=== PATIENT | female | born 1950 | race Two or more races ===

== ENCOUNTER 2017-11-15 19:16 | Inpatient (IN) | payer OTHER, MEDICARE ==
[~2017-11-15] VITALS: Ht 162.6 cm; Wt 71.3 kg
[2017-11-15 19:30] VITALS: BP 154/82
[2017-11-15] MEDS ORDERED: Albuterol/Ipratropium 3ml neb HHN ONE (19:45)
[2017-11-15] MEDS ORDERED: Solu-MEDROL 125mg Inj IVP ONE (20:00)
[2017-11-15 20:24] LABS: BASOPHILS % (AUTO) 0.3 % (0.0-2.0); EOSINOPHILS % (AUTO) 1.1 % (0.0-3.0); HEMATOCRIT 41.6 % (37.0-47.0); HEMOGLOBIN 12.7 G/DL (12.0-16.0); LYMPHOCYTES % (AUTO) 10.8 % (20.0-45.0); MEAN CORPUSCULAR VOLUME 79 FL (80-99); MONOCYTES % (AUTO) 5.7 % (1.0-10.0); NEUTROPHILS % (AUTO) 82.1 % (45.0-75.0); PLATELET COUNT 333 K/UL (150-450); RED BLOOD COUNT 5.28 M/UL (4.20-5.40); RED CELL DISTRIBUTION WIDTH 16.4 % (11.6-14.8); WHITE BLOOD COUNT 15.1 K/UL (4.8-10.8)
[2017-11-15 20:43] LABS: ANION GAP 3 mmol/L (5-15); BLOOD UREA NITROGEN 8 mg/dL (7-18); CALCIUM 9.2 MG/DL (8.5-10.1); CARBON DIOXIDE 34 MMOL/L (21-32); CHLORIDE 92 MMOL/L (98-107); CREATININE 0.5 MG/DL (0.55-1.30); POTASSIUM 5.4 MMOL/L (3.5-5.1); SODIUM 129 MMOL/L (136-145)
[2017-11-15 20:55] LABS: ALANINE AMINOTRANSFERASE 16 U/L (12-78); ALBUMIN 2.8 G/DL (3.4-5.0); ALBUMIN/GLOBULIN RATIO 0.8 (1.0-2.7); ALKALINE PHOSPHATASE 118 U/L (46-116); ASPARTATE AMINO TRANSFERASE 10 U/L (15-37); BILIRUBIN,TOTAL 0.5 MG/DL (0.2-1.0); CKMB 1.4 NG/ML (0.0-3.6); CREATINE KINASE 23 U/L (26-308); PHOSPHORUS 3.7 MG/DL (2.5-4.9)
[2017-11-15 21:30] VITALS: BP 173/88
[2017-11-15] MEDS ORDERED: Succinylcholine 20mg/ml 10ml vial IV ONE (22:45)
[2017-11-15] MEDS ORDERED: Albuterol/Ipratropium 3ml neb HHN PRN (22:45)
[2017-11-15] MEDS ORDERED: Calcium Gluconate 1gm/10ml vial IVP ONE (22:45)
[2017-11-15] MEDS ORDERED: Etomidate 40mg/20ml Inj IV ONE (22:45)
[2017-11-15] MEDS ORDERED: Morphine Sulfate 4mg/ml Inj IVP PRN (23:00)
[2017-11-15] MEDS ORDERED: Ampicillin/Sulbactam Sod 3 GM in NS 110 ML IVPB ONE (23:15)
[2017-11-15 23:30] VITALS: BP 125/83
[2017-11-15] MEDS ORDERED: Unasyn 3gm Inj ONE (23:45)
[2017-11-16] VITALS (37 sets, daily range): BP systolic 91–157; BP diastolic 40–111
[2017-11-16 04:34] LABS: HEMATOCRIT 34.3 % (37.0-47.0); HEMOGLOBIN 10.6 G/DL (12.0-16.0); MEAN CORPUSCULAR VOLUME 77 FL (80-99); PLATELET COUNT 209 K/UL (150-450); RED BLOOD COUNT 4.43 M/UL (4.20-5.40); RED CELL DISTRIBUTION WIDTH 16.1 % (11.6-14.8); WHITE BLOOD COUNT 6.1 K/UL (4.8-10.8)
[2017-11-16 04:58] LABS: ALANINE AMINOTRANSFERASE 10 U/L (12-78); ALBUMIN 2.2 G/DL (3.4-5.0); ALBUMIN/GLOBULIN RATIO 0.8 (1.0-2.7); ALKALINE PHOSPHATASE 89 U/L (46-116); ANION GAP 5 mmol/L (5-15); ASPARTATE AMINO TRANSFERASE 9 U/L (15-37); BILIRUBIN,TOTAL 0.5 MG/DL (0.2-1.0); BLOOD UREA NITROGEN 10 mg/dL (7-18); CALCIUM 8.4 MG/DL (8.5-10.1); CARBON DIOXIDE 34 MMOL/L (21-32); CHLORIDE 94 MMOL/L (98-107); CREATININE 0.5 MG/DL (0.55-1.30); PHOSPHORUS 3.6 MG/DL (2.5-4.9); POTASSIUM 4.1 MMOL/L (3.5-5.1); SODIUM 132 MMOL/L (136-145)
--- NOTE | 2017-11-16 06:09 | History and Physical ---
History of Present Illness General Date patient seen: Nov 16, 2017 Reason for Hospitalization: Dyspnea/Respdistress Present Illness HPI 67 year old female wtih hx of DM, htn, COPD brought in with paramedics in respiratory failure. Pt was diagnosed to have pulmonary edema, leukocytosis. She received Lasix and Unasyn in ER. She was intubated, started on Propofol drip and transferred to ICU. there is no other history available. Allergies: Coded Allergies: No Known Allergies (Unverified , 11/15/17) Medication History Unable to Obtain Active Prescriptions or Reported Meds Patient History Healthcare decision maker Resuscitation status Full Code Advanced Directive on File Past Medical/Surgical History Past Medical/Surgical History: (1) History of hypertension (2) Diabetes mellitus (3) COPD (chronic obstructive pulmonary disease) Review of Systems All Other Systems: negative except mentioned in HPI Physical Exam General Appearance: WD/WN Lines, tubes and drains: peripheral, endotracheal tube HEENT: normocephalic Neck: non-tender, normal alignment Respiratory/Chest: chest wall non-tender, lungs clear Breasts: no masses Cardiovascular/Chest: normal peripheral pulses Abdomen: normal bowel sounds, non tender Genitourinary/Rectal: normal rectal exam Extremities: normal range of motion Last 24 Hour Vital Signs Date Time Temp Pulse Resp B/P (MAP) Pulse Ox O2 Delivery O2 Flow Rate FiO2 11/16/17 05:09 81 16 40 11/16/17 05:00 20 11/16/17 04:00 81 11/16/17 04:00 98.6 81 15 104/40 96 Mechanical Ventilator 40 11/16/17 04:00 40 11/16/17 04:00 14 11/16/17 03:12 76 16 40 11/16/17 03:00 79 16 113/43 97 Mechanical Ventilator 40 11/16/17 03:00 16 11/16/17 02:00 76 14 123/41 96 Mechanical Ventilator 40 11/16/17 02:00 16 11/16/17 01:00 16 11/16/17 01:00 76 18 116/43 95 Mechanical Ventilator 40 11/16/17 00:58 76 16 40 11/16/17 00:00 97.7 82 18 132/60 99 Mechanical Ventilator 40 11/16/17 00:00 18 11/16/17 00:00 79 11/16/17 00:00 40 11/15/17 22:57 27 11/15/17 22:45 88 22 40 11/15/17 20:00 82 24 99 Facial 99 11/15/17 19:30 97.3 18 154/82 91 Room Air 11/15/17 19:30 84 18 Room Air 11/15/17 19:21 97.3 84 18 154/82 84 Room Air Intake and Output 11/15/17 11/16/17 19:00 07:00 Intake Total 30.94 ml Output Total 1230 ml Balance -1199.06 ml Intake Oral 0 ml IV Total 30.94 ml Output Urine Total 1230 ml Laboratory Tests Test 11/15/17 19:40 11/15/17 19:42 11/15/17 22:46 11/16/17 04:00 White Blood Count 15.1 K/UL (4.8-10.8) H 6.1 K/UL (4.8-10.8) # Red Blood Count 5.28 M/UL (4.20-5.40) 4.43 M/UL (4.20-5.40) Hemoglobin 12.7 G/DL (12.0-16.0) 10.6 G/DL (12.0-16.0) L Hematocrit 41.6 % (37.0-47.0) 34.3 % (37.0-47.0) L Mean Corpuscular Volume 79 FL (80-99) L 77 FL (80-99) L Mean Corpuscular Hemoglobin 24.1 PG (27.0-31.0) L 23.8 PG (27.0-31.0) L Mean Corpuscular Hemoglobin Concent 30.6 G/DL (32.0-36.0) L 30.8 G/DL (32.0-36.0) L Red Cell Distribution Width 16.4 % (11.6-14.8) H 16.1 % (11.6-14.8) H Platelet Count 333 K/UL (150-450) 209 K/UL (150-450) Mean Platelet Volume 6.2 FL (6.5-10.1) L 6.2 FL (6.5-10.1) L Neutrophils (%) (Auto) 82.1 % (45.0-75.0) H % (45.0-75.0) Lymphocytes (%) (Auto) 10.8 % (20.0-45.0) L % (20.0-45.0) Monocytes (%) (Auto) 5.7 % (1.0-10.0) % (1.0-10.0) Eosinophils (%) (Auto) 1.1 % (0.0-3.0) % (0.0-3.0) Basophils (%) (Auto) 0.3 % (0.0-2.0) % (0.0-2.0) Sodium Level 129 MMOL/L (136-145) L 132 MMOL/L (136-145) L Potassium Level 5.4 MMOL/L (3.5-5.1) H 4.1 MMOL/L (3.5-5.1) Chloride Level 92 MMOL/L (98-107) L 94 MMOL/L (98-107) L Carbon Dioxide Level 34 MMOL/L (21-32) H 34 MMOL/L (21-32) H Anion Gap 3 mmol/L (5-15) L 5 mmol/L (5-15) Blood Urea Nitrogen 8 mg/dL (7-18) 10 mg/dL (7-18) Creatinine 0.5 MG/DL (0.55-1.30) L 0.5 MG/DL (0.55-1.30) L Estimat Glomerular Filtration Rate > 60 mL/min (>60) > 60 mL/min (>60) Glucose Level 181 MG/DL (74-106) H 226 MG/DL (74-106) H Lactic Acid Level 1.10 mmol/L (0.66-2.22) Calcium Level 9.2 MG/DL (8.5-10.1) 8.4 MG/DL (8.5-10.1) L Phosphorus Level 3.7 MG/DL (2.5-4.9) 3.6 MG/DL (2.5-4.9) Magnesium Level 1.9 MG/DL (1.8-2.4) 1.5 MG/DL (1.8-2.4) L Total Bilirubin 0.5 MG/DL (0.2-1.0) 0.5 MG/DL (0.2-1.0) Aspartate Amino Transf (AST/SGOT) 10 U/L (15-37) L 9 U/L (15-37) L Alanine Aminotransferase (ALT/SGPT) 16 U/L (12-78) 10 U/L (12-78) L Alkaline Phosphatase 118 U/L (46-116) H 89 U/L (46-116) Total Creatine Kinase 23 U/L (26-308) L Creatine Kinase MB 1.4 NG/ML (0.0-3.6) Creatine Kinase MB Relative Index 6.0 Troponin I 0.003 ng/mL (0.000-0.056) 0.007 ng/mL (0.000-0.056) Pro-B-Type Natriuretic Peptide 677 pg/mL (0-125) H Total Protein 6.5 G/DL (6.4-8.2) 5.0 G/DL (6.4-8.2) L Albumin 2.8 G/DL (3.4-5.0) L 2.2 G/DL (3.4-5.0) L Globulin 3.7 g/dL 2.8 g/dL Albumin/Globulin Ratio 0.8 (1.0-2.7) L 0.8 (1.0-2.7) L Arterial Blood pH 7.263 (7.350-7.450) 7.329 (7.350-7.450) Arterial Blood Partial Pressure CO2 73.1 mmHg (35.0-45.0) *H 60.5 mmHg (35.0-45.0) *H Arterial Blood Partial Pressure O2 148.0 mmHg (75.0-100.0) H 100.4 mmHg (75.0-100.0) H Arterial Blood HCO3 32.3 mmol/L (22.0-26.0) H 31.1 mmol/L (22.0-26.0) H Arterial Blood Oxygen Saturation 98.2 % (92.0-98.0) H 96.6 % (92.0-98.0) Arterial Blood Base Excess 3.3 3.7 Rolf Test Positive Positive Differential Total Cells Counted 100 Neutrophils % (Manual) 89 % (45-75) H Lymphocytes % (Manual) 10 % (20-45) L Monocytes % (Manual) 1 % (1-10) Eosinophils % (Manual) 0 % (0-3) Basophils % (Manual) 0 % (0-2) Band Neutrophils 0 % (0-8) Platelet Estimate Adequate Platelet Morphology Normal Height (Feet): 5 Height (Inches): 4.00 Weight (Pounds): 175 Medications Current Medications Medications (Trade) Dose Ordered Sig/Edwin Route PRN Reason Start Time Stop Time Status Last Admin Dose Admin Acetaminophen (Tylenol) 650 mg Q4H PRN ORAL Fever 11/15/17 22:45 12/15/17 22:44 Albuterol/ Ipratropium (Albuterol/ Ipratropium) 3 ml Q4H PRN HHN Shortness of Breath 11/15/17 22:45 11/20/17 22:44 Dextrose (Dextrose 50%) STAT PRN IV Hypoglycemia 11/15/17 22:45 12/15/17 22:44 Furosemide (Lasix) 40 mg EVERY 8 HOURS IV 11/15/17 22:33 12/15/17 22:32 11/16/17 05:37 Heparin Sodium (Porcine) (Heparin 5000 units/ml) 5,000 units EVERY 12 HOURS SUBQ 11/16/17 09:00 12/16/17 08:59 Lorazepam (Ativan 2mg/ml 1ml) 2 mg Q4H PRN IV For Anxiety 11/15/17 23:00 11/22/17 22:59 Morphine Sulfate (Morphine Sulfate) 4 mg Q4H PRN IVP For Pain 11/15/17 23:00 11/22/17 22:59 Ondansetron HCl (Zofran) 4 mg Q6H PRN IVP Nausea & Vomiting 11/15/17 22:45 12/15/17 22:44 Pantoprazole (Protonix) 40 mg DAILY IV 11/16/17 09:00 12/16/17 08:59 Polyethylene Glycol (Miralax) 17 gm DAILYPRN PRN ORAL Constipation 11/15/17 22:45 12/15/17 22:44 Propofol 100 ml @ 0 mls/hr Q24H IV 11/15/17 22:45 11/17/17 22:44 11/15/17 22:57 Temazepam (Restoril) 15 mg HSPRN PRN ORAL Insomnia 11/15/17 22:45 11/22/17 22:44 Assessment/Plan Problem List: (1) Acute respiratory failure ICD Codes: J96.00 - Acute respiratory failure, unspecified whether with hypoxia or hypercapnia SNOMED: 82174640 (2) Pulmonary edema ICD Codes: J81.1 - Chronic pulmonary edema SNOMED: 69499959 (3) Pleural effusion ICD Codes: J90 - Pleural effusion, not elsewhere classified SNOMED: 74240846 (4) COPD (chronic obstructive pulmonary disease) ICD Codes: J44.9 - Chronic obstructive pulmonary disease, unspecified SNOMED: 73727800 (5) History of hypertension ICD Codes: Z86.79 - Personal history of other diseases of the circulatory system SNOMED: 821335788 (6) Diabetes mellitus ICD Codes: E11.9 - Type 2 diabetes mellitus without complications SNOMED: 79007608 Respiratory: monitor respiratory rate, adjust FIO2, CXR Cardiac: continue to monitor HR/BP Renal: F/U I&O, keep IV fluid Infectious Disease: check cultures Gastrointestinal: continue feedings/current rate Endocrine: monitor blood sugar, continue sliding scale insulin Hematologic: monitor H/H, transfuse if hgb<8.5 Affect: PRN ativan Prophylaxis: Protonix, Heparin 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
[2017-11-16] MEDS: NovoLOG Insulin Flexpen SUBQ SCH ×4 (06:28→23:47)
[2017-11-16] MEDS ORDERED: fentaNYL Citrate 2,500 MCG in NS 200 ML IV SCH (06:30)
[2017-11-16] MEDS: LORazepam Inj 2mg/ml 1ml IV PRN ×3 (07:30→21:44)
[2017-11-16] MEDS: Pantoprazole Inj IV SCH (08:26)
[2017-11-16] MEDS: Heparin 5000 units/ml inj SUBQ SCH ×2 (08:27→21:17)
[2017-11-16] MEDS: Piperacillin/Tazobactam 3.375 GM in NS 110 ML IVPB SCH ×2 (08:58→15:23)
--- NOTE | 2017-11-16 11:17 | Diagnostic Imaging Report ---
Indication: Shortness of breath Technique: XRAY Chest 1v Comparison: None Findings: Heart borders are obscured. There is bilateral interstitial opacification/edema. There is patchy airspace opacities bilaterally, right greater than left. Small bilateral pleural effusions with bibasilar atelectasis/consolidation. No definite pneumothorax. No acute osseous abnormality appreciated. IMPRESSION: Interstitial and bilateral airspace opacities with small bilateral pleural effusions. Findings may be related to CHF/pulmonary edema. Superimposed pneumonia not entirely excluded. Clinical correlation and follow-up exam recommended.
--- NOTE | 2017-11-16 11:53 | Diagnostic Imaging Report ---
Indication: Shortness of breath Technique: XRAY Chest 1v Comparison: Earlier the same day. Findings: Patient significantly rotated to the left. Status post interval endotracheal intubation. ET tube tip above the vinicius. There is persistent interstitial and patchy bilateral airspace opacities with probable small bilateral pleural effusions. Apparent worsening of findings on the right likely related to rotation. IMPRESSION: Status post endotracheal intubation. ET tube tip above the level of the vinicius. Additional findings without significant change compared to the prior exam.
--- NOTE | 2017-11-16 11:54 | Diagnostic Imaging Report ---
Indication: Shortness of breath Technique: XRAY Chest 1v Comparison: 11/15/2017 Findings: ET tube tip above the level the vinicius. Interval placement of NG tube, which courses below level of diaphragms, tip beyond the inferior margin of the film. Heart and mediastinal contours are obscured but likely stable. Persistent interstitial opacification and patchy bilateral airspace opacities with slight worsening of aeration of the right base. Probable small bilateral pleural effusions. No definite pneumothorax. IMPRESSION: Persistent interstitial and patchy bilateral airspace opacities with pleural effusions, right greater than left. Slight worsening of aeration of the right lower lung compared to one day prior. Interval placement of NG tube which courses below level of diaphragms, tip beyond the inferior margin of the study.
--- NOTE | 2017-11-16 13:05 | Emergency Room Report ---
History of Present Illness General Chief Complaint: Dyspnea/Respdistress Source: Patient Present Illness HPI Patient is a 67 year old female who presented after increased difficulty breathing. Patient had reportedly been ill for several days. She was noted to have increased difficulty with breathing and cough which was non productive. She had prior history of COPD. She was noted to be somewhat confused. Hx is markedly limited by shortness of breath and mental status. Allergies: Coded Allergies: No Known Allergies (Unverified , 11/15/17) Patient History Now: No Reviewed Nursing Documentation: PMH: Agreed, PSxH: Agreed Nursing Documentation-PMH Past Medical History Deferred: Patient Unconscious Hx Hypertension: Yes Hx COPD: Yes Hx Diabetes: Yes Hx Cancer: No Hx Gastrointestinal Problems: No Hx Neurological Problems: No Review of Systems All Other Systems: limited - by mental status and shortness of breath Physical Exam Vital Signs Date Time Temp Pulse Resp B/P (MAP) Pulse Ox O2 Delivery O2 Flow Rate FiO2 11/15/17 19:21 97.3 84 18 154/82 84 Room Air 11/15/17 20:00 99 Sp02 EP Interpretation: abnormal - hypoxic General Appearance: alert, severe distress, Chronically Ill ENT: TMs + canals normal, uvula midline, other - dentures Neck: limited range of motion, other - jvd Respiratory: respiratory distress, accessory muscle use, rales Cardiovascular #1: normal peripheral pulses, regular rate, rhythm Gastrointestinal: non tender, hernia - umbilical hernia, other Musculoskeletal: normal inspection, back normal, digits/nails normal Neurologic: mental hygienist III-XII nml as tested, motor strength/tone normal, other - awake alert confused, moves all extremities Psychiatric: other - poor insight, confused Skin: cyanosis Procedures Critical Care Time Critical Care Time Critical care time excluding separately billed procedures was approximately 45 minutes. Intubation Intubation : Consent: Emergent Intubation Method: orotracheal Tube Size (cm): 7.0 Medications: Etomidate, Succinylcholine Breath Sounds after Intubation: equal Intubation Complications: no complications Post Intubation Xray: Yes Progress/Xray Impression: CXR showed low but adequate ett and worsening pulmonary edema Attempts: One Patient Tolerated: Well Complications: None Progress Dentures were removed. Rn advised to keep with patient belonging. Medical Decision Making Diagnostic Impression: Primary Impression: COPD (chronic obstructive pulmonary disease) Additional Impressions: Acute respiratory failure Diabetes mellitus Pulmonary edema ER Course Patient presented for shortness of breath. Differential diagnosis included but was not limited to COPD exacerbation, pneumonia, influenza, ARDS, CHF among others. Because of patient complexity laboratory and imaging studies were ordered. Patient was noted to be markedly short of breath. She was initially started on trial of BIPAP. Patient was noted to have some improvement but became somewhat more confused and began taking off her mask. Patient dentures were removed and patient was subsequently intubated due to respiratory failure. Patient tolerated intubation well. Dr. Isbell was contacted for inpatient management due to capitated physician. Laboratory Tests Test 11/15/17 19:40 11/15/17 19:42 11/15/17 22:46 11/16/17 04:00 White Blood Count 15.1 K/UL (4.8-10.8) H 6.1 K/UL (4.8-10.8) # Red Blood Count 5.28 M/UL (4.20-5.40) 4.43 M/UL (4.20-5.40) Hemoglobin 12.7 G/DL (12.0-16.0) 10.6 G/DL (12.0-16.0) L Hematocrit 41.6 % (37.0-47.0) 34.3 % (37.0-47.0) L Mean Corpuscular Volume 79 FL (80-99) L 77 FL (80-99) L Mean Corpuscular Hemoglobin 24.1 PG (27.0-31.0) L 23.8 PG (27.0-31.0) L Mean Corpuscular Hemoglobin Concent 30.6 G/DL (32.0-36.0) L 30.8 G/DL (32.0-36.0) L Red Cell Distribution Width 16.4 % (11.6-14.8) H 16.1 % (11.6-14.8) H Platelet Count 333 K/UL (150-450) 209 K/UL (150-450) Mean Platelet Volume 6.2 FL (6.5-10.1) L 6.2 FL (6.5-10.1) L Neutrophils (%) (Auto) 82.1 % (45.0-75.0) H % (45.0-75.0) Lymphocytes (%) (Auto) 10.8 % (20.0-45.0) L % (20.0-45.0) Monocytes (%) (Auto) 5.7 % (1.0-10.0) % (1.0-10.0) Eosinophils (%) (Auto) 1.1 % (0.0-3.0) % (0.0-3.0) Basophils (%) (Auto) 0.3 % (0.0-2.0) % (0.0-2.0) Sodium Level 129 MMOL/L (136-145) L 132 MMOL/L (136-145) L Potassium Level 5.4 MMOL/L (3.5-5.1) H 4.1 MMOL/L (3.5-5.1) Chloride Level 92 MMOL/L (98-107) L 94 MMOL/L (98-107) L Carbon Dioxide Level 34 MMOL/L (21-32) H 34 MMOL/L (21-32) H Anion Gap 3 mmol/L (5-15) L 5 mmol/L (5-15) Blood Urea Nitrogen 8 mg/dL (7-18) 10 mg/dL (7-18) Creatinine 0.5 MG/DL (0.55-1.30) L 0.5 MG/DL (0.55-1.30) L Estimate Glomerular Filtration Rate > 60 mL/min (>60) > 60 mL/min (>60) Glucose Level 181 MG/DL (74-106) H 226 MG/DL (74-106) H Lactic Acid Level 1.10 mmol/L (0.66-2.22) Calcium Level 9.2 MG/DL (8.5-10.1) 8.4 MG/DL (8.5-10.1) L Phosphorus Level 3.7 MG/DL (2.5-4.9) 3.6 MG/DL (2.5-4.9) Magnesium Level 1.9 MG/DL (1.8-2.4) 1.5 MG/DL (1.8-2.4) L Total Bilirubin 0.5 MG/DL (0.2-1.0) 0.5 MG/DL (0.2-1.0) Aspartate Amino Transferase (AST) 10 U/L (15-37) L 9 U/L (15-37) L Alanine Aminotransferase (ALT) 16 U/L (12-78) 10 U/L (12-78) L Alkaline Phosphatase 118 U/L (46-116) H 89 U/L (46-116) Total Creatine Kinase 23 U/L (26-308) L Creatine Kinase MB 1.4 NG/ML (0.0-3.6) Creatine Kinase MB Relative Index 6.0 Troponin I 0.003 ng/mL (0.000-0.056) 0.007 ng/mL (0.000-0.056) Pro-B-Type Natriuretic Peptide 677 pg/mL (0-125) H Total Protein 6.5 G/DL (6.4-8.2) 5.0 G/DL (6.4-8.2) L Albumin 2.8 G/DL (3.4-5.0) L 2.2 G/DL (3.4-5.0) L Globulin 3.7 g/dL 2.8 g/dL Albumin/Globulin Ratio 0.8 (1.0-2.7) L 0.8 (1.0-2.7) L Arterial Blood pH 7.263 (7.350-7.450) 7.329 (7.350-7.450) 7.460 (7.350-7.450) Arterial Blood Partial Pressure CO2 73.1 mmHg (35.0-45.0) *H 60.5 mmHg (35.0-45.0) *H 48.7 mmHg (35.0-45.0) H Arterial Blood Partial Pressure O2 148.0 mmHg (75.0-100.0) H 100.4 mmHg (75.0-100.0) H 75.6 mmHg (75.0-100.0) Arterial Blood HCO3 32.3 mmol/L (22.0-26.0) H 31.1 mmol/L (22.0-26.0) H 33.9 mmol/L (22.0-26.0) H Arterial Blood Oxygen Saturation 98.2 % (92.0-98.0) H 96.6 % (92.0-98.0) 94.6 % (92.0-98.0) Arterial Blood Base Excess 3.3 3.7 8.8 Rolf Test Positive Positive Positive Differential Total Cells Counted 100 Neutrophils % (Manual) 89 % (45-75) H Lymphocytes % (Manual) 10 % (20-45) L Monocytes % (Manual) 1 % (1-10) Eosinophils % (Manual) 0 % (0-3) Basophils % (Manual) 0 % (0-2) Band Neutrophils 0 % (0-8) Platelet Estimate Adequate Platelet Morphology Normal Last Vital Signs Date Time Temp Pulse Resp B/P (MAP) Pulse Ox O2 Delivery O2 Flow Rate FiO2 11/16/17 12:32 84 16 40 11/16/17 11:00 125/46 96 Mechanical Ventilator 11/16/17 08:00 98.5 Status: improved Disposition: ADMITTED INPATIENT Condition: Critical Scripts Unable to Obtain Active Prescriptions or Reported Meds Referrals: NOT CHOSEN IPA/,REFERRING (PCP) Get Anderson Nov 16, 2017 13:05
--- NOTE | 2017-11-16 13:21 | Consultation ---
Consult Note Consult Note ID DIC # [id number] MARY ALICE MORALES M.D. Nov 16, 2017 13:21
[2017-11-16] MEDS ORDERED: Tubing IV Secondary IV ONE (15:35)
--- NOTE | 2017-11-16 15:50 | Cardiology Progress Note ---
Assessment/Plan Assessment/Plan respir fialure copd htn dm bialteerl pulm infiltrrate echo rpelim noted will need ekg trop norlml pro bnp normal exma not suggestive of chf will follow [id number] Objective Last 24 Hour Vital Signs Date Time Temp Pulse Resp B/P (MAP) Pulse Ox O2 Delivery O2 Flow Rate FiO2 11/16/17 15:00 100 21 145/111 94 Mechanical Ventilator 40 11/16/17 14:30 94 18 40 11/16/17 13:00 85 16 137/49 94 Mechanical Ventilator 40 11/16/17 12:32 84 16 40 11/16/17 12:00 98.5 83 16 134/46 94 Mechanical Ventilator 40 11/16/17 12:00 40 11/16/17 12:00 86 11/16/17 11:00 84 17 125/46 96 Mechanical Ventilator 40 11/16/17 11:00 17 11/16/17 10:45 84 17 143/50 96 Mechanical Ventilator 40 11/16/17 10:33 84 16 40 11/16/17 10:30 86 17 123/49 96 Mechanical Ventilator 40 11/16/17 10:15 84 17 107/44 95 Mechanical Ventilator 40 11/16/17 10:00 84 18 121/45 95 Mechanical Ventilator 40 11/16/17 10:00 18 11/16/17 09:45 87 18 110/46 95 Mechanical Ventilator 40 11/16/17 09:30 86 15 134/53 95 Mechanical Ventilator 40 11/16/17 09:15 85 14 114/46 96 Mechanical Ventilator 40 11/16/17 09:00 15 11/16/17 09:00 84 15 113/45 96 Mechanical Ventilator 40 11/16/17 08:45 86 15 118/46 96 Mechanical Ventilator 40 11/16/17 08:42 90 16 40 11/16/17 08:30 88 18 118/47 96 Mechanical Ventilator 40 11/16/17 08:15 88 18 118/47 97 Mechanical Ventilator 40 11/16/17 08:00 40 11/16/17 08:00 88 11/16/17 08:00 98.5 88 17 143/55 97 Mechanical Ventilator 40 11/16/17 08:00 17 11/16/17 07:45 89 18 134/47 96 Mechanical Ventilator 40 11/16/17 07:30 88 17 138/48 97 Mechanical Ventilator 40 11/16/17 07:15 87 16 120/43 96 Mechanical Ventilator 40 11/16/17 07:08 81 17 40 11/16/17 07:00 17 11/16/17 07:00 83 16 120/43 96 Mechanical Ventilator 40 11/16/17 06:30 84 16 122/40 96 Mechanical Ventilator 40 11/16/17 06:00 84 17 108/44 97 Mechanical Ventilator 40 11/16/17 06:00 16 11/16/17 05:30 87 17 148/57 97 Mechanical Ventilator 40 11/16/17 05:09 81 16 40 11/16/17 05:00 20 11/16/17 05:00 81 16 138/68 96 Mechanical Ventilator 40 11/16/17 04:30 81 14 118/43 96 Mechanical Ventilator 40 11/16/17 04:00 81 11/16/17 04:00 98.6 81 15 104/40 96 Mechanical Ventilator 40 11/16/17 04:00 40 11/16/17 04:00 14 11/16/17 03:12 76 16 40 11/16/17 03:00 79 16 113/43 97 Mechanical Ventilator 40 11/16/17 03:00 16 11/16/17 02:00 76 14 123/41 96 Mechanical Ventilator 40 11/16/17 02:00 16 11/16/17 01:00 16 11/16/17 01:00 76 18 116/43 95 Mechanical Ventilator 40 11/16/17 00:58 76 16 40 11/16/17 00:05 97.7 75 18 101/59 98 Mechanical Ventilator 40 11/16/17 00:00 97.7 82 18 132/60 99 Mechanical Ventilator 40 11/16/17 00:00 18 11/16/17 00:00 79 11/16/17 00:00 75 16 101/59 98 Mechanical Ventilator 11/16/17 00:00 40 11/15/17 23:30 77 16 125/83 97 Mechanical Ventilator 11/15/17 22:57 27 11/15/17 22:45 88 22 40 11/15/17 21:30 85 26 173/88 94 Room Air 11/15/17 20:00 82 24 99 Facial 99 11/15/17 19:30 97.3 18 154/82 91 Room Air 11/15/17 19:30 84 18 Room Air 11/15/17 19:21 97.3 84 18 154/82 84 Room Air Intake and Output 11/15/17 11/16/17 19:00 07:00 Intake Total 42.84 ml Output Total 1815 ml Balance -1772.16 ml Intake Oral 0 ml IV Total 42.84 ml Output Urine Total 1815 ml Laboratory Tests Test 11/15/17 19:40 11/15/17 19:42 11/15/17 22:46 11/16/17 04:00 White Blood Count 15.1 K/UL (4.8-10.8) H 6.1 K/UL (4.8-10.8) # Red Blood Count 5.28 M/UL (4.20-5.40) 4.43 M/UL (4.20-5.40) Hemoglobin 12.7 G/DL (12.0-16.0) 10.6 G/DL (12.0-16.0) L Hematocrit 41.6 % (37.0-47.0) 34.3 % (37.0-47.0) L Mean Corpuscular Volume 79 FL (80-99) L 77 FL (80-99) L Mean Corpuscular Hemoglobin 24.1 PG (27.0-31.0) L 23.8 PG (27.0-31.0) L Mean Corpuscular Hemoglobin Concent 30.6 G/DL (32.0-36.0) L 30.8 G/DL (32.0-36.0) L Red Cell Distribution Width 16.4 % (11.6-14.8) H 16.1 % (11.6-14.8) H Platelet Count 333 K/UL (150-450) 209 K/UL (150-450) Mean Platelet Volume 6.2 FL (6.5-10.1) L 6.2 FL (6.5-10.1) L Neutrophils (%) (Auto) 82.1 % (45.0-75.0) H % (45.0-75.0) Lymphocytes (%) (Auto) 10.8 % (20.0-45.0) L % (20.0-45.0) Monocytes (%) (Auto) 5.7 % (1.0-10.0) % (1.0-10.0) Eosinophils (%) (Auto) 1.1 % (0.0-3.0) % (0.0-3.0) Basophils (%) (Auto) 0.3 % (0.0-2.0) % (0.0-2.0) Sodium Level 129 MMOL/L (136-145) L 132 MMOL/L (136-145) L Potassium Level 5.4 MMOL/L (3.5-5.1) H 4.1 MMOL/L (3.5-5.1) Chloride Level 92 MMOL/L (98-107) L 94 MMOL/L (98-107) L Carbon Dioxide Level 34 MMOL/L (21-32) H 34 MMOL/L (21-32) H Anion Gap 3 mmol/L (5-15) L 5 mmol/L (5-15) Blood Urea Nitrogen 8 mg/dL (7-18) 10 mg/dL (7-18) Creatinine 0.5 MG/DL (0.55-1.30) L 0.5 MG/DL (0.55-1.30) L Estimat Glomerular Filtration Rate > 60 mL/min (>60) > 60 mL/min (>60) Glucose Level 181 MG/DL (74-106) H 226 MG/DL (74-106) H Lactic Acid Level 1.10 mmol/L (0.66-2.22) Calcium Level 9.2 MG/DL (8.5-10.1) 8.4 MG/DL (8.5-10.1) L Phosphorus Level 3.7 MG/DL (2.5-4.9) 3.6 MG/DL (2.5-4.9) Magnesium Level 1.9 MG/DL (1.8-2.4) 1.5 MG/DL (1.8-2.4) L Total Bilirubin 0.5 MG/DL (0.2-1.0) 0.5 MG/DL (0.2-1.0) Aspartate Amino Transf (AST/SGOT) 10 U/L (15-37) L 9 U/L (15-37) L Alanine Aminotransferase (ALT/SGPT) 16 U/L (12-78) 10 U/L (12-78) L Alkaline Phosphatase 118 U/L (46-116) H 89 U/L (46-116) Total Creatine Kinase 23 U/L (26-308) L Creatine Kinase MB 1.4 NG/ML (0.0-3.6) Creatine Kinase MB Relative Index 6.0 Troponin I 0.003 ng/mL (0.000-0.056) 0.007 ng/mL (0.000-0.056) Pro-B-Type Natriuretic Peptide 677 pg/mL (0-125) H Total Protein 6.5 G/DL (6.4-8.2) 5.0 G/DL (6.4-8.2) L Albumin 2.8 G/DL (3.4-5.0) L 2.2 G/DL (3.4-5.0) L Globulin 3.7 g/dL 2.8 g/dL Albumin/Globulin Ratio 0.8 (1.0-2.7) L 0.8 (1.0-2.7) L Arterial Blood pH 7.263 (7.350-7.450) 7.329 (7.350-7.450) 7.460 (7.350-7.450) Arterial Blood Partial Pressure CO2 73.1 mmHg (35.0-45.0) *H 60.5 mmHg (35.0-45.0) *H 48.7 mmHg (35.0-45.0) H Arterial Blood Partial Pressure O2 148.0 mmHg (75.0-100.0) H 100.4 mmHg (75.0-100.0) H 75.6 mmHg (75.0-100.0) Arterial Blood HCO3 32.3 mmol/L (22.0-26.0) H 31.1 mmol/L (22.0-26.0) H 33.9 mmol/L (22.0-26.0) H Arterial Blood Oxygen Saturation 98.2 % (92.0-98.0) H 96.6 % (92.0-98.0) 94.6 % (92.0-98.0) Arterial Blood Base Excess 3.3 3.7 8.8 Rolf Test Positive Positive Positive Differential Total Cells Counted 100 Neutrophils % (Manual) 89 % (45-75) H Lymphocytes % (Manual) 10 % (20-45) L Monocytes % (Manual) 1 % (1-10) Eosinophils % (Manual) 0 % (0-3) Basophils % (Manual) 0 % (0-2) Band Neutrophils 0 % (0-8) Platelet Estimate Adequate Platelet Morphology Normal Legionella pneumophila Group 1 Ab Pending Legionella pneumophilia IgM Group 1 Pending Microbiology Date/Time Source Procedure Growth Status 11/16/17 14:00 Nasopharynx Influenza Types A,B Antigen ([facility]) - Final Complete CALIN HAWKINS Nov 16, 2017 15:50
--- NOTE | 2017-11-16 17:45 | History and Physical Report ---
DATE OF ADMISSION: 11/16/2017 TIME SEEN: 9 a.m. SALES TEACHER: Julio Cesar Isbell M.D. CHIEF COMPLAINT: Shortness of breath, respiratory failure, and chronic obstructive pulmonary disease exacerbation. BRIEF HISTORY: This is a 67-year-old female, who came in very short of breath. Shortly after, was in failure. The patient was intubated and admitted to intensive care unit for further care. Currently, calm, intubated, sedated, and lethargic in intensive care unit. PAST MEDICAL HISTORY: Hypertension, diabetes, chronic obstructive pulmonary disease, and pleural effusion. PAST SURGICAL HISTORY: Unknown. MEDICATIONS: Heparin, pantoprazole, Zosyn, insulin, Fentanyl, Ativan, morphine, propofol, albuterol, Zofran, MiraLAX, Tylenol, and Restoril. ALLERGIES: Denies. SOCIAL HISTORY: Unable to obtain secondary to the patient's condition. REVIEW OF SYSTEMS: Unavailable. PHYSICAL EXAMINATION: GENERAL: Lethargic in bed, intubated, and sedated in the intensive care unit. VITAL SIGNS: Temperature is 98, pulse 84, respirations 15, and blood pressure 113/45. CARDIOVASCULAR: No murmurs. LUNGS: Poor air exchange. ABDOMEN: Bowel sounds positive and distant. EXTREMITIES: Show no cyanosis, clubbing, or edema. NEUROLOGIC: The patient is flaccid in bed, not responding to commands. LABORATORY DATA: Labs at this time show initially white count of 13 now down to 6.1, hemoglobin and hematocrit is 10 and 34, and platelets 209,000. BMP shows sodium 132, chloride 94, CO2 34, creatinine 0.5, glucose 226, troponin 0.007, and albumin 2.2. ASSESSMENT: 1. Respiratory failure. 2. Chronic obstructive pulmonary disease exacerbation. 3. Anemia. 4. Hypertension. 5. Diabetes. 6. Shortness of breath. 7. Hypoalbuminemia. 8. Pleural effusion. PLAN: 1. Vent per Pulmonary. 2. Antibiotics per Infectious Disease. 3. Blood pressure and blood sugar control. 4. CBC and BMP in the morning. 5. We will continue to follow this patient medically. Delroy Covington D.O. DR: WEST JOB#: [id number] CC:
[2017-11-16] MEDS ORDERED: fentaNYL Citrate 1000 MCG in NS 100ml IV SCH (21:15)
--- NOTE | 2017-11-16 23:32 | Consultation ---
DATE OF CONSULTATION: 11/16/2017 INFECTIOUS DISEASES CONSULTATION CONSULTING PHYSICIAN: Rafael Paredes M.D. REQUESTING PHYSICIAN: Julio Cesar Isbell M.D. REASON FOR CONSULTATION: Evaluation of the patient for COPD exacerbation, pneumonia, and antibiotic management. HISTORY OF PRESENT ILLNESS: The patient is a 67-year-old female with multiple medical problems who was admitted to this medical center due to respiratory failure. The patient had to be intubated in the emergency room and the patient was admitted to the ICU. The patient was found to have leukocytosis at the time of admission. Chest x-ray shows bilateral airspace disease with pleural effusion. Infectious Diseases consultation has been requested for evaluation of the patient and antibiotic management. PAST MEDICAL HISTORY: 1. Hypertension. 2. Chronic obstructive pulmonary disease. 3. Diabetes. MEDICATIONS: Zosyn. ALLERGIES: No known drug allergies. SOCIAL HISTORY: The patient lives at home. FAMILY HISTORY: Not available. REVIEW OF SYSTEMS: Unobtainable. PHYSICAL EXAMINATION: VITAL SIGNS: Temperature 98.5 degrees, blood pressure 134/46, pulse 86, respiratory rate 18. HEENT: No pale conjunctivae. No icterus. NECK: No lymphadenopathy.. CHEST: Coarse breathing sounds. HEART: S1, S2. ABDOMEN: Soft and obese. Umbilical hernia present. EXTREMITIES: No cyanosis. NEUROLOGIC: Sedated. LABORATORY DATA: White blood cells , white blood cells now is 6.1, hemoglobin 10, platelets 209. BUN 10, creatinine 0.5. ALT, AST, and alkaline phosphatase unremarkable. Chest x-ray on 11/16/2017 showed patchy interstitial airspace disease. ASSESSMENT: The patient is a 67-year-old female with: 1. Chronic obstructive pulmonary disease exacerbation. 2. Community-acquired pneumonia/aspiration pneumonia. 3. Status post leukocytosis. 4. Rule out influenza. 5. Rule out Legionella. 6. Ventilator-dependent respiratory failure. PLAN: 1. We will continue the patient on Zosyn and add Levaquin. 2. Check rapid influenza test. 3. Blood culture, urine culture, and sputum culture. 4. Legionella antibody/urine antigen. 5. Monitor chest x-ray. 6. Based on the patient's clinical course and laboratories, we will do further recommendations. Thank you, Dr. Isbell, for allowing me to participate in the care of this patient. I will follow the patient with you during this hospitalization. Rafael Paredes M.D. DR: Jenny JOB#: [id number] CC:
[2017-11-17] VITALS (24 sets, daily range): BP systolic 93–136; BP diastolic 52–85
[2017-11-17] MEDS: Piperacillin/Tazobactam 3.375 GM in NS 110 ML IVPB SCH ×4 (00:01→23:37)
--- NOTE | 2017-11-17 02:15 | Consultation ---
DATE OF CONSULTATION: 11/16/2017 CARDIOLOGY CONSULTATION CONSULTING PHYSICIAN: Manny Warren M.D. REFERRING PHYSICIAN: Julio Cesar Isbell M.D. REASON FOR REFERRAL: Respiratory failure. HISTORY OF PRESENT ILLNESS: This is a very unfortunate elderly female, who is not able to provide any meaningful history. Information therefore is obtained from review of the patient's chart. The patient was admitted to the hospital on 11/15/2017. The emergency room physician indicated the patient has had difficulty breathing for several days and cough, which apparently was nonproductive. She had a history of prior COPD and became confused and was brought to the emergency room. Really no other detailed information is available at the present time. PAST MEDICAL HISTORY: The patient's past medical history may be positive for diabetes as I understand, but this is really not clear. There is also history of high blood pressure and COPD as well. ALLERGIES: Reportedly negative. SOCIAL HISTORY: Really unknown. REVIEW OF SYSTEMS: Unable to obtain. PHYSICAL EXAMINATION: GENERAL: Shows to be an elderly female, on a mechanical ventilator at the present time. VITAL SIGNS: Blood pressure 125/46 to 137/49, heart rates in the 80s to 100, and temperature 98.5 degrees. NECK: Supple. No jugular venous distention. LUNGS: Do not appear to show any wheezes or crackles. CARDIAC: Regular rate and rhythm. No heaves, thrills, or gallops noted. ABDOMEN: Soft and nontender. Positive bowel sounds. EXTREMITIES: There is no clubbing, cyanosis, nor is there any edema. NEUROLOGICAL: She is arousable, on a ventilator. LABORATORY AND DIAGNOSTIC DATA: White count is 6.1, down from 15.1, hemoglobin of 10.6, down from 12.6, and a platelet count of 209,000. She has 89 polys, 10 lymphs. Her blood gases, pH of 7.46, pCO2 of 49, pO2 of 75, and bicarbonate of 34. She has been acidotic at the time of presentation with pH of 7.26 with a pCO2 of 73. Her sodium is 132, potassium 4.1, chloride 94, bicarbonate 34, BUN 20, creatinine 0.5, and a glucose of 226. Lactic acid of 1.1. Two sets of cardiac enzymes, both are negative. Magnesium of 1.5. AST and ALT are within normal limits with an albumin of 2.2. The influenza A and B were negative on rapid screen. A chest x-ray has been performed on a daily basis. Initially, it showed interstitial and bilateral airspace opacities and small pleural effusions and felt to be possibly CHF or pulmonary edema. Possibility of pneumonia was not ruled out and most recent chest x-ray from today shows persistent interstitial and bilateral patchy airspace opacities with pleural effusions with right greater than left, slight worsening of the aeration of the right lung was noted on the chest x-ray. The patient has had a venous duplex study, shows no evidence of thrombus. An echocardiogram has been performed that shows an ejection fraction of 60% to 65%. Unfortunately, there is no EKG for me to review in the chart at this time. Of note, her Pro-BNP was only 677 at the time of her presentation. Her telemetry shows sinus rhythm. ASSESSMENT AND PLAN: 1. Respiratory failure. 2. Diabetes mellitus. 3. Hypertension history. 4. Chronic obstructive pulmonary disease history. Dr. Isbell, this patient was seen in cardiac consultation. Some pleural effusions are noted on the x-ray, may be a possibility of pneumonia with parapneumonic effusion needs to be considered. Congestive heart failure is less likely to be present based on examination and findings and laboratory evaluations. An EKG will be ordered. I will follow the patient along with you. She should receive magnesium supplementation if she has not received already and we will monitor her sodium. Her white count gradually improved and she is getting empiric antibiotics at this time as well as breathing treatments for her as probable underlying chronic obstructive pulmonary disease exacerbation. I will follow the patient along with you. Manny Warren M.D. DR: Alberto JOB#: [id number] CC:
[2017-11-17] MEDS: LORazepam Inj 2mg/ml 1ml IV PRN ×3 (03:01→16:56)
[2017-11-17] MEDS: Morphine Sulfate 4mg/ml Inj IVP PRN (03:37)
[2017-11-17 04:28] LABS: BASOPHILS % (AUTO) 0.3 % (0.0-2.0); EOSINOPHILS % (AUTO) 0.2 % (0.0-3.0); HEMATOCRIT 37.4 % (37.0-47.0); HEMOGLOBIN 11.7 G/DL (12.0-16.0); LYMPHOCYTES % (AUTO) 11.6 % (20.0-45.0); MEAN CORPUSCULAR VOLUME 78 FL (80-99); MONOCYTES % (AUTO) 7.8 % (1.0-10.0); NEUTROPHILS % (AUTO) 80.2 % (45.0-75.0); PLATELET COUNT 227 K/UL (150-450); RED BLOOD COUNT 4.82 M/UL (4.20-5.40); RED CELL DISTRIBUTION WIDTH 16.2 % (11.6-14.8); WHITE BLOOD COUNT 9.5 K/UL (4.8-10.8)
[2017-11-17 05:02] LABS: ALANINE AMINOTRANSFERASE 10 U/L (12-78); ALBUMIN 2.3 G/DL (3.4-5.0); ALBUMIN/GLOBULIN RATIO 0.7 (1.0-2.7); ALKALINE PHOSPHATASE 89 U/L (46-116); ANION GAP 5 mmol/L (5-15); ASPARTATE AMINO TRANSFERASE 11 U/L (15-37); BILIRUBIN,TOTAL 0.7 MG/DL (0.2-1.0); BLOOD UREA NITROGEN 11 mg/dL (7-18); CALCIUM 8.9 MG/DL (8.5-10.1); CARBON DIOXIDE 38 MMOL/L (21-32); CHLORIDE 95 MMOL/L (98-107); CREATININE 0.6 MG/DL (0.55-1.30); PHOSPHORUS 3.7 MG/DL (2.5-4.9); POTASSIUM 3.1 MMOL/L (3.5-5.1); SODIUM 138 MMOL/L (136-145)
[2017-11-17] MEDS: NovoLOG Insulin Flexpen SUBQ SCH ×4 (05:34→23:39)
--- NOTE | 2017-11-17 07:20 | Pulmonolgy Critical Care Note ---
Critical Care - Asmt/Plan Problems: (1) Acute respiratory failure (2) Pleural effusion (3) COPD (chronic obstructive pulmonary disease) (4) Diabetes mellitus (5) Pulmonary edema Respiratory: monitor respiratory rate, adjust FIO2, CXR Cardiac: continue to monitor HR/BP Renal: F/U I&O, keep IV fluid, decrease IV fluid, other - goo urine output with laxis q8 hours Infectious Disease: check cultures, other - continue abx Gastrointestinal: hold feedings Endocrine: monitor blood sugar, check HgA1C, oral diabetic meds Hematologic: monitor H/H Neurologic: PRN Ativan Affect: PRN ativan Notes Reviewed: geotechnical engineer, cardio Discussed with: nurses, consultants, housing case managermanager trust - Objective Last 24 Hour Vital Signs Date Time Temp Pulse Resp B/P (MAP) Pulse Ox O2 Delivery O2 Flow Rate FiO2 11/17/17 07:00 101 17 101/56 97 Mechanical Ventilator 40 11/17/17 06:56 102 16 40 11/17/17 06:00 102 16 104/59 95 Mechanical Ventilator 40 11/17/17 05:28 102 16 40 11/17/17 05:00 100 19 107/56 97 Mechanical Ventilator 40 11/17/17 04:00 40 11/17/17 04:00 100 11/17/17 04:00 99.5 97 16 117/58 97 Mechanical Ventilator 40 11/17/17 03:10 103 20 40 11/17/17 03:00 107 19 135/66 93 Mechanical Ventilator 40 11/17/17 02:00 107 16 112/61 96 Mechanical Ventilator 40 11/17/17 01:20 98 18 40 11/17/17 01:00 96 16 98/52 93 Mechanical Ventilator 40 11/17/17 00:00 103 11/17/17 00:00 99.5 104 16 99/53 94 Mechanical Ventilator 40 11/17/17 00:00 40 11/16/17 23:19 94 16 40 11/16/17 23:00 101 16 98/54 93 Mechanical Ventilator 40 11/16/17 21:15 16 11/16/17 21:08 97 22 40 11/16/17 21:00 99.1 102 21 98/46 100 Mechanical Ventilator 40 11/16/17 20:00 102 11/16/17 20:00 99.4 102 16 95/50 100 Mechanical Ventilator 40 11/16/17 20:00 40 11/16/17 19:15 105 16 40 11/16/17 19:00 101 21 91/48 99 Mechanical Ventilator 40 11/16/17 18:00 108 23 100/50 99 Mechanical Ventilator 40 11/16/17 17:02 108 23 40 11/16/17 17:00 112 21 157/72 99 Mechanical Ventilator 40 11/16/17 16:00 40 11/16/17 16:00 99 11/16/17 16:00 98.5 104 16 123/62 96 Mechanical Ventilator 40 11/16/17 15:00 100 21 145/111 94 Mechanical Ventilator 40 11/16/17 14:30 94 18 40 11/16/17 13:00 85 16 137/49 94 Mechanical Ventilator 40 11/16/17 12:32 84 16 40 11/16/17 12:00 98.5 83 16 134/46 94 Mechanical Ventilator 40 11/16/17 12:00 40 11/16/17 12:00 86 11/16/17 11:00 84 17 125/46 96 Mechanical Ventilator 40 11/16/17 11:00 17 11/16/17 10:45 84 17 143/50 96 Mechanical Ventilator 40 11/16/17 10:33 84 16 40 11/16/17 10:30 86 17 123/49 96 Mechanical Ventilator 40 11/16/17 10:15 84 17 107/44 95 Mechanical Ventilator 40 11/16/17 10:00 84 18 121/45 95 Mechanical Ventilator 40 11/16/17 10:00 18 11/16/17 09:45 87 18 110/46 95 Mechanical Ventilator 40 11/16/17 09:30 86 15 134/53 95 Mechanical Ventilator 40 11/16/17 09:15 85 14 114/46 96 Mechanical Ventilator 40 11/16/17 09:00 15 11/16/17 09:00 84 15 113/45 96 Mechanical Ventilator 40 11/16/17 08:45 86 15 118/46 96 Mechanical Ventilator 40 11/16/17 08:42 90 16 40 11/16/17 08:30 88 18 118/47 96 Mechanical Ventilator 40 11/16/17 08:15 88 18 118/47 97 Mechanical Ventilator 40 11/16/17 08:00 40 11/16/17 08:00 88 11/16/17 08:00 98.5 88 17 143/55 97 Mechanical Ventilator 40 11/16/17 08:00 17 11/16/17 07:45 89 18 134/47 96 Mechanical Ventilator 40 11/16/17 07:30 88 17 138/48 97 Mechanical Ventilator 40 Status: sedated Condition: critical HEENT: atraumatic Neck: full ROM Lungs: clear Heart: HR/BP stable, HR/BP unstable Abdomen: soft, active bowel sounds Micro: Microbiology Date/Time Source Procedure Growth Status 11/15/17 19:55 Blood Blood Culture - Preliminary NO GROWTH AFTER 24 HOURS Resulted 11/15/17 19:40 Blood Blood Culture - Preliminary NO GROWTH AFTER 24 HOURS Resulted 11/16/17 14:00 Nasopharynx Influenza Types A,B Antigen (RENETTA) - Final Complete 11/16/17 14:00 Sputum Gram Stain Pending Resulted 11/16/17 14:00 Sputum Sputum Culture - Preliminary NO GROWTH Resulted Accucheck: 111 Critical Care - Subjective ROS Limited/Unobtainable: Yes ICU Day: 2 Intubation Day: 2 Condition: critical EKG Rhythm: Sinus Rhythm FI02: 40 Vent Support Breath Rate: 16 Vent Support Mode: AC Vent Tidal Volume: 500 Sputum Amount: Small PEEP: 0.0 PIP: 28 Tube Feeding Amount: 20 I&O: Intake and Output 11/16/17 11/17/17 19:00 07:00 Intake Total 390.58 ml 832.5 ml Output Total 2550 ml 2095 ml Balance -2159.42 ml -1262.5 ml Free Water 60 ml 100 ml IV Total 330.58 ml 712.5 ml Tube Feeding 20 ml Output Urine Total 2550 ml 2095 ml ET-Tube: 7.0 ET Position: 22 Labs: Laboratory Tests Test 11/17/17 03:40 White Blood Count 9.5 K/UL (4.8-10.8) # Red Blood Count 4.82 M/UL (4.20-5.40) Hemoglobin 11.7 G/DL (12.0-16.0) L Hematocrit 37.4 % (37.0-47.0) Mean Corpuscular Volume 78 FL (80-99) L Mean Corpuscular Hemoglobin 24.2 PG (27.0-31.0) L Mean Corpuscular Hemoglobin Concent 31.2 G/DL (32.0-36.0) L Red Cell Distribution Width 16.2 % (11.6-14.8) H Platelet Count 227 K/UL (150-450) Mean Platelet Volume 6.5 FL (6.5-10.1) Neutrophils (%) (Auto) 80.2 % (45.0-75.0) H Lymphocytes (%) (Auto) 11.6 % (20.0-45.0) L Monocytes (%) (Auto) 7.8 % (1.0-10.0) Eosinophils (%) (Auto) 0.2 % (0.0-3.0) Basophils (%) (Auto) 0.3 % (0.0-2.0) Sodium Level 138 MMOL/L (136-145) Potassium Level 3.1 MMOL/L (3.5-5.1) L Chloride Level 95 MMOL/L (98-107) L Carbon Dioxide Level 38 MMOL/L (21-32) H Anion Gap 5 mmol/L (5-15) Blood Urea Nitrogen 11 mg/dL (7-18) Creatinine 0.6 MG/DL (0.55-1.30) Estimat Glomerular Filtration Rate > 60 mL/min (>60) Glucose Level 113 MG/DL (74-106) #H Calcium Level 8.9 MG/DL (8.5-10.1) Phosphorus Level 3.7 MG/DL (2.5-4.9) Magnesium Level 1.5 MG/DL (1.8-2.4) L Total Bilirubin 0.7 MG/DL (0.2-1.0) Aspartate Amino Transf (AST/SGOT) 11 U/L (15-37) L Alanine Aminotransferase (ALT/SGPT) 10 U/L (12-78) L Alkaline Phosphatase 89 U/L (46-116) Troponin I 0.007 ng/mL (0.000-0.056) Pro-B-Type Natriuretic Peptide 352 pg/mL (0-125) H Total Protein 5.4 G/DL (6.4-8.2) L Albumin 2.3 G/DL (3.4-5.0) L Globulin 3.1 g/dL Albumin/Globulin Ratio 0.7 (1.0-2.7) L ADONIS SLAES Nov 17, 2017 07:20
[2017-11-17] MEDS: Pantoprazole Inj IV SCH (08:00)
[2017-11-17] MEDS ORDERED: Potassium Chloride 40 MEQ in Sodium Chloride 500ML 550 ML IVPB ONE (08:00)
--- NOTE | 2017-11-17 08:00 | General Progress Note ---
Assessment/Plan Problem List: (1) History of hypertension ICD Codes: Z86.79 - Personal history of other diseases of the circulatory system SNOMED: 091199505 (2) Pleural effusion ICD Codes: J90 - Pleural effusion, not elsewhere classified SNOMED: 32768830 (3) COPD (chronic obstructive pulmonary disease) ICD Codes: J44.9 - Chronic obstructive pulmonary disease, unspecified SNOMED: 96899220 (4) Acute respiratory failure ICD Codes: J96.00 - Acute respiratory failure, unspecified whether with hypoxia or hypercapnia SNOMED: 32577815 (5) Diabetes mellitus ICD Codes: E11.9 - Type 2 diabetes mellitus without complications SNOMED: 58218318 (6) Pulmonary edema ICD Codes: J81.1 - Chronic pulmonary edema SNOMED: 41069725 Status: unchanged Assessment/Plan vent abx bp bs control cbc bmp am Subjective Constitutional: Reports: weakness Allergies: Coded Allergies: No Known Allergies (Unverified , 11/15/17) All Systems: reviewed and negative except above Subjective intubated sedated in icu Objective Last 24 Hour Vital Signs Date Time Temp Pulse Resp B/P (MAP) Pulse Ox O2 Delivery O2 Flow Rate FiO2 11/17/17 07:00 101 17 101/56 97 Mechanical Ventilator 40 11/17/17 06:56 102 16 40 11/17/17 06:00 102 16 104/59 95 Mechanical Ventilator 40 11/17/17 05:28 102 16 40 11/17/17 05:00 100 19 107/56 97 Mechanical Ventilator 40 11/17/17 04:00 40 11/17/17 04:00 100 11/17/17 04:00 99.5 97 16 117/58 97 Mechanical Ventilator 40 11/17/17 03:10 103 20 40 11/17/17 03:00 107 19 135/66 93 Mechanical Ventilator 40 11/17/17 02:00 107 16 112/61 96 Mechanical Ventilator 40 11/17/17 01:20 98 18 40 11/17/17 01:00 96 16 98/52 93 Mechanical Ventilator 40 11/17/17 00:00 103 11/17/17 00:00 99.5 104 16 99/53 94 Mechanical Ventilator 40 11/17/17 00:00 40 11/16/17 23:19 94 16 40 11/16/17 23:00 101 16 98/54 93 Mechanical Ventilator 40 11/16/17 21:15 16 11/16/17 21:08 97 22 40 11/16/17 21:00 99.1 102 21 98/46 100 Mechanical Ventilator 40 11/16/17 20:00 102 11/16/17 20:00 99.4 102 16 95/50 100 Mechanical Ventilator 40 11/16/17 20:00 40 11/16/17 19:15 105 16 40 11/16/17 19:00 101 21 91/48 99 Mechanical Ventilator 40 11/16/17 18:00 108 23 100/50 99 Mechanical Ventilator 40 11/16/17 17:02 108 23 40 11/16/17 17:00 112 21 157/72 99 Mechanical Ventilator 40 11/16/17 16:00 40 11/16/17 16:00 99 11/16/17 16:00 98.5 104 16 123/62 96 Mechanical Ventilator 40 11/16/17 15:00 100 21 145/111 94 Mechanical Ventilator 40 11/16/17 14:30 94 18 40 11/16/17 13:00 85 16 137/49 94 Mechanical Ventilator 40 11/16/17 12:32 84 16 40 11/16/17 12:00 98.5 83 16 134/46 94 Mechanical Ventilator 40 11/16/17 12:00 40 11/16/17 12:00 86 11/16/17 11:00 84 17 125/46 96 Mechanical Ventilator 40 11/16/17 11:00 17 11/16/17 10:45 84 17 143/50 96 Mechanical Ventilator 40 11/16/17 10:33 84 16 40 11/16/17 10:30 86 17 123/49 96 Mechanical Ventilator 40 11/16/17 10:15 84 17 107/44 95 Mechanical Ventilator 40 11/16/17 10:00 84 18 121/45 95 Mechanical Ventilator 40 11/16/17 10:00 18 11/16/17 09:45 87 18 110/46 95 Mechanical Ventilator 40 11/16/17 09:30 86 15 134/53 95 Mechanical Ventilator 40 11/16/17 09:15 85 14 114/46 96 Mechanical Ventilator 40 11/16/17 09:00 15 11/16/17 09:00 84 15 113/45 96 Mechanical Ventilator 40 11/16/17 08:45 86 15 118/46 96 Mechanical Ventilator 40 11/16/17 08:42 90 16 40 11/16/17 08:30 88 18 118/47 96 Mechanical Ventilator 40 11/16/17 08:15 88 18 118/47 97 Mechanical Ventilator 40 11/16/17 08:00 40 11/16/17 08:00 88 11/16/17 08:00 98.5 88 17 143/55 97 Mechanical Ventilator 40 11/16/17 08:00 17 Intake and Output 11/16/17 11/17/17 19:00 07:00 Intake Total 390.58 ml 832.5 ml Output Total 2550 ml 2095 ml Balance -2159.42 ml -1262.5 ml Free Water 60 ml 100 ml IV Total 330.58 ml 712.5 ml Tube Feeding 20 ml Output Urine Total 2550 ml 2095 ml Laboratory Tests 11/17/17 03:40: White Blood Count 9.5#, Red Blood Count 4.82, Hemoglobin 11.7L, Hematocrit 37.4 , Mean Corpuscular Volume 78L, Mean Corpuscular Hemoglobin 24.2L, Mean Corpuscular Hemoglobin Concent 31.2L, Red Cell Distribution Width 16.2H, Platelet Count 227, Mean Platelet Volume 6.5, Neutrophils (%) (Auto) 80.2H, Lymphocytes (%) (Auto) 11.6L, Monocytes (%) (Auto) 7.8, Eosinophils (%) (Auto) 0.2, Basophils (%) (Auto) 0.3, Sodium Level 138, Potassium Level 3.1L, Chloride Level 95L, Carbon Dioxide Level 38H, Anion Gap 5, Blood Urea Nitrogen 11, Creatinine 0.6, Estimat Glomerular Filtration Rate > 60, Glucose Level 113#H, Calcium Level 8.9, Phosphorus Level 3.7, Magnesium Level 1.5L, Total Bilirubin 0.7, Aspartate Amino Transf (AST/SGOT) 11L, Alanine Aminotransferase (ALT/SGPT) 10L, Alkaline Phosphatase 89, Troponin I 0.007, Pro-B-Type Natriuretic Peptide 352H, Total Protein 5.4L, Albumin 2.3L, Globulin 3.1, Albumin/Globulin Ratio 0.7L Height (Feet): 5 Height (Inches): 4.00 Weight (Pounds): 154 General Appearance: lethargic EENT: normal ENT inspection Neck: normal alignment Cardiovascular: normal peripheral pulses, normal rate, regular rhythm Respiratory/Chest: decreased breath sounds Abdomen: normal bowel sounds, non tender, soft Extremities: normal inspection Edema: no edema noted Arm (L), no edema noted Arm (R), no edema noted Leg (L), no edema noted Leg (R), no edema noted Pedal (L), no edema noted Pedal (R), no edema noted Generalized Neurologic: motor weakness Skin: normal pigmentation, warm/dry TIM GARY Nov 17, 2017 08:00
[2017-11-17] MEDS: Heparin 5000 units/ml inj SUBQ SCH ×2 (08:13→21:32)
--- NOTE | 2017-11-17 10:36 | Diagnostic Imaging Report ---
Indication: Dyspnea Technique: XRAY Chest 1v Comparison: 11/16/2018 Findings: ET and NG tube unchanged in position. Heart size and mediastinal contours stable. Interstitial and bilateral airspace disease persists, with slight improved aeration bilaterally with decreased layering pleural fluid. No pneumothorax. No acute osseous abnormality. IMPRESSION: Persistent interstitial and patchy bilateral airspace opacities with interval decrease in layering pleural fluid bilaterally. Support lines and tubes unchanged.
--- NOTE | 2017-11-17 15:49 | Cardiology Progress Note ---
Assessment/Plan Assessment/Plan 1. Respiratory failure. 2. Diabetes mellitus. 3. Hypertension history. 4. Chronic obstructive pulmonary disease history. all trop neg pro bnp min elevated has bloody tinged secretion in ett need restraints vent support abx cxr showed more infiltrate less effusion tele personally reviewed ekg reviewed t inversion in v1-3 otherwise neg in on iv lasix mg and k supplement Subjective ROS Limited/Unobtainable: Yes Subjective agitated trying to get the ett out has torn the suction off her ETT end Objective Last 24 Hour Vital Signs Date Time Temp Pulse Resp B/P (MAP) Pulse Ox O2 Delivery O2 Flow Rate FiO2 11/17/17 15:00 112 24 102/54 94 Mechanical Ventilator 40 11/17/17 14:48 109 17 40 11/17/17 14:00 112 24 121/54 94 Mechanical Ventilator 40 11/17/17 13:03 108 17 40 11/17/17 13:00 107 22 103/57 95 Mechanical Ventilator 40 11/17/17 12:00 40 11/17/17 12:00 99.0 111 17 110/73 97 Mechanical Ventilator 40 11/17/17 12:00 109 11/17/17 11:00 110 31 106/59 97 Mechanical Ventilator 40 11/17/17 10:55 110 17 40 11/17/17 10:00 110 24 102/80 97 Mechanical Ventilator 40 11/17/17 09:29 110 19 40 11/17/17 09:00 107 22 93/54 97 Mechanical Ventilator 40 11/17/17 08:00 40 11/17/17 08:00 99.8 105 24 97/56 97 Mechanical Ventilator 40 11/17/17 08:00 105 11/17/17 07:00 101 17 101/56 97 Mechanical Ventilator 40 11/17/17 06:56 102 16 40 11/17/17 06:00 102 16 104/59 95 Mechanical Ventilator 40 11/17/17 05:28 102 16 40 11/17/17 05:00 100 19 107/56 97 Mechanical Ventilator 40 11/17/17 04:00 40 11/17/17 04:00 100 11/17/17 04:00 99.5 97 16 117/58 97 Mechanical Ventilator 40 11/17/17 03:10 103 20 40 11/17/17 03:00 107 19 135/66 93 Mechanical Ventilator 40 11/17/17 02:00 107 16 112/61 96 Mechanical Ventilator 40 11/17/17 01:20 98 18 40 11/17/17 01:00 96 16 98/52 93 Mechanical Ventilator 40 11/17/17 00:00 103 11/17/17 00:00 99.5 104 16 99/53 94 Mechanical Ventilator 40 11/17/17 00:00 40 11/16/17 23:19 94 16 40 11/16/17 23:00 101 16 98/54 93 Mechanical Ventilator 40 11/16/17 21:15 16 11/16/17 21:08 97 22 40 11/16/17 21:00 99.1 102 21 98/46 100 Mechanical Ventilator 40 11/16/17 20:00 102 11/16/17 20:00 99.4 102 16 95/50 100 Mechanical Ventilator 40 11/16/17 20:00 40 11/16/17 19:15 105 16 40 11/16/17 19:00 101 21 91/48 99 Mechanical Ventilator 40 11/16/17 18:00 108 23 100/50 99 Mechanical Ventilator 40 11/16/17 17:02 108 23 40 11/16/17 17:00 112 21 157/72 99 Mechanical Ventilator 40 11/16/17 16:00 40 11/16/17 16:00 99 11/16/17 16:00 98.5 104 16 123/62 96 Mechanical Ventilator 40 General Appearance: no apparent distress, alert, agitated, on vent, other - coughinh Neck: supple Cardiovascular: normal rate Respiratory/Chest: rhonchi - bilaterally, expiratory wheezing Abdomen: normal bowel sounds, non tender, soft Extremities: no swelling Intake and Output 11/16/17 11/17/17 19:00 07:00 Intake Total 390.58 ml 832.5 ml Output Total 2550 ml 2095 ml Balance -2159.42 ml -1262.5 ml Free Water 60 ml 100 ml IV Total 330.58 ml 712.5 ml Tube Feeding 20 ml Output Urine Total 2550 ml 2095 ml Laboratory Tests Test 11/17/17 03:40 11/17/17 07:55 White Blood Count 9.5 K/UL (4.8-10.8) # Red Blood Count 4.82 M/UL (4.20-5.40) Hemoglobin 11.7 G/DL (12.0-16.0) L Hematocrit 37.4 % (37.0-47.0) Mean Corpuscular Volume 78 FL (80-99) L Mean Corpuscular Hemoglobin 24.2 PG (27.0-31.0) L Mean Corpuscular Hemoglobin Concent 31.2 G/DL (32.0-36.0) L Red Cell Distribution Width 16.2 % (11.6-14.8) H Platelet Count 227 K/UL (150-450) Mean Platelet Volume 6.5 FL (6.5-10.1) Neutrophils (%) (Auto) 80.2 % (45.0-75.0) H Lymphocytes (%) (Auto) 11.6 % (20.0-45.0) L Monocytes (%) (Auto) 7.8 % (1.0-10.0) Eosinophils (%) (Auto) 0.2 % (0.0-3.0) Basophils (%) (Auto) 0.3 % (0.0-2.0) Sodium Level 138 MMOL/L (136-145) Potassium Level 3.1 MMOL/L (3.5-5.1) L Chloride Level 95 MMOL/L (98-107) L Carbon Dioxide Level 38 MMOL/L (21-32) H Anion Gap 5 mmol/L (5-15) Blood Urea Nitrogen 11 mg/dL (7-18) Creatinine 0.6 MG/DL (0.55-1.30) Estimat Glomerular Filtration Rate > 60 mL/min (>60) Glucose Level 113 MG/DL (74-106) #H Calcium Level 8.9 MG/DL (8.5-10.1) Phosphorus Level 3.7 MG/DL (2.5-4.9) Magnesium Level 1.5 MG/DL (1.8-2.4) L Total Bilirubin 0.7 MG/DL (0.2-1.0) Aspartate Amino Transf (AST/SGOT) 11 U/L (15-37) L Alanine Aminotransferase (ALT/SGPT) 10 U/L (12-78) L Alkaline Phosphatase 89 U/L (46-116) Troponin I 0.007 ng/mL (0.000-0.056) Pro-B-Type Natriuretic Peptide 352 pg/mL (0-125) H Total Protein 5.4 G/DL (6.4-8.2) L Albumin 2.3 G/DL (3.4-5.0) L Globulin 3.1 g/dL Albumin/Globulin Ratio 0.7 (1.0-2.7) L Arterial Blood pH 7.530 (7.350-7.450) Arterial Blood Partial Pressure CO2 46.9 mmHg (35.0-45.0) H Arterial Blood Partial Pressure O2 68.8 mmHg (75.0-100.0) L Arterial Blood HCO3 38.3 mmol/L (22.0-26.0) H Arterial Blood Oxygen Saturation 94.2 % (92.0-98.0) Arterial Blood Base Excess 13.9 Rolf Test Positive Microbiology Date/Time Source Procedure Growth Status 11/15/17 19:55 Blood Blood Culture - Preliminary NO GROWTH AFTER 24 HOURS Resulted 11/15/17 19:40 Blood Blood Culture - Preliminary NO GROWTH AFTER 24 HOURS Resulted 11/16/17 14:00 Nasopharynx Influenza Types A,B Antigen (RENETTA) - Final Complete 11/16/17 14:00 Sputum Gram Stain - Final Resulted 11/16/17 14:00 Sputum Sputum Culture - Preliminary NO GROWTH Resulted 11/16/17 14:00 Urine,Clean Catch Urine Culture - Preliminary NO GROWTH Resulted CALIN HAWKINS Nov 17, 2017 15:49
[2017-11-17] MEDS ORDERED: 1/2 NS 1000ml IV ONE (16:19)
[2017-11-17] MEDS ORDERED: Tubing IV Secondary IV ONE (16:19)
[2017-11-18] VITALS (24 sets, daily range): BP systolic 87–127; BP diastolic 51–75
[2017-11-18] MEDS: LORazepam Inj 2mg/ml 1ml IV PRN ×5 (02:24→19:49)
[2017-11-18 04:21] LABS: BASOPHILS % (AUTO) 0.2 % (0.0-2.0); EOSINOPHILS % (AUTO) 0.4 % (0.0-3.0); HEMATOCRIT 36.6 % (37.0-47.0); HEMOGLOBIN 11.3 G/DL (12.0-16.0); LYMPHOCYTES % (AUTO) 9.1 % (20.0-45.0); MEAN CORPUSCULAR VOLUME 78 FL (80-99); MONOCYTES % (AUTO) 6.2 % (1.0-10.0); PLATELET COUNT 221 K/UL (150-450); RED BLOOD COUNT 4.69 M/UL (4.20-5.40); RED CELL DISTRIBUTION WIDTH 16.5 % (11.6-14.8); WHITE BLOOD COUNT 8.6 K/UL (4.8-10.8)
[2017-11-18 04:58] LABS: ALANINE AMINOTRANSFERASE 6 U/L (12-78); ALBUMIN 2.3 G/DL (3.4-5.0); ALBUMIN/GLOBULIN RATIO 0.7 (1.0-2.7); ALKALINE PHOSPHATASE 89 U/L (46-116); ANION GAP 7 mmol/L (5-15); ASPARTATE AMINO TRANSFERASE 9 U/L (15-37); BILIRUBIN,TOTAL 1.1 MG/DL (0.2-1.0); BLOOD UREA NITROGEN 13 mg/dL (7-18); CALCIUM 8.8 MG/DL (8.5-10.1); CARBON DIOXIDE 38 MMOL/L (21-32); CHLORIDE 96 MMOL/L (98-107); CREATININE 0.7 MG/DL (0.55-1.30); PHOSPHORUS 3.9 MG/DL (2.5-4.9); SODIUM 141 MMOL/L (136-145)
[2017-11-18 05:10] LABS: POTASSIUM 2.7 MMOL/L (3.5-5.1)
[2017-11-18 05:28] LABS: BILIRUBIN,DIRECT 0.3 MG/DL (0.0-0.3)
[2017-11-18] MEDS: NovoLOG Insulin Flexpen SUBQ SCH ×3 (06:00→17:20)
[2017-11-18] MEDS: Piperacillin/Tazobactam 3.375 GM in NS 110 ML IVPB SCH ×2 (07:58→16:06)
[2017-11-18] MEDS: Pantoprazole Inj IV SCH (07:59)
[2017-11-18] MEDS: Heparin 5000 units/ml inj SUBQ SCH ×2 (08:00→21:00)
[2017-11-18] MEDS ORDERED: Potassium Chloride 40 MEQ in Sodium Chloride 500ML 550 ML IVPB ONE ×2 (09:00→13:00)
--- NOTE | 2017-11-18 10:41 | Pulmonolgy Critical Care Note ---
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 Discussed with: nurses, special education case managerweb content manager - Objective Last 24 Hour Vital Signs Date Time Temp Pulse Resp B/P (MAP) Pulse Ox O2 Delivery O2 Flow Rate FiO2 11/18/17 10:00 91 16 102/51 97 Mechanical Ventilator 40 11/18/17 09:29 98.9 11/18/17 09:18 92 15 40 11/18/17 09:00 94 18 87/58 98 Mechanical Ventilator 40 11/18/17 08:00 95 11/18/17 08:00 94 19 87/52 97 Mechanical Ventilator 40 11/18/17 08:00 40 11/18/17 07:24 95 16 40 11/18/17 07:00 95 20 96/54 94 Mechanical Ventilator 40 11/18/17 06:00 98 20 119/59 96 Mechanical Ventilator 40 11/18/17 05:40 98 18 40 11/18/17 05:00 97 17 104/58 97 Mechanical Ventilator 40 11/18/17 04:00 40 11/18/17 04:00 100 11/18/17 04:00 98.8 99 22 115/66 96 Mechanical Ventilator 40 11/18/17 03:46 100 22 40 11/18/17 03:00 100 17 116/63 95 Mechanical Ventilator 40 11/18/17 02:00 96 21 127/67 98 Mechanical Ventilator 40 11/18/17 01:20 87 16 40 11/18/17 01:00 91 18 97/53 96 Mechanical Ventilator 40 11/18/17 00:00 91 11/18/17 00:00 98.6 91 17 98/59 94 Mechanical Ventilator 40 11/18/17 00:00 40 11/17/17 23:11 87 16 40 11/17/17 23:00 90 15 105/57 93 Mechanical Ventilator 40 11/17/17 22:00 98.8 92 15 106/56 98 Mechanical Ventilator 40 11/17/17 21:22 93 16 40 11/17/17 21:00 96 18 101/58 96 Mechanical Ventilator 40 11/17/17 20:00 99.8 99 20 97/54 98 Mechanical Ventilator 40 11/17/17 20:00 40 11/17/17 20:00 98 11/17/17 19:27 109 17 40 11/17/17 19:00 108 18 97/57 94 Mechanical Ventilator 40 11/17/17 18:00 101.9 121 25 98/85 94 Mechanical Ventilator 40 11/17/17 17:01 118 16 40 11/17/17 17:00 120 27 120/56 94 Mechanical Ventilator 40 11/17/17 16:00 118 11/17/17 16:00 98.2 112 23 136/60 97 Mechanical Ventilator 40 11/17/17 16:00 40 11/17/17 15:00 112 24 102/54 94 Mechanical Ventilator 40 11/17/17 14:48 109 17 40 11/17/17 14:00 112 24 121/54 94 Mechanical Ventilator 40 11/17/17 13:03 108 17 40 11/17/17 13:00 107 22 103/57 95 Mechanical Ventilator 40 11/17/17 12:00 40 11/17/17 12:00 99.0 111 17 110/73 97 Mechanical Ventilator 40 11/17/17 12:00 109 11/17/17 11:00 110 31 106/59 97 Mechanical Ventilator 40 11/17/17 10:55 110 17 40 Status: awake Condition: critical HEENT: atraumatic Neck: full ROM Heart: HR/BP stable Abdomen: soft, active bowel sounds Extremities: no C/C/E, edema Decubiti: stage Micro: Microbiology Date/Time Source Procedure Growth Status 11/15/17 19:55 Blood Blood Culture - Preliminary NO GROWTH AFTER 48 HOURS Resulted 11/15/17 19:40 Blood Blood Culture - Preliminary NO GROWTH AFTER 48 HOURS Resulted 11/16/17 14:00 Nasopharynx Influenza Types A,B Antigen (RENETTA) - Final Complete 11/16/17 14:00 Sputum Gram Stain - Final Resulted 11/16/17 14:00 Sputum Sputum Culture - Preliminary NORMAL UPPER RESPIRATORY PRISCILA AT 24 ... Resulted 11/16/17 14:00 Urine,Clean Catch Urine Culture - Preliminary NO GROWTH AFTER 24 HOURS Resulted Accucheck: 119 Critical Care - Subjective ROS Limited/Unobtainable: Yes ICU Day: 3 Intubation Day: 3 Condition: critical EKG Rhythm: Sinus Rhythm FI02: 40 Vent Support Breath Rate: 16 Vent Support Mode: AC Vent Tidal Volume: 600 Sputum Amount: Small PEEP: 0.0 PIP: 29 Tube Feeding Amount: 0 I&O: Intake and Output 11/17/17 11/18/17 19:00 07:00 Intake Total 670.0 ml 237.5 ml Output Total 1535 ml 993 ml Balance -865.0 ml -755.5 ml Free Water 100 ml IV Total 670.0 ml 137.5 ml Tube Feeding 0 ml 0 ml Output Urine Total 1535 ml 993 ml CXR: no major changes ET-Tube: 7.0 ET Position: 22 Labs: Laboratory Tests Test 11/17/17 22:00 11/18/17 04:00 11/18/17 08:15 Troponin I 0.000 ng/mL (0.000-0.056) White Blood Count 8.6 K/UL (4.8-10.8) Red Blood Count 4.69 M/UL (4.20-5.40) Hemoglobin 11.3 G/DL (12.0-16.0) L Hematocrit 36.6 % (37.0-47.0) L Mean Corpuscular Volume 78 FL (80-99) L Mean Corpuscular Hemoglobin 24.1 PG (27.0-31.0) L Mean Corpuscular Hemoglobin Concent 30.8 G/DL (32.0-36.0) L Red Cell Distribution Width 16.5 % (11.6-14.8) H Platelet Count 221 K/UL (150-450) Mean Platelet Volume 6.1 FL (6.5-10.1) L Neutrophils (%) (Auto) 84.0 % (45.0-75.0) H Lymphocytes (%) (Auto) 9.1 % (20.0-45.0) L Monocytes (%) (Auto) 6.2 % (1.0-10.0) Eosinophils (%) (Auto) 0.4 % (0.0-3.0) Basophils (%) (Auto) 0.2 % (0.0-2.0) Sodium Level 141 MMOL/L (136-145) Potassium Level 2.7 MMOL/L (3.5-5.1) *L Chloride Level 96 MMOL/L (98-107) L Carbon Dioxide Level 38 MMOL/L (21-32) H Anion Gap 7 mmol/L (5-15) Blood Urea Nitrogen 13 mg/dL (7-18) Creatinine 0.7 MG/DL (0.55-1.30) Estimat Glomerular Filtration Rate > 60 mL/min (>60) Glucose Level 117 MG/DL (74-106) H Calcium Level 8.8 MG/DL (8.5-10.1) Phosphorus Level 3.9 MG/DL (2.5-4.9) Magnesium Level 1.9 MG/DL (1.8-2.4) Total Bilirubin 1.1 MG/DL (0.2-1.0) H Direct Bilirubin 0.3 MG/DL (0.0-0.3) Aspartate Amino Transf (AST/SGOT) 9 U/L (15-37) L Alanine Aminotransferase (ALT/SGPT) 6 U/L (12-78) L Alkaline Phosphatase 89 U/L (46-116) Total Protein 5.6 G/DL (6.4-8.2) L Albumin 2.3 G/DL (3.4-5.0) L Globulin 3.3 g/dL Albumin/Globulin Ratio 0.7 (1.0-2.7) L Arterial Blood pH 7.570 (7.350-7.450) Arterial Blood Partial Pressure CO2 41.7 mmHg (35.0-45.0) Arterial Blood Partial Pressure O2 80.0 mmHg (75.0-100.0) Arterial Blood HCO3 37.6 mmol/L (22.0-26.0) H Arterial Blood Oxygen Saturation 96.0 % (92.0-98.0) Arterial Blood Base Excess 14.2 Rolf Test Positive ADONIS SALES Nov 18, 2017 10:41
[2017-11-18] MEDS: Morphine Sulfate 4mg/ml Inj IVP PRN ×3 (11:25→21:58)
--- NOTE | 2017-11-18 11:39 | Diagnostic Imaging Report ---
APPROVED REPORT CPT Code: 68727 Present Symptoms Lower Extremity Pain: Bilateral BILATERAL: Imaging reveals a patent deep venous system bilaterally. There is no evidence of thrombus within the femoral, popliteal or tibial segments. The greater saphenous veins are also within normal limits. Doppler indicates normal spontaneous flow within these segments.
--- NOTE | 2017-11-18 11:41 | Diagnostic Imaging Report ---
Indication: Dyspnea Technique: One view of the chest Comparison: 11/17/2017 Findings: Stable satisfactory positions of endotracheal and nasogastric tubes. Extensive diffuse bilateral right greater than left interstitial and airspace disease again demonstrated. There is new or increased pleural fluid on the right. Pleural fluid on the left is stable Impression: New or increased small right pleural effusion Persistent left pleural fluid and extensive bilateral parenchymal disease, over one day
--- NOTE | 2017-11-18 13:37 | General Progress Note ---
Assessment/Plan Problem List: (1) History of hypertension ICD Codes: Z86.79 - Personal history of other diseases of the circulatory system SNOMED: 400903843 (2) Pleural effusion ICD Codes: J90 - Pleural effusion, not elsewhere classified SNOMED: 55401106 (3) COPD (chronic obstructive pulmonary disease) ICD Codes: J44.9 - Chronic obstructive pulmonary disease, unspecified SNOMED: 41838885 (4) Acute respiratory failure ICD Codes: J96.00 - Acute respiratory failure, unspecified whether with hypoxia or hypercapnia SNOMED: 01810368 (5) Diabetes mellitus ICD Codes: E11.9 - Type 2 diabetes mellitus without complications SNOMED: 98783978 (6) Pulmonary edema ICD Codes: J81.1 - Chronic pulmonary edema SNOMED: 62224068 Status: unchanged Assessment/Plan vent abx bp bs control cbc bmp am Subjective Constitutional: Reports: weakness Allergies: Coded Allergies: No Known Allergies (Unverified , 11/15/17) All Systems: reviewed and negative except above Subjective intubated sedated in icu Objective Last 24 Hour Vital Signs Date Time Temp Pulse Resp B/P (MAP) Pulse Ox O2 Delivery O2 Flow Rate FiO2 11/18/17 13:00 98 25 120/57 100 Mechanical Ventilator 40 11/18/17 12:00 98.6 95 19 98/57 97 Mechanical Ventilator 40 11/18/17 12:00 93 11/18/17 12:00 40 11/18/17 11:25 92 15 40 11/18/17 11:00 94 19 99/57 97 Mechanical Ventilator 40 11/18/17 10:00 91 16 102/51 97 Mechanical Ventilator 40 11/18/17 09:29 98.9 11/18/17 09:18 92 15 40 11/18/17 09:00 94 18 87/58 98 Mechanical Ventilator 40 11/18/17 08:00 95 11/18/17 08:00 94 19 87/52 97 Mechanical Ventilator 40 11/18/17 08:00 40 11/18/17 07:24 95 16 40 11/18/17 07:00 95 20 96/54 94 Mechanical Ventilator 40 11/18/17 06:00 98 20 119/59 96 Mechanical Ventilator 40 11/18/17 05:40 98 18 40 11/18/17 05:00 97 17 104/58 97 Mechanical Ventilator 40 11/18/17 04:00 40 11/18/17 04:00 100 11/18/17 04:00 98.8 99 22 115/66 96 Mechanical Ventilator 40 11/18/17 03:46 100 22 40 11/18/17 03:00 100 17 116/63 95 Mechanical Ventilator 40 11/18/17 02:00 96 21 127/67 98 Mechanical Ventilator 40 11/18/17 01:20 87 16 40 11/18/17 01:00 91 18 97/53 96 Mechanical Ventilator 40 11/18/17 00:00 91 11/18/17 00:00 98.6 91 17 98/59 94 Mechanical Ventilator 40 11/18/17 00:00 40 11/17/17 23:11 87 16 40 11/17/17 23:00 90 15 105/57 93 Mechanical Ventilator 40 11/17/17 22:00 98.8 92 15 106/56 98 Mechanical Ventilator 40 11/17/17 21:22 93 16 40 11/17/17 21:00 96 18 101/58 96 Mechanical Ventilator 40 11/17/17 20:00 99.8 99 20 97/54 98 Mechanical Ventilator 40 11/17/17 20:00 40 11/17/17 20:00 98 11/17/17 19:27 109 17 40 11/17/17 19:00 108 18 97/57 94 Mechanical Ventilator 40 11/17/17 18:00 101.9 121 25 98/85 94 Mechanical Ventilator 40 11/17/17 17:01 118 16 40 11/17/17 17:00 120 27 120/56 94 Mechanical Ventilator 40 11/17/17 16:00 118 11/17/17 16:00 98.2 112 23 136/60 97 Mechanical Ventilator 40 11/17/17 16:00 40 11/17/17 15:00 112 24 102/54 94 Mechanical Ventilator 40 11/17/17 14:48 109 17 40 11/17/17 14:00 112 24 121/54 94 Mechanical Ventilator 40 Intake and Output 11/17/17 11/18/17 19:00 07:00 Intake Total 670.0 ml 237.5 ml Output Total 1535 ml 993 ml Balance -865.0 ml -755.5 ml Free Water 100 ml IV Total 670.0 ml 137.5 ml Tube Feeding 0 ml 0 ml Output Urine Total 1535 ml 993 ml Laboratory Tests 11/17/17 22:00: Troponin I 0.000 11/18/17 04:00: White Blood Count 8.6, Red Blood Count 4.69, Hemoglobin 11.3L, Hematocrit 36.6L , Mean Corpuscular Volume 78L, Mean Corpuscular Hemoglobin 24.1L, Mean Corpuscular Hemoglobin Concent 30.8L, Red Cell Distribution Width 16.5H, Platelet Count 221, Mean Platelet Volume 6.1L, Neutrophils (%) (Auto) 84.0H, Lymphocytes (%) (Auto) 9.1L, Monocytes (%) (Auto) 6.2, Eosinophils (%) (Auto) 0.4, Basophils (%) (Auto) 0.2, Sodium Level 141, Potassium Level 2.7*L, Chloride Level 96L, Carbon Dioxide Level 38H, Anion Gap 7, Blood Urea Nitrogen 13, Creatinine 0.7, Estimat Glomerular Filtration Rate > 60, Glucose Level 117H , Calcium Level 8.8, Phosphorus Level 3.9, Magnesium Level 1.9, Total Bilirubin 1.1H, Direct Bilirubin 0.3, Aspartate Amino Transf (AST/SGOT) 9L, Alanine Aminotransferase (ALT/SGPT) 6L, Alkaline Phosphatase 89, Total Protein 5.6L, Albumin 2.3L, Globulin 3.3, Albumin/Globulin Ratio 0.7L 11/18/17 08:15: Arterial Blood pH 7.570*H, Arterial Blood Partial Pressure CO2 41.7, Arterial Blood Partial Pressure O2 80.0, Arterial Blood HCO3 37.6H, Arterial Blood Oxygen Saturation 96.0, Arterial Blood Base Excess 14.2, Rolf Test Positive Height (Feet): 5 Height (Inches): 4.00 Weight (Pounds): 143 General Appearance: lethargic EENT: normal ENT inspection Neck: normal alignment Cardiovascular: normal peripheral pulses, normal rate, regular rhythm Respiratory/Chest: chest wall non-tender, lungs clear, normal breath sounds Abdomen: normal bowel sounds, non tender, soft Extremities: normal inspection Edema: no edema noted Arm (L), no edema noted Arm (R), no edema noted Leg (L), no edema noted Leg (R), no edema noted Pedal (L), no edema noted Pedal (R), no edema noted Generalized Neurologic: motor weakness Skin: normal pigmentation, warm/dry TIM GARY Nov 18, 2017 13:37
--- NOTE | 2017-11-18 14:18 | Diagnostic Imaging Report ---
Indication: Shortness of breath, abnormal chest radiograph Technique: Grayscale images of the bilateral hemithoraces Comparison: Reference made to chest radiograph dated 11/18/2017 Findings: There are small bilateral pleural effusions, slightly larger on the right than on the left Impression: Small bilateral right greater than left pleural effusions
[2017-11-18] MEDS ORDERED: Tubing IV Secondary IV ONE (15:48)
--- NOTE | 2017-11-18 16:39 | Diagnostic Imaging Report ---
Indication: Abnormal renal function tests Technique: Grayscale and duplex images of the kidneys, retroperitoneum, and bladder were obtained. Comparison: none Findings: Right kidney measures 10.5 cm in length. Left kidney measures 9 cm in length. Both kidneys demonstrate normal echogenicity. No hydronephrosis. 6 the right kidney demonstrates multiple cysts. No definite focal left renal abnormality demonstrated, although the left kidney is less well demonstrated. Normal inferior vena cava. Bladder is poorly visualized. Per technologist, patient constantly voided during the exam. Impression: Negative for hydronephrosis Right renal cyst incidentally noted Poorly visualized empty bladder.
--- NOTE | 2017-11-18 18:32 | Cardiology Report ---
APPROVED REPORT EXAM: Two-dimensional and M-mode echocardiogram with Doppler and color Doppler. INDICATION Left ventricular function M-Mode DIMENSIONS IVSd0.7 (0.7-1.1cm)Left Atrium (MM)3.3 (1.6-4.0cm) LVDd3.8 (3.5-5.6cm)Aortic Root2.6 (2.0-3.7cm) PWd1.0 (0.7-1.1cm)Aortic Cusp Exc.1.8 (1.5-2.0cm) LVDs2.1 (2.5-4.0cm) PWs1.1 cm Normal left ventricular chamber size, systolic function and wall motion. Left ventricular ejection fraction estimated to be 60-65%. No evidence of left ventricular hypertrophy. No evidence of pericardial or pleural effusion. All other cardiac chamber sizes are within normal limits. Focal aortic valve sclerosis with adequate cusp excursion. Thickened mitral valve leaflets with normal excursion. Mild mitral annulus and aortic root calcification. Pulmonic valve not well visualized. Normal tricuspid valve structure. IVC is normal in size and collapsible with respiration. A color flow and spectral Doppler study was performed and revealed: No aortic regurgitation. No mitral regurgitation. Mitral diastolic velocities suggest reduced left ventricular relaxation c/w diastolic dysfunction grade 1. No tricuspid regurgitation.
--- NOTE | 2017-11-18 18:34 | Infectious Diseases Prog Note ---
Assessment/Plan Assessment/Plan ASSESSMENT: The patient is a 67-year-old female with: 1. Chronic obstructive pulmonary disease exacerbation. -influenza neg 2. Community-acquired pneumonia/aspiration pneumonia.] -CXR: New or increased small right pleural effusion Persistent left pleural fluid and extensive bilateral parenchymal disease, over one day -sp cx normal papi to date -legionella ag urine and ab p 3.fever/leukocytosis- improving; leukocytosis resolved 4. Ventilator-dependent respiratory failure. - Hypertension. - Diabetes. PLAN: - We will continue the patient on Zosyn #3 pending sputum culture and Levaquin #2/5 -11/15 SP Unasyn #1 - f/u cx - f/u Legionella antibody/urine antigen. - Monitor chest x-ray. -. Based on the patient's clinical course and laboratories, we will dofurther recommendations. Thank you, Dr. Isbell, for allowing me to participate in the care of this patient. I will follow the patient with you during this hospitalization. Subjective Allergies: Coded Allergies: No Known Allergies (Unverified , 11/15/17) Subjective afebrine in 24hrs no leukocytosis sp cx NF remains intubated, Fio2 40% Objective Vital Signs Last 24 Hour Vital Signs Date Time Temp Pulse Resp B/P (MAP) Pulse Ox O2 Delivery O2 Flow Rate FiO2 11/18/17 18:00 95 18 95/55 96 Mechanical Ventilator 40 11/18/17 17:22 99 16 40 11/18/17 17:00 98.5 91 18 96/55 97 Mechanical Ventilator 40 11/18/17 16:55 98.6 11/18/17 16:00 40 11/18/17 16:00 98 11/18/17 16:00 97 18 115/75 97 Mechanical Ventilator 40 11/18/17 15:22 97 15 40 11/18/17 15:00 85 25 94/60 97 Mechanical Ventilator 40 11/18/17 14:00 92 25 103/56 97 Mechanical Ventilator 40 11/18/17 13:08 97 16 40 11/18/17 13:00 98 25 120/57 100 Mechanical Ventilator 40 11/18/17 12:00 98.6 95 19 98/57 97 Mechanical Ventilator 40 11/18/17 12:00 93 11/18/17 12:00 40 11/18/17 11:25 92 15 40 11/18/17 11:00 94 19 99/57 97 Mechanical Ventilator 40 11/18/17 10:00 91 16 102/51 97 Mechanical Ventilator 40 11/18/17 09:29 98.9 11/18/17 09:18 92 15 40 11/18/17 09:00 94 18 87/58 98 Mechanical Ventilator 40 11/18/17 08:00 95 11/18/17 08:00 94 19 87/52 97 Mechanical Ventilator 40 11/18/17 08:00 40 11/18/17 07:24 95 16 40 11/18/17 07:00 95 20 96/54 94 Mechanical Ventilator 40 11/18/17 06:00 98 20 119/59 96 Mechanical Ventilator 40 11/18/17 05:40 98 18 40 11/18/17 05:00 97 17 104/58 97 Mechanical Ventilator 40 11/18/17 04:00 40 11/18/17 04:00 100 11/18/17 04:00 98.8 99 22 115/66 96 Mechanical Ventilator 40 11/18/17 03:46 100 22 40 11/18/17 03:00 100 17 116/63 95 Mechanical Ventilator 40 11/18/17 02:00 96 21 127/67 98 Mechanical Ventilator 40 11/18/17 01:20 87 16 40 11/18/17 01:00 91 18 97/53 96 Mechanical Ventilator 40 11/18/17 00:00 91 11/18/17 00:00 98.6 91 17 98/59 94 Mechanical Ventilator 40 11/18/17 00:00 40 11/17/17 23:11 87 16 40 11/17/17 23:00 90 15 105/57 93 Mechanical Ventilator 40 11/17/17 22:00 98.8 92 15 106/56 98 Mechanical Ventilator 40 11/17/17 21:22 93 16 40 11/17/17 21:00 96 18 101/58 96 Mechanical Ventilator 40 11/17/17 20:00 99.8 99 20 97/54 98 Mechanical Ventilator 40 11/17/17 20:00 40 11/17/17 20:00 98 11/17/17 19:27 109 17 40 11/17/17 19:00 108 18 97/57 94 Mechanical Ventilator 40 Height (Feet): 5 Height (Inches): 4.00 Weight (Pounds): 143 Objective HEENT: No pale conjunctivae. No icterus. ETT in place NECK: No lymphadenopathy.. CHEST: Coarse breathing sounds. HEART: S1, S2. ABDOMEN: Soft and obese. Umbilical hernia present. EXTREMITIES: No cyanosis. NEUROLOGIC: Sedated. Microbiology Date/Time Source Procedure Growth Status 11/15/17 19:55 Blood Blood Culture - Preliminary NO GROWTH AFTER 48 HOURS Resulted 11/15/17 19:40 Blood Blood Culture - Preliminary NO GROWTH AFTER 48 HOURS Resulted 11/16/17 14:00 Nasopharynx Influenza Types A,B Antigen (RENETTA) - Final Complete 11/16/17 14:00 Sputum Gram Stain - Final Resulted 11/16/17 14:00 Sputum Sputum Culture - Preliminary NORMAL UPPER RESPIRATORY PAPI AT 24 ... Resulted 11/16/17 14:00 Urine,Clean Catch Urine Culture - Preliminary NO GROWTH AFTER 24 HOURS Resulted Laboratory Tests Test 11/17/17 22:00 11/18/17 04:00 11/18/17 08:15 Troponin I 0.000 ng/mL (0.000-0.056) White Blood Count 8.6 K/UL (4.8-10.8) Red Blood Count 4.69 M/UL (4.20-5.40) Hemoglobin 11.3 G/DL (12.0-16.0) L Hematocrit 36.6 % (37.0-47.0) L Mean Corpuscular Volume 78 FL (80-99) L Mean Corpuscular Hemoglobin 24.1 PG (27.0-31.0) L Mean Corpuscular Hemoglobin Concent 30.8 G/DL (32.0-36.0) L Red Cell Distribution Width 16.5 % (11.6-14.8) H Platelet Count 221 K/UL (150-450) Mean Platelet Volume 6.1 FL (6.5-10.1) L Neutrophils (%) (Auto) 84.0 % (45.0-75.0) H Lymphocytes (%) (Auto) 9.1 % (20.0-45.0) L Monocytes (%) (Auto) 6.2 % (1.0-10.0) Eosinophils (%) (Auto) 0.4 % (0.0-3.0) Basophils (%) (Auto) 0.2 % (0.0-2.0) Sodium Level 141 MMOL/L (136-145) Potassium Level 2.7 MMOL/L (3.5-5.1) *L Chloride Level 96 MMOL/L (98-107) L Carbon Dioxide Level 38 MMOL/L (21-32) H Anion Gap 7 mmol/L (5-15) Blood Urea Nitrogen 13 mg/dL (7-18) Creatinine 0.7 MG/DL (0.55-1.30) Estimat Glomerular Filtration Rate > 60 mL/min (>60) Glucose Level 117 MG/DL (74-106) H Calcium Level 8.8 MG/DL (8.5-10.1) Phosphorus Level 3.9 MG/DL (2.5-4.9) Magnesium Level 1.9 MG/DL (1.8-2.4) Total Bilirubin 1.1 MG/DL (0.2-1.0) H Direct Bilirubin 0.3 MG/DL (0.0-0.3) Aspartate Amino Transf (AST/SGOT) 9 U/L (15-37) L Alanine Aminotransferase (ALT/SGPT) 6 U/L (12-78) L Alkaline Phosphatase 89 U/L (46-116) Total Protein 5.6 G/DL (6.4-8.2) L Albumin 2.3 G/DL (3.4-5.0) L Globulin 3.3 g/dL Albumin/Globulin Ratio 0.7 (1.0-2.7) L Arterial Blood pH 7.570 (7.350-7.450) Arterial Blood Partial Pressure CO2 41.7 mmHg (35.0-45.0) Arterial Blood Partial Pressure O2 80.0 mmHg (75.0-100.0) Arterial Blood HCO3 37.6 mmol/L (22.0-26.0) H Arterial Blood Oxygen Saturation 96.0 % (92.0-98.0) Arterial Blood Base Excess 14.2 Rolf Test Positive Current Medications Medications (Trade) Dose Ordered Sig/Edwin Route PRN Reason Start Time Stop Time Status Last Admin Dose Admin Acetaminophen (Tylenol) 650 mg Q4H PRN ORAL Fever 11/15/17 22:45 12/15/17 22:44 11/18/17 07:59 Albuterol/ Ipratropium (Albuterol/ Ipratropium) 3 ml Q4H PRN HHN Shortness of Breath 11/15/17 22:45 11/20/17 22:44 Dextrose (Dextrose 50%) STAT PRN IV Hypoglycemia 11/15/17 22:45 12/15/17 22:44 11/16/17 11:50 Furosemide (Lasix) 40 mg EVERY 8 HOURS IV 11/15/17 22:33 12/15/17 22:32 11/18/17 13:12 Heparin Sodium (Porcine) (Heparin 5000 units/ml) 5,000 units EVERY 12 HOURS SUBQ 11/16/17 09:00 12/16/17 08:59 11/18/17 08:00 Insulin Aspart (NovoLOG) EVERY 6 HOURS SUBQ 11/16/17 18:00 12/16/17 06:29 11/18/17 06:00 Levofloxacin 100 ml @ 100 mls/hr Q24H IVPB 11/17/17 12:00 11/24/17 11:59 11/18/17 11:08 Lorazepam (Ativan 2mg/ml 1ml) 2 mg Q4H PRN IV For Anxiety 11/15/17 23:00 11/22/17 22:59 11/18/17 14:25 Morphine Sulfate (Morphine Sulfate) 4 mg Q4H PRN IVP Breakthrough pain 11/16/17 21:30 11/22/17 22:59 11/18/17 16:21 Ondansetron HCl (Zofran) 4 mg Q6H PRN IVP Nausea & Vomiting 11/15/17 22:45 12/15/17 22:44 Pantoprazole (Protonix) 40 mg DAILY IV 11/16/17 09:00 12/16/17 08:59 11/18/17 07:59 Piperacillin Sod/ Tazobactam Sod 3.375 gm/Sodium Chloride 110 ml @ 27.5 mls/hr Q8H IVPB 11/16/17 08:00 11/23/17 07:59 11/18/17 16:06 Polyethylene Glycol (Miralax) 17 gm DAILYPRN PRN ORAL Constipation 11/15/17 22:45 12/15/17 22:44 Temazepam (Restoril) 15 mg HSPRN PRN ORAL Insomnia 11/15/17 22:45 11/22/17 22:44 Elise Owusu M.D. Nov 18, 2017 18:34
--- NOTE | 2017-11-18 20:30 | Cardiology Progress Note ---
Assessment/Plan Assessment/Plan 1. Respiratory failure. 2. Diabetes mellitus. 3. Hypertension history. 4. Chronic obstructive pulmonary disease history. 5. Hypotension all trop neg pro bnp min elevated failed wean vent support abx cxr showed more infiltrate less effusion tele personally reviewed ekg reviewed t inversion in v1-3 otherwise neg will dc alsix as bp is low mg and k supplement as neede tele noted reviewed Subjective ROS Limited/Unobtainable: Yes Subjective on the vent Objective Last 24 Hour Vital Signs Date Time Temp Pulse Resp B/P (MAP) Pulse Ox O2 Delivery O2 Flow Rate FiO2 11/18/17 19:12 96 16 40 11/18/17 18:00 95 18 95/55 96 Mechanical Ventilator 40 11/18/17 17:22 99 16 40 11/18/17 17:00 98.5 91 18 96/55 97 Mechanical Ventilator 40 11/18/17 16:55 98.6 11/18/17 16:00 40 11/18/17 16:00 98 11/18/17 16:00 97 18 115/75 97 Mechanical Ventilator 40 11/18/17 15:22 97 15 40 11/18/17 15:00 85 25 94/60 97 Mechanical Ventilator 40 11/18/17 14:00 92 25 103/56 97 Mechanical Ventilator 40 11/18/17 13:08 97 16 40 11/18/17 13:00 98 25 120/57 100 Mechanical Ventilator 40 11/18/17 12:00 98.6 95 19 98/57 97 Mechanical Ventilator 40 11/18/17 12:00 93 11/18/17 12:00 40 11/18/17 11:25 92 15 40 11/18/17 11:00 94 19 99/57 97 Mechanical Ventilator 40 11/18/17 10:00 91 16 102/51 97 Mechanical Ventilator 40 11/18/17 09:29 98.9 11/18/17 09:18 92 15 40 11/18/17 09:00 94 18 87/58 98 Mechanical Ventilator 40 11/18/17 08:00 95 11/18/17 08:00 94 19 87/52 97 Mechanical Ventilator 40 11/18/17 08:00 40 11/18/17 07:24 95 16 40 11/18/17 07:00 95 20 96/54 94 Mechanical Ventilator 40 11/18/17 06:00 98 20 119/59 96 Mechanical Ventilator 40 11/18/17 05:40 98 18 40 11/18/17 05:00 97 17 104/58 97 Mechanical Ventilator 40 11/18/17 04:00 40 11/18/17 04:00 100 11/18/17 04:00 98.8 99 22 115/66 96 Mechanical Ventilator 40 11/18/17 03:46 100 22 40 11/18/17 03:00 100 17 116/63 95 Mechanical Ventilator 40 11/18/17 02:00 96 21 127/67 98 Mechanical Ventilator 40 11/18/17 01:20 87 16 40 11/18/17 01:00 91 18 97/53 96 Mechanical Ventilator 40 11/18/17 00:00 91 11/18/17 00:00 98.6 91 17 98/59 94 Mechanical Ventilator 40 11/18/17 00:00 40 11/17/17 23:11 87 16 40 11/17/17 23:00 90 15 105/57 93 Mechanical Ventilator 40 11/17/17 22:00 98.8 92 15 106/56 98 Mechanical Ventilator 40 11/17/17 21:22 93 16 40 11/17/17 21:00 96 18 101/58 96 Mechanical Ventilator 40 General Appearance: on vent Neck: supple Cardiovascular: normal rate Respiratory/Chest: decreased breath sounds Abdomen: normal bowel sounds Extremities: no swelling Intake and Output 11/17/17 11/18/17 19:00 07:00 Intake Total 670.0 ml 237.5 ml Output Total 1535 ml 993 ml Balance -865.0 ml -755.5 ml Free Water 100 ml IV Total 670.0 ml 137.5 ml Tube Feeding 0 ml 0 ml Output Urine Total 1535 ml 993 ml Laboratory Tests Test 11/17/17 22:00 11/18/17 04:00 11/18/17 08:15 Troponin I 0.000 ng/mL (0.000-0.056) White Blood Count 8.6 K/UL (4.8-10.8) Red Blood Count 4.69 M/UL (4.20-5.40) Hemoglobin 11.3 G/DL (12.0-16.0) L Hematocrit 36.6 % (37.0-47.0) L Mean Corpuscular Volume 78 FL (80-99) L Mean Corpuscular Hemoglobin 24.1 PG (27.0-31.0) L Mean Corpuscular Hemoglobin Concent 30.8 G/DL (32.0-36.0) L Red Cell Distribution Width 16.5 % (11.6-14.8) H Platelet Count 221 K/UL (150-450) Mean Platelet Volume 6.1 FL (6.5-10.1) L Neutrophils (%) (Auto) 84.0 % (45.0-75.0) H Lymphocytes (%) (Auto) 9.1 % (20.0-45.0) L Monocytes (%) (Auto) 6.2 % (1.0-10.0) Eosinophils (%) (Auto) 0.4 % (0.0-3.0) Basophils (%) (Auto) 0.2 % (0.0-2.0) Sodium Level 141 MMOL/L (136-145) Potassium Level 2.7 MMOL/L (3.5-5.1) *L Chloride Level 96 MMOL/L (98-107) L Carbon Dioxide Level 38 MMOL/L (21-32) H Anion Gap 7 mmol/L (5-15) Blood Urea Nitrogen 13 mg/dL (7-18) Creatinine 0.7 MG/DL (0.55-1.30) Estimat Glomerular Filtration Rate > 60 mL/min (>60) Glucose Level 117 MG/DL (74-106) H Calcium Level 8.8 MG/DL (8.5-10.1) Phosphorus Level 3.9 MG/DL (2.5-4.9) Magnesium Level 1.9 MG/DL (1.8-2.4) Total Bilirubin 1.1 MG/DL (0.2-1.0) H Direct Bilirubin 0.3 MG/DL (0.0-0.3) Aspartate Amino Transf (AST/SGOT) 9 U/L (15-37) L Alanine Aminotransferase (ALT/SGPT) 6 U/L (12-78) L Alkaline Phosphatase 89 U/L (46-116) Total Protein 5.6 G/DL (6.4-8.2) L Albumin 2.3 G/DL (3.4-5.0) L Globulin 3.3 g/dL Albumin/Globulin Ratio 0.7 (1.0-2.7) L Arterial Blood pH 7.570 (7.350-7.450) Arterial Blood Partial Pressure CO2 41.7 mmHg (35.0-45.0) Arterial Blood Partial Pressure O2 80.0 mmHg (75.0-100.0) Arterial Blood HCO3 37.6 mmol/L (22.0-26.0) H Arterial Blood Oxygen Saturation 96.0 % (92.0-98.0) Arterial Blood Base Excess 14.2 Rolf Test Positive Microbiology Date/Time Source Procedure Growth Status 11/16/17 14:00 Nasopharynx Influenza Types A,B Antigen (RENETTA) - Final Complete 11/16/17 14:00 Sputum Gram Stain - Final Resulted 11/16/17 14:00 Sputum Sputum Culture - Preliminary NORMAL UPPER RESPIRATORY PRISCILA AT 24 ... Resulted 11/16/17 14:00 Urine,Clean Catch Urine Culture - Preliminary NO GROWTH AFTER 24 HOURS Resulted CALIN HAWKINS Nov 18, 2017 20:30
[2017-11-19] VITALS (24 sets, daily range): BP systolic 93–139; BP diastolic 50–82
[2017-11-19] MEDS: NovoLOG Insulin Flexpen SUBQ SCH ×5 (00:16→23:55)
[2017-11-19] MEDS: LORazepam Inj 2mg/ml 1ml IV PRN ×4 (00:20→19:56)
[2017-11-19 04:47] LABS: BASOPHILS % (AUTO) 0.4 % (0.0-2.0); HEMATOCRIT 33.6 % (37.0-47.0); HEMOGLOBIN 10.4 G/DL (12.0-16.0); LYMPHOCYTES % (AUTO) 13.4 % (20.0-45.0); MEAN CORPUSCULAR VOLUME 80 FL (80-99); MONOCYTES % (AUTO) 5.8 % (1.0-10.0); NEUTROPHILS % (AUTO) 79.4 % (45.0-75.0); PLATELET COUNT 198 K/UL (150-450); RED BLOOD COUNT 4.23 M/UL (4.20-5.40); RED CELL DISTRIBUTION WIDTH 16.6 % (11.6-14.8); WHITE BLOOD COUNT 6.2 K/UL (4.8-10.8)
[2017-11-19 05:14] LABS: ALANINE AMINOTRANSFERASE 8 U/L (12-78); ALBUMIN 2.2 G/DL (3.4-5.0); ALBUMIN/GLOBULIN RATIO 0.7 (1.0-2.7); ALKALINE PHOSPHATASE 81 U/L (46-116); ANION GAP 8 mmol/L (5-15); ASPARTATE AMINO TRANSFERASE 8 U/L (15-37); BILIRUBIN,TOTAL 0.7 MG/DL (0.2-1.0); BLOOD UREA NITROGEN 17 mg/dL (7-18); CARBON DIOXIDE 34 MMOL/L (21-32); CHLORIDE 105 MMOL/L (98-107); CREATININE 0.8 MG/DL (0.55-1.30); PHOSPHORUS 2.9 MG/DL (2.5-4.9); POTASSIUM 3.4 MMOL/L (3.5-5.1); SODIUM 147 MMOL/L (136-145)
[2017-11-19] MEDS: Piperacillin/Tazobactam 3.375 GM in NS 110 ML IVPB SCH ×5 (08:18→23:54)
[2017-11-19] MEDS: Pantoprazole Inj IV SCH (08:18)
[2017-11-19] MEDS: Morphine Sulfate 4mg/ml Inj IVP PRN ×2 (08:19→14:47)
[2017-11-19] MEDS: Heparin 5000 units/ml inj SUBQ SCH ×2 (08:20→20:46)
--- NOTE | 2017-11-19 09:13 | Pulmonolgy Critical Care Note ---
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 Renal: F/U I&O, keep IV fluid, check electrolytes Infectious Disease: check cultures Gastrointestinal: continue feedings/current rate, abdominal imaging Endocrine: monitor blood sugar, check TSH Neurologic: PRN Morphine Affect: PRN ativan Prophylaxis: Heparin Notes Reviewed: ID, GI Discussed with: nurses, consultants, casework managermanager building - Objective Last 24 Hour Vital Signs Date Time Temp Pulse Resp B/P (MAP) Pulse Ox O2 Delivery O2 Flow Rate FiO2 11/19/17 07:25 99 16 40 11/19/17 06:00 101 16 113/63 96 Mechanical Ventilator 40 11/19/17 05:24 101 16 40 11/19/17 05:00 103 16 128/59 96 Mechanical Ventilator 40 11/19/17 04:00 40 11/19/17 04:00 92 16 107/62 96 Mechanical Ventilator 40 11/19/17 04:00 88 11/19/17 03:18 94 16 40 11/19/17 03:00 98 16 122/69 96 Mechanical Ventilator 40 11/19/17 02:00 94 16 104/58 96 Mechanical Ventilator 40 11/19/17 01:28 89 18 40 11/19/17 01:00 96 16 93/62 96 Mechanical Ventilator 40 11/19/17 00:00 96 16 108/54 96 Mechanical Ventilator 40 11/18/17 23:14 85 16 40 11/18/17 23:00 96 16 106/62 96 Mechanical Ventilator 40 11/18/17 22:28 98.5 11/18/17 22:00 87 16 101/56 96 Mechanical Ventilator 40 11/18/17 21:10 100 16 40 11/18/17 21:00 98 17 98/70 96 Mechanical Ventilator 40 11/18/17 20:00 40 11/18/17 20:00 100 11/18/17 20:00 98 17 96/55 96 Mechanical Ventilator 40 11/18/17 19:12 96 16 40 11/18/17 19:00 95 17 99/55 96 Mechanical Ventilator 40 11/18/17 18:00 95 18 95/55 96 Mechanical Ventilator 40 11/18/17 17:22 99 16 40 11/18/17 17:00 98.5 91 18 96/55 97 Mechanical Ventilator 40 11/18/17 16:00 40 11/18/17 16:00 98 11/18/17 16:00 97 18 115/75 97 Mechanical Ventilator 40 11/18/17 15:22 97 15 40 11/18/17 15:00 85 25 94/60 97 Mechanical Ventilator 40 11/18/17 14:00 92 25 103/56 97 Mechanical Ventilator 40 11/18/17 13:08 97 16 40 11/18/17 13:00 98 25 120/57 100 Mechanical Ventilator 40 11/18/17 12:00 98.6 95 19 98/57 97 Mechanical Ventilator 40 11/18/17 12:00 93 11/18/17 12:00 40 11/18/17 11:25 92 15 40 11/18/17 11:00 94 19 99/57 97 Mechanical Ventilator 40 11/18/17 10:00 91 16 102/51 97 Mechanical Ventilator 40 11/18/17 09:29 98.9 11/18/17 09:18 92 15 40 Status: sedated Condition: critical HEENT: atraumatic, normocephalic Neck: full ROM Lungs: clear Heart: HR/BP stable, regular Abdomen: soft, active bowel sounds Extremities: edema Decubiti: location Micro: Microbiology Date/Time Source Procedure Growth Status 11/16/17 14:00 Nasopharynx Influenza Types A,B Antigen (RENETTA) - Final Complete 11/16/17 14:00 Sputum Gram Stain - Final Complete 11/16/17 14:00 Sputum Sputum Culture - Final NORMAL UPPER RESPIRATORY PRISCILA PRESENT Complete 11/16/17 14:00 Urine,Clean Catch Urine Culture - Final NO GROWTH AFTER 48 HOURS Complete Accucheck: 203 Critical Care - Subjective ROS Limited/Unobtainable: Yes ICU Day: 5 Interval Events: comfortable, still lot of infiltrate on the cxr. Condition: critical FI02: 40 Vent Support Breath Rate: 16 Vent Support Mode: AC Vent Tidal Volume: 600 Sputum Amount: Moderate PEEP: 0.0 PIP: 27 Tube Feeding Amount: 50 I&O: Intake and Output 11/18/17 11/19/17 19:00 07:00 Intake Total 1261.5 ml 380 ml Output Total 850 ml 245 ml Balance 411.5 ml 135 ml IV Total 1121.5 ml Tube Feeding 140 ml 380 ml Output Urine Total 850 ml 245 ml CXR: ET in good position ET-Tube: 7.0 ET Position: 22 Labs: Laboratory Tests Test 11/19/17 03:05 White Blood Count 6.2 K/UL (4.8-10.8) Red Blood Count 4.23 M/UL (4.20-5.40) Hemoglobin 10.4 G/DL (12.0-16.0) L Hematocrit 33.6 % (37.0-47.0) L Mean Corpuscular Volume 80 FL (80-99) Mean Corpuscular Hemoglobin 24.6 PG (27.0-31.0) L Mean Corpuscular Hemoglobin Concent 31.0 G/DL (32.0-36.0) L Red Cell Distribution Width 16.6 % (11.6-14.8) H Platelet Count 198 K/UL (150-450) Mean Platelet Volume 5.8 FL (6.5-10.1) L Neutrophils (%) (Auto) 79.4 % (45.0-75.0) H Lymphocytes (%) (Auto) 13.4 % (20.0-45.0) L Monocytes (%) (Auto) 5.8 % (1.0-10.0) Eosinophils (%) (Auto) 1.0 % (0.0-3.0) Basophils (%) (Auto) 0.4 % (0.0-2.0) Sodium Level 147 MMOL/L (136-145) H Potassium Level 3.4 MMOL/L (3.5-5.1) L Chloride Level 105 MMOL/L (98-107) Carbon Dioxide Level 34 MMOL/L (21-32) H Anion Gap 8 mmol/L (5-15) Blood Urea Nitrogen 17 mg/dL (7-18) Creatinine 0.8 MG/DL (0.55-1.30) Estimat Glomerular Filtration Rate > 60 mL/min (>60) Glucose Level 176 MG/DL (74-106) H Calcium Level 9.0 MG/DL (8.5-10.1) Phosphorus Level 2.9 MG/DL (2.5-4.9) Magnesium Level 2.0 MG/DL (1.8-2.4) Total Bilirubin 0.7 MG/DL (0.2-1.0) Aspartate Amino Transf (AST/SGOT) 8 U/L (15-37) L Alanine Aminotransferase (ALT/SGPT) 8 U/L (12-78) L Alkaline Phosphatase 81 U/L (46-116) Total Protein 5.4 G/DL (6.4-8.2) L Albumin 2.2 G/DL (3.4-5.0) L Globulin 3.2 g/dL Albumin/Globulin Ratio 0.7 (1.0-2.7) L ADONIS SALES Nov 19, 2017 09:13
--- NOTE | 2017-11-19 09:19 | Infectious Diseases Prog Note ---
Assessment/Plan Assessment/Plan ASSESSMENT: The patient is a 67-year-old female with: 1. Chronic obstructive pulmonary disease exacerbation. -influenza neg 2. Community-acquired pneumonia/aspiration pneumonia.] -CXR: New or increased small right pleural effusion Persistent left pleural fluid and extensive bilateral parenchymal disease, over one day -sp cx normal papi to date -legionella ag urine and ab p 3.fever/leukocytosis- improving; leukocytosis resolved 4. Ventilator-dependent respiratory failure. - Hypertension. - Diabetes. PLAN: - We will continue the patient on Zosyn #4 pending sputum culture and Levaquin #3/5 -11/15 SP Unasyn #1 - f/u cx - f/u Legionella antibody/urine antigen. - Monitor chest x-ray. -. Based on the patient's clinical course and laboratories, we will dofurther recommendations. Thank you, Dr. Isbell, for allowing me to participate in the care of this patient. I will follow the patient with you during this hospitalization. Subjective Allergies: Coded Allergies: No Known Allergies (Unverified , 11/15/17) Subjective afebrine in 36hrs no leukocytosis sp cx NF tod ate remains intubated, Fio2 40% Objective Vital Signs Last 24 Hour Vital Signs Date Time Temp Pulse Resp B/P (MAP) Pulse Ox O2 Delivery O2 Flow Rate FiO2 11/19/17 07:25 99 16 40 11/19/17 06:00 101 16 113/63 96 Mechanical Ventilator 40 11/19/17 05:24 101 16 40 11/19/17 05:00 103 16 128/59 96 Mechanical Ventilator 40 11/19/17 04:00 40 11/19/17 04:00 92 16 107/62 96 Mechanical Ventilator 40 11/19/17 04:00 88 11/19/17 03:18 94 16 40 11/19/17 03:00 98 16 122/69 96 Mechanical Ventilator 40 11/19/17 02:00 94 16 104/58 96 Mechanical Ventilator 40 11/19/17 01:28 89 18 40 11/19/17 01:00 96 16 93/62 96 Mechanical Ventilator 40 11/19/17 00:00 96 16 108/54 96 Mechanical Ventilator 40 11/18/17 23:14 85 16 40 11/18/17 23:00 96 16 106/62 96 Mechanical Ventilator 40 11/18/17 22:28 98.5 11/18/17 22:00 87 16 101/56 96 Mechanical Ventilator 40 11/18/17 21:10 100 16 40 11/18/17 21:00 98 17 98/70 96 Mechanical Ventilator 40 11/18/17 20:00 40 11/18/17 20:00 100 11/18/17 20:00 98 17 96/55 96 Mechanical Ventilator 40 11/18/17 19:12 96 16 40 11/18/17 19:00 95 17 99/55 96 Mechanical Ventilator 40 11/18/17 18:00 95 18 95/55 96 Mechanical Ventilator 40 11/18/17 17:22 99 16 40 11/18/17 17:00 98.5 91 18 96/55 97 Mechanical Ventilator 40 11/18/17 16:00 40 11/18/17 16:00 98 11/18/17 16:00 97 18 115/75 97 Mechanical Ventilator 40 11/18/17 15:22 97 15 40 11/18/17 15:00 85 25 94/60 97 Mechanical Ventilator 40 11/18/17 14:00 92 25 103/56 97 Mechanical Ventilator 40 11/18/17 13:08 97 16 40 11/18/17 13:00 98 25 120/57 100 Mechanical Ventilator 40 11/18/17 12:00 98.6 95 19 98/57 97 Mechanical Ventilator 40 11/18/17 12:00 93 11/18/17 12:00 40 11/18/17 11:25 92 15 40 11/18/17 11:00 94 19 99/57 97 Mechanical Ventilator 40 11/18/17 10:00 91 16 102/51 97 Mechanical Ventilator 40 11/18/17 09:29 98.9 11/18/17 09:18 92 15 40 Height (Feet): 5 Height (Inches): 4.00 Weight (Pounds): 141 Objective HEENT: No pale conjunctivae. No icterus. ETT in place NECK: No lymphadenopathy.. CHEST: Coarse breathing sounds. HEART: S1, S2. ABDOMEN: Soft and obese. Umbilical hernia present. EXTREMITIES: No cyanosis. NEUROLOGIC: Sedated. Microbiology Date/Time Source Procedure Growth Status 11/16/17 14:00 Nasopharynx Influenza Types A,B Antigen (RENETTA) - Final Complete 11/16/17 14:00 Sputum Gram Stain - Final Complete 11/16/17 14:00 Sputum Sputum Culture - Final NORMAL UPPER RESPIRATORY PAPI PRESENT Complete 11/16/17 14:00 Urine,Clean Catch Urine Culture - Final NO GROWTH AFTER 48 HOURS Complete Laboratory Tests Test 11/19/17 03:05 White Blood Count 6.2 K/UL (4.8-10.8) Red Blood Count 4.23 M/UL (4.20-5.40) Hemoglobin 10.4 G/DL (12.0-16.0) L Hematocrit 33.6 % (37.0-47.0) L Mean Corpuscular Volume 80 FL (80-99) Mean Corpuscular Hemoglobin 24.6 PG (27.0-31.0) L Mean Corpuscular Hemoglobin Concent 31.0 G/DL (32.0-36.0) L Red Cell Distribution Width 16.6 % (11.6-14.8) H Platelet Count 198 K/UL (150-450) Mean Platelet Volume 5.8 FL (6.5-10.1) L Neutrophils (%) (Auto) 79.4 % (45.0-75.0) H Lymphocytes (%) (Auto) 13.4 % (20.0-45.0) L Monocytes (%) (Auto) 5.8 % (1.0-10.0) Eosinophils (%) (Auto) 1.0 % (0.0-3.0) Basophils (%) (Auto) 0.4 % (0.0-2.0) Sodium Level 147 MMOL/L (136-145) H Potassium Level 3.4 MMOL/L (3.5-5.1) L Chloride Level 105 MMOL/L (98-107) Carbon Dioxide Level 34 MMOL/L (21-32) H Anion Gap 8 mmol/L (5-15) Blood Urea Nitrogen 17 mg/dL (7-18) Creatinine 0.8 MG/DL (0.55-1.30) Estimat Glomerular Filtration Rate > 60 mL/min (>60) Glucose Level 176 MG/DL (74-106) H Calcium Level 9.0 MG/DL (8.5-10.1) Phosphorus Level 2.9 MG/DL (2.5-4.9) Magnesium Level 2.0 MG/DL (1.8-2.4) Total Bilirubin 0.7 MG/DL (0.2-1.0) Aspartate Amino Transf (AST/SGOT) 8 U/L (15-37) L Alanine Aminotransferase (ALT/SGPT) 8 U/L (12-78) L Alkaline Phosphatase 81 U/L (46-116) Total Protein 5.4 G/DL (6.4-8.2) L Albumin 2.2 G/DL (3.4-5.0) L Globulin 3.2 g/dL Albumin/Globulin Ratio 0.7 (1.0-2.7) L Current Medications Medications (Trade) Dose Ordered Sig/Edwin Route PRN Reason Start Time Stop Time Status Last Admin Dose Admin Acetaminophen (Tylenol) 650 mg Q4H PRN ORAL Fever 11/15/17 22:45 12/15/17 22:44 11/18/17 07:59 Albuterol/ Ipratropium (Albuterol/ Ipratropium) 3 ml Q4H PRN HHN Shortness of Breath 11/15/17 22:45 11/20/17 22:44 Dextrose (Dextrose 50%) STAT PRN IV Hypoglycemia 11/15/17 22:45 12/15/17 22:44 11/16/17 11:50 Heparin Sodium (Porcine) (Heparin 5000 units/ml) 5,000 units EVERY 12 HOURS SUBQ 11/16/17 09:00 12/16/17 08:59 11/19/17 08:20 Insulin Aspart (NovoLOG) EVERY 6 HOURS SUBQ 11/16/17 18:00 12/16/17 06:29 11/19/17 06:17 Levofloxacin 100 ml @ 100 mls/hr Q24H IVPB 11/17/17 12:00 11/24/17 11:59 11/18/17 11:08 Lorazepam (Ativan 2mg/ml 1ml) 2 mg Q4H PRN IV For Anxiety 11/15/17 23:00 11/22/17 22:59 11/19/17 04:50 Morphine Sulfate (Morphine Sulfate) 4 mg Q4H PRN IVP Breakthrough pain 11/16/17 21:30 11/22/17 22:59 11/19/17 08:19 Ondansetron HCl (Zofran) 4 mg Q6H PRN IVP Nausea & Vomiting 1/26/18 22:45 12/15/17 22:44 11/18/17 21:59 Pantoprazole (Protonix) 40 mg DAILY IV 11/16/17 09:00 12/16/17 08:59 11/19/17 08:18 Piperacillin Sod/ Tazobactam Sod 3.375 gm/Sodium Chloride 110 ml @ 27.5 mls/hr Q8H IVPB 11/16/17 08:00 11/23/17 07:59 11/19/17 08:18 Polyethylene Glycol (Miralax) 17 gm DAILYPRN PRN ORAL Constipation 11/15/17 22:45 12/15/17 22:44 Potassium Chloride 40 meq/ Sodium Chloride 570 ml @ 142.5 mls/ hr ONCE ONCE IVPB 11/19/17 12:00 11/19/17 15:59 Temazepam (Restoril) 15 mg HSPRN PRN ORAL Insomnia 11/15/17 22:45 11/22/17 22:44 Elise Owusu M.D. Nov 19, 2017 09:19
--- NOTE | 2017-11-19 09:59 | Diagnostic Imaging Report ---
Indication: Dyspnea Technique: One view of the chest Comparison: 11/18/2017 Findings: Bilateral infiltrates are again demonstrated. There is suggestion of decreased pleural fluid on the right. Pleural fluid on the left persists. Stable satisfactory positions of endotracheal and nasogastric tubes Impression: Possibly decreased right-sided pleural effusion. Otherwise, little manager exchange one day
[2017-11-19] MEDS ORDERED: Potassium Chloride 40 MEQ in Sodium Chloride 500ML 550 ML IVPB ONE (12:00)
--- NOTE | 2017-11-19 12:34 | General Progress Note ---
Assessment/Plan Problem List: (1) History of hypertension ICD Codes: Z86.79 - Personal history of other diseases of the circulatory system SNOMED: 292740834 (2) Pleural effusion ICD Codes: J90 - Pleural effusion, not elsewhere classified SNOMED: 31019714 (3) COPD (chronic obstructive pulmonary disease) ICD Codes: J44.9 - Chronic obstructive pulmonary disease, unspecified SNOMED: 66133383 (4) Acute respiratory failure ICD Codes: J96.00 - Acute respiratory failure, unspecified whether with hypoxia or hypercapnia SNOMED: 49496747 (5) Diabetes mellitus ICD Codes: E11.9 - Type 2 diabetes mellitus without complications SNOMED: 87673720 (6) Pulmonary edema ICD Codes: J81.1 - Chronic pulmonary edema SNOMED: 69400014 Status: unchanged Assessment/Plan vent abx bp bs control cbc bmp am Subjective Constitutional: Reports: weakness Allergies: Coded Allergies: No Known Allergies (Unverified , 11/15/17) All Systems: reviewed and negative except above Subjective intubated sedated in icu Objective Last 24 Hour Vital Signs Date Time Temp Pulse Resp B/P (MAP) Pulse Ox O2 Delivery O2 Flow Rate FiO2 11/19/17 12:00 40 11/19/17 12:00 95 11/19/17 12:00 91 17 106/75 96 Mechanical Ventilator 40 11/19/17 11:18 90 16 40 11/19/17 11:00 98.9 93 17 105/54 97 Mechanical Ventilator 40 11/19/17 10:00 88 17 103/56 94 Mechanical Ventilator 40 11/19/17 09:17 98 16 40 11/19/17 09:00 96 17 138/63 97 Mechanical Ventilator 40 11/19/17 08:00 99 18 129/67 97 Mechanical Ventilator 40 11/19/17 08:00 40 11/19/17 08:00 104 11/19/17 07:25 99 16 40 11/19/17 07:00 99.0 103 19 124/58 96 Mechanical Ventilator 40 11/19/17 06:00 101 16 113/63 96 Mechanical Ventilator 40 11/19/17 05:24 101 16 40 11/19/17 05:00 103 16 128/59 96 Mechanical Ventilator 40 11/19/17 04:00 40 11/19/17 04:00 92 16 107/62 96 Mechanical Ventilator 40 11/19/17 04:00 88 11/19/17 03:18 94 16 40 11/19/17 03:00 98 16 122/69 96 Mechanical Ventilator 40 11/19/17 02:00 94 16 104/58 96 Mechanical Ventilator 40 11/19/17 01:28 89 18 40 11/19/17 01:00 96 16 93/62 96 Mechanical Ventilator 40 11/19/17 00:00 96 16 108/54 96 Mechanical Ventilator 40 11/18/17 23:14 85 16 40 11/18/17 23:00 96 16 106/62 96 Mechanical Ventilator 40 11/18/17 22:28 98.5 11/18/17 22:00 87 16 101/56 96 Mechanical Ventilator 40 11/18/17 21:10 100 16 40 11/18/17 21:00 98 17 98/70 96 Mechanical Ventilator 40 11/18/17 20:00 40 11/18/17 20:00 100 11/18/17 20:00 98 17 96/55 96 Mechanical Ventilator 40 11/18/17 19:12 96 16 40 11/18/17 19:00 95 17 99/55 96 Mechanical Ventilator 40 11/18/17 18:00 95 18 95/55 96 Mechanical Ventilator 40 11/18/17 17:22 99 16 40 11/18/17 17:00 98.5 91 18 96/55 97 Mechanical Ventilator 40 11/18/17 16:00 40 11/18/17 16:00 98 11/18/17 16:00 97 18 115/75 97 Mechanical Ventilator 40 11/18/17 15:22 97 15 40 11/18/17 15:00 85 25 94/60 97 Mechanical Ventilator 40 11/18/17 14:00 92 25 103/56 97 Mechanical Ventilator 40 11/18/17 13:08 97 16 40 11/18/17 13:00 98 25 120/57 100 Mechanical Ventilator 40 Intake and Output 11/18/17 11/19/17 19:00 07:00 Intake Total 1261.5 ml 430 ml Output Total 850 ml 295 ml Balance 411.5 ml 135 ml IV Total 1121.5 ml Tube Feeding 140 ml 430 ml Output Urine Total 850 ml 295 ml Laboratory Tests 11/19/17 03:05: White Blood Count 6.2, Red Blood Count 4.23, Hemoglobin 10.4L, Hematocrit 33.6L , Mean Corpuscular Volume 80, Mean Corpuscular Hemoglobin 24.6L, Mean Corpuscular Hemoglobin Concent 31.0L, Red Cell Distribution Width 16.6H, Platelet Count 198, Mean Platelet Volume 5.8L, Neutrophils (%) (Auto) 79.4H, Lymphocytes (%) (Auto) 13.4L, Monocytes (%) (Auto) 5.8, Eosinophils (%) (Auto) 1.0, Basophils (%) (Auto) 0.4, Sodium Level 147H, Potassium Level 3.4L, Chloride Level 105, Carbon Dioxide Level 34H, Anion Gap 8, Blood Urea Nitrogen 17, Creatinine 0.8, Estimat Glomerular Filtration Rate > 60, Glucose Level 176H , Calcium Level 9.0, Phosphorus Level 2.9, Magnesium Level 2.0, Total Bilirubin 0.7, Aspartate Amino Transf (AST/SGOT) 8L, Alanine Aminotransferase (ALT/SGPT) 8L, Alkaline Phosphatase 81, Total Protein 5.4L, Albumin 2.2L, Globulin 3.2, Albumin/Globulin Ratio 0.7L 11/19/17 09:25: Arterial Blood pH 7.522H, Arterial Blood Partial Pressure CO2 41.9, Arterial Blood Partial Pressure O2 88.6, Arterial Blood HCO3 33.6H, Arterial Blood Oxygen Saturation 96.6, Arterial Blood Base Excess 9.9, Rolf Test Positive Height (Feet): 5 Height (Inches): 4.00 Weight (Pounds): 141 General Appearance: lethargic EENT: normal ENT inspection Neck: normal alignment Cardiovascular: normal peripheral pulses, normal rate, regular rhythm Respiratory/Chest: chest wall non-tender, lungs clear, decreased breath sounds Abdomen: normal bowel sounds, non tender, soft Extremities: normal inspection Edema: no edema noted Arm (L), no edema noted Arm (R), no edema noted Leg (L), no edema noted Leg (R), no edema noted Pedal (L), no edema noted Pedal (R), no edema noted Generalized Neurologic: motor weakness Skin: normal pigmentation, warm/dry TIM GARY Nov 19, 2017 12:34
[2017-11-19] MEDS ORDERED: Tubing IV Secondary IV ONE (14:59)
--- NOTE | 2017-11-19 17:05 | Cardiology Progress Note ---
Assessment/Plan Assessment/Plan 1. Respiratory failure. 2. Diabetes mellitus. 3. Hypertension history. 4. Chronic obstructive pulmonary disease history. 5. Hypotension all trop neg pro bnp min elevated to wean as tolerated vent support abx tele personally reviewed ekg reviewed t inversion in v1-3 otherwise neg 0ff alsix as bp was low mg and k supplement as needed tele noted reviewed Subjective ROS Limited/Unobtainable: Yes Subjective on the vent Objective Last 24 Hour Vital Signs Date Time Temp Pulse Resp B/P (MAP) Pulse Ox O2 Delivery O2 Flow Rate FiO2 11/19/17 16:00 40 11/19/17 16:00 98.6 96 16 128/66 97 Mechanical Ventilator 40 11/19/17 16:00 99 11/19/17 15:20 99 19 40 11/19/17 15:00 94 16 137/63 98 Mechanical Ventilator 40 11/19/17 14:00 90 16 127/82 97 Mechanical Ventilator 40 11/19/17 13:18 95 16 40 11/19/17 13:00 93 16 108/77 97 Mechanical Ventilator 40 11/19/17 12:00 40 11/19/17 12:00 95 11/19/17 12:00 91 17 106/75 96 Mechanical Ventilator 40 11/19/17 11:18 90 16 40 11/19/17 11:00 98.9 93 17 105/54 97 Mechanical Ventilator 40 11/19/17 10:00 88 17 103/56 94 Mechanical Ventilator 40 11/19/17 09:17 98 16 40 11/19/17 09:00 96 17 138/63 97 Mechanical Ventilator 40 11/19/17 08:00 99 18 129/67 97 Mechanical Ventilator 40 11/19/17 08:00 40 11/19/17 08:00 104 11/19/17 07:25 99 16 40 11/19/17 07:00 99.0 103 19 124/58 96 Mechanical Ventilator 40 11/19/17 06:00 101 16 113/63 96 Mechanical Ventilator 40 11/19/17 05:24 101 16 40 11/19/17 05:00 103 16 128/59 96 Mechanical Ventilator 40 11/19/17 04:00 40 11/19/17 04:00 92 16 107/62 96 Mechanical Ventilator 40 11/19/17 04:00 88 11/19/17 03:18 94 16 40 11/19/17 03:00 98 16 122/69 96 Mechanical Ventilator 40 11/19/17 02:00 94 16 104/58 96 Mechanical Ventilator 40 11/19/17 01:28 89 18 40 11/19/17 01:00 96 16 93/62 96 Mechanical Ventilator 40 11/19/17 00:00 96 16 108/54 96 Mechanical Ventilator 40 11/18/17 23:14 85 16 40 11/18/17 23:00 96 16 106/62 96 Mechanical Ventilator 40 11/18/17 22:28 98.5 11/18/17 22:00 87 16 101/56 96 Mechanical Ventilator 40 11/18/17 21:10 100 16 40 11/18/17 21:00 98 17 98/70 96 Mechanical Ventilator 40 11/18/17 20:00 40 11/18/17 20:00 100 11/18/17 20:00 98 17 96/55 96 Mechanical Ventilator 40 11/18/17 19:12 96 16 40 11/18/17 19:00 95 17 99/55 96 Mechanical Ventilator 40 11/18/17 18:00 95 18 95/55 96 Mechanical Ventilator 40 11/18/17 17:22 99 16 40 General Appearance: no apparent distress, alert, on vent Neck: supple Cardiovascular: normal rate, regular rhythm Respiratory/Chest: lungs clear Abdomen: normal bowel sounds, non tender, soft Extremities: no swelling Intake and Output 11/18/17 11/19/17 19:00 07:00 Intake Total 1261.5 ml 430 ml Output Total 850 ml 295 ml Balance 411.5 ml 135 ml IV Total 1121.5 ml Tube Feeding 140 ml 430 ml Output Urine Total 850 ml 295 ml Laboratory Tests Test 11/19/17 03:05 11/19/17 09:25 White Blood Count 6.2 K/UL (4.8-10.8) Red Blood Count 4.23 M/UL (4.20-5.40) Hemoglobin 10.4 G/DL (12.0-16.0) L Hematocrit 33.6 % (37.0-47.0) L Mean Corpuscular Volume 80 FL (80-99) Mean Corpuscular Hemoglobin 24.6 PG (27.0-31.0) L Mean Corpuscular Hemoglobin Concent 31.0 G/DL (32.0-36.0) L Red Cell Distribution Width 16.6 % (11.6-14.8) H Platelet Count 198 K/UL (150-450) Mean Platelet Volume 5.8 FL (6.5-10.1) L Neutrophils (%) (Auto) 79.4 % (45.0-75.0) H Lymphocytes (%) (Auto) 13.4 % (20.0-45.0) L Monocytes (%) (Auto) 5.8 % (1.0-10.0) Eosinophils (%) (Auto) 1.0 % (0.0-3.0) Basophils (%) (Auto) 0.4 % (0.0-2.0) Sodium Level 147 MMOL/L (136-145) H Potassium Level 3.4 MMOL/L (3.5-5.1) L Chloride Level 105 MMOL/L (98-107) Carbon Dioxide Level 34 MMOL/L (21-32) H Anion Gap 8 mmol/L (5-15) Blood Urea Nitrogen 17 mg/dL (7-18) Creatinine 0.8 MG/DL (0.55-1.30) Estimat Glomerular Filtration Rate > 60 mL/min (>60) Glucose Level 176 MG/DL (74-106) H Calcium Level 9.0 MG/DL (8.5-10.1) Phosphorus Level 2.9 MG/DL (2.5-4.9) Magnesium Level 2.0 MG/DL (1.8-2.4) Total Bilirubin 0.7 MG/DL (0.2-1.0) Aspartate Amino Transf (AST/SGOT) 8 U/L (15-37) L Alanine Aminotransferase (ALT/SGPT) 8 U/L (12-78) L Alkaline Phosphatase 81 U/L (46-116) Total Protein 5.4 G/DL (6.4-8.2) L Albumin 2.2 G/DL (3.4-5.0) L Globulin 3.2 g/dL Albumin/Globulin Ratio 0.7 (1.0-2.7) L Arterial Blood pH 7.522 (7.350-7.450) Arterial Blood Partial Pressure CO2 41.9 mmHg (35.0-45.0) Arterial Blood Partial Pressure O2 88.6 mmHg (75.0-100.0) Arterial Blood HCO3 33.6 mmol/L (22.0-26.0) H Arterial Blood Oxygen Saturation 96.6 % (92.0-98.0) Arterial Blood Base Excess 9.9 Rolf Test Positive CALIN HAWKINS Nov 19, 2017 17:05
[2017-11-20] VITALS (24 sets, daily range): BP systolic 95–159; BP diastolic 43–96
[2017-11-20] MEDS: LORazepam Inj 2mg/ml 1ml IV PRN ×4 (00:11→20:29)
[2017-11-20] MEDS: Miralax 17gm pkt ORAL PRN (05:59)
[2017-11-20] MEDS: NovoLOG Insulin Flexpen SUBQ SCH ×3 (06:00→18:00)
[2017-11-20 06:24] LABS: BASOPHILS % (AUTO) 0.4 % (0.0-2.0); EOSINOPHILS % (AUTO) 7.2 % (0.0-3.0); HEMATOCRIT 36.6 % (37.0-47.0); HEMOGLOBIN 11.7 G/DL (12.0-16.0); LYMPHOCYTES % (AUTO) 15.5 % (20.0-45.0); MEAN CORPUSCULAR VOLUME 82 FL (80-99); MONOCYTES % (AUTO) 9.4 % (1.0-10.0); NEUTROPHILS % (AUTO) 67.5 % (45.0-75.0); PLATELET COUNT 205 K/UL (150-450); RED BLOOD COUNT 4.44 M/UL (4.20-5.40); RED CELL DISTRIBUTION WIDTH 11.8 % (11.6-14.8); WHITE BLOOD COUNT 6.7 K/UL (4.8-10.8)
[2017-11-20] MEDS: Piperacillin/Tazobactam 3.375 GM in NS 110 ML IVPB SCH (08:03)
[2017-11-20 08:07] LABS: CHLORIDE 104 MMOL/L (98-107); SODIUM 137 MMOL/L (136-145)
[2017-11-20 08:16] LABS: ALBUMIN 2.4 G/DL (3.4-5.0); BLOOD UREA NITROGEN 15 mg/dL (7-18)
[2017-11-20 08:17] LABS: ALANINE AMINOTRANSFERASE 45 U/L (12-78); ALBUMIN/GLOBULIN RATIO 0.6 (1.0-2.7); ALKALINE PHOSPHATASE 52 U/L (46-116); ANION GAP 9 mmol/L (5-15); ASPARTATE AMINO TRANSFERASE 55 U/L (15-37); BILIRUBIN,TOTAL 0.5 MG/DL (0.2-1.0); CALCIUM 8.2 MG/DL (8.5-10.1); CARBON DIOXIDE 24 MMOL/L (21-32); CREATININE 0.6 MG/DL (0.55-1.30); PHOSPHORUS 2.7 MG/DL (2.5-4.9)
[2017-11-20] MEDS: Pantoprazole Inj IV SCH (08:55)
[2017-11-20] MEDS: Heparin 5000 units/ml inj SUBQ SCH ×2 (08:59→20:47)
--- NOTE | 2017-11-20 10:25 | Pulmonolgy Critical Care Note ---
Critical Care - Asmt/Plan Problems: (1) Acute respiratory failure (2) Pleural effusion (3) COPD (chronic obstructive pulmonary disease) (4) Diabetes mellitus (5) Pulmonary edema Respiratory: monitor respiratory rate, adjust FIO2, CXR Cardiac: continue to monitor HR/BP Renal: F/U I&O, check electrolytes Infectious Disease: check cultures, continue antibiotics Gastrointestinal: continue feedings/current rate Endocrine: monitor blood sugar, check TSH, continue sliding scale insulin Hematologic: monitor H/H, transfuse if hgb<8.5 Neurologic: PRN Ativan, PRN Morphine, keep patient comfortable Affect: PRN ativan Prophylaxis: Protonix Time Spent (Minutes): 30 Notes Reviewed: cardio, renal Discussed with: consultants, behavioral health case managerwatershed program manager - Objective Last 24 Hour Vital Signs Date Time Temp Pulse Resp B/P (MAP) Pulse Ox O2 Delivery O2 Flow Rate FiO2 11/20/17 09:15 99 11/20/17 09:15 85 16 40 11/20/17 09:00 87 18 120/56 99 Mechanical Ventilator 40 11/20/17 08:00 90 11/20/17 08:00 40 11/20/17 08:00 98.7 90 17 127/62 98 Mechanical Ventilator 40 11/20/17 07:06 97 16 40 11/20/17 07:00 90 17 129/56 100 Mechanical Ventilator 40 11/20/17 06:00 84 17 129/56 99 Mechanical Ventilator 40 11/20/17 05:16 76 16 40 11/20/17 05:00 74 16 117/58 98 Mechanical Ventilator 40 11/20/17 04:00 71 11/20/17 04:00 97.6 81 17 108/72 99 Mechanical Ventilator 40 11/20/17 04:00 40 11/20/17 03:30 77 16 40 11/20/17 03:00 72 16 95/44 98 Mechanical Ventilator 40 11/20/17 02:12 80 16 Mechanical Ventilator 40 11/20/17 02:00 77 16 98/44 98 Mechanical Ventilator 40 11/20/17 01:30 77 16 40 11/20/17 01:00 82 16 98/49 98 Mechanical Ventilator 40 11/20/17 00:00 97.5 92 19 128/73 99 Mechanical Ventilator 40 11/20/17 00:00 40 11/19/17 23:02 80 16 40 11/19/17 23:00 80 13 113/58 98 Mechanical Ventilator 40 11/19/17 22:00 80 20 99/50 100 Mechanical Ventilator 40 11/19/17 21:00 87 19 139/65 96 Mechanical Ventilator 40 11/19/17 20:37 102 16 40 11/19/17 20:00 105 11/19/17 20:00 98.3 103 20 138/68 96 Mechanical Ventilator 40 11/19/17 20:00 40 11/19/17 19:30 104 16 40 11/19/17 19:00 107 17 121/63 97 Mechanical Ventilator 40 11/19/17 18:00 92 17 121/63 97 Mechanical Ventilator 40 11/19/17 17:23 95 18 40 11/19/17 17:00 91 16 100/53 97 Mechanical Ventilator 40 11/19/17 16:00 40 11/19/17 16:00 98.6 96 16 128/66 97 Mechanical Ventilator 40 11/19/17 16:00 99 11/19/17 15:20 99 19 40 11/19/17 15:00 94 16 137/63 98 Mechanical Ventilator 40 11/19/17 14:00 90 16 127/82 97 Mechanical Ventilator 40 11/19/17 13:18 95 16 40 11/19/17 13:00 93 16 108/77 97 Mechanical Ventilator 40 11/19/17 12:00 40 11/19/17 12:00 95 11/19/17 12:00 91 17 106/75 96 Mechanical Ventilator 40 11/19/17 11:18 90 16 40 11/19/17 11:00 98.9 93 17 105/54 97 Mechanical Ventilator 40 Status: awake Condition: critical HEENT: atraumatic Lungs: clear, rales, rhonchi Heart: HR/BP stable, HR/BP unstable, regular Abdomen: non-tender, feeding tube Extremities: edema Accucheck: 216 Critical Care - Subjective ROS Limited/Unobtainable: No ICU Day: 5 Intubation Day: 5 Condition: critical EKG Rhythm: Sinus Rhythm FI02: 40 Vent Support Breath Rate: 16 Vent Support Mode: AC Vent Tidal Volume: 600 Sputum Amount: Small PEEP: 0.0 PIP: 32 Tube Feeding Amount: 50 I&O: Intake and Output 11/19/17 11/20/17 19:00 07:00 Intake Total 865.0 ml 860.0 ml Output Total 410 ml 400 ml Balance 455.0 ml 460.0 ml Free Water 100 ml IV Total 265.0 ml 110.0 ml Tube Feeding 600 ml 600 ml Other 50 ml Output Urine Total 410 ml 400 ml CXR: no change, ET tube in place ET-Tube: 7.0 ET Position: 22 Labs: Laboratory Tests Test 11/19/17 23:00 11/20/17 05:00 11/20/17 08:50 Urine Legionella Antigen Pending White Blood Count 6.7 K/UL (4.8-10.8) Red Blood Count 4.44 M/UL (4.20-5.40) Hemoglobin 11.7 G/DL (12.0-16.0) L Hematocrit 36.6 % (37.0-47.0) L Mean Corpuscular Volume 82 FL (80-99) Mean Corpuscular Hemoglobin 26.3 PG (27.0-31.0) L Mean Corpuscular Hemoglobin Concent 31.9 G/DL (32.0-36.0) L Red Cell Distribution Width 11.8 % (11.6-14.8) Platelet Count 205 K/UL (150-450) Mean Platelet Volume 6.3 FL (6.5-10.1) L Neutrophils (%) (Auto) 67.5 % (45.0-75.0) Lymphocytes (%) (Auto) 15.5 % (20.0-45.0) L Monocytes (%) (Auto) 9.4 % (1.0-10.0) Eosinophils (%) (Auto) 7.2 % (0.0-3.0) H Basophils (%) (Auto) 0.4 % (0.0-2.0) Sodium Level 137 MMOL/L (136-145) Potassium Level 4.0 MMOL/L (3.5-5.1) Chloride Level 104 MMOL/L (98-107) Carbon Dioxide Level 24 MMOL/L (21-32) Anion Gap 9 mmol/L (5-15) Blood Urea Nitrogen 15 mg/dL (7-18) Creatinine 0.6 MG/DL (0.55-1.30) Estimat Glomerular Filtration Rate > 60 mL/min (>60) Glucose Level 89 MG/DL (74-106) Calcium Level 8.2 MG/DL (8.5-10.1) L Phosphorus Level 2.7 MG/DL (2.5-4.9) Magnesium Level 1.7 MG/DL (1.8-2.4) L Total Bilirubin 0.5 MG/DL (0.2-1.0) Aspartate Amino Transf (AST/SGOT) 55 U/L (15-37) H Alanine Aminotransferase (ALT/SGPT) 45 U/L (12-78) Alkaline Phosphatase 52 U/L (46-116) Total Protein 6.3 G/DL (6.4-8.2) L Albumin 2.4 G/DL (3.4-5.0) L Globulin 3.9 g/dL Albumin/Globulin Ratio 0.6 (1.0-2.7) L Arterial Blood pH 7.497 (7.350-7.450) Arterial Blood Partial Pressure CO2 40.7 mmHg (35.0-45.0) Arterial Blood Partial Pressure O2 79.5 mmHg (75.0-100.0) Arterial Blood HCO3 30.8 mmol/L (22.0-26.0) H Arterial Blood Oxygen Saturation 95.5 % (92.0-98.0) Arterial Blood Base Excess 7.0 Rolf Test Positive ADONIS SALES Nov 20, 2017 10:25
--- NOTE | 2017-11-20 10:27 | Infectious Diseases Prog Note ---
Assessment/Plan Assessment/Plan ASSESSMENT: The patient is a 67-year-old female with: 1. Chronic obstructive pulmonary disease exacerbation. -influenza neg 2. Community-acquired pneumonia/aspiration pneumonia.] -CXR: New or increased small right pleural effusion Persistent left pleural fluid and extensive bilateral parenchymal disease, over one day -sp cx normal papi -legionella ag urine p and ; ab neg 3.fever/leukocytosis- resolved 4. Ventilator-dependent respiratory failure. - Hypertension. - Diabetes. PLAN: - Switch Zosyn #5/ to Ceftriaxone for PNA given no isolation of resistant organisms and continue Levaquin #4/5 -11/15 SP Unasyn #1 - f/u cx - f/u Legionella antigen urine. - Monitor chest x-ray. -. Based on the patient's clinical course and laboratories, we will dofurther recommendations. Thank you, Dr. Isbell, for allowing me to participate in the care of this patient. I will follow the patient with you during this hospitalization. Subjective Allergies: Coded Allergies: No Known Allergies (Unverified , 11/15/17) Subjective afebrine in > 48hrs no leukocytosis sp cx NF remains intubated, Fio2 40%; mod secretions Objective Vital Signs Last 24 Hour Vital Signs Date Time Temp Pulse Resp B/P (MAP) Pulse Ox O2 Delivery O2 Flow Rate FiO2 11/20/17 09:15 99 11/20/17 09:15 85 16 40 11/20/17 09:00 87 18 120/56 99 Mechanical Ventilator 40 11/20/17 08:00 90 11/20/17 08:00 40 11/20/17 08:00 98.7 90 17 127/62 98 Mechanical Ventilator 40 11/20/17 07:06 97 16 40 11/20/17 07:00 90 17 129/56 100 Mechanical Ventilator 40 11/20/17 06:00 84 17 129/56 99 Mechanical Ventilator 40 11/20/17 05:16 76 16 40 11/20/17 05:00 74 16 117/58 98 Mechanical Ventilator 40 11/20/17 04:00 71 11/20/17 04:00 97.6 81 17 108/72 99 Mechanical Ventilator 40 11/20/17 04:00 40 11/20/17 03:30 77 16 40 11/20/17 03:00 72 16 95/44 98 Mechanical Ventilator 40 11/20/17 02:12 80 16 Mechanical Ventilator 40 11/20/17 02:00 77 16 98/44 98 Mechanical Ventilator 40 11/20/17 01:30 77 16 40 11/20/17 01:00 82 16 98/49 98 Mechanical Ventilator 40 11/20/17 00:00 97.5 92 19 128/73 99 Mechanical Ventilator 40 11/20/17 00:00 40 11/19/17 23:02 80 16 40 11/19/17 23:00 80 13 113/58 98 Mechanical Ventilator 40 11/19/17 22:00 80 20 99/50 100 Mechanical Ventilator 40 11/19/17 21:00 87 19 139/65 96 Mechanical Ventilator 40 11/19/17 20:37 102 16 40 11/19/17 20:00 105 11/19/17 20:00 98.3 103 20 138/68 96 Mechanical Ventilator 40 11/19/17 20:00 40 11/19/17 19:30 104 16 40 11/19/17 19:00 107 17 121/63 97 Mechanical Ventilator 40 11/19/17 18:00 92 17 121/63 97 Mechanical Ventilator 40 11/19/17 17:23 95 18 40 11/19/17 17:00 91 16 100/53 97 Mechanical Ventilator 40 11/19/17 16:00 40 11/19/17 16:00 98.6 96 16 128/66 97 Mechanical Ventilator 40 11/19/17 16:00 99 11/19/17 15:20 99 19 40 11/19/17 15:00 94 16 137/63 98 Mechanical Ventilator 40 11/19/17 14:00 90 16 127/82 97 Mechanical Ventilator 40 11/19/17 13:18 95 16 40 11/19/17 13:00 93 16 108/77 97 Mechanical Ventilator 40 11/19/17 12:00 40 11/19/17 12:00 95 11/19/17 12:00 91 17 106/75 96 Mechanical Ventilator 40 11/19/17 11:18 90 16 40 11/19/17 11:00 98.9 93 17 105/54 97 Mechanical Ventilator 40 Height (Feet): 5 Height (Inches): 4.00 Weight (Pounds): 143 Objective HEENT: No pale conjunctivae. No icterus. ETT in place NECK: No lymphadenopathy.. CHEST: Coarse breathing sounds. HEART: S1, S2. ABDOMEN: Soft and obese. Umbilical hernia present. EXTREMITIES: No cyanosis. NEUROLOGIC: Sedated. Laboratory Tests Test 11/19/17 23:00 11/20/17 05:00 11/20/17 08:50 Urine Legionella Antigen Pending White Blood Count 6.7 K/UL (4.8-10.8) Red Blood Count 4.44 M/UL (4.20-5.40) Hemoglobin 11.7 G/DL (12.0-16.0) L Hematocrit 36.6 % (37.0-47.0) L Mean Corpuscular Volume 82 FL (80-99) Mean Corpuscular Hemoglobin 26.3 PG (27.0-31.0) L Mean Corpuscular Hemoglobin Concent 31.9 G/DL (32.0-36.0) L Red Cell Distribution Width 11.8 % (11.6-14.8) Platelet Count 205 K/UL (150-450) Mean Platelet Volume 6.3 FL (6.5-10.1) L Neutrophils (%) (Auto) 67.5 % (45.0-75.0) Lymphocytes (%) (Auto) 15.5 % (20.0-45.0) L Monocytes (%) (Auto) 9.4 % (1.0-10.0) Eosinophils (%) (Auto) 7.2 % (0.0-3.0) H Basophils (%) (Auto) 0.4 % (0.0-2.0) Sodium Level 137 MMOL/L (136-145) Potassium Level 4.0 MMOL/L (3.5-5.1) Chloride Level 104 MMOL/L (98-107) Carbon Dioxide Level 24 MMOL/L (21-32) Anion Gap 9 mmol/L (5-15) Blood Urea Nitrogen 15 mg/dL (7-18) Creatinine 0.6 MG/DL (0.55-1.30) Estimat Glomerular Filtration Rate > 60 mL/min (>60) Glucose Level 89 MG/DL (74-106) Calcium Level 8.2 MG/DL (8.5-10.1) L Phosphorus Level 2.7 MG/DL (2.5-4.9) Magnesium Level 1.7 MG/DL (1.8-2.4) L Total Bilirubin 0.5 MG/DL (0.2-1.0) Aspartate Amino Transf (AST/SGOT) 55 U/L (15-37) H Alanine Aminotransferase (ALT/SGPT) 45 U/L (12-78) Alkaline Phosphatase 52 U/L (46-116) Total Protein 6.3 G/DL (6.4-8.2) L Albumin 2.4 G/DL (3.4-5.0) L Globulin 3.9 g/dL Albumin/Globulin Ratio 0.6 (1.0-2.7) L Arterial Blood pH 7.497 (7.350-7.450) Arterial Blood Partial Pressure CO2 40.7 mmHg (35.0-45.0) Arterial Blood Partial Pressure O2 79.5 mmHg (75.0-100.0) Arterial Blood HCO3 30.8 mmol/L (22.0-26.0) H Arterial Blood Oxygen Saturation 95.5 % (92.0-98.0) Arterial Blood Base Excess 7.0 Rolf Test Positive Current Medications Medications (Trade) Dose Ordered Sig/Edwin Route PRN Reason Start Time Stop Time Status Last Admin Dose Admin Acetaminophen (Tylenol) 650 mg Q4H PRN ORAL Fever 11/15/17 22:45 12/15/17 22:44 11/18/17 07:59 Albuterol/ Ipratropium (Albuterol/ Ipratropium) 3 ml Q4H PRN HHN Shortness of Breath 11/15/17 22:45 11/20/17 22:44 Dextrose (Dextrose 50%) STAT PRN IV Hypoglycemia 11/15/17 22:45 12/15/17 22:44 11/16/17 11:50 Heparin Sodium (Porcine) (Heparin 5000 units/ml) 5,000 units EVERY 12 HOURS SUBQ 11/16/17 09:00 12/16/17 08:59 11/20/17 08:59 Insulin Aspart (NovoLOG) EVERY 6 HOURS SUBQ 11/16/17 18:00 12/16/17 06:29 11/20/17 06:00 Levofloxacin 100 ml @ 100 mls/hr Q24H IVPB 11/17/17 12:00 11/24/17 11:59 11/19/17 11:43 Lorazepam (Ativan 2mg/ml 1ml) 2 mg Q4H PRN IV For Anxiety 11/15/17 23:00 11/22/17 22:59 11/20/17 00:11 Morphine Sulfate (Morphine Sulfate) 4 mg Q4H PRN IVP Breakthrough pain 11/16/17 21:30 11/22/17 22:59 11/19/17 14:47 Ondansetron HCl (Zofran) 4 mg Q6H PRN IVP Nausea & Vomiting 11/15/17 22:45 12/15/17 22:44 11/18/17 21:59 Pantoprazole (Protonix) 40 mg DAILY IV 11/16/17 09:00 12/16/17 08:59 11/20/17 08:55 Piperacillin Sod/ Tazobactam Sod 3.375 gm/Sodium Chloride 110 ml @ 27.5 mls/hr Q8H IVPB 11/16/17 08:00 11/23/17 07:59 11/20/17 08:03 Polyethylene Glycol (Miralax) 17 gm DAILYPRN PRN ORAL Constipation 11/15/17 22:45 12/15/17 22:44 11/20/17 05:59 Temazepam (Restoril) 15 mg HSPRN PRN ORAL Insomnia 11/15/17 22:45 11/22/17 22:44 11/19/17 21:05 Elise Owusu M.D. Nov 20, 2017 10:27
--- NOTE | 2017-11-20 10:30 | Diagnostic Imaging Report ---
Indication: Dyspnea Technique: One view of the chest Comparison: 11/19/2017 Findings: Right basilar and suprahilar infiltrates, left basilar infiltrate and pleural fluid are all unchanged. Stable satisfactory positions of endotracheal and nasogastric tubes. Impression: Unchanged, over one day, findings as above.
[2017-11-20] MEDS: Morphine Sulfate 4mg/ml Inj IVP PRN ×2 (12:32→22:21)
--- NOTE | 2017-11-20 13:59 | General Progress Note ---
Assessment/Plan Problem List: (1) History of hypertension ICD Codes: Z86.79 - Personal history of other diseases of the circulatory system SNOMED: 493467200 (2) Pleural effusion ICD Codes: J90 - Pleural effusion, not elsewhere classified SNOMED: 75801532 (3) COPD (chronic obstructive pulmonary disease) ICD Codes: J44.9 - Chronic obstructive pulmonary disease, unspecified SNOMED: 95010563 (4) Acute respiratory failure ICD Codes: J96.00 - Acute respiratory failure, unspecified whether with hypoxia or hypercapnia SNOMED: 68039082 (5) Diabetes mellitus ICD Codes: E11.9 - Type 2 diabetes mellitus without complications SNOMED: 13034775 (6) Pulmonary edema ICD Codes: J81.1 - Chronic pulmonary edema SNOMED: 28353104 Status: unchanged Assessment/Plan vent abx bp bs control cbc bmp am Subjective Constitutional: Reports: weakness Allergies: Coded Allergies: No Known Allergies (Unverified , 11/15/17) All Systems: reviewed and negative except above Subjective intubated sedated in icu Objective Last 24 Hour Vital Signs Date Time Temp Pulse Resp B/P (MAP) Pulse Ox O2 Delivery O2 Flow Rate FiO2 11/20/17 13:05 95 17 40 11/20/17 13:00 88 19 123/43 100 Mechanical Ventilator 40 11/20/17 12:00 98.5 84 18 121/70 100 Mechanical Ventilator 40 11/20/17 11:41 93 11/20/17 11:41 40 11/20/17 11:18 99 22 40 11/20/17 11:02 95 31 35 11/20/17 11:00 71 21 155/74 100 Mechanical Ventilator 40 11/20/17 10:00 81 19 159/70 99 Mechanical Ventilator 40 11/20/17 09:15 99 11/20/17 09:15 85 16 40 11/20/17 09:00 87 18 120/56 99 Mechanical Ventilator 40 11/20/17 08:00 90 11/20/17 08:00 40 11/20/17 08:00 98.7 90 17 127/62 98 Mechanical Ventilator 40 11/20/17 07:06 97 16 40 11/20/17 07:00 90 17 129/56 100 Mechanical Ventilator 40 11/20/17 06:00 84 17 129/56 99 Mechanical Ventilator 40 11/20/17 05:16 76 16 40 11/20/17 05:00 74 16 117/58 98 Mechanical Ventilator 40 11/20/17 04:00 71 11/20/17 04:00 97.6 81 17 108/72 99 Mechanical Ventilator 40 11/20/17 04:00 40 11/20/17 03:30 77 16 40 11/20/17 03:00 72 16 95/44 98 Mechanical Ventilator 40 11/20/17 02:12 80 16 Mechanical Ventilator 40 11/20/17 02:00 77 16 98/44 98 Mechanical Ventilator 40 11/20/17 01:30 77 16 40 11/20/17 01:00 82 16 98/49 98 Mechanical Ventilator 40 11/20/17 00:00 97.5 92 19 128/73 99 Mechanical Ventilator 40 11/20/17 00:00 40 11/19/17 23:02 80 16 40 11/19/17 23:00 80 13 113/58 98 Mechanical Ventilator 40 11/19/17 22:00 80 20 99/50 100 Mechanical Ventilator 40 11/19/17 21:00 87 19 139/65 96 Mechanical Ventilator 40 11/19/17 20:37 102 16 40 11/19/17 20:00 105 11/19/17 20:00 98.3 103 20 138/68 96 Mechanical Ventilator 40 11/19/17 20:00 40 11/19/17 19:30 104 16 40 11/19/17 19:00 107 17 121/63 97 Mechanical Ventilator 40 11/19/17 18:00 92 17 121/63 97 Mechanical Ventilator 40 11/19/17 17:23 95 18 40 11/19/17 17:00 91 16 100/53 97 Mechanical Ventilator 40 11/19/17 16:00 40 11/19/17 16:00 98.6 96 16 128/66 97 Mechanical Ventilator 40 11/19/17 16:00 99 11/19/17 15:20 99 19 40 11/19/17 15:00 94 16 137/63 98 Mechanical Ventilator 40 11/19/17 14:00 90 16 127/82 97 Mechanical Ventilator 40 Intake and Output 11/19/17 11/20/17 19:00 07:00 Intake Total 865.0 ml 860.0 ml Output Total 410 ml 400 ml Balance 455.0 ml 460.0 ml Free Water 100 ml IV Total 265.0 ml 110.0 ml Tube Feeding 600 ml 600 ml Other 50 ml Output Urine Total 410 ml 400 ml Laboratory Tests 11/19/17 23:00: Urine Legionella Antigen [Pending] 11/20/17 05:00: White Blood Count 6.7, Red Blood Count 4.44, Hemoglobin 11.7L, Hematocrit 36.6L , Mean Corpuscular Volume 82, Mean Corpuscular Hemoglobin 26.3L, Mean Corpuscular Hemoglobin Concent 31.9L, Red Cell Distribution Width 11.8, Platelet Count 205, Mean Platelet Volume 6.3L, Neutrophils (%) (Auto) 67.5, Lymphocytes (%) (Auto) 15.5L, Monocytes (%) (Auto) 9.4, Eosinophils (%) (Auto) 7.2H, Basophils (%) (Auto) 0.4, Sodium Level 137, Potassium Level 4.0, Chloride Level 104, Carbon Dioxide Level 24, Anion Gap 9, Blood Urea Nitrogen 15, Creatinine 0.6, Estimat Glomerular Filtration Rate > 60, Glucose Level 89, Calcium Level 8.2L, Phosphorus Level 2.7, Magnesium Level 1.7L, Total Bilirubin 0.5, Aspartate Amino Transf (AST/SGOT) 55H, Alanine Aminotransferase (ALT/SGPT) 45, Alkaline Phosphatase 52, Total Protein 6.3L, Albumin 2.4L, Globulin 3.9, Albumin/Globulin Ratio 0.6L 11/20/17 08:50: Arterial Blood pH 7.497H, Arterial Blood Partial Pressure CO2 40.7, Arterial Blood Partial Pressure O2 79.5, Arterial Blood HCO3 30.8H, Arterial Blood Oxygen Saturation 95.5, Arterial Blood Base Excess 7.0, Rolf Test Positive Height (Feet): 5 Height (Inches): 4.00 Weight (Pounds): 143 General Appearance: lethargic EENT: normal ENT inspection Neck: normal alignment Cardiovascular: normal peripheral pulses, normal rate, regular rhythm Respiratory/Chest: chest wall non-tender, lungs clear, normal breath sounds Abdomen: normal bowel sounds, non tender, soft Extremities: normal inspection Edema: no edema noted Arm (L), no edema noted Arm (R), no edema noted Leg (L), no edema noted Leg (R), no edema noted Pedal (L), no edema noted Pedal (R), no edema noted Generalized Neurologic: motor weakness Skin: normal pigmentation, warm/dry TIM GARY Nov 20, 2017 13:59
[2017-11-20] MEDS: cefTRIAXone 1 GM in NS 55 ML IVPB SCH (15:36)
--- NOTE | 2017-11-20 16:14 | Cardiology Progress Note ---
Assessment/Plan Assessment/Plan 1. Respiratory failure. 2. Diabetes mellitus. 3. Hypertension history. 4. Chronic obstructive pulmonary disease history. 5. Hypotension resolved all trop neg pro bnp min elevated to wean as tolerated vent support abx tele personally reviewed ekg reviewed t inversion in v1-3 otherwise neg tele noted reviewed failed weaning cxr reviweed infiltrate on daroi right side lasix one dose to dya to keep dry to wean Subjective ROS Limited/Unobtainable: Yes Subjective on the vent Objective Last 24 Hour Vital Signs Date Time Temp Pulse Resp B/P (MAP) Pulse Ox O2 Delivery O2 Flow Rate FiO2 11/20/17 15:45 90 11/20/17 15:45 40 11/20/17 15:05 102 17 40 11/20/17 15:00 99.0 90 19 117/92 100 Mechanical Ventilator 40 11/20/17 14:00 84 20 102/53 100 Mechanical Ventilator 40 11/20/17 13:05 95 17 40 11/20/17 13:00 88 19 123/43 100 Mechanical Ventilator 40 11/20/17 12:00 98.5 84 18 121/70 100 Mechanical Ventilator 40 11/20/17 11:41 93 11/20/17 11:41 40 11/20/17 11:18 99 22 40 11/20/17 11:02 95 31 35 11/20/17 11:00 71 21 155/74 100 Mechanical Ventilator 40 11/20/17 10:00 81 19 159/70 99 Mechanical Ventilator 40 11/20/17 09:15 99 11/20/17 09:15 85 16 40 11/20/17 09:00 87 18 120/56 99 Mechanical Ventilator 40 11/20/17 08:00 90 11/20/17 08:00 40 11/20/17 08:00 98.7 90 17 127/62 98 Mechanical Ventilator 40 11/20/17 07:06 97 16 40 11/20/17 07:00 90 17 129/56 100 Mechanical Ventilator 40 11/20/17 06:00 84 17 129/56 99 Mechanical Ventilator 40 11/20/17 05:16 76 16 40 11/20/17 05:00 74 16 117/58 98 Mechanical Ventilator 40 11/20/17 04:00 71 11/20/17 04:00 97.6 81 17 108/72 99 Mechanical Ventilator 40 11/20/17 04:00 40 11/20/17 03:30 77 16 40 11/20/17 03:00 72 16 95/44 98 Mechanical Ventilator 40 11/20/17 02:12 80 16 Mechanical Ventilator 40 11/20/17 02:00 77 16 98/44 98 Mechanical Ventilator 40 11/20/17 01:30 77 16 40 11/20/17 01:00 82 16 98/49 98 Mechanical Ventilator 40 11/20/17 00:00 97.5 92 19 128/73 99 Mechanical Ventilator 40 11/20/17 00:00 40 11/19/17 23:02 80 16 40 11/19/17 23:00 80 13 113/58 98 Mechanical Ventilator 40 11/19/17 22:00 80 20 99/50 100 Mechanical Ventilator 40 11/19/17 21:00 87 19 139/65 96 Mechanical Ventilator 40 11/19/17 20:37 102 16 40 11/19/17 20:00 105 11/19/17 20:00 98.3 103 20 138/68 96 Mechanical Ventilator 40 11/19/17 20:00 40 11/19/17 19:30 104 16 40 11/19/17 19:00 107 17 121/63 97 Mechanical Ventilator 40 11/19/17 18:00 92 17 121/63 97 Mechanical Ventilator 40 11/19/17 17:23 95 18 40 11/19/17 17:00 91 16 100/53 97 Mechanical Ventilator 40 General Appearance: alert, patient on isolation Cardiovascular: normal rate, regular rhythm Respiratory/Chest: lungs clear Abdomen: normal bowel sounds, non tender, soft Extremities: no swelling Intake and Output 11/19/17 11/20/17 19:00 07:00 Intake Total 865.0 ml 860.0 ml Output Total 410 ml 400 ml Balance 455.0 ml 460.0 ml Free Water 100 ml IV Total 265.0 ml 110.0 ml Tube Feeding 600 ml 600 ml Other 50 ml Output Urine Total 410 ml 400 ml Laboratory Tests Test 11/19/17 23:00 11/20/17 05:00 11/20/17 08:50 Urine Legionella Antigen Pending White Blood Count 6.7 K/UL (4.8-10.8) Red Blood Count 4.44 M/UL (4.20-5.40) Hemoglobin 11.7 G/DL (12.0-16.0) L Hematocrit 36.6 % (37.0-47.0) L Mean Corpuscular Volume 82 FL (80-99) Mean Corpuscular Hemoglobin 26.3 PG (27.0-31.0) L Mean Corpuscular Hemoglobin Concent 31.9 G/DL (32.0-36.0) L Red Cell Distribution Width 11.8 % (11.6-14.8) Platelet Count 205 K/UL (150-450) Mean Platelet Volume 6.3 FL (6.5-10.1) L Neutrophils (%) (Auto) 67.5 % (45.0-75.0) Lymphocytes (%) (Auto) 15.5 % (20.0-45.0) L Monocytes (%) (Auto) 9.4 % (1.0-10.0) Eosinophils (%) (Auto) 7.2 % (0.0-3.0) H Basophils (%) (Auto) 0.4 % (0.0-2.0) Sodium Level 137 MMOL/L (136-145) Potassium Level 4.0 MMOL/L (3.5-5.1) Chloride Level 104 MMOL/L (98-107) Carbon Dioxide Level 24 MMOL/L (21-32) Anion Gap 9 mmol/L (5-15) Blood Urea Nitrogen 15 mg/dL (7-18) Creatinine 0.6 MG/DL (0.55-1.30) Estimat Glomerular Filtration Rate > 60 mL/min (>60) Glucose Level 89 MG/DL (74-106) Calcium Level 8.2 MG/DL (8.5-10.1) L Phosphorus Level 2.7 MG/DL (2.5-4.9) Magnesium Level 1.7 MG/DL (1.8-2.4) L Total Bilirubin 0.5 MG/DL (0.2-1.0) Aspartate Amino Transf (AST/SGOT) 55 U/L (15-37) H Alanine Aminotransferase (ALT/SGPT) 45 U/L (12-78) Alkaline Phosphatase 52 U/L (46-116) Total Protein 6.3 G/DL (6.4-8.2) L Albumin 2.4 G/DL (3.4-5.0) L Globulin 3.9 g/dL Albumin/Globulin Ratio 0.6 (1.0-2.7) L Arterial Blood pH 7.497 (7.350-7.450) Arterial Blood Partial Pressure CO2 40.7 mmHg (35.0-45.0) Arterial Blood Partial Pressure O2 79.5 mmHg (75.0-100.0) Arterial Blood HCO3 30.8 mmol/L (22.0-26.0) H Arterial Blood Oxygen Saturation 95.5 % (92.0-98.0) Arterial Blood Base Excess 7.0 Rolf Test Positive CALIN HAWKINS Nov 20, 2017 16:14
[2017-11-21] VITALS (24 sets, daily range): BP systolic 90–172; BP diastolic 47–89
[2017-11-21] MEDS: NovoLOG Insulin Flexpen SUBQ SCH ×4 (00:12→17:06)
[2017-11-21] MEDS: Morphine Sulfate 4mg/ml Inj IVP PRN ×3 (03:55→16:55)
[2017-11-21 04:27] LABS: BASOPHILS % (AUTO) 0.5 % (0.0-2.0); EOSINOPHILS % (AUTO) 0.6 % (0.0-3.0); HEMATOCRIT 32.2 % (37.0-47.0); HEMOGLOBIN 9.8 G/DL (12.0-16.0); LYMPHOCYTES % (AUTO) 15.6 % (20.0-45.0); MEAN CORPUSCULAR VOLUME 80 FL (80-99); MONOCYTES % (AUTO) 6.7 % (1.0-10.0); NEUTROPHILS % (AUTO) 76.5 % (45.0-75.0); PLATELET COUNT 160 K/UL (150-450); RED BLOOD COUNT 4.01 M/UL (4.20-5.40); RED CELL DISTRIBUTION WIDTH 16.8 % (11.6-14.8); WHITE BLOOD COUNT 4.1 K/UL (4.8-10.8)
[2017-11-21 04:58] LABS: ALANINE AMINOTRANSFERASE 12 U/L (12-78); ALBUMIN 2.3 G/DL (3.4-5.0); ALBUMIN/GLOBULIN RATIO 0.7 (1.0-2.7); ALKALINE PHOSPHATASE 80 U/L (46-116); ANION GAP 6 mmol/L (5-15); ASPARTATE AMINO TRANSFERASE 11 U/L (15-37); BILIRUBIN,TOTAL 0.5 MG/DL (0.2-1.0); BLOOD UREA NITROGEN 24 mg/dL (7-18); CALCIUM 9.3 MG/DL (8.5-10.1); CARBON DIOXIDE 34 MMOL/L (21-32); CHLORIDE 109 MMOL/L (98-107); CREATININE 0.6 MG/DL (0.55-1.30); PHOSPHORUS 3.1 MG/DL (2.5-4.9); SODIUM 149 MMOL/L (136-145)
[2017-11-21] MEDS: Miralax 17gm pkt ORAL PRN (05:32)
[2017-11-21] MEDS: Pantoprazole Inj IV SCH (08:07)
[2017-11-21] MEDS: LORazepam Inj 2mg/ml 1ml IV PRN ×3 (08:07→16:54)
[2017-11-21] MEDS: Heparin 5000 units/ml inj SUBQ SCH ×2 (08:12→20:35)
--- NOTE | 2017-11-21 10:13 | Pulmonolgy Critical Care Note ---
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, 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, 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 Discussed with: nurses, consultants, rehabilitation case coordinatormanager rn - Objective Last 24 Hour Vital Signs Date Time Temp Pulse Resp B/P (MAP) Pulse Ox O2 Delivery O2 Flow Rate FiO2 11/21/17 09:15 71 16 30 11/21/17 09:00 101 20 95/51 96 Mechanical Ventilator 30 11/21/17 08:15 30 11/21/17 08:00 101 11/21/17 08:00 99.8 89 25 132/66 98 Mechanical Ventilator 30 11/21/17 07:26 82 16 30 11/21/17 07:00 102 17 144/72 96 Mechanical Ventilator 35 11/21/17 06:00 106 17 90/60 96 Mechanical Ventilator 35 11/21/17 05:15 84 16 30 11/21/17 05:00 81 17 127/60 96 Mechanical Ventilator 35 11/21/17 04:53 98.0 11/21/17 04:00 87 11/21/17 04:00 30 11/21/17 04:00 97.7 87 17 145/66 97 Mechanical Ventilator 30 11/21/17 03:17 98 16 30 11/21/17 03:00 85 16 129/72 94 Mechanical Ventilator 35 11/21/17 02:00 78 22 109/51 96 Mechanical Ventilator 35 11/21/17 01:03 71 16 35 11/21/17 01:00 75 16 122/56 100 Mechanical Ventilator 35 11/21/17 00:00 35 11/21/17 00:00 98.0 75 17 91/47 99 Mechanical Ventilator 35 11/21/17 00:00 71 11/20/17 23:26 73 16 35 11/20/17 23:00 72 16 99/51 100 Mechanical Ventilator 40 11/20/17 22:00 73 16 97/50 100 Mechanical Ventilator 40 11/20/17 21:17 72 16 40 11/20/17 21:00 77 16 126/57 100 Mechanical Ventilator 40 11/20/17 20:00 40 11/20/17 20:00 75 11/20/17 20:00 98.7 85 20 132/96 100 Mechanical Ventilator 40 11/20/17 19:02 74 16 40 11/20/17 19:00 77 19 116/58 100 Mechanical Ventilator 40 11/20/17 18:00 98.3 78 18 116/53 100 Mechanical Ventilator 40 11/20/17 17:00 100 16 40 11/20/17 17:00 94 18 121/63 100 Mechanical Ventilator 40 11/20/17 16:00 84 20 129/66 100 Mechanical Ventilator 40 11/20/17 15:45 90 11/20/17 15:45 40 11/20/17 15:05 102 17 40 11/20/17 15:00 99.0 90 19 117/92 100 Mechanical Ventilator 40 11/20/17 14:00 84 20 102/53 100 Mechanical Ventilator 40 11/20/17 13:05 95 17 40 11/20/17 13:00 88 19 123/43 100 Mechanical Ventilator 40 11/20/17 12:00 98.5 84 18 121/70 100 Mechanical Ventilator 40 11/20/17 11:41 93 11/20/17 11:41 40 11/20/17 11:18 99 22 40 11/20/17 11:02 95 31 35 11/20/17 11:00 71 21 155/74 100 Mechanical Ventilator 40 Status: awake Condition: critical Neck: full ROM Lungs: clear, rales, rhonchi Heart: HR/BP stable, HR/BP unstable Abdomen: soft, non-tender Extremities: no C/C/E, edema Accucheck: 194 Critical Care - Subjective ROS Limited/Unobtainable: No ICU Day: 6 Intubation Day: 6 Condition: critical EKG Rhythm: Sinus Rhythm FI02: 30 Vent Support Breath Rate: 16 Vent Support Mode: AC Vent Tidal Volume: 600 Sputum Amount: Moderate PEEP: 0.0 PIP: 37 Tube Feeding Amount: 50 I&O: Intake and Output 11/20/17 11/21/17 19:00 07:00 Intake Total 855 ml 700 ml Output Total 975 ml 400 ml Balance -120 ml 300 ml Free Water 100 ml 100 ml IV Total 155 ml Tube Feeding 600 ml 600 ml Output Urine Total 975 ml 400 ml CXR: unchanged, still lots of infiltrate ET-Tube: 7.0 ET Position: 22 Labs: Laboratory Tests Test 11/21/17 03:40 White Blood Count 4.1 K/UL (4.8-10.8) L Red Blood Count 4.01 M/UL (4.20-5.40) L Hemoglobin 9.8 G/DL (12.0-16.0) L Hematocrit 32.2 % (37.0-47.0) L Mean Corpuscular Volume 80 FL (80-99) Mean Corpuscular Hemoglobin 24.3 PG (27.0-31.0) L Mean Corpuscular Hemoglobin Concent 30.3 G/DL (32.0-36.0) L Red Cell Distribution Width 16.8 % (11.6-14.8) H Platelet Count 160 K/UL (150-450) Mean Platelet Volume 6.3 FL (6.5-10.1) L Neutrophils (%) (Auto) 76.5 % (45.0-75.0) H Lymphocytes (%) (Auto) 15.6 % (20.0-45.0) L Monocytes (%) (Auto) 6.7 % (1.0-10.0) Eosinophils (%) (Auto) 0.6 % (0.0-3.0) Basophils (%) (Auto) 0.5 % (0.0-2.0) Sodium Level 149 MMOL/L (136-145) #H Potassium Level 3.0 MMOL/L (3.5-5.1) L Chloride Level 109 MMOL/L (98-107) H Carbon Dioxide Level 34 MMOL/L (21-32) H Anion Gap 6 mmol/L (5-15) Blood Urea Nitrogen 24 mg/dL (7-18) H Creatinine 0.6 MG/DL (0.55-1.30) Estimat Glomerular Filtration Rate > 60 mL/min (>60) Glucose Level 190 MG/DL (74-106) #H Calcium Level 9.3 MG/DL (8.5-10.1) Phosphorus Level 3.1 MG/DL (2.5-4.9) Magnesium Level 1.8 MG/DL (1.8-2.4) Total Bilirubin 0.5 MG/DL (0.2-1.0) Aspartate Amino Transf (AST/SGOT) 11 U/L (15-37) L Alanine Aminotransferase (ALT/SGPT) 12 U/L (12-78) Alkaline Phosphatase 80 U/L (46-116) Total Protein 5.5 G/DL (6.4-8.2) L Albumin 2.3 G/DL (3.4-5.0) L Globulin 3.2 g/dL Albumin/Globulin Ratio 0.7 (1.0-2.7) L ADONIS SALES Nov 21, 2017 10:13
--- NOTE | 2017-11-21 10:36 | Diagnostic Imaging Report ---
Indication: Dyspnea Technique: XRAY Chest 1v Comparison: 11/20/2017 Findings: ET and NG tubes stable in position. Heart size and mediastinal contours unchanged. No significant interval change in interstitial and patchy bilateral airspace opacities. Small bilateral pleural effusions unchanged. No pneumothorax. No acute osseous abnormality. Impression: No significant interval change in appearance of the heart and lungs compared to one day prior.
--- NOTE | 2017-11-21 10:53 | Infectious Diseases Prog Note ---
Assessment/Plan Assessment/Plan ASSESSMENT: The patient is a 67-year-old female with: 1. Chronic obstructive pulmonary disease exacerbation. -influenza neg 2. Community-acquired pneumonia/aspiration pneumonia.] -CXR: New or increased small right pleural effusion Persistent left pleural fluid and extensive bilateral parenchymal disease, over one day -sp cx normal papi -legionella ag urine p and ; ab neg 3.fever/leukocytosis- resolved 4. Ventilator-dependent respiratory failure. - Hypertension. - Diabetes. PLAN: - Continue Ceftriaxone abx d#03/27 for PNA given no isolation of resistant organisms and Levaquin #5/5 -11/20 SP Zosyn #5 -11/15 SP Unasyn #1 - f/u cx - f/u Legionella antigen urine. - Monitor chest x-ray. Thank you, Dr. Isbell, for allowing me to participate in the care of this patient. I will follow the patient with you during this hospitalization. Subjective Allergies: Coded Allergies: No Known Allergies (Unverified , 11/15/17) Subjective afebrine in > 72hrs no leukocytosis remains intubated, Fio2 30% Objective Vital Signs Last 24 Hour Vital Signs Date Time Temp Pulse Resp B/P (MAP) Pulse Ox O2 Delivery O2 Flow Rate FiO2 11/21/17 10:00 97 18 127/75 95 Mechanical Ventilator 30 11/21/17 09:15 71 16 30 11/21/17 09:00 101 20 95/51 96 Mechanical Ventilator 30 11/21/17 08:15 30 11/21/17 08:00 101 11/21/17 08:00 99.8 89 25 132/66 98 Mechanical Ventilator 30 11/21/17 07:26 82 16 30 11/21/17 07:00 102 17 144/72 96 Mechanical Ventilator 35 11/21/17 06:00 106 17 90/60 96 Mechanical Ventilator 35 11/21/17 05:15 84 16 30 11/21/17 05:00 81 17 127/60 96 Mechanical Ventilator 35 11/21/17 04:53 98.0 11/21/17 04:00 87 11/21/17 04:00 30 11/21/17 04:00 97.7 87 17 145/66 97 Mechanical Ventilator 30 11/21/17 03:17 98 16 30 11/21/17 03:00 85 16 129/72 94 Mechanical Ventilator 35 11/21/17 02:00 78 22 109/51 96 Mechanical Ventilator 35 11/21/17 01:03 71 16 35 11/21/17 01:00 75 16 122/56 100 Mechanical Ventilator 35 11/21/17 00:00 35 11/21/17 00:00 98.0 75 17 91/47 99 Mechanical Ventilator 35 11/21/17 00:00 71 11/20/17 23:26 73 16 35 11/20/17 23:00 72 16 99/51 100 Mechanical Ventilator 40 11/20/17 22:00 73 16 97/50 100 Mechanical Ventilator 40 11/20/17 21:17 72 16 40 11/20/17 21:00 77 16 126/57 100 Mechanical Ventilator 40 11/20/17 20:00 40 11/20/17 20:00 75 11/20/17 20:00 98.7 85 20 132/96 100 Mechanical Ventilator 40 11/20/17 19:02 74 16 40 11/20/17 19:00 77 19 116/58 100 Mechanical Ventilator 40 11/20/17 18:00 98.3 78 18 116/53 100 Mechanical Ventilator 40 11/20/17 17:00 100 16 40 11/20/17 17:00 94 18 121/63 100 Mechanical Ventilator 40 11/20/17 16:00 84 20 129/66 100 Mechanical Ventilator 40 11/20/17 15:45 90 11/20/17 15:45 40 11/20/17 15:05 102 17 40 11/20/17 15:00 99.0 90 19 117/92 100 Mechanical Ventilator 40 11/20/17 14:00 84 20 102/53 100 Mechanical Ventilator 40 11/20/17 13:05 95 17 40 11/20/17 13:00 88 19 123/43 100 Mechanical Ventilator 40 11/20/17 12:00 98.5 84 18 121/70 100 Mechanical Ventilator 40 11/20/17 11:41 93 11/20/17 11:41 40 11/20/17 11:18 99 22 40 11/20/17 11:02 95 31 35 11/20/17 11:00 71 21 155/74 100 Mechanical Ventilator 40 Height (Feet): 5 Height (Inches): 4.00 Weight (Pounds): 142 Objective HEENT: No pale conjunctivae. No icterus. ETT in place NECK: No lymphadenopathy.. CHEST: Coarse breathing sounds. HEART: S1, S2. ABDOMEN: Soft and obese. Umbilical hernia present. EXTREMITIES: No cyanosis. NEUROLOGIC: Sedated. Laboratory Tests Test 11/21/17 03:40 White Blood Count 4.1 K/UL (4.8-10.8) L Red Blood Count 4.01 M/UL (4.20-5.40) L Hemoglobin 9.8 G/DL (12.0-16.0) L Hematocrit 32.2 % (37.0-47.0) L Mean Corpuscular Volume 80 FL (80-99) Mean Corpuscular Hemoglobin 24.3 PG (27.0-31.0) L Mean Corpuscular Hemoglobin Concent 30.3 G/DL (32.0-36.0) L Red Cell Distribution Width 16.8 % (11.6-14.8) H Platelet Count 160 K/UL (150-450) Mean Platelet Volume 6.3 FL (6.5-10.1) L Neutrophils (%) (Auto) 76.5 % (45.0-75.0) H Lymphocytes (%) (Auto) 15.6 % (20.0-45.0) L Monocytes (%) (Auto) 6.7 % (1.0-10.0) Eosinophils (%) (Auto) 0.6 % (0.0-3.0) Basophils (%) (Auto) 0.5 % (0.0-2.0) Sodium Level 149 MMOL/L (136-145) #H Potassium Level 3.0 MMOL/L (3.5-5.1) L Chloride Level 109 MMOL/L (98-107) H Carbon Dioxide Level 34 MMOL/L (21-32) H Anion Gap 6 mmol/L (5-15) Blood Urea Nitrogen 24 mg/dL (7-18) H Creatinine 0.6 MG/DL (0.55-1.30) Estimat Glomerular Filtration Rate > 60 mL/min (>60) Glucose Level 190 MG/DL (74-106) #H Calcium Level 9.3 MG/DL (8.5-10.1) Phosphorus Level 3.1 MG/DL (2.5-4.9) Magnesium Level 1.8 MG/DL (1.8-2.4) Total Bilirubin 0.5 MG/DL (0.2-1.0) Aspartate Amino Transf (AST/SGOT) 11 U/L (15-37) L Alanine Aminotransferase (ALT/SGPT) 12 U/L (12-78) Alkaline Phosphatase 80 U/L (46-116) Total Protein 5.5 G/DL (6.4-8.2) L Albumin 2.3 G/DL (3.4-5.0) L Globulin 3.2 g/dL Albumin/Globulin Ratio 0.7 (1.0-2.7) L Current Medications Medications (Trade) Dose Ordered Sig/Edwin Route PRN Reason Start Time Stop Time Status Last Admin Dose Admin Acetaminophen (Tylenol) 650 mg Q4H PRN ORAL Fever 11/15/17 22:45 12/15/17 22:44 11/18/17 07:59 Ceftriaxone Sodium 1 gm/ Sodium Chloride 55 ml @ 110 mls/hr Q24H IVPB 11/20/17 16:00 11/27/17 15:59 11/20/17 15:36 Dextrose (Dextrose 50%) STAT PRN IV Hypoglycemia 11/15/17 22:45 12/15/17 22:44 11/16/17 11:50 Heparin Sodium (Porcine) (Heparin 5000 units/ml) 5,000 units EVERY 12 HOURS SUBQ 11/16/17 09:00 12/16/17 08:59 11/21/17 08:12 Insulin Aspart (NovoLOG) EVERY 6 HOURS SUBQ 11/16/17 18:00 12/16/17 06:29 11/21/17 05:34 Levofloxacin 100 ml @ 100 mls/hr Q24H IVPB 11/17/17 12:00 11/24/17 11:59 11/20/17 11:55 Lorazepam (Ativan 2mg/ml 1ml) 2 mg Q4H PRN IV For Anxiety 11/15/17 23:00 11/22/17 22:59 11/21/17 08:07 Morphine Sulfate (Morphine Sulfate) 4 mg Q4H PRN IVP Breakthrough pain 11/16/17 21:30 11/22/17 22:59 11/21/17 03:55 Ondansetron HCl (Zofran) 4 mg Q6H PRN IVP Nausea & Vomiting 11/15/17 22:45 12/15/17 22:44 11/18/17 21:59 Pantoprazole (Protonix) 40 mg DAILY IV 11/16/17 09:00 12/16/17 08:59 11/21/17 08:07 Polyethylene Glycol (Miralax) 17 gm DAILYPRN PRN ORAL Constipation 11/15/17 22:45 12/15/17 22:44 11/21/17 05:32 Potassium Chloride 30 meq/ Dextrose 1,015 ml @ 50 mls/hr [id number] IV 11/21/17 10:15 12/21/17 10:14 UNV Temazepam (Restoril) 15 mg HSPRN PRN ORAL Insomnia 11/15/17 22:45 11/22/17 22:44 11/20/17 20:55 Elise Owusu M.D. Nov 21, 2017 10:53
--- NOTE | 2017-11-21 13:46 | General Progress Note ---
Assessment/Plan Problem List: (1) History of hypertension ICD Codes: Z86.79 - Personal history of other diseases of the circulatory system SNOMED: 201812057 (2) Pleural effusion ICD Codes: J90 - Pleural effusion, not elsewhere classified SNOMED: 17830044 (3) COPD (chronic obstructive pulmonary disease) ICD Codes: J44.9 - Chronic obstructive pulmonary disease, unspecified SNOMED: 62540275 (4) Acute respiratory failure ICD Codes: J96.00 - Acute respiratory failure, unspecified whether with hypoxia or hypercapnia SNOMED: 93315650 (5) Diabetes mellitus ICD Codes: E11.9 - Type 2 diabetes mellitus without complications SNOMED: 35784736 (6) Pulmonary edema ICD Codes: J81.1 - Chronic pulmonary edema SNOMED: 92330302 Status: unchanged Assessment/Plan vent abx bp bs control cbc bmp am Subjective Constitutional: Reports: weakness Allergies: Coded Allergies: No Known Allergies (Unverified , 11/15/17) All Systems: reviewed and negative except above Subjective intubated sedated in icu Objective Last 24 Hour Vital Signs Date Time Temp Pulse Resp B/P (MAP) Pulse Ox O2 Delivery O2 Flow Rate FiO2 11/21/17 12:00 30 11/21/17 12:00 99.8 104 22 160/82 96 Mechanical Ventilator 30 11/21/17 11:37 100 11/21/17 11:30 91 18 30 11/21/17 11:00 100 19 144/76 95 Mechanical Ventilator 30 11/21/17 10:00 97 18 127/75 95 Mechanical Ventilator 30 11/21/17 09:15 71 16 30 11/21/17 09:00 101 20 95/51 96 Mechanical Ventilator 30 11/21/17 08:15 30 11/21/17 08:00 101 11/21/17 08:00 99.8 89 25 132/66 98 Mechanical Ventilator 30 11/21/17 07:26 82 16 30 11/21/17 07:00 102 17 144/72 96 Mechanical Ventilator 35 11/21/17 06:00 106 17 90/60 96 Mechanical Ventilator 35 11/21/17 05:15 84 16 30 11/21/17 05:00 81 17 127/60 96 Mechanical Ventilator 35 11/21/17 04:53 98.0 11/21/17 04:00 87 11/21/17 04:00 30 11/21/17 04:00 97.7 87 17 145/66 97 Mechanical Ventilator 30 11/21/17 03:17 98 16 30 11/21/17 03:00 85 16 129/72 94 Mechanical Ventilator 35 11/21/17 02:00 78 22 109/51 96 Mechanical Ventilator 35 11/21/17 01:03 71 16 35 11/21/17 01:00 75 16 122/56 100 Mechanical Ventilator 35 11/21/17 00:00 35 11/21/17 00:00 98.0 75 17 91/47 99 Mechanical Ventilator 35 11/21/17 00:00 71 11/20/17 23:26 73 16 35 11/20/17 23:00 72 16 99/51 100 Mechanical Ventilator 40 11/20/17 22:00 73 16 97/50 100 Mechanical Ventilator 40 11/20/17 21:17 72 16 40 11/20/17 21:00 77 16 126/57 100 Mechanical Ventilator 40 11/20/17 20:00 40 11/20/17 20:00 75 11/20/17 20:00 98.7 85 20 132/96 100 Mechanical Ventilator 40 11/20/17 19:02 74 16 40 11/20/17 19:00 77 19 116/58 100 Mechanical Ventilator 40 11/20/17 18:00 98.3 78 18 116/53 100 Mechanical Ventilator 40 11/20/17 17:00 100 16 40 11/20/17 17:00 94 18 121/63 100 Mechanical Ventilator 40 11/20/17 16:00 84 20 129/66 100 Mechanical Ventilator 40 11/20/17 15:45 90 11/20/17 15:45 40 11/20/17 15:05 102 17 40 11/20/17 15:00 99.0 90 19 117/92 100 Mechanical Ventilator 40 11/20/17 14:00 84 20 102/53 100 Mechanical Ventilator 40 Intake and Output 11/20/17 11/21/17 19:00 07:00 Intake Total 855 ml 700 ml Output Total 975 ml 400 ml Balance -120 ml 300 ml Free Water 100 ml 100 ml IV Total 155 ml Tube Feeding 600 ml 600 ml Output Urine Total 975 ml 400 ml Laboratory Tests 11/21/17 03:40: White Blood Count 4.1L, Red Blood Count 4.01L, Hemoglobin 9.8L, Hematocrit 32.2L , Mean Corpuscular Volume 80, Mean Corpuscular Hemoglobin 24.3L, Mean Corpuscular Hemoglobin Concent 30.3L, Red Cell Distribution Width 16.8H, Platelet Count 160, Mean Platelet Volume 6.3L, Neutrophils (%) (Auto) 76.5H, Lymphocytes (%) (Auto) 15.6L, Monocytes (%) (Auto) 6.7, Eosinophils (%) (Auto) 0.6, Basophils (%) (Auto) 0.5, Sodium Level 149#H, Potassium Level 3.0L, Chloride Level 109H, Carbon Dioxide Level 34H, Anion Gap 6, Blood Urea Nitrogen 24H, Creatinine 0.6, Estimat Glomerular Filtration Rate > 60, Glucose Level 190# H, Calcium Level 9.3, Phosphorus Level 3.1, Magnesium Level 1.8, Total Bilirubin 0.5, Aspartate Amino Transf (AST/SGOT) 11L, Alanine Aminotransferase ( ALT/SGPT) 12, Alkaline Phosphatase 80, Total Protein 5.5L, Albumin 2.3L, Globulin 3.2, Albumin/Globulin Ratio 0.7L Height (Feet): 5 Height (Inches): 4.00 Weight (Pounds): 142 General Appearance: lethargic EENT: normal ENT inspection Neck: normal alignment Cardiovascular: normal peripheral pulses, normal rate, regular rhythm Respiratory/Chest: chest wall non-tender, lungs clear, normal breath sounds Abdomen: normal bowel sounds, non tender, soft Extremities: normal inspection Edema: no edema noted Arm (L), no edema noted Arm (R), no edema noted Leg (L), no edema noted Leg (R), no edema noted Pedal (L), no edema noted Pedal (R), no edema noted Generalized Neurologic: motor weakness Skin: normal pigmentation, warm/dry TIM GARY Nov 21, 2017 13:46
[2017-11-21] MEDS: cefTRIAXone 1 GM in NS 55 ML IVPB SCH (15:47)
--- NOTE | 2017-11-21 17:31 | Cardiology Progress Note ---
Assessment/Plan Assessment/Plan 1. Respiratory failure. 2. Diabetes mellitus. 3. Hypertension history. 4. Chronic obstructive pulmonary disease history. 5. Hypotension resolved all trop neg to wean as tolerated vent support abx tele personally reviewed failed weaning again to day Subjective ROS Limited/Unobtainable: Yes Subjective on the vent Objective Last 24 Hour Vital Signs Date Time Temp Pulse Resp B/P (MAP) Pulse Ox O2 Delivery O2 Flow Rate FiO2 11/21/17 17:25 98.8 11/21/17 17:20 78 16 30 11/21/17 17:00 73 14 105/54 97 Mechanical Ventilator 30 11/21/17 16:00 30 11/21/17 16:00 98.9 92 17 131/89 97 Mechanical Ventilator 30 11/21/17 16:00 99 11/21/17 15:15 80 16 30 11/21/17 15:00 100 21 133/71 97 Mechanical Ventilator 30 11/21/17 14:00 107 18 101/79 98 Mechanical Ventilator 30 11/21/17 13:00 101 16 172/87 99 Mechanical Ventilator 30 11/21/17 12:45 91 18 30 11/21/17 12:00 30 11/21/17 12:00 99.8 104 22 160/82 96 Mechanical Ventilator 30 11/21/17 12:00 86 11/21/17 11:37 100 11/21/17 11:30 91 18 30 11/21/17 11:00 100 19 144/76 95 Mechanical Ventilator 30 11/21/17 10:00 97 18 127/75 95 Mechanical Ventilator 30 11/21/17 09:15 71 16 30 11/21/17 09:00 101 20 95/51 96 Mechanical Ventilator 30 11/21/17 08:15 30 11/21/17 08:00 101 11/21/17 08:00 99.8 89 25 132/66 98 Mechanical Ventilator 30 11/21/17 07:26 82 16 30 11/21/17 07:00 102 17 144/72 96 Mechanical Ventilator 35 11/21/17 06:00 106 17 90/60 96 Mechanical Ventilator 35 11/21/17 05:15 84 16 30 11/21/17 05:00 81 17 127/60 96 Mechanical Ventilator 35 11/21/17 04:00 87 11/21/17 04:00 30 11/21/17 04:00 97.7 87 17 145/66 97 Mechanical Ventilator 30 11/21/17 03:17 98 16 30 11/21/17 03:00 85 16 129/72 94 Mechanical Ventilator 35 11/21/17 02:00 78 22 109/51 96 Mechanical Ventilator 35 11/21/17 01:03 71 16 35 11/21/17 01:00 75 16 122/56 100 Mechanical Ventilator 35 11/21/17 00:00 35 11/21/17 00:00 98.0 75 17 91/47 99 Mechanical Ventilator 35 11/21/17 00:00 71 11/20/17 23:26 73 16 35 11/20/17 23:00 72 16 99/51 100 Mechanical Ventilator 40 11/20/17 22:00 73 16 97/50 100 Mechanical Ventilator 40 11/20/17 21:17 72 16 40 11/20/17 21:00 77 16 126/57 100 Mechanical Ventilator 40 11/20/17 20:00 40 11/20/17 20:00 75 11/20/17 20:00 98.7 85 20 132/96 100 Mechanical Ventilator 40 11/20/17 19:02 74 16 40 11/20/17 19:00 77 19 116/58 100 Mechanical Ventilator 40 11/20/17 18:00 98.3 78 18 116/53 100 Mechanical Ventilator 40 General Appearance: no apparent distress, alert, on vent Neck: supple Cardiovascular: normal rate, regular rhythm Respiratory/Chest: lungs clear Abdomen: normal bowel sounds, non tender, soft Extremities: no swelling Intake and Output 11/20/17 11/21/17 19:00 07:00 Intake Total 855 ml 700 ml Output Total 975 ml 400 ml Balance -120 ml 300 ml Free Water 100 ml 100 ml IV Total 155 ml Tube Feeding 600 ml 600 ml Output Urine Total 975 ml 400 ml Laboratory Tests Test 11/21/17 03:40 White Blood Count 4.1 K/UL (4.8-10.8) L Red Blood Count 4.01 M/UL (4.20-5.40) L Hemoglobin 9.8 G/DL (12.0-16.0) L Hematocrit 32.2 % (37.0-47.0) L Mean Corpuscular Volume 80 FL (80-99) Mean Corpuscular Hemoglobin 24.3 PG (27.0-31.0) L Mean Corpuscular Hemoglobin Concent 30.3 G/DL (32.0-36.0) L Red Cell Distribution Width 16.8 % (11.6-14.8) H Platelet Count 160 K/UL (150-450) Mean Platelet Volume 6.3 FL (6.5-10.1) L Neutrophils (%) (Auto) 76.5 % (45.0-75.0) H Lymphocytes (%) (Auto) 15.6 % (20.0-45.0) L Monocytes (%) (Auto) 6.7 % (1.0-10.0) Eosinophils (%) (Auto) 0.6 % (0.0-3.0) Basophils (%) (Auto) 0.5 % (0.0-2.0) Sodium Level 149 MMOL/L (136-145) #H Potassium Level 3.0 MMOL/L (3.5-5.1) L Chloride Level 109 MMOL/L (98-107) H Carbon Dioxide Level 34 MMOL/L (21-32) H Anion Gap 6 mmol/L (5-15) Blood Urea Nitrogen 24 mg/dL (7-18) H Creatinine 0.6 MG/DL (0.55-1.30) Estimat Glomerular Filtration Rate > 60 mL/min (>60) Glucose Level 190 MG/DL (74-106) #H Calcium Level 9.3 MG/DL (8.5-10.1) Phosphorus Level 3.1 MG/DL (2.5-4.9) Magnesium Level 1.8 MG/DL (1.8-2.4) Total Bilirubin 0.5 MG/DL (0.2-1.0) Aspartate Amino Transf (AST/SGOT) 11 U/L (15-37) L Alanine Aminotransferase (ALT/SGPT) 12 U/L (12-78) Alkaline Phosphatase 80 U/L (46-116) Total Protein 5.5 G/DL (6.4-8.2) L Albumin 2.3 G/DL (3.4-5.0) L Globulin 3.2 g/dL Albumin/Globulin Ratio 0.7 (1.0-2.7) L CALIN HAWKINS Nov 21, 2017 17:31
[2017-11-22] VITALS (24 sets, daily range): BP systolic 86–142; BP diastolic 48–80
[2017-11-22] MEDS: NovoLOG Insulin Flexpen SUBQ SCH ×5 (00:39→23:29)
[2017-11-22] MEDS: Morphine Sulfate 4mg/ml Inj IVP PRN ×4 (05:02→19:36)
[2017-11-22] MEDS: Miralax 17gm pkt ORAL PRN ×2 (05:52→05:55)
[2017-11-22 06:02] LABS: BASOPHILS % (AUTO) 0.9 % (0.0-2.0); EOSINOPHILS % (AUTO) 1.1 % (0.0-3.0); HEMATOCRIT 32.8 % (37.0-47.0); LYMPHOCYTES % (AUTO) 13.7 % (20.0-45.0); MEAN CORPUSCULAR VOLUME 81 FL (80-99); MONOCYTES % (AUTO) 7.5 % (1.0-10.0); NEUTROPHILS % (AUTO) 76.8 % (45.0-75.0); PLATELET COUNT 114 K/UL (150-450); RED BLOOD COUNT 4.06 M/UL (4.20-5.40); RED CELL DISTRIBUTION WIDTH 16.6 % (11.6-14.8); WHITE BLOOD COUNT 4.9 K/UL (4.8-10.8)
[2017-11-22 06:20] LABS: ALANINE AMINOTRANSFERASE 17 U/L (12-78); ALBUMIN 2.2 G/DL (3.4-5.0); ALBUMIN/GLOBULIN RATIO 0.7 (1.0-2.7); ALKALINE PHOSPHATASE 75 U/L (46-116); ANION GAP 6 mmol/L (5-15); ASPARTATE AMINO TRANSFERASE 16 U/L (15-37); BILIRUBIN,TOTAL 0.4 MG/DL (0.2-1.0); BLOOD UREA NITROGEN 23 mg/dL (7-18); CALCIUM 8.9 MG/DL (8.5-10.1); CARBON DIOXIDE 33 MMOL/L (21-32); CHLORIDE 107 MMOL/L (98-107); CREATININE 0.6 MG/DL (0.55-1.30); PHOSPHORUS 2.7 MG/DL (2.5-4.9); POTASSIUM 3.5 MMOL/L (3.5-5.1); SODIUM 146 MMOL/L (136-145)
[2017-11-22] MEDS: Heparin 5000 units/ml inj SUBQ SCH ×2 (08:43→20:56)
[2017-11-22] MEDS: Pantoprazole Inj IV SCH (08:43)
--- NOTE | 2017-11-22 11:14 | Pulmonolgy Critical Care Note ---
Critical Care - Asmt/Plan Problems: (1) Acute respiratory failure (2) Pleural effusion (3) COPD (chronic obstructive pulmonary disease) (4) Diabetes mellitus (5) Pulmonary edema Respiratory: monitor respiratory rate, adjust FIO2, CXR Cardiac: continue to monitor HR/BP Renal: F/U I&O, keep IV fluid Infectious Disease: check cultures, continue antibiotics Gastrointestinal: continue feedings/current rate Endocrine: monitor blood sugar, check HgA1C, continue sliding scale insulin Hematologic: transfuse if hgb<8.5 Neurologic: PRN Ativan, PRN Morphine, keep patient comfortable Affect: PRN ativan Prophylaxis: Protonix, Heparin Notes Reviewed: project portfolio analyst, cardio, renal Discussed with: nurses, consultants, rn case managementmanager mall - Objective Last 24 Hour Vital Signs Date Time Temp Pulse Resp B/P (MAP) Pulse Ox O2 Delivery O2 Flow Rate FiO2 11/22/17 11:09 91 23 30 11/22/17 11:00 90 20 133/65 95 Mechanical Ventilator 30 11/22/17 10:39 91 31 30 11/22/17 10:00 87 20 135/65 95 Mechanical Ventilator 30 11/22/17 09:02 100 11/22/17 09:00 78 20 133/64 100 Mechanical Ventilator 30 11/22/17 08:54 91 29 30 11/22/17 08:51 87 17 30 11/22/17 08:00 98.7 78 18 133/66 100 Mechanical Ventilator 30 11/22/17 08:00 84 11/22/17 08:00 30 11/22/17 07:20 82 16 30 11/22/17 07:00 75 17 132/67 100 Mechanical Ventilator 30 11/22/17 06:44 69 11/22/17 06:06 77 16 30 11/22/17 06:00 78 15 132/67 99 Mechanical Ventilator 30 11/22/17 05:42 97.9 11/22/17 05:00 78 17 132/67 99 Mechanical Ventilator 30 11/22/17 04:00 30 11/22/17 04:00 75 16 98/56 97 Mechanical Ventilator 30 11/22/17 03:45 74 16 30 11/22/17 03:00 68 16 103/52 97 Mechanical Ventilator 30 11/22/17 02:00 68 16 98/55 98 Mechanical Ventilator 30 11/22/17 01:16 73 17 30 11/22/17 01:00 72 16 98/55 97 Mechanical Ventilator 30 11/22/17 00:00 81 11/22/17 00:00 97.9 76 16 105/51 97 Mechanical Ventilator 30 11/22/17 00:00 30 11/21/17 23:00 78 16 97/54 97 Mechanical Ventilator 30 11/21/17 22:58 83 16 30 11/21/17 22:00 87 17 134/60 97 Mechanical Ventilator 30 11/21/17 21:00 81 16 30 11/21/17 21:00 95 23 115/51 98 Mechanical Ventilator 30 11/21/17 20:00 98.0 94 22 115/51 97 Mechanical Ventilator 30 11/21/17 20:00 30 11/21/17 20:00 88 11/21/17 19:00 69 15 108/62 100 Mechanical Ventilator 30 11/21/17 18:00 72 14 113/53 99 Mechanical Ventilator 30 11/21/17 17:20 78 16 30 11/21/17 17:00 73 14 105/54 97 Mechanical Ventilator 30 11/21/17 16:00 30 11/21/17 16:00 98.9 92 17 131/89 97 Mechanical Ventilator 30 11/21/17 16:00 99 11/21/17 15:15 80 16 30 11/21/17 15:00 100 21 133/71 97 Mechanical Ventilator 30 11/21/17 14:00 107 18 101/79 98 Mechanical Ventilator 30 11/21/17 13:00 101 16 172/87 99 Mechanical Ventilator 30 11/21/17 12:45 91 18 30 11/21/17 12:00 30 11/21/17 12:00 99.8 104 22 160/82 96 Mechanical Ventilator 30 11/21/17 12:00 86 11/21/17 11:37 100 11/21/17 11:30 91 18 30 Status: awake Condition: critical HEENT: atraumatic Neck: full ROM Lungs: clear Heart: HR/BP stable, HR/BP unstable, regular Abdomen: non-tender, active bowel sounds Extremities: no C/C/E, edema Decubiti: location Accucheck: 200 Critical Care - Subjective ROS Limited/Unobtainable: No ICU Day: 7 Intubation Day: 7 Condition: critical FI02: 30 Vent Support Breath Rate: 16 Vent Support Mode: AC Vent Tidal Volume: 600 Sputum Amount: Scant PEEP: 0.0 PIP: 24 Fluids: d5 1/2 NS 50 cc/hour Tube Feeding Amount: 50 I&O: Intake and Output 11/21/17 11/22/17 19:00 07:00 Intake Total 1005 ml 1250 ml Output Total 434 ml 360 ml Balance 571 ml 890 ml Free Water 100 ml IV Total 405 ml 550 ml Tube Feeding 600 ml 600 ml Output Urine Total 434 ml 360 ml CXR: Laboratory Tests Test 11/22/17 04:20 11/22/17 10:00 White Blood Count 4.9 K/UL (4.8-10.8) Red Blood Count 4.06 M/UL (4.20-5.40) L Hemoglobin 10.0 G/DL (12.0-16.0) L Hematocrit 32.8 % (37.0-47.0) L Mean Corpuscular Volume 81 FL (80-99) Mean Corpuscular Hemoglobin 24.5 PG (27.0-31.0) L Mean Corpuscular Hemoglobin Concent 30.4 G/DL (32.0-36.0) L Red Cell Distribution Width 16.6 % (11.6-14.8) H Platelet Count 114 K/UL (150-450) L Mean Platelet Volume 6.2 FL (6.5-10.1) L Neutrophils (%) (Auto) 76.8 % (45.0-75.0) H Lymphocytes (%) (Auto) 13.7 % (20.0-45.0) L Monocytes (%) (Auto) 7.5 % (1.0-10.0) Eosinophils (%) (Auto) 1.1 % (0.0-3.0) Basophils (%) (Auto) 0.9 % (0.0-2.0) Sodium Level 146 MMOL/L (136-145) H Potassium Level 3.5 MMOL/L (3.5-5.1) Chloride Level 107 MMOL/L (98-107) Carbon Dioxide Level 33 MMOL/L (21-32) H Anion Gap 6 mmol/L (5-15) Blood Urea Nitrogen 23 mg/dL (7-18) H Creatinine 0.6 MG/DL (0.55-1.30) Estimat Glomerular Filtration Rate > 60 mL/min (>60) Glucose Level 174 MG/DL (74-106) H Calcium Level 8.9 MG/DL (8.5-10.1) Phosphorus Level 2.7 MG/DL (2.5-4.9) Magnesium Level 1.9 MG/DL (1.8-2.4) Total Bilirubin 0.4 MG/DL (0.2-1.0) Aspartate Amino Transf (AST/SGOT) 16 U/L (15-37) Alanine Aminotransferase (ALT/SGPT) 17 U/L (12-78) Alkaline Phosphatase 75 U/L (46-116) Total Protein 5.2 G/DL (6.4-8.2) L Albumin 2.2 G/DL (3.4-5.0) L Globulin 3.0 g/dL Albumin/Globulin Ratio 0.7 (1.0-2.7) L Arterial Blood pH 7.440 (7.350-7.450) Arterial Blood Partial Pressure CO2 50.1 mmHg (35.0-45.0) H Arterial Blood Partial Pressure O2 77.3 mmHg (75.0-100.0) Arterial Blood HCO3 33.3 mmol/L (22.0-26.0) H Arterial Blood Oxygen Saturation 94.1 % (92.0-98.0) Arterial Blood Base Excess 7.9 Rolf Test Positive ET-Tube: 7.0 ET Position: 22 Labs: Laboratory Tests Test 11/22/17 04:20 11/22/17 10:00 White Blood Count 4.9 K/UL (4.8-10.8) Red Blood Count 4.06 M/UL (4.20-5.40) L Hemoglobin 10.0 G/DL (12.0-16.0) L Hematocrit 32.8 % (37.0-47.0) L Mean Corpuscular Volume 81 FL (80-99) Mean Corpuscular Hemoglobin 24.5 PG (27.0-31.0) L Mean Corpuscular Hemoglobin Concent 30.4 G/DL (32.0-36.0) L Red Cell Distribution Width 16.6 % (11.6-14.8) H Platelet Count 114 K/UL (150-450) L Mean Platelet Volume 6.2 FL (6.5-10.1) L Neutrophils (%) (Auto) 76.8 % (45.0-75.0) H Lymphocytes (%) (Auto) 13.7 % (20.0-45.0) L Monocytes (%) (Auto) 7.5 % (1.0-10.0) Eosinophils (%) (Auto) 1.1 % (0.0-3.0) Basophils (%) (Auto) 0.9 % (0.0-2.0) Sodium Level 146 MMOL/L (136-145) H Potassium Level 3.5 MMOL/L (3.5-5.1) Chloride Level 107 MMOL/L (98-107) Carbon Dioxide Level 33 MMOL/L (21-32) H Anion Gap 6 mmol/L (5-15) Blood Urea Nitrogen 23 mg/dL (7-18) H Creatinine 0.6 MG/DL (0.55-1.30) Estimat Glomerular Filtration Rate > 60 mL/min (>60) Glucose Level 174 MG/DL (74-106) H Calcium Level 8.9 MG/DL (8.5-10.1) Phosphorus Level 2.7 MG/DL (2.5-4.9) Magnesium Level 1.9 MG/DL (1.8-2.4) Total Bilirubin 0.4 MG/DL (0.2-1.0) Aspartate Amino Transf (AST/SGOT) 16 U/L (15-37) Alanine Aminotransferase (ALT/SGPT) 17 U/L (12-78) Alkaline Phosphatase 75 U/L (46-116) Total Protein 5.2 G/DL (6.4-8.2) L Albumin 2.2 G/DL (3.4-5.0) L Globulin 3.0 g/dL Albumin/Globulin Ratio 0.7 (1.0-2.7) L Arterial Blood pH 7.440 (7.350-7.450) Arterial Blood Partial Pressure CO2 50.1 mmHg (35.0-45.0) H Arterial Blood Partial Pressure O2 77.3 mmHg (75.0-100.0) Arterial Blood HCO3 33.3 mmol/L (22.0-26.0) H Arterial Blood Oxygen Saturation 94.1 % (92.0-98.0) Arterial Blood Base Excess 7.9 Rolf Test Positive [employer] Nov 22, 2017 11:14
[2017-11-22] MEDS: LORazepam Inj 2mg/ml 1ml IV PRN ×3 (11:26→21:33)
--- NOTE | 2017-11-22 11:36 | General Progress Note ---
Assessment/Plan Problem List: (1) History of hypertension ICD Codes: Z86.79 - Personal history of other diseases of the circulatory system SNOMED: 550078989 (2) Pleural effusion ICD Codes: J90 - Pleural effusion, not elsewhere classified SNOMED: 73921744 (3) COPD (chronic obstructive pulmonary disease) ICD Codes: J44.9 - Chronic obstructive pulmonary disease, unspecified SNOMED: 74152682 (4) Acute respiratory failure ICD Codes: J96.00 - Acute respiratory failure, unspecified whether with hypoxia or hypercapnia SNOMED: 74827431 (5) Diabetes mellitus ICD Codes: E11.9 - Type 2 diabetes mellitus without complications SNOMED: 14615546 (6) Pulmonary edema ICD Codes: J81.1 - Chronic pulmonary edema SNOMED: 22885549 Status: unchanged Assessment/Plan vent abx bp bs control cbc bmp am Subjective Constitutional: Reports: weakness Allergies: Coded Allergies: No Known Allergies (Unverified , 11/15/17) All Systems: reviewed and negative except above Subjective intubated sedated in icu Objective Last 24 Hour Vital Signs Date Time Temp Pulse Resp B/P (MAP) Pulse Ox O2 Delivery O2 Flow Rate FiO2 11/22/17 11:09 91 23 30 11/22/17 11:00 90 20 133/65 95 Mechanical Ventilator 30 11/22/17 10:39 91 31 30 11/22/17 10:00 87 20 135/65 95 Mechanical Ventilator 30 11/22/17 09:02 100 11/22/17 09:00 78 20 133/64 100 Mechanical Ventilator 30 11/22/17 08:54 91 29 30 11/22/17 08:51 87 17 30 11/22/17 08:00 98.7 78 18 133/66 100 Mechanical Ventilator 30 11/22/17 08:00 84 11/22/17 08:00 30 11/22/17 07:20 82 16 30 11/22/17 07:00 75 17 132/67 100 Mechanical Ventilator 30 11/22/17 06:44 69 11/22/17 06:06 77 16 30 11/22/17 06:00 78 15 132/67 99 Mechanical Ventilator 30 11/22/17 05:42 97.9 11/22/17 05:00 78 17 132/67 99 Mechanical Ventilator 30 11/22/17 04:00 30 11/22/17 04:00 75 16 98/56 97 Mechanical Ventilator 30 11/22/17 03:45 74 16 30 11/22/17 03:00 68 16 103/52 97 Mechanical Ventilator 30 11/22/17 02:00 68 16 98/55 98 Mechanical Ventilator 30 11/22/17 01:16 73 17 30 11/22/17 01:00 72 16 98/55 97 Mechanical Ventilator 30 11/22/17 00:00 81 11/22/17 00:00 97.9 76 16 105/51 97 Mechanical Ventilator 30 11/22/17 00:00 30 11/21/17 23:00 78 16 97/54 97 Mechanical Ventilator 30 11/21/17 22:58 83 16 30 11/21/17 22:00 87 17 134/60 97 Mechanical Ventilator 30 11/21/17 21:00 81 16 30 11/21/17 21:00 95 23 115/51 98 Mechanical Ventilator 30 11/21/17 20:00 98.0 94 22 115/51 97 Mechanical Ventilator 30 11/21/17 20:00 30 11/21/17 20:00 88 11/21/17 19:00 69 15 108/62 100 Mechanical Ventilator 30 11/21/17 18:00 72 14 113/53 99 Mechanical Ventilator 30 11/21/17 17:20 78 16 30 11/21/17 17:00 73 14 105/54 97 Mechanical Ventilator 30 11/21/17 16:00 30 11/21/17 16:00 98.9 92 17 131/89 97 Mechanical Ventilator 30 11/21/17 16:00 99 11/21/17 15:15 80 16 30 11/21/17 15:00 100 21 133/71 97 Mechanical Ventilator 30 11/21/17 14:00 107 18 101/79 98 Mechanical Ventilator 30 11/21/17 13:00 101 16 172/87 99 Mechanical Ventilator 30 11/21/17 12:45 91 18 30 11/21/17 12:00 30 11/21/17 12:00 99.8 104 22 160/82 96 Mechanical Ventilator 30 11/21/17 12:00 86 11/21/17 11:37 100 Intake and Output 11/21/17 11/22/17 19:00 07:00 Intake Total 1005 ml 1250 ml Output Total 434 ml 360 ml Balance 571 ml 890 ml Free Water 100 ml IV Total 405 ml 550 ml Tube Feeding 600 ml 600 ml Output Urine Total 434 ml 360 ml Laboratory Tests 11/22/17 04:20: White Blood Count 4.9, Red Blood Count 4.06L, Hemoglobin 10.0L, Hematocrit 32.8L , Mean Corpuscular Volume 81, Mean Corpuscular Hemoglobin 24.5L, Mean Corpuscular Hemoglobin Concent 30.4L, Red Cell Distribution Width 16.6H, Platelet Count 114L, Mean Platelet Volume 6.2L, Neutrophils (%) (Auto) 76.8H, Lymphocytes (%) (Auto) 13.7L, Monocytes (%) (Auto) 7.5, Eosinophils (%) (Auto) 1.1, Basophils (%) (Auto) 0.9, Sodium Level 146H, Potassium Level 3.5, Chloride Level 107, Carbon Dioxide Level 33H, Anion Gap 6, Blood Urea Nitrogen 23H, Creatinine 0.6, Estimat Glomerular Filtration Rate > 60, Glucose Level 174H, Calcium Level 8.9, Phosphorus Level 2.7, Magnesium Level 1.9, Total Bilirubin 0.4, Aspartate Amino Transf (AST/SGOT) 16, Alanine Aminotransferase (ALT/SGPT) 17, Alkaline Phosphatase 75, Total Protein 5.2L, Albumin 2.2L, Globulin 3.0, Albumin/Globulin Ratio 0.7L 11/22/17 10:00: Arterial Blood pH 7.440, Arterial Blood Partial Pressure CO2 50.1H, Arterial Blood Partial Pressure O2 77.3, Arterial Blood HCO3 33.3H, Arterial Blood Oxygen Saturation 94.1, Arterial Blood Base Excess 7.9, Rolf Test Positive Height (Feet): 5 Height (Inches): 4.00 Weight (Pounds): 145 General Appearance: lethargic EENT: normal ENT inspection Neck: normal alignment Cardiovascular: normal peripheral pulses, normal rate, regular rhythm Respiratory/Chest: decreased breath sounds Abdomen: normal bowel sounds, non tender, soft Extremities: normal inspection Edema: no edema noted Arm (L), no edema noted Arm (R), no edema noted Leg (L), no edema noted Leg (R), no edema noted Pedal (L), no edema noted Pedal (R), no edema noted Generalized Neurologic: motor weakness Skin: normal pigmentation, warm/dry TIM GARY Nov 22, 2017 11:36
--- NOTE | 2017-11-22 14:17 | Diagnostic Imaging Report ---
Indication: Dyspnea Comparison: November 21, 2017 A single view chest radiograph was obtained. Findings: Pulmonary edema again demonstrated with prominent vascularity and interstitial edema. There is also alveolar disease on the right. Suspect small pleural effusions. Endotracheal tube and nasogastric tubes are in good position. IMPRESSION: Pulmonary edema without significant change.
--- NOTE | 2017-11-22 14:55 | Infectious Diseases Prog Note ---
Assessment/Plan Assessment/Plan ASSESSMENT: The patient is a 67-year-old female with: 1. Chronic obstructive pulmonary disease exacerbation. -influenza neg 2. Community-acquired pneumonia/aspiration pneumonia.] -CXR: New or increased small right pleural effusion Persistent left pleural fluid and extensive bilateral parenchymal disease, over one day -sp cx normal papi -legionella ag urine p and ; ab neg 3.fever/leukocytosis- resolved 4. Ventilator-dependent respiratory failure. - Hypertension. - Diabetes. PLAN: - Continue Ceftriaxone abx d#04/26 for PNA given no isolation of resistant organisms and d/c Levaquin #6/5 -11/20 SP Zosyn #5 -11/15 SP Unasyn #1 - f/u cx - f/u Legionella antigen urine. - Monitor chest x-ray. Thank you, Dr. Isbell, for allowing me to participate in the care of this patient. I will follow the patient with you during this hospitalization. Subjective Allergies: Coded Allergies: No Known Allergies (Unverified , 11/15/17) Subjective afebrine no leukocytosis remains intubated, Fio2 30% Objective Vital Signs Last 24 Hour Vital Signs Date Time Temp Pulse Resp B/P (MAP) Pulse Ox O2 Delivery O2 Flow Rate FiO2 11/22/17 13:30 92 16 30 11/22/17 13:00 77 20 125/77 94 Mechanical Ventilator 30 11/22/17 12:00 30 11/22/17 12:00 98.8 73 16 131/77 97 Mechanical Ventilator 30 11/22/17 12:00 75 11/22/17 11:09 91 23 30 11/22/17 11:00 90 20 133/65 95 Mechanical Ventilator 30 11/22/17 10:39 91 31 30 11/22/17 10:00 87 20 135/65 95 Mechanical Ventilator 30 11/22/17 09:02 100 11/22/17 09:00 78 20 133/64 100 Mechanical Ventilator 30 11/22/17 08:54 91 29 30 11/22/17 08:51 87 17 30 11/22/17 08:00 98.7 78 18 133/66 100 Mechanical Ventilator 30 11/22/17 08:00 84 11/22/17 08:00 30 11/22/17 07:20 82 16 30 11/22/17 07:00 75 17 132/67 100 Mechanical Ventilator 30 11/22/17 06:44 69 11/22/17 06:06 77 16 30 11/22/17 06:00 78 15 132/67 99 Mechanical Ventilator 30 11/22/17 05:42 97.9 11/22/17 05:00 78 17 132/67 99 Mechanical Ventilator 30 11/22/17 04:00 30 11/22/17 04:00 75 16 98/56 97 Mechanical Ventilator 30 11/22/17 03:45 74 16 30 11/22/17 03:00 68 16 103/52 97 Mechanical Ventilator 30 11/22/17 02:00 68 16 98/55 98 Mechanical Ventilator 30 11/22/17 01:16 73 17 30 11/22/17 01:00 72 16 98/55 97 Mechanical Ventilator 30 11/22/17 00:00 81 11/22/17 00:00 97.9 76 16 105/51 97 Mechanical Ventilator 30 11/22/17 00:00 30 11/21/17 23:00 78 16 97/54 97 Mechanical Ventilator 30 11/21/17 22:58 83 16 30 11/21/17 22:00 87 17 134/60 97 Mechanical Ventilator 30 11/21/17 21:00 81 16 30 11/21/17 21:00 95 23 115/51 98 Mechanical Ventilator 30 11/21/17 20:00 98.0 94 22 115/51 97 Mechanical Ventilator 30 11/21/17 20:00 30 11/21/17 20:00 88 11/21/17 19:00 69 15 108/62 100 Mechanical Ventilator 30 11/21/17 18:00 72 14 113/53 99 Mechanical Ventilator 30 11/21/17 17:20 78 16 30 11/21/17 17:00 73 14 105/54 97 Mechanical Ventilator 30 11/21/17 16:00 30 11/21/17 16:00 98.9 92 17 131/89 97 Mechanical Ventilator 30 11/21/17 16:00 99 11/21/17 15:15 80 16 30 11/21/17 15:00 100 21 133/71 97 Mechanical Ventilator 30 Height (Feet): 5 Height (Inches): 4.00 Weight (Pounds): 145 Objective HEENT: No pale conjunctivae. No icterus. ETT in place NECK: No lymphadenopathy.. CHEST: Coarse breathing sounds. HEART: S1, S2. ABDOMEN: Soft and obese. Umbilical hernia present. EXTREMITIES: No cyanosis. NEUROLOGIC: Sedated. Laboratory Tests Test 11/22/17 04:20 11/22/17 10:00 White Blood Count 4.9 K/UL (4.8-10.8) Red Blood Count 4.06 M/UL (4.20-5.40) L Hemoglobin 10.0 G/DL (12.0-16.0) L Hematocrit 32.8 % (37.0-47.0) L Mean Corpuscular Volume 81 FL (80-99) Mean Corpuscular Hemoglobin 24.5 PG (27.0-31.0) L Mean Corpuscular Hemoglobin Concent 30.4 G/DL (32.0-36.0) L Red Cell Distribution Width 16.6 % (11.6-14.8) H Platelet Count 114 K/UL (150-450) L Mean Platelet Volume 6.2 FL (6.5-10.1) L Neutrophils (%) (Auto) 76.8 % (45.0-75.0) H Lymphocytes (%) (Auto) 13.7 % (20.0-45.0) L Monocytes (%) (Auto) 7.5 % (1.0-10.0) Eosinophils (%) (Auto) 1.1 % (0.0-3.0) Basophils (%) (Auto) 0.9 % (0.0-2.0) Sodium Level 146 MMOL/L (136-145) H Potassium Level 3.5 MMOL/L (3.5-5.1) Chloride Level 107 MMOL/L (98-107) Carbon Dioxide Level 33 MMOL/L (21-32) H Anion Gap 6 mmol/L (5-15) Blood Urea Nitrogen 23 mg/dL (7-18) H Creatinine 0.6 MG/DL (0.55-1.30) Estimat Glomerular Filtration Rate > 60 mL/min (>60) Glucose Level 174 MG/DL (74-106) H Calcium Level 8.9 MG/DL (8.5-10.1) Phosphorus Level 2.7 MG/DL (2.5-4.9) Magnesium Level 1.9 MG/DL (1.8-2.4) Total Bilirubin 0.4 MG/DL (0.2-1.0) Aspartate Amino Transf (AST/SGOT) 16 U/L (15-37) Alanine Aminotransferase (ALT/SGPT) 17 U/L (12-78) Alkaline Phosphatase 75 U/L (46-116) Total Protein 5.2 G/DL (6.4-8.2) L Albumin 2.2 G/DL (3.4-5.0) L Globulin 3.0 g/dL Albumin/Globulin Ratio 0.7 (1.0-2.7) L Arterial Blood pH 7.440 (7.350-7.450) Arterial Blood Partial Pressure CO2 50.1 mmHg (35.0-45.0) H Arterial Blood Partial Pressure O2 77.3 mmHg (75.0-100.0) Arterial Blood HCO3 33.3 mmol/L (22.0-26.0) H Arterial Blood Oxygen Saturation 94.1 % (92.0-98.0) Arterial Blood Base Excess 7.9 Rolf Test Positive Current Medications Medications (Trade) Dose Ordered Sig/Edwin Route PRN Reason Start Time Stop Time Status Last Admin Dose Admin Acetaminophen (Tylenol) 650 mg Q4H PRN ORAL Fever 11/15/17 22:45 12/15/17 22:44 11/18/17 07:59 Ceftriaxone Sodium 1 gm/ Sodium Chloride 55 ml @ 110 mls/hr Q24H IVPB 11/20/17 16:00 11/27/17 15:59 11/21/17 15:47 Dextrose (Dextrose 50%) STAT PRN IV Hypoglycemia 11/15/17 22:45 12/15/17 22:44 11/16/17 11:50 Heparin Sodium (Porcine) (Heparin 5000 units/ml) 5,000 units EVERY 12 HOURS SUBQ 11/16/17 09:00 12/16/17 08:59 11/21/17 20:35 Insulin Aspart (NovoLOG) EVERY 6 HOURS SUBQ 11/16/17 18:00 12/16/17 06:29 11/22/17 12:31 Levofloxacin 100 ml @ 100 mls/hr Q24H IVPB 11/17/17 12:00 11/24/17 11:59 11/22/17 12:29 Lorazepam (Ativan 2mg/ml 1ml) 2 mg Q4H PRN IV For Anxiety 11/15/17 23:00 11/22/17 22:59 11/22/17 11:26 Morphine Sulfate (Morphine Sulfate) 4 mg Q4H PRN IVP Breakthrough pain 11/16/17 21:30 11/22/17 22:59 11/22/17 11:26 Ondansetron HCl (Zofran) 4 mg Q6H PRN IVP Nausea & Vomiting 11/15/17 22:45 12/15/17 22:44 11/18/17 21:59 Pantoprazole (Protonix) 40 mg DAILY IV 11/16/17 09:00 12/16/17 08:59 11/22/17 08:43 Polyethylene Glycol (Miralax) 17 gm DAILYPRN PRN ORAL Constipation 11/15/17 22:45 12/15/17 22:44 11/22/17 05:55 Potassium Chloride 30 meq/ Dextrose 1,015 ml @ 50 mls/hr [id number] IV 11/21/17 13:00 12/21/17 12:59 11/22/17 08:43 Temazepam (Restoril) 15 mg HSPRN PRN ORAL Insomnia 11/15/17 22:45 11/22/17 22:44 11/21/17 20:34 Elise Owusu M.D. Nov 22, 2017 14:55
--- NOTE | 2017-11-22 16:46 | Diagnostic Imaging Report ---
Indication: Chest pain Technique: Continuous helical transaxial imaging of the chest was obtained from the thoracic inlet to the upper abdomen. No intravenous contrast was administered. Coronal 2-D reformats were also obtained. Total Dose length Product (DLP): 661.[address] Dose Index Volume (CTDIvol): 16.95 mGy Comparison: none Findings: Endotracheal tube is in the position a few centimeters above the vinicius. Aorta is ectatic with mural calcification. The heart is enlarged. Coronary calcifications also noted. Small bilateral pleural effusions are present. Pulmonary veins are prominent bilaterally and there are groundglass opacities bilaterally and prominence of the interstitium. Some degree of CHF may be present. Dense bilateral lower lobe consolidation suspicious for pneumonia. Other areas of nodular infiltrate and pulmonary nodules of varying size are demonstrated. The findings are consistent with malignant neoplasm. The largest nodule is 3.5 x 3.2 cm in the medial segment of the right middle lobe. Small nodes are also demonstrated within the mediastinum but not evaluated well. Hilar adenopathy is difficult to exclude as the tracey are difficult to visualize because of the adjacent consolidation and the lack of intravenous contrast. The visualized part of the upper abdomen demonstrates marked splenomegaly with spleen measuring 18 x 16 cm. Suggestion of portosystemic varices in the upper abdomen noted. Bilateral renal hypodensities also noted. These may be cysts. IMPRESSION: Suspicion of malignant neoplasm with multiple lung nodules largest of which is 3.5 x 3.2 cm in the right middle lobe. Extensive consolidation at the lung bases likely pneumonia. Please correlate clinically. Bilateral pleural effusions Probable pulmonary venous congestion. Please correlate clinically. Suggestion of a mediastinal adenopathy Marked splenomegaly. 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 Portal hypertension suspected. Suspected bilateral renal cysts not well demonstrated on this exam. Endotracheal tube in good position The CT scanner at [facility] is accredited by the [employer] and the scans are performed using dose optimization techniques as appropriate to a performed exam including Automatic Exposure control.
[2017-11-22] MEDS: cefTRIAXone 1 GM in NS 55 ML IVPB SCH (17:17)
--- NOTE | 2017-11-22 17:22 | Cardiology Progress Note ---
Assessment/Plan Assessment/Plan Respiratory failure. Diabetes mellitus. Hypertension history. Chronic obstructive pulmonary disease history. Hypotension resolved bilateral infiltrate multiple pulm nodule on ct suspicious for malignancy splenomegaly all trop neg to wean as tolerated vent support abx tele personally reviewed failed weaning again to day ct nwo showed abn as noted staff indicated sig secretion will keep dry in light fo some findingon the ct for venous congestion Subjective ROS Limited/Unobtainable: Yes Subjective on the vent, agitateied Objective Last 24 Hour Vital Signs Date Time Temp Pulse Resp B/P (MAP) Pulse Ox O2 Delivery O2 Flow Rate FiO2 218 17:10 88 19 30 2/218 17:00 84 18 125/72 94 Mechanical Ventilator 30 11/22/17 16:00 77 18 16:00 30 18 16:00 98.9 80 16 131/76 97 Mechanical Ventilator 30 18 15:00 94 20 141/78 95 Mechanical Ventilator 30 18 14:50 90 17 30 218 14:00 86 18 125/72 95 Mechanical Ventilator 30 11/22/17 13:30 92 16 30 //18 13:00 77 20 125/77 94 Mechanical Ventilator 30 18 12:00 30 18 12:00 98.8 73 16 131/77 97 Mechanical Ventilator 30 11/22/17 12:00 75 2//18 11:09 91 23 30 2/2/18 11:00 90 20 133/65 95 Mechanical Ventilator 30 18 10:39 91 31 30 2/18 10:00 87 20 135/65 95 Mechanical Ventilator 30 18 09:02 100 2/2/18 09:00 78 20 133/64 100 Mechanical Ventilator 30 18 08:54 91 29 30 2/2/18 08:51 87 17 30 2/2/18 08:00 98.7 78 18 133/66 100 Mechanical Ventilator 30 18 08:00 84 2/2/18 08:00 30 /2/18 07:20 82 16 30 2//18 07:00 75 17 132/67 100 Mechanical Ventilator 30 18 06:44 69 2/2/18 06:06 77 16 30 2/18 06:00 78 15 132/67 99 Mechanical Ventilator 30 11/22/17 05:42 97.9 11/22/17 05:00 78 17 132/67 99 Mechanical Ventilator 30 11/22/17 04:00 30 11/22/17 04:00 75 16 98/56 97 Mechanical Ventilator 30 11/22/17 03:45 74 16 30 11/22/17 03:00 68 16 103/52 97 Mechanical Ventilator 30 11/22/17 02:00 68 16 98/55 98 Mechanical Ventilator 30 11/22/17 01:16 73 17 30 11/22/17 01:00 72 16 98/55 97 Mechanical Ventilator 30 11/22/17 00:00 81 11/22/17 00:00 97.9 76 16 105/51 97 Mechanical Ventilator 30 11/22/17 00:00 30 11/21/17 23:00 78 16 97/54 97 Mechanical Ventilator 30 11/21/17 22:58 83 16 30 11/21/17 22:00 87 17 134/60 97 Mechanical Ventilator 30 11/21/17 21:00 81 16 30 11/21/17 21:00 95 23 115/51 98 Mechanical Ventilator 30 11/21/17 20:00 98.0 94 22 115/51 97 Mechanical Ventilator 30 11/21/17 20:00 30 11/21/17 20:00 88 11/21/17 19:00 69 15 108/62 100 Mechanical Ventilator 30 11/21/17 18:00 72 14 113/53 99 Mechanical Ventilator 30 11/21/17 17:20 78 16 30 General Appearance: no apparent distress, alert, on vent Neck: supple Cardiovascular: regular rhythm Respiratory/Chest: rhonchi - bilaterally Abdomen: normal bowel sounds, non tender, soft Extremities: no swelling Intake and Output 11/21/17 11/22/17 19:00 07:00 Intake Total 1005 ml 1250 ml Output Total 434 ml 360 ml Balance 571 ml 890 ml Free Water 100 ml IV Total 405 ml 550 ml Tube Feeding 600 ml 600 ml Output Urine Total 434 ml 360 ml Laboratory Tests Test 11/22/17 04:20 11/22/17 10:00 White Blood Count 4.9 K/UL (4.8-10.8) Red Blood Count 4.06 M/UL (4.20-5.40) L Hemoglobin 10.0 G/DL (12.0-16.0) L Hematocrit 32.8 % (37.0-47.0) L Mean Corpuscular Volume 81 FL (80-99) Mean Corpuscular Hemoglobin 24.5 PG (27.0-31.0) L Mean Corpuscular Hemoglobin Concent 30.4 G/DL (32.0-36.0) L Red Cell Distribution Width 16.6 % (11.6-14.8) H Platelet Count 114 K/UL (150-450) L Mean Platelet Volume 6.2 FL (6.5-10.1) L Neutrophils (%) (Auto) 76.8 % (45.0-75.0) H Lymphocytes (%) (Auto) 13.7 % (20.0-45.0) L Monocytes (%) (Auto) 7.5 % (1.0-10.0) Eosinophils (%) (Auto) 1.1 % (0.0-3.0) Basophils (%) (Auto) 0.9 % (0.0-2.0) Sodium Level 146 MMOL/L (136-145) H Potassium Level 3.5 MMOL/L (3.5-5.1) Chloride Level 107 MMOL/L (98-107) Carbon Dioxide Level 33 MMOL/L (21-32) H Anion Gap 6 mmol/L (5-15) Blood Urea Nitrogen 23 mg/dL (7-18) H Creatinine 0.6 MG/DL (0.55-1.30) Estimat Glomerular Filtration Rate > 60 mL/min (>60) Glucose Level 174 MG/DL (74-106) H Calcium Level 8.9 MG/DL (8.5-10.1) Phosphorus Level 2.7 MG/DL (2.5-4.9) Magnesium Level 1.9 MG/DL (1.8-2.4) Total Bilirubin 0.4 MG/DL (0.2-1.0) Aspartate Amino Transf (AST/SGOT) 16 U/L (15-37) Alanine Aminotransferase (ALT/SGPT) 17 U/L (12-78) Alkaline Phosphatase 75 U/L (46-116) Total Protein 5.2 G/DL (6.4-8.2) L Albumin 2.2 G/DL (3.4-5.0) L Globulin 3.0 g/dL Albumin/Globulin Ratio 0.7 (1.0-2.7) L Arterial Blood pH 7.440 (7.350-7.450) Arterial Blood Partial Pressure CO2 50.1 mmHg (35.0-45.0) H Arterial Blood Partial Pressure O2 77.3 mmHg (75.0-100.0) Arterial Blood HCO3 33.3 mmol/L (22.0-26.0) H Arterial Blood Oxygen Saturation 94.1 % (92.0-98.0) Arterial Blood Base Excess 7.9 Rolf Test Positive CALIN HAWKINS Nov 22, 2017 17:22
[2017-11-23] VITALS (18 sets, daily range): BP systolic 88–197; BP diastolic 46–115
[2017-11-23] MEDS: NovoLOG Insulin Flexpen SUBQ SCH ×4 (06:12→23:52)
[2017-11-23 07:51] LABS: BASOPHILS % (AUTO) 0.4 % (0.0-2.0); EOSINOPHILS % (AUTO) 0.9 % (0.0-3.0); HEMATOCRIT 33.9 % (37.0-47.0); HEMOGLOBIN 10.6 G/DL (12.0-16.0); LYMPHOCYTES % (AUTO) 11.4 % (20.0-45.0); MEAN CORPUSCULAR VOLUME 80 FL (80-99); MONOCYTES % (AUTO) 5.6 % (1.0-10.0); NEUTROPHILS % (AUTO) 81.7 % (45.0-75.0); PLATELET COUNT 142 K/UL (150-450); RED BLOOD COUNT 4.25 M/UL (4.20-5.40); RED CELL DISTRIBUTION WIDTH 16.6 % (11.6-14.8); WHITE BLOOD COUNT 6.6 K/UL (4.8-10.8)
--- NOTE | 2017-11-23 08:11 | Pulmonolgy Critical Care Note ---
Critical Care - Asmt/Plan Assessment/Plan: ASSESSMENT Acute hypoxemic RF requiring intubation Pulmonary edema CAP/aspiration PNA COPD exacerbation Hypotension -resolved with hx of HTN Suspected malignant lung neoplasm Anemia e/lyte abnormalities ( hypo K, hypo mg) PLAN OF CARE ICU vent support pulmonary toilet daily CXR and ABG failure to wean so far, continue weaning protocol as tolerated Abx ID follows urine, sputum, blood cx, influenza screen all negative~ cardio follows all troponin negatives hypotension resolved ECHO with pEF 60-65% CT chest with findings suspicious of malignant neoplasm, and extensive consolidation at bases, likely PNA as well as pulmonary vascular congestion Gentle IVF monitor renal parameters, lytes , correct lytes as needed DVT GI prophylaxis venous Duplex BLE negative BS management with SS of insulin anemia w/up, monitor counts, remains at baseline case discussed and evaluated by supervising physician Critical Care - Objective Last 24 Hour Vital Signs Date Time Temp Pulse Resp B/P (MAP) Pulse Ox O2 Delivery O2 Flow Rate FiO2 11/23/17 05:17 80 16 30 11/23/17 03:00 76 16 30 11/23/17 01:04 66 16 30 11/23/17 01:00 67 14 109/46 99 Mechanical Ventilator 30 11/23/17 00:00 30 11/23/17 00:00 66 11/23/17 00:00 98.0 66 12 88/48 99 Mechanical Ventilator 30 11/22/17 23:05 65 16 30 11/22/17 23:00 66 12 88/48 99 Mechanical Ventilator 30 11/22/17 22:00 66 12 86/50 99 Mechanical Ventilator 30 11/22/17 21:06 80 16 30 11/22/17 21:00 74 13 112/65 99 Mechanical Ventilator 30 11/22/17 20:00 98.2 76 20 91/55 99 Mechanical Ventilator 30 11/22/17 20:00 81 11/22/17 19:26 94 18 30 11/22/17 19:00 90 20 112/65 92 Mechanical Ventilator 30 11/22/17 18:00 82 20 142/80 95 Mechanical Ventilator 30 11/22/17 17:10 88 19 30 11/22/17 17:00 84 18 125/72 94 Mechanical Ventilator 30 11/22/17 16:00 77 11/22/17 16:00 30 11/22/17 16:00 98.9 80 16 131/76 97 Mechanical Ventilator 30 11/22/17 15:00 94 20 141/78 95 Mechanical Ventilator 30 11/22/17 14:50 90 17 30 11/22/17 14:00 86 18 125/72 95 Mechanical Ventilator 30 11/22/17 13:30 92 16 30 11/22/17 13:00 77 20 125/77 94 Mechanical Ventilator 30 11/22/17 12:00 30 11/22/17 12:00 98.8 73 16 131/77 97 Mechanical Ventilator 30 11/22/17 12:00 75 11/22/17 11:09 91 23 30 11/22/17 11:00 90 20 133/65 95 Mechanical Ventilator 30 11/22/17 10:39 91 31 30 11/22/17 10:00 87 20 135/65 95 Mechanical Ventilator 30 11/22/17 09:02 100 11/22/17 09:00 78 20 133/64 100 Mechanical Ventilator 30 11/22/17 08:54 91 29 30 11/22/17 08:51 87 17 30 Status: awake, other - responsive Condition: critical HEENT: atraumatic, normocephalic, other - OP with ET in place, intatct, OP tube with TF Lungs: clear Heart: HR/BP stable Abdomen: soft, non-tender, active bowel sounds Extremities: no C/C/E Accucheck: 168 Critical Care - Subjective ROS Limited/Unobtainable: Yes Interval Events: remains intubated, failure to wean so far afebrile, no leukocytosis Condition: critical IV Access: peripheral EKG Rhythm: Sinus Rhythm FI02: 30 Vent Support Breath Rate: 16 Vent Support Mode: AC Vent Tidal Volume: 600 Sputum Amount: Small PEEP: 0.0 PIP: 34 Fluids: D5W+3o KCL at 50 Tube Feeding Amount: 50 I&O: Intake and Output 11/22/17 11/23/17 19:00 07:00 Intake Total 650 ml 700 ml Output Total 395 ml 220 ml Balance 255 ml 480 ml Free Water 50 ml IV Total 50 ml 350 ml Tube Feeding 600 ml 300 ml Output Urine Total 395 ml 220 ml # Bowel Movements 1 CXR: Bilateral parenchymal infiltrates are also seen on prior chest radiographs ET-Tube: 7.0 ET Position: 22 Trevor ([facility],Asiya GASPAR Nov 23, 2017 08:11
[2017-11-23] MEDS: LORazepam Inj 2mg/ml 1ml IV PRN ×2 (08:17→19:13)
[2017-11-23] MEDS: Morphine Sulfate 4mg/ml Inj IVP PRN ×3 (08:18→23:57)
[2017-11-23] MEDS: Heparin 5000 units/ml inj SUBQ SCH ×2 (08:21→21:00)
[2017-11-23] MEDS: Pantoprazole Inj IV SCH (08:23)
[2017-11-23 08:34] LABS: ALANINE AMINOTRANSFERASE 17 U/L (12-78); ALBUMIN 2.4 G/DL (3.4-5.0); ANION GAP 7 mmol/L (5-15); ASPARTATE AMINO TRANSFERASE 14 U/L (15-37); BILIRUBIN,TOTAL 0.6 MG/DL (0.2-1.0); BLOOD UREA NITROGEN 21 mg/dL (7-18); CALCIUM 8.9 MG/DL (8.5-10.1); CARBON DIOXIDE 30 MMOL/L (21-32); CHLORIDE 104 MMOL/L (98-107); CREATININE 0.6 MG/DL (0.55-1.30); PHOSPHORUS 3.9 MG/DL (2.5-4.9); POTASSIUM 3.4 MMOL/L (3.5-5.1); SODIUM 141 MMOL/L (136-145)
[2017-11-23 08:35] LABS: ALBUMIN/GLOBULIN RATIO 0.8 (1.0-2.7); ALKALINE PHOSPHATASE 72 U/L (46-116); AMYLASE 66 U/L (10-110)
--- NOTE | 2017-11-23 08:38 | Diagnostic Imaging Report ---
Indication: Post nasogastric tube placement Technique: Supine view of the upper abdomen Comparison: none Findings: Nasogastric tube is coiled in the gastric fundus. Exam includes most of the chest. This demonstrates satisfactory position endotracheal tube. Bilateral parenchymal infiltrates are also seen on prior chest radiographs Impression: Satisfactory position of nasogastric tube Other findings as described This agrees with the preliminary interpretation provided overnight by [facility] teleradiology service.
--- NOTE | 2017-11-23 09:04 | General Progress Note ---
Assessment/Plan Problem List: (1) History of hypertension ICD Codes: Z86.79 - Personal history of other diseases of the circulatory system SNOMED: 285535084 (2) Pleural effusion ICD Codes: J90 - Pleural effusion, not elsewhere classified SNOMED: 63798548 (3) COPD (chronic obstructive pulmonary disease) ICD Codes: J44.9 - Chronic obstructive pulmonary disease, unspecified SNOMED: 13914089 (4) Acute respiratory failure ICD Codes: J96.00 - Acute respiratory failure, unspecified whether with hypoxia or hypercapnia SNOMED: 10961787 (5) Diabetes mellitus ICD Codes: E11.9 - Type 2 diabetes mellitus without complications SNOMED: 50157971 (6) Pulmonary edema ICD Codes: J81.1 - Chronic pulmonary edema SNOMED: 61227539 Status: unchanged Assessment/Plan vent abx bp bs control cbc bmp am Subjective Constitutional: Reports: weakness Allergies: Coded Allergies: No Known Allergies (Unverified , 11/15/17) All Systems: reviewed and negative except above Subjective intubated sedated in icu Objective Last 24 Hour Vital Signs Date Time Temp Pulse Resp B/P (MAP) Pulse Ox O2 Delivery O2 Flow Rate FiO2 11/23/17 05:17 80 16 30 11/23/17 03:00 76 16 30 11/23/17 01:04 66 16 30 11/23/17 01:00 67 14 109/46 99 Mechanical Ventilator 30 11/23/17 00:00 30 11/23/17 00:00 66 11/23/17 00:00 98.0 66 12 88/48 99 Mechanical Ventilator 30 11/22/17 23:05 65 16 30 11/22/17 23:00 66 12 88/48 99 Mechanical Ventilator 30 11/22/17 22:00 66 12 86/50 99 Mechanical Ventilator 30 11/22/17 21:06 80 16 30 11/22/17 21:00 74 13 112/65 99 Mechanical Ventilator 30 11/22/17 20:00 98.2 76 20 91/55 99 Mechanical Ventilator 30 11/22/17 20:00 81 11/22/17 19:26 94 18 30 11/22/17 19:00 90 20 112/65 92 Mechanical Ventilator 30 11/22/17 18:00 82 20 142/80 95 Mechanical Ventilator 30 11/22/17 17:10 88 19 30 11/22/17 17:00 84 18 125/72 94 Mechanical Ventilator 30 11/22/17 16:00 77 11/22/17 16:00 30 11/22/17 16:00 98.9 80 16 131/76 97 Mechanical Ventilator 30 11/22/17 15:00 94 20 141/78 95 Mechanical Ventilator 30 11/22/17 14:50 90 17 30 11/22/17 14:00 86 18 125/72 95 Mechanical Ventilator 30 11/22/17 13:30 92 16 30 11/22/17 13:00 77 20 125/77 94 Mechanical Ventilator 30 11/22/17 12:00 30 11/22/17 12:00 98.8 73 16 131/77 97 Mechanical Ventilator 30 11/22/17 12:00 75 11/22/17 11:09 91 23 30 11/22/17 11:00 90 20 133/65 95 Mechanical Ventilator 30 11/22/17 10:39 91 31 30 11/22/17 10:00 87 20 135/65 95 Mechanical Ventilator 30 Intake and Output 11/22/17 11/23/17 19:00 07:00 Intake Total 650 ml 700 ml Output Total 395 ml 220 ml Balance 255 ml 480 ml Free Water 50 ml IV Total 50 ml 350 ml Tube Feeding 600 ml 300 ml Output Urine Total 395 ml 220 ml # Bowel Movements 1 Laboratory Tests 11/22/17 10:00: Arterial Blood pH 7.440, Arterial Blood Partial Pressure CO2 50.1H, Arterial Blood Partial Pressure O2 77.3, Arterial Blood HCO3 33.3H, Arterial Blood Oxygen Saturation 94.1, Arterial Blood Base Excess 7.9, Rolf Test Positive 11/23/17 05:50: White Blood Count 6.6, Red Blood Count 4.25, Hemoglobin 10.6L, Hematocrit 33.9L , Mean Corpuscular Volume 80, Mean Corpuscular Hemoglobin 24.9L, Mean Corpuscular Hemoglobin Concent 31.3L, Red Cell Distribution Width 16.6H, Platelet Count 142L, Mean Platelet Volume 6.9, Neutrophils (%) (Auto) 81.7H, Lymphocytes (%) (Auto) 11.4L, Monocytes (%) (Auto) 5.6, Eosinophils (%) (Auto) 0.9, Basophils (%) (Auto) 0.4, Erythrocyte Sedimentation Rate [Pending], Sodium Level 141, Potassium Level 3.4L, Chloride Level 104, Carbon Dioxide Level 30, Anion Gap 7, Blood Urea Nitrogen 21H, Creatinine 0.6, Estimat Glomerular Filtration Rate > 60, Glucose Level 184H, Calcium Level 8.9, Phosphorus Level 3.9, Magnesium Level 1.8, Total Bilirubin 0.6, Aspartate Amino Transf (AST/SGOT ) 14L, Alanine Aminotransferase (ALT/SGPT) 17, Alkaline Phosphatase 72, C- Reactive Protein, Quantitative 2.4H, Total Protein 5.5L, Albumin 2.4L, Globulin 3.1, Albumin/Globulin Ratio 0.8L, Amylase Level 66, Lipase 112 Height (Feet): 5 Height (Inches): 4.00 Weight (Pounds): 145 General Appearance: lethargic EENT: normal ENT inspection Neck: normal alignment Cardiovascular: normal peripheral pulses, normal rate, regular rhythm Respiratory/Chest: chest wall non-tender, lungs clear, normal breath sounds Abdomen: normal bowel sounds, non tender, soft Extremities: normal inspection Edema: no edema noted Arm (L), no edema noted Arm (R), no edema noted Leg (L), no edema noted Leg (R), no edema noted Pedal (L), no edema noted Pedal (R), no edema noted Generalized Neurologic: motor weakness Skin: normal pigmentation, warm/dry TIM GARY Nov 23, 2017 09:04
--- NOTE | 2017-11-23 09:17 | Infectious Diseases Prog Note ---
Assessment/Plan Assessment/Plan ASSESSMENT: The patient is a 67-year-old female with: 1. Chronic obstructive pulmonary disease exacerbation. -influenza neg 2. Community-acquired pneumonia/aspiration pneumonia. -CT chest 11/22: Suspicion of malignant neoplasm with multiple lung nodules largest of which is 3.5 x 3.2 cm in the right middle lobe. Extensive consolidation at the lung bases likely pneumonia. Please correlate clinically. Bilateral pleural effusions Probable pulmonary venous congestion. Please correlate clinically. Suggestion of a mediastinal adenopathy. Marked splenomegaly. 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 Portal hypertension suspected. Suspected bilateral renal cysts not well demonstrated on this exam -CXR: New or increased small right pleural effusion Persistent left pleural fluid and extensive bilateral parenchymal disease, over one day -sp cx normal papi -legionella ag urine neg ; ab neg 3.fever/leukocytosis- resolved 4. Ventilator-dependent respiratory failure. 5.?Lung cancer- pert CT findings above - Hypertension. - Diabetes. PLAN: - Continue Ceftriaxone abx d#/ for PNA given no isolation of resistant organisms -11/22 SP Levaquin #6 -11/20 SP Zosyn #5 -11/15 SP Unasyn #1 - Monitor chest x-ray. -ETT care -aspiration precautions Thank you, Dr. Isbell, for allowing me to participate in the care of this patient. I will follow the patient with you during this hospitalization. Subjective Allergies: Coded Allergies: No Known Allergies (Unverified , 11/15/17) Subjective afebrine no leukocytosis remains intubated, Fio2 30% Objective Vital Signs Last 24 Hour Vital Signs Date Time Temp Pulse Resp B/P (MAP) Pulse Ox O2 Delivery O2 Flow Rate FiO2 11/23/17 08:00 30 11/23/17 05:17 80 16 30 11/23/17 03:00 76 16 30 11/23/17 01:04 66 16 30 11/23/17 01:00 67 14 109/46 99 Mechanical Ventilator 30 11/23/17 00:00 30 11/23/17 00:00 66 11/23/17 00:00 98.0 66 12 88/48 99 Mechanical Ventilator 30 11/22/17 23:05 65 16 30 11/22/17 23:00 66 12 88/48 99 Mechanical Ventilator 30 11/22/17 22:00 66 12 86/50 99 Mechanical Ventilator 30 11/22/17 21:06 80 16 30 11/22/17 21:00 74 13 112/65 99 Mechanical Ventilator 30 11/22/17 20:00 98.2 76 20 91/55 99 Mechanical Ventilator 30 11/22/17 20:00 81 11/22/17 19:26 94 18 30 11/22/17 19:00 90 20 112/65 92 Mechanical Ventilator 30 11/22/17 18:00 82 20 142/80 95 Mechanical Ventilator 30 11/22/17 17:10 88 19 30 11/22/17 17:00 84 18 125/72 94 Mechanical Ventilator 30 11/22/17 16:00 77 11/22/17 16:00 30 11/22/17 16:00 98.9 80 16 131/76 97 Mechanical Ventilator 30 11/22/17 15:00 94 20 141/78 95 Mechanical Ventilator 30 11/22/17 14:50 90 17 30 11/22/17 14:00 86 18 125/72 95 Mechanical Ventilator 30 11/22/17 13:30 92 16 30 11/22/17 13:00 77 20 125/77 94 Mechanical Ventilator 30 11/22/17 12:00 30 11/22/17 12:00 98.8 73 16 131/77 97 Mechanical Ventilator 30 11/22/17 12:00 75 11/22/17 11:09 91 23 30 11/22/17 11:00 90 20 133/65 95 Mechanical Ventilator 30 11/22/17 10:39 91 31 30 11/22/17 10:00 87 20 135/65 95 Mechanical Ventilator 30 Height (Feet): 5 Height (Inches): 4.00 Weight (Pounds): 145 Objective HEENT: No pale conjunctivae. No icterus. ETT in place NECK: No lymphadenopathy.. CHEST: Coarse breathing sounds. HEART: S1, S2. ABDOMEN: Soft and obese. Umbilical hernia present. EXTREMITIES: No cyanosis. NEUROLOGIC: Sedated. Laboratory Tests Test 11/22/17 10:00 11/23/17 05:50 Arterial Blood pH 7.440 (7.350-7.450) Arterial Blood Partial Pressure CO2 50.1 mmHg (35.0-45.0) H Arterial Blood Partial Pressure O2 77.3 mmHg (75.0-100.0) Arterial Blood HCO3 33.3 mmol/L (22.0-26.0) H Arterial Blood Oxygen Saturation 94.1 % (92.0-98.0) Arterial Blood Base Excess 7.9 Rolf Test Positive White Blood Count 6.6 K/UL (4.8-10.8) Red Blood Count 4.25 M/UL (4.20-5.40) Hemoglobin 10.6 G/DL (12.0-16.0) L Hematocrit 33.9 % (37.0-47.0) L Mean Corpuscular Volume 80 FL (80-99) Mean Corpuscular Hemoglobin 24.9 PG (27.0-31.0) L Mean Corpuscular Hemoglobin Concent 31.3 G/DL (32.0-36.0) L Red Cell Distribution Width 16.6 % (11.6-14.8) H Platelet Count 142 K/UL (150-450) L Mean Platelet Volume 6.9 FL (6.5-10.1) Neutrophils (%) (Auto) 81.7 % (45.0-75.0) H Lymphocytes (%) (Auto) 11.4 % (20.0-45.0) L Monocytes (%) (Auto) 5.6 % (1.0-10.0) Eosinophils (%) (Auto) 0.9 % (0.0-3.0) Basophils (%) (Auto) 0.4 % (0.0-2.0) Erythrocyte Sedimentation Rate 36 MM/HR (0-30) H Sodium Level 141 MMOL/L (136-145) Potassium Level 3.4 MMOL/L (3.5-5.1) L Chloride Level 104 MMOL/L (98-107) Carbon Dioxide Level 30 MMOL/L (21-32) Anion Gap 7 mmol/L (5-15) Blood Urea Nitrogen 21 mg/dL (7-18) H Creatinine 0.6 MG/DL (0.55-1.30) Estimat Glomerular Filtration Rate > 60 mL/min (>60) Glucose Level 184 MG/DL (74-106) H Calcium Level 8.9 MG/DL (8.5-10.1) Phosphorus Level 3.9 MG/DL (2.5-4.9) Magnesium Level 1.8 MG/DL (1.5-2.4) Total Bilirubin 0.6 MG/DL (0.2-1.0) Aspartate Amino Transf (AST/SGOT) 14 U/L (15-37) L Alanine Aminotransferase (ALT/SGPT) 17 U/L (12-78) Alkaline Phosphatase 72 U/L (46-116) C-Reactive Protein, Quantitative 2.4 mg/dL (0.00-0.90) H Total Protein 5.5 G/DL (6.4-8.2) L Albumin 2.4 G/DL (3.4-5.0) L Globulin 3.1 g/dL Albumin/Globulin Ratio 0.8 (1.0-2.7) L Amylase Level 66 U/L (10-110) Lipase 112 U/L (73-393) Current Medications Medications (Trade) Dose Ordered Sig/Edwin Route PRN Reason Start Time Stop Time Status Last Admin Dose Admin Acetaminophen (Tylenol) 650 mg Q4H PRN ORAL Fever 11/15/17 22:45 12/15/17 22:44 11/18/17 07:59 Ceftriaxone Sodium 1 gm/ Sodium Chloride 55 ml @ 110 mls/hr Q24H IVPB 11/20/17 16:00 11/27/17 15:59 11/22/17 17:17 Dextrose (Dextrose 50%) STAT PRN IV Hypoglycemia 11/15/17 22:45 12/15/17 22:44 11/16/17 11:50 Heparin Sodium (Porcine) (Heparin 5000 units/ml) 5,000 units EVERY 12 HOURS SUBQ 11/16/17 09:00 12/16/17 08:59 11/21/17 20:35 Insulin Aspart (NovoLOG) EVERY 6 HOURS SUBQ 11/16/17 18:00 12/16/17 06:29 11/23/17 06:12 Lorazepam (Ativan 2mg/ml 1ml) 4 mg Q4H PRN IV For Anxiety 11/22/17 20:46 11/29/17 20:45 11/23/17 08:17 Morphine Sulfate (Morphine Sulfate) 8 mg Q4H PRN IVP Breakthrough pain 11/22/17 21:30 11/29/17 21:29 11/23/17 08:18 Ondansetron HCl (Zofran) 4 mg Q6H PRN IVP Nausea & Vomiting 11/15/17 22:45 12/15/17 22:44 11/18/17 21:59 Pantoprazole (Protonix) 40 mg DAILY IV 11/16/17 09:00 12/16/17 08:59 11/23/17 08:23 Polyethylene Glycol (Miralax) 17 gm DAILYPRN PRN ORAL Constipation 11/15/17 22:45 12/15/17 22:44 11/22/17 05:55 Potassium Chloride 30 meq/ Dextrose 1,015 ml @ 50 mls/hr [id number] IV 11/21/17 13:00 12/21/17 12:59 11/23/17 08:18 Elise Owusu M.D. Nov 23, 2017 09:17
[2017-11-23] MEDS: cefTRIAXone 1 GM in NS 55 ML IVPB SCH (16:15)
[2017-11-23] MEDS ORDERED: Tubing IV Secondary IV ONE (16:35)
[2017-11-24] VITALS (34 sets, daily range): BP systolic 82–160; BP diastolic 45–93
[2017-11-24] MEDS: Morphine Sulfate 4mg/ml Inj IVP PRN ×3 (05:11→20:42)
--- NOTE | 2017-11-24 05:40 | General Progress Note ---
Assessment/Plan Problem List: (1) History of hypertension ICD Codes: Z86.79 - Personal history of other diseases of the circulatory system SNOMED: 857158277 (2) Pleural effusion ICD Codes: J90 - Pleural effusion, not elsewhere classified SNOMED: 67837827 (3) COPD (chronic obstructive pulmonary disease) ICD Codes: J44.9 - Chronic obstructive pulmonary disease, unspecified SNOMED: 84625242 (4) Acute respiratory failure ICD Codes: J96.00 - Acute respiratory failure, unspecified whether with hypoxia or hypercapnia SNOMED: 60026665 (5) Diabetes mellitus ICD Codes: E11.9 - Type 2 diabetes mellitus without complications SNOMED: 31852405 (6) Pulmonary edema ICD Codes: J81.1 - Chronic pulmonary edema SNOMED: 37457282 Status: unchanged Assessment/Plan vent abx bp bs control cbc bmp am Subjective Constitutional: Reports: weakness Allergies: Coded Allergies: No Known Allergies (Unverified , 11/15/17) All Systems: reviewed and negative except above Subjective intubated sedated in icu Objective Last 24 Hour Vital Signs Date Time Temp Pulse Resp B/P (MAP) Pulse Ox O2 Delivery O2 Flow Rate FiO2 11/24/17 05:22 78 16 30 11/24/17 05:00 77 16 102/59 98 Mechanical Ventilator 30 11/24/17 04:00 98.0 64 16 98/55 98 Mechanical Ventilator 30 11/24/17 04:00 77 11/24/17 04:00 30 11/24/17 03:00 64 16 85/49 98 Mechanical Ventilator 30 11/24/17 02:42 65 16 30 11/24/17 02:00 76 16 90/52 98 Mechanical Ventilator 30 11/24/17 01:00 66 19 91/53 98 Mechanical Ventilator 30 11/24/17 00:49 69 16 30 11/24/17 00:27 98.8 11/24/17 00:00 98.6 76 16 94/52 98 Mechanical Ventilator 30 11/23/17 23:02 74 16 30 11/23/17 23:00 76 16 97/53 98 Mechanical Ventilator 30 11/23/17 22:00 76 16 98/54 98 Mechanical Ventilator 30 11/23/17 21:13 75 16 30 11/23/17 21:00 75 16 100/55 97 Mechanical Ventilator 30 2/3/18 20:00 30 11/23/17 20:00 98.8 79 17 94/59 97 Mechanical Ventilator 30 11/23/17 20:00 90 11/23/17 19:02 100 16 30 11/23/17 19:00 91 16 197/115 97 Mechanical Ventilator 30 11/23/17 18:00 91 17 132/72 97 Mechanical Ventilator 30 11/23/17 17:15 96 24 30 11/23/17 16:00 89 11/23/17 16:00 98.7 79 16 127/71 99 Mechanical Ventilator 30 11/23/17 16:00 30 11/23/17 15:20 92 22 30 11/23/17 15:00 74 16 104/57 99 Mechanical Ventilator 30 11/23/17 14:00 80 16 93/55 100 Mechanical Ventilator 30 11/23/17 13:00 93 16 131/77 98 Mechanical Ventilator 30 11/23/17 12:45 85 16 30 11/23/17 12:00 88 11/23/17 12:00 98.2 87 18 131/77 100 Mechanical Ventilator 30 11/23/17 12:00 30 11/23/17 11:23 85 17 30 11/23/17 11:00 98.2 72 16 92/52 98 Mechanical Ventilator 30 11/23/17 10:00 81 16 115/62 97 Mechanical Ventilator 30 11/23/17 09:11 76 16 30 11/23/17 09:00 90 20 115/60 92 Mechanical Ventilator 30 11/23/17 08:00 83 16 90/54 99 Mechanical Ventilator 30 11/23/17 08:00 30 11/23/17 08:00 99 11/23/17 07:00 98.8 99 18 157/73 97 Mechanical Ventilator 30 Intake and Output 11/23/17 11/24/17 19:00 07:00 Intake Total 1150 ml 1100 ml Output Total 330 ml 295 ml Balance 820 ml 805 ml Free Water 100 ml IV Total 600 ml 500 ml Tube Feeding 550 ml 500 ml Output Urine Total 330 ml 295 ml Laboratory Tests 11/23/17 05:50: White Blood Count 6.6, Red Blood Count 4.25, Hemoglobin 10.6L, Hematocrit 33.9L , Mean Corpuscular Volume 80, Mean Corpuscular Hemoglobin 24.9L, Mean Corpuscular Hemoglobin Concent 31.3L, Red Cell Distribution Width 16.6H, Platelet Count 142L, Mean Platelet Volume 6.9, Neutrophils (%) (Auto) 81.7H, Lymphocytes (%) (Auto) 11.4L, Monocytes (%) (Auto) 5.6, Eosinophils (%) (Auto) 0.9, Basophils (%) (Auto) 0.4, Erythrocyte Sedimentation Rate 36H, Sodium Level 141, Potassium Level 3.4L, Chloride Level 104, Carbon Dioxide Level 30, Anion Gap 7, Blood Urea Nitrogen 21H, Creatinine 0.6, Estimat Glomerular Filtration Rate > 60, Glucose Level 184H, Calcium Level 8.9, Phosphorus Level 3.9, Magnesium Level 1.8, Total Bilirubin 0.6, Aspartate Amino Transf (AST/SGOT) 14L , Alanine Aminotransferase (ALT/SGPT) 17, Alkaline Phosphatase 72, C-Reactive Protein, Quantitative 2.4H, Total Protein 5.5L, Albumin 2.4L, Globulin 3.1, Albumin/Globulin Ratio 0.8L, Amylase Level 66, Lipase 112 Height (Feet): 5 Height (Inches): 4.00 Weight (Pounds): 173 General Appearance: lethargic EENT: normal ENT inspection Neck: normal alignment Cardiovascular: normal peripheral pulses, normal rate, regular rhythm Respiratory/Chest: chest wall non-tender, lungs clear, normal breath sounds Abdomen: normal bowel sounds, non tender, soft Extremities: normal inspection Edema: no edema noted Arm (L), no edema noted Arm (R), no edema noted Leg (L), no edema noted Leg (R), no edema noted Pedal (L), no edema noted Pedal (R), no edema noted Generalized Neurologic: motor weakness Skin: normal pigmentation, warm/dry TIM GARY Nov 24, 2017 05:39
[2017-11-24] MEDS: NovoLOG Insulin Flexpen SUBQ SCH ×4 (05:49→23:30)
[2017-11-24 06:10] LABS: BASOPHILS % (AUTO) 0.7 % (0.0-2.0); EOSINOPHILS % (AUTO) 1.8 % (0.0-3.0); HEMATOCRIT 30.1 % (37.0-47.0); HEMOGLOBIN 9.6 G/DL (12.0-16.0); LYMPHOCYTES % (AUTO) 13.4 % (20.0-45.0); MEAN CORPUSCULAR VOLUME 79 FL (80-99); MONOCYTES % (AUTO) 5.9 % (1.0-10.0); NEUTROPHILS % (AUTO) 78.2 % (45.0-75.0); PLATELET COUNT 141 K/UL (150-450); RED BLOOD COUNT 3.82 M/UL (4.20-5.40); RED CELL DISTRIBUTION WIDTH 16.6 % (11.6-14.8); WHITE BLOOD COUNT 5.7 K/UL (4.8-10.8)
[2017-11-24 06:30] LABS: ANION GAP 4 mmol/L (5-15); BLOOD UREA NITROGEN 23 mg/dL (7-18); CALCIUM 8.9 MG/DL (8.5-10.1); CARBON DIOXIDE 31 MMOL/L (21-32); CHLORIDE 105 MMOL/L (98-107); CREATININE 0.5 MG/DL (0.55-1.30); POTASSIUM 3.6 MMOL/L (3.5-5.1); SODIUM 140 MMOL/L (136-145)
[2017-11-24] MEDS: LORazepam Inj 2mg/ml 1ml IV PRN ×3 (06:47→18:55)
[2017-11-24] MEDS: Pantoprazole Inj IV SCH (08:05)
[2017-11-24] MEDS: Heparin 5000 units/ml inj SUBQ SCH ×2 (08:06→20:41)
--- NOTE | 2017-11-24 09:57 | Pulmonolgy Critical Care Note ---
Critical Care - Asmt/Plan Assessment/Plan: ASSESSMENT Acute hypoxemic RF requiring intubation Pulmonary edema CAP/aspiration PNA COPD exacerbation Hypotension -resolved with hx of HTN Suspected malignant lung neoplasm Anemia e/lyte abnormalities ( hypo K, hypo mg) PLAN OF CARE ICU vent support pulmonary toilet daily CXR and ABG failure to wean so far, continue weaning protocol as tolerated RT to reposition ET tube Abx ID follows urine, sputum, blood cx, influenza screen all negative~ cardio follows all troponin negatives hypotension resolved ECHO with pEF 60-65% CT chest with findings suspicious of malignant neoplasm, and extensive consolidation at bases, likely PNA as well as pulmonary vascular congestion dc IVF monitor renal parameters, lytes , correct lytes as needed DVT GI prophylaxis venous Duplex BLE negative BS management with SS of insulin anemia w/up, monitor counts, remains at baseline case discussed and evaluated by supervising physician Critical Care - Objective Last 24 Hour Vital Signs Date Time Temp Pulse Resp B/P (MAP) Pulse Ox O2 Delivery O2 Flow Rate FiO2 11/24/17 09:25 98 11/24/17 09:25 30 11/24/17 09:10 62 16 30 11/24/17 09:00 60 16 87/50 96 Mechanical Ventilator 30 11/24/17 08:00 30 11/24/17 08:00 84 11/24/17 08:00 98.5 68 16 85/50 97 Mechanical Ventilator 30 11/24/17 07:07 67 16 30 11/24/17 07:00 70 17 112/53 98 Mechanical Ventilator 30 11/24/17 06:00 77 16 112/53 98 Mechanical Ventilator 30 11/24/17 05:41 98.8 11/24/17 05:22 78 16 30 11/24/17 05:00 77 16 102/59 98 Mechanical Ventilator 30 11/24/17 04:00 98.0 64 16 98/55 98 Mechanical Ventilator 30 11/24/17 04:00 77 11/24/17 04:00 30 11/24/17 03:00 64 16 85/49 98 Mechanical Ventilator 30 11/24/17 02:42 65 16 30 11/24/17 02:00 76 16 90/52 98 Mechanical Ventilator 30 11/24/17 01:00 66 19 91/53 98 Mechanical Ventilator 30 11/24/17 00:49 69 16 30 11/24/17 00:00 98.6 76 16 94/52 98 Mechanical Ventilator 30 18 23:02 74 16 30 2//18 23:00 76 16 97/53 98 Mechanical Ventilator 30 2/18 22:00 76 16 98/54 98 Mechanical Ventilator 30 2/18 21:13 75 16 30 2//18 21:00 75 16 100/55 97 Mechanical Ventilator 30 2/18 20:00 30 /18 20:00 98.8 79 17 94/59 97 Mechanical Ventilator 30 11/23/17 20:00 90 /18 19:02 100 16 30 2/18 19:00 91 16 197/115 97 Mechanical Ventilator 30 /18 18:00 91 17 132/72 97 Mechanical Ventilator 30 11/23/17 17:15 96 24 30 11/23/17 16:00 89 18 16:00 98.7 79 16 127/71 99 Mechanical Ventilator 30 11/23/17 16:00 30 11/23/17 15:20 92 22 30 18 15:00 74 16 104/57 99 Mechanical Ventilator 30 11/23/17 14:00 80 16 93/55 100 Mechanical Ventilator 30 11/23/17 13:00 93 16 131/77 98 Mechanical Ventilator 30 11/23/17 12:45 85 16 30 18 12:00 88 11/23/17 12:00 98.2 87 18 131/77 100 Mechanical Ventilator 30 11/23/17 12:00 30 218 11:23 85 17 30 2/18 11:00 98.2 72 16 92/52 98 Mechanical Ventilator 30 18 10:00 81 16 115/62 97 Mechanical Ventilator 30 Objective: Status: awake, responsive Condition: critical HEENT: atraumatic, normocephalic, OP with ET in place, intact, OP tube with TF Lungs: clear Heart: HR/BP stable Abdomen: soft, non-tender, active bowel sounds Extremities: no C/C/E Accucheck: 159 Critical Care - Subjective ROS Limited/Unobtainable: Yes Interval Events: remains intubated failure to wean so far afebrile, no leukocytosis Condition: critical IV Access: peripheral EKG Rhythm: Sinus Rhythm FI02: 30 Vent Support Breath Rate: 12 Vent Support Mode: IMV/SIMV Vent Tidal Volume: 600 Sputum Amount: Moderate PEEP: 0.0 PIP: 29 Fluids: D51/2 NS+ 30 KCL at 50 Tube Feeding Amount: 50 I&O: Intake and Output 11/23/17 11/24/17 19:00 07:00 Intake Total 1150 ml 1300 ml Output Total 330 ml 370 ml Balance 820 ml 930 ml Free Water 100 ml IV Total 600 ml 600 ml Tube Feeding 550 ml 600 ml Output Urine Total 330 ml 370 ml CXR: Endotracheal tube is in place, tip projecting at the orifice of the right mainstem bronchus. There is a nasogastric tube in place. Bilateral parenchymal infiltrates, right infrahilar mass are again demonstrated ET-Tube: 7.0 ET Position: 22 Trevor ([facility]),Asiya GASPAR Nov 24, 2017 09:57
[2017-11-24] MEDS ORDERED: Albuterol/Ipratropium 3ml neb HHN PRN (10:00)
[2017-11-24] MEDS ORDERED: Tubing IV Secondary IV ONE (10:19)
[2017-11-24] MEDS ORDERED: NS 275ml ONE (10:19)
--- NOTE | 2017-11-24 10:33 | Diagnostic Imaging Report ---
Indication: Evaluation of endotracheal tube placement Technique: One view of the chest Comparison: November 22, 2017 Findings: Endotracheal tube appears slightly advanced compared to prior study, tip now approximately just above the vinicius. Stable satisfactory position of nasogastric tube. Bilateral parenchymal infiltrates versus edema, likely small bilateral pleural effusions persist, unchanged Impression: Endotracheal tube tip just above the vinicius Other stable findings as described. This agrees with the preliminary interpretation provided [facility].
--- NOTE | 2017-11-24 11:23 | Diagnostic Imaging Report ---
Indication: Reason For Exam: SOB Technique: One view of the chest Comparison: 11/23/2017 Findings: Interim retraction of previously somewhat low endotracheal tube, tip now approximately 5 cm above the vinicius in good position. Stable satisfactory position of nasogastric tube. Bilateral extensive diffuse interstitial and airspace disease is unchanged there is bilateral pleural effusions present Impression: Improved position of endotracheal tube Otherwise unchanged over one day, findings as described
--- NOTE | 2017-11-24 12:07 | Diagnostic Imaging Report ---
Indication: Evaluation for tube placement Technique: One view of the chest Comparison: 4 hours earlier Findings: Satisfactory positions of endotracheal and nasogastric tubes. Interstitial and airspace edema persist, unchanged. Probable bilateral pleural effusions persist, unchanged Impression: Unchanged, over 4 hours, findings as above.
--- NOTE | 2017-11-24 12:09 | Emergency Room Report ---
Physical Exam Called to re-intubate patient. Apparently tube was stable at 23 cm then after agitation, tube at 19 cm, advanced and no good breath sounds. Tube removed. Last 24 Hour Vital Signs Date Time Temp Pulse Resp B/P (MAP) Pulse Ox O2 Delivery O2 Flow Rate FiO2 11/24/17 10:00 67 12 95/55 97 Mechanical Ventilator 30 11/24/17 09:25 98 11/24/17 09:25 30 11/24/17 09:10 62 16 30 11/24/17 09:00 60 16 87/50 96 Mechanical Ventilator 30 11/24/17 08:00 30 11/24/17 08:00 84 11/24/17 08:00 98.5 68 16 85/50 97 Mechanical Ventilator 30 11/24/17 07:07 67 16 30 11/24/17 07:00 70 17 112/53 98 Mechanical Ventilator 30 11/24/17 06:00 77 16 112/53 98 Mechanical Ventilator 30 11/24/17 05:41 98.8 11/24/17 05:22 78 16 30 11/24/17 05:00 77 16 102/59 98 Mechanical Ventilator 30 11/24/17 04:00 98.0 64 16 98/55 98 Mechanical Ventilator 30 11/24/17 04:00 77 11/24/17 04:00 30 11/24/17 03:00 64 16 85/49 98 Mechanical Ventilator 30 11/24/17 02:42 65 16 30 11/24/17 02:00 76 16 90/52 98 Mechanical Ventilator 30 11/24/17 01:00 66 19 91/53 98 Mechanical Ventilator 30 11/24/17 00:49 69 16 30 11/24/17 00:00 98.6 76 16 94/52 98 Mechanical Ventilator 30 11/23/17 23:02 74 16 30 11/23/17 23:00 76 16 97/53 98 Mechanical Ventilator 30 11/23/17 22:00 76 16 98/54 98 Mechanical Ventilator 30 11/23/17 21:13 75 16 30 11/23/17 21:00 75 16 100/55 97 Mechanical Ventilator 30 11/23/17 20:00 30 11/23/17 20:00 98.8 79 17 94/59 97 Mechanical Ventilator 30 11/23/17 20:00 90 11/23/17 19:02 100 16 30 11/23/17 19:00 91 16 197/115 97 Mechanical Ventilator 30 11/23/17 18:00 91 17 132/72 97 Mechanical Ventilator 30 11/23/17 17:15 96 24 30 11/23/17 16:00 89 11/23/17 16:00 98.7 79 16 127/71 99 Mechanical Ventilator 30 11/23/17 16:00 30 11/23/17 15:20 92 22 30 11/23/17 15:00 74 16 104/57 99 Mechanical Ventilator 30 11/23/17 14:00 80 16 93/55 100 Mechanical Ventilator 30 11/23/17 13:00 93 16 131/77 98 Mechanical Ventilator 30 11/23/17 12:45 85 16 30 Sp02 EP Interpretation: reviewed, abnormal - interpreted as low by me General Appearance: Stupor Eyes: bilateral eye other - eyes closed ENT: moist mucus membranes, other - copious thick secretions with glotic and vocal cord edema Neck: supple Respiratory: respiratory distress, crackles, rales, rhonchi, wheezing Cardiovascular #1: regular rate, rhythm Gastrointestinal: distended, decreased bowel sounds Genitourinary: other - josé Musculoskeletal: other - moving all 4 Neurologic: other - moving all 4 Psychiatric: other - obtunded but agitated Skin: mottled, other - rash on cheeks Intubation Intubation : Consent: Emergent Intubation Method: orotracheal Tube Size (cm): 7.5 - 23 cm Medications: Etomidate Breath Sounds after Intubation: equal Intubation Complications: no complications Post Intubation Xray: Yes Attempts: One Patient Tolerated: Well Complications: None Progress Initial O2 sat 82%. BVM by me to 94% and then after etomidate 100%. Many thick and purulent secretions. Cords with edema. Tolerated well. Medical Decision Making Diagnostic Impression: Primary Impression: Acute respiratory failure Qualified Codes: J96.01 - Acute respiratory failure with hypoxia; J96.02 - Acute respiratory failure with hypercapnia Additional Impressions: Vocal cord edema Pneumonia Qualified Codes: J18.9 - Pneumonia, unspecified organism ER Course Patient post movement of ET tube, removed. Respiratory distress with hypoxia. See procedure note. Improved with re-intubation. Sedation ordered. Returned to vent. ABG ordered and reviewed. Consider steroids prior to extubation. Laboratory Tests Test 11/23/17 05:50 11/24/17 05:35 11/24/17 12:09 White Blood Count 6.6 K/UL (4.8-10.8) 5.7 K/UL (4.8-10.8) Red Blood Count 4.25 M/UL (4.20-5.40) 3.82 M/UL (4.20-5.40) L Hemoglobin 10.6 G/DL (12.0-16.0) L 9.6 G/DL (12.0-16.0) L Hematocrit 33.9 % (37.0-47.0) L 30.1 % (37.0-47.0) L Mean Corpuscular Volume 80 FL (80-99) 79 FL (80-99) L Mean Corpuscular Hemoglobin 24.9 PG (27.0-31.0) L 25.2 PG (27.0-31.0) L Mean Corpuscular Hemoglobin Concent 31.3 G/DL (32.0-36.0) L 31.9 G/DL (32.0-36.0) L Red Cell Distribution Width 16.6 % (11.6-14.8) H 16.6 % (11.6-14.8) H Platelet Count 142 K/UL (150-450) L 141 K/UL (150-450) L Mean Platelet Volume 6.9 FL (6.5-10.1) 7.9 FL (6.5-10.1) Neutrophils (%) (Auto) 81.7 % (45.0-75.0) H 78.2 % (45.0-75.0) H Lymphocytes (%) (Auto) 11.4 % (20.0-45.0) L 13.4 % (20.0-45.0) L Monocytes (%) (Auto) 5.6 % (1.0-10.0) 5.9 % (1.0-10.0) Eosinophils (%) (Auto) 0.9 % (0.0-3.0) 1.8 % (0.0-3.0) Basophils (%) (Auto) 0.4 % (0.0-2.0) 0.7 % (0.0-2.0) Erythrocyte Sedimentation Rate 36 MM/HR (0-30) H Sodium Level 141 MMOL/L (136-145) 140 MMOL/L (136-145) Potassium Level 3.4 MMOL/L (3.5-5.1) L 3.6 MMOL/L (3.5-5.1) Chloride Level 104 MMOL/L (98-107) 105 MMOL/L (98-107) Carbon Dioxide Level 30 MMOL/L (21-32) 31 MMOL/L (21-32) Anion Gap 7 mmol/L (5-15) 4 mmol/L (5-15) L Blood Urea Nitrogen 21 mg/dL (7-18) H 23 mg/dL (7-18) H Creatinine 0.6 MG/DL (0.55-1.30) 0.5 MG/DL (0.55-1.30) L Estimate Glomerular Filtration Rate > 60 mL/min (>60) > 60 mL/min (>60) Glucose Level 184 MG/DL (74-106) H 149 MG/DL (74-106) H Calcium Level 8.9 MG/DL (8.5-10.1) 8.9 MG/DL (8.5-10.1) Phosphorus Level 3.9 MG/DL (2.5-4.9) Magnesium Level 1.8 MG/DL (1.5-2.4) Total Bilirubin 0.6 MG/DL (0.2-1.0) Aspartate Amino Transferase (AST) 14 U/L (15-37) L Alanine Aminotransferase (ALT) 17 U/L (12-78) Alkaline Phosphatase 72 U/L (46-116) C-Reactive Protein, Quantitative 2.4 mg/dL (0.00-0.90) H Total Protein 5.5 G/DL (6.4-8.2) L Albumin 2.4 G/DL (3.4-5.0) L Globulin 3.1 g/dL Albumin/Globulin Ratio 0.8 (1.0-2.7) L Amylase Level 66 U/L (10-110) Lipase 112 U/L (73-393) Arterial Blood pH 7.410 (7.350-7.450) Arterial Blood Partial Pressure CO2 51.9 mmHg (35.0-45.0) H Arterial Blood Partial Pressure O2 79.5 mmHg (75.0-100.0) Arterial Blood HCO3 32.2 mmol/L (22.0-26.0) H Arterial Blood Oxygen Saturation 95.1 % (92.0-98.0) Arterial Blood Base Excess 6.5 Rolf Test Positive Rhythm Strip Diag. Results Rhythm: NSR, no PVC's, no ectopy Chest X-Ray Diagnostic Results Chest X-Ray Diagnostic Results : Chest X-Ray Ordered: Yes # of Views/Limited/Complete: 1 View Indication: Other Interpretation: other - bilat infiltrates, ET good placement, air in stomach Impression: Other Electronically Signed by: Erich Blanco MD Last Vital Signs Date Time Temp Pulse Resp B/P (MAP) Pulse Ox O2 Delivery O2 Flow Rate FiO2 11/24/17 22:00 66 16 90/49 100 Mechanical Ventilator 50 11/24/17 19:30 97.8 Disposition: ADMITTED INPATIENT Condition: Critical Scripts Unable to Obtain Active Prescriptions or Reported Meds Referrals: NOT CHOSEN PARUL/,REFERRING (PCP) Erich Blanco M.D. Nov 24, 2017 12:08
[2017-11-24] MEDS ORDERED: Midazolam 2mg/2ml Inj IV ONE (12:40)
[2017-11-24] MEDS: Midazolam/D5W 100ml 100 ML IVPB SCH ×3 (13:06→23:38)
[2017-11-24] MEDS: cefTRIAXone 1 GM in NS 55 ML IVPB SCH (16:35)
--- NOTE | 2017-11-24 19:10 | Cardiology Progress Note ---
Assessment/Plan Problem List: (1) History of hypertension (2) Pleural effusion (3) COPD (chronic obstructive pulmonary disease) (4) Acute respiratory failure Status: stable, unchanged Status Narrative Pt w/ respiratory failure, COPD and suspected malignancy. Remains on vent, unable to wean LV function normal by ECHO this adm. Assessment/Plan Continue supportive care. Pt w hx of hypertension, but currently normotensive , off meds. No new cardiac recs. Subjective ROS Limited/Unobtainable: Yes Subjective Cardiology for Dr. Warren Pt awake/ on vent. Objective Last 24 Hour Vital Signs Date Time Temp Pulse Resp B/P (MAP) Pulse Ox O2 Delivery O2 Flow Rate FiO2 11/24/17 19:01 79 16 50 18 18:00 67 16 108/50 99 Mechanical Ventilator 50 11/24/17 17:30 67 16 95/54 99 Mechanical Ventilator 50 11/24/17 17:08 67 16 50 18 17:00 69 17 92/46 100 Mechanical Ventilator 50 11/24/17 16:30 70 16 113/48 100 Mechanical Ventilator 50 11/24/17 16:00 69 11/24/17 16:00 98.6 72 16 85/49 100 Mechanical Ventilator 50 11/24/17 15:14 74 16 50 18 15:00 69 16 93/50 100 Mechanical Ventilator 50 11/24/17 15:00 16 11/24/17 14:30 72 16 93/50 99 Mechanical Ventilator 50 11/24/17 14:00 83 18 86/54 97 Mechanical Ventilator 50 11/24/17 14:00 16 11/24/17 13:30 86 16 86/50 97 Mechanical Ventilator 50 11/24/17 13:06 20 11/24/17 13:00 101 26 141/69 98 Mechanical Ventilator 50 11/24/17 12:32 103 16 50 18 12:05 50 18 12:00 107 11/24/17 12:00 99.0 100 16 160/93 94 Mechanical Ventilator 50 11/24/17 11:00 68 12 127/63 98 Mechanical Ventilator 30 11/24/17 10:49 109 16 30 18 10:00 67 12 95/55 97 Mechanical Ventilator 30 11/24/17 09:25 98 18 09:25 30 18 09:10 62 16 30 2/4/18 09:00 60 16 87/50 96 Mechanical Ventilator 30 11/24/17 08:00 30 11/24/17 08:00 84 11/24/17 08:00 98.5 68 16 85/50 97 Mechanical Ventilator 30 11/24/17 07:07 67 16 30 11/24/17 07:00 70 17 112/53 98 Mechanical Ventilator 30 11/24/17 06:00 77 16 112/53 98 Mechanical Ventilator 30 11/24/17 05:41 98.8 11/24/17 05:22 78 16 30 11/24/17 05:00 77 16 102/59 98 Mechanical Ventilator 30 11/24/17 04:00 98.0 64 16 98/55 98 Mechanical Ventilator 30 11/24/17 04:00 77 11/24/17 04:00 30 11/24/17 03:00 64 16 85/49 98 Mechanical Ventilator 30 11/24/17 02:42 65 16 30 11/24/17 02:00 76 16 90/52 98 Mechanical Ventilator 30 11/24/17 01:00 66 19 91/53 98 Mechanical Ventilator 30 11/24/17 00:49 69 16 30 11/24/17 00:00 98.6 76 16 94/52 98 Mechanical Ventilator 30 11/23/17 23:02 74 16 30 11/23/17 23:00 76 16 97/53 98 Mechanical Ventilator 30 11/23/17 22:00 76 16 98/54 98 Mechanical Ventilator 30 11/23/17 21:13 75 16 30 11/23/17 21:00 75 16 100/55 97 Mechanical Ventilator 30 11/23/17 20:00 30 11/23/17 20:00 98.8 79 17 94/59 97 Mechanical Ventilator 30 11/23/17 20:00 90 General Appearance: WD/WN, alert, on vent EENT: PERRL/EOMI, other - et tube Neck: supple, no JVD Rhythm: NSR Cardiovascular: normal rate, regular rhythm Respiratory/Chest: other - few rhonchi bilat Abdomen: normal bowel sounds, non tender, other - reducible umbilical hernia Extremities: no swelling Intake and Output 11/23/17 11/24/17 19:00 07:00 Intake Total 1150 ml 1300 ml Output Total 330 ml 370 ml Balance 820 ml 930 ml Free Water 100 ml IV Total 600 ml 600 ml Tube Feeding 550 ml 600 ml Output Urine Total 330 ml 370 ml Laboratory Tests Test 11/24/17 05:35 11/24/17 12:09 White Blood Count 5.7 K/UL (4.8-10.8) Red Blood Count 3.82 M/UL (4.20-5.40) L Hemoglobin 9.6 G/DL (12.0-16.0) L Hematocrit 30.1 % (37.0-47.0) L Mean Corpuscular Volume 79 FL (80-99) L Mean Corpuscular Hemoglobin 25.2 PG (27.0-31.0) L Mean Corpuscular Hemoglobin Concent 31.9 G/DL (32.0-36.0) L Red Cell Distribution Width 16.6 % (11.6-14.8) H Platelet Count 141 K/UL (150-450) L Mean Platelet Volume 7.9 FL (6.5-10.1) Neutrophils (%) (Auto) 78.2 % (45.0-75.0) H Lymphocytes (%) (Auto) 13.4 % (20.0-45.0) L Monocytes (%) (Auto) 5.9 % (1.0-10.0) Eosinophils (%) (Auto) 1.8 % (0.0-3.0) Basophils (%) (Auto) 0.7 % (0.0-2.0) Sodium Level 140 MMOL/L (136-145) Potassium Level 3.6 MMOL/L (3.5-5.1) Chloride Level 105 MMOL/L (98-107) Carbon Dioxide Level 31 MMOL/L (21-32) Anion Gap 4 mmol/L (5-15) L Blood Urea Nitrogen 23 mg/dL (7-18) H Creatinine 0.5 MG/DL (0.55-1.30) L Estimat Glomerular Filtration Rate > 60 mL/min (>60) Glucose Level 149 MG/DL (74-106) H Calcium Level 8.9 MG/DL (8.5-10.1) Arterial Blood pH 7.410 (7.350-7.450) Arterial Blood Partial Pressure CO2 51.9 mmHg (35.0-45.0) H Arterial Blood Partial Pressure O2 79.5 mmHg (75.0-100.0) Arterial Blood HCO3 32.2 mmol/L (22.0-26.0) H Arterial Blood Oxygen Saturation 95.1 % (92.0-98.0) Arterial Blood Base Excess 6.5 Rolf Test Positive JOSE L CHAUHAN Nov 24, 2017 19:10
[2017-11-25] VITALS (47 sets, daily range): BP systolic 85–122; BP diastolic 44–66
[2017-11-25] MEDS: Midazolam/D5W 100ml 100 ML IVPB SCH ×8 (02:18→23:04)
[2017-11-25] MEDS: NovoLOG Insulin Flexpen SUBQ SCH ×4 (05:34→23:50)
[2017-11-25 06:08] LABS: BASOPHILS % (AUTO) 0.5 % (0.0-2.0); EOSINOPHILS % (AUTO) 1.9 % (0.0-3.0); HEMATOCRIT 29.9 % (37.0-47.0); HEMOGLOBIN 9.5 G/DL (12.0-16.0); LYMPHOCYTES % (AUTO) 13.4 % (20.0-45.0); MEAN CORPUSCULAR VOLUME 78 FL (80-99); MONOCYTES % (AUTO) 5.4 % (1.0-10.0); NEUTROPHILS % (AUTO) 78.8 % (45.0-75.0); PLATELET COUNT 133 K/UL (150-450); RED BLOOD COUNT 3.82 M/UL (4.20-5.40); RED CELL DISTRIBUTION WIDTH 16.7 % (11.6-14.8); WHITE BLOOD COUNT 5.5 K/UL (4.8-10.8)
[2017-11-25 06:26] LABS: % IRON SATURATION 13 % (15-50); IRON 19 ug/dL (50-175); TOTAL IRON BINDING CAPACITY 147 ug/dL (250-450)
[2017-11-25 06:32] LABS: ANION GAP 4 mmol/L (5-15); BLOOD UREA NITROGEN 21 mg/dL (7-18); CALCIUM 8.4 MG/DL (8.5-10.1); CARBON DIOXIDE 31 MMOL/L (21-32); CHLORIDE 104 MMOL/L (98-107); CREATININE 0.6 MG/DL (0.55-1.30); FERRITIN 283 NG/ML (8-388); POTASSIUM 3.6 MMOL/L (3.5-5.1); SODIUM 138 MMOL/L (136-145)
[2017-11-25] MEDS: Morphine Sulfate 4mg/ml Inj IVP PRN (08:41)
[2017-11-25] MEDS: Pantoprazole Inj IV SCH (08:43)
[2017-11-25] MEDS: LORazepam Inj 2mg/ml 1ml IV PRN (08:43)
[2017-11-25] MEDS: Heparin 5000 units/ml inj SUBQ SCH ×2 (09:00→20:37)
--- NOTE | 2017-11-25 09:39 | Diagnostic Imaging Report ---
Indication: Post intubation Technique: One view of the chest Comparison: 2 hours earlier Findings: Endotracheal tube is in place, tip projecting at the orifice of the right mainstem bronchus. There is a nasogastric tube in place. Bilateral parenchymal infiltrates, right infrahilar mass are again demonstrated Impression: Low position of endotracheal tube Other findings as noted. This agrees with the preliminary interpretation provided overnight by [facility] service.
--- NOTE | 2017-11-25 09:40 | Diagnostic Imaging Report ---
Indication: Status post nasogastric tube placement Technique: Supine view of the upper abdomen Comparison: November 22, 2017 Findings: Interim apparent repositioning of nasogastric tube, tip not quite as far in as previously, but nonetheless projecting at the level of the antrum body junction, proximal port projecting just beyond the expected region of the gastroesophageal junction. Prominent gas-filled small bowel loops are present. Endotracheal tube, bilateral parenchymal infiltrates, rounded right infrahilar mass again noted. Impression: Satisfactory nasogastric intubation Nonspecific prominence to small bowel gas Other findings as described This agrees with the preliminary interpretation provided overnight by [facility] service.
--- NOTE | 2017-11-25 10:13 | Diagnostic Imaging Report ---
Indication: Shortness of breath Technique: One view of the chest Comparison: 11/24/2017 Findings: Improved position of endotracheal tube, tip now projecting 3 cm above the vinicius. Nasogastric tube projects beyond the edge of image. Bilateral interstitial and alveolar parenchymal infiltrates versus edema, probable bilateral lateral pleural effusions persist, unchanged Impression: Improved position of endotracheal tube Otherwise little exchange underwriting consultant one day, findings as described
--- NOTE | 2017-11-25 10:54 | Infectious Diseases Prog Note ---
Assessment/Plan Assessment/Plan ASSESSMENT: The patient is a 67-year-old female with: 1. Chronic obstructive pulmonary disease exacerbation. -influenza neg 2. Community-acquired pneumonia/aspiration pneumonia. -CT chest 11/22: Suspicion of malignant neoplasm with multiple lung nodules largest of which is 3.5 x 3.2 cm in the right middle lobe. Extensive consolidation at the lung bases likely pneumonia. Please correlate clinically. Bilateral pleural effusions Probable pulmonary venous congestion. Please correlate clinically. Suggestion of a mediastinal adenopathy. Marked splenomegaly. 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 Portal hypertension suspected. Suspected bilateral renal cysts not well demonstrated on this exam -CXR: New or increased small right pleural effusion Persistent left pleural fluid and extensive bilateral parenchymal disease, over one day -sp cx normal papi -legionella ag urine neg ; ab neg 3.fever/leukocytosis- resolved 4. Ventilator-dependent respiratory failure. 5.?Lung cancer- pert CT findings above - Hypertension. - Diabetes. PLAN: - Continue Ceftriaxone abx d#/ for PNA given no isolation of resistant organisms -11/22 SP Levaquin #6 -11/20 SP Zosyn #5 -11/15 SP Unasyn #1 - Monitor chest x-ray. -ETT care -aspiration precautions Thank you, Dr. Isbell, for allowing me to participate in the care of this patient. I will follow the patient with you during this hospitalization. Subjective Allergies: Coded Allergies: No Known Allergies (Unverified , 11/15/17) Subjective afebrine no leukocytosis remains intubated, Fio2 50% Objective Vital Signs Last 24 Hour Vital Signs Date Time Temp Pulse Resp B/P (MAP) Pulse Ox O2 Delivery O2 Flow Rate FiO2 11/25/17 10:37 70 16 50 11/25/17 10:37 16 11/25/17 10:00 60 16 92/49 99 11/25/17 09:24 69 16 50 11/25/17 09:00 68 16 103/56 99 11/25/17 09:00 98.6 69 16 91/46 99 Mechanical Ventilator 50 11/25/17 08:12 98.3 11/25/17 08:12 98.3 11/25/17 08:00 50 11/25/17 08:00 76 11/25/17 08:00 62 16 93/52 100 11/25/17 07:42 17 2/5/18 07:00 62 18 100/49 99 2/5/18 07:00 16 2/5/18 06:41 72 16 50 2/5/18 06:00 74 16 98/50 99 Mechanical Ventilator 50 2/5/18 06:00 16 2/5/18 05:46 75 16 50 2/5/18 05:30 75 16 101/51 99 Mechanical Ventilator 50 2/5/18 05:00 82 16 119/61 99 Mechanical Ventilator 50 2/5/18 05:00 16 2/5/18 04:30 69 32 91/46 99 Mechanical Ventilator 50 2/5/18 04:00 71 2/5/18 04:00 32 2/5/18 04:00 50 2/5/18 04:00 98.8 71 32 88/46 99 Mechanical Ventilator 50 2/5/18 03:33 78 16 50 2/5/18 03:32 68 16 Mechanical Ventilator 50 2/5/18 03:30 69 16 89/47 100 Mechanical Ventilator 50 2/5/18 03:00 67 16 91/46 100 Mechanical Ventilator 50 2/5/18 03:00 16 2/5/18 02:30 70 29 89/46 99 Mechanical Ventilator 50 2/5/18 02:18 16 2/5/18 02:00 16 2/5/18 02:00 68 26 89/46 100 Mechanical Ventilator 50 2/5/18 01:53 76 16 50 2/5/18 01:30 68 32 92/48 99 Mechanical Ventilator 50 2/5/18 01:00 68 32 86/46 100 Mechanical Ventilator 50 2/5/18 01:00 16 2/5/18 00:30 67 16 85/48 100 Mechanical Ventilator 50 2/5/18 00:00 66 2/5/18 00:00 16 2/5/18 00:00 98.4 66 16 85/44 100 Mechanical Ventilator 50 2/5/18 00:00 50 2/4/18 23:38 16 2/4/18 23:30 71 16 90/46 100 Mechanical Ventilator 50 2/4/18 23:12 75 16 50 2/4/18 23:00 65 16 87/49 100 Mechanical Ventilator 50 2/4/18 23:00 16 2/4/18 22:30 64 16 95/49 100 Mechanical Ventilator 50 2/4/18 22:00 66 16 90/49 100 Mechanical Ventilator 50 2/4/18 22:00 16 2/4/18 21:30 64 16 88/49 100 Mechanical Ventilator 50 2/4/18 21:24 18 2/4/18 21:14 77 16 50 2/4/18 21:00 16 2/4/18 21:00 64 16 94/54 100 Mechanical Ventilator 50 2/4/18 20:30 67 16 93/52 100 Mechanical Ventilator 50 2/4/18 20:00 67 16 91/50 100 Mechanical Ventilator 50 2/4/18 20:00 50 2/4/18 20:00 18 2/4/18 20:00 67 2//18 19:30 97.8 72 18 82/45 100 Mechanical Ventilator 50 2//18 19:01 79 16 50 2/4/18 19:00 17 2//18 19:00 80 18 102/58 93 Mechanical Ventilator 50 2/4/18 18:30 75 18 109/69 97 Mechanical Ventilator 50 2/4/18 18:00 67 16 108/50 99 Mechanical Ventilator 50 2/4/18 18:00 16 2//18 17:30 67 16 95/54 99 Mechanical Ventilator 50 2/4/18 17:08 67 16 50 2/4/18 17:00 16 2//18 17:00 69 17 92/46 100 Mechanical Ventilator 50 2/4/18 16:30 70 16 113/48 100 Mechanical Ventilator 50 2/4/18 16:00 69 2/4/18 16:00 16 2/18 16:00 98.6 72 16 85/49 100 Mechanical Ventilator 50 2/4/18 15:14 74 16 50 2/4/18 15:00 69 16 93/50 100 Mechanical Ventilator 50 2/4/18 15:00 16 2/4/18 14:30 72 16 93/50 99 Mechanical Ventilator 50 2/4/18 14:00 83 18 86/54 97 Mechanical Ventilator 50 2/4/18 14:00 16 2/4/18 13:30 86 16 86/50 97 Mechanical Ventilator 50 2/4/18 13:06 20 2/4/18 13:00 101 26 141/69 98 Mechanical Ventilator 50 2/4/18 12:32 103 16 50 2/4/18 12:05 50 2/4/18 12:00 107 11/24/17 12:00 99.0 100 16 160/93 94 Mechanical Ventilator 50 11/24/17 11:00 68 12 127/63 98 Mechanical Ventilator 30 Height (Feet): 5 Height (Inches): 4.00 Weight (Pounds): 167 Objective HEENT: No pale conjunctivae. No icterus. ETT in place NECK: No lymphadenopathy.. CHEST: Coarse breathing sounds. HEART: S1, S2. ABDOMEN: Soft and obese. Umbilical hernia present. EXTREMITIES: No cyanosis. NEUROLOGIC: Sedated. Laboratory Tests Test 11/24/17 12:09 11/25/17 04:45 11/25/17 09:34 Arterial Blood pH 7.410 (7.350-7.450) 7.493 (7.350-7.450) Arterial Blood Partial Pressure CO2 51.9 mmHg (35.0-45.0) H 39.4 mmHg (35.0-45.0) Arterial Blood Partial Pressure O2 79.5 mmHg (75.0-100.0) 107.8 mmHg (75.0-100.0) H Arterial Blood HCO3 32.2 mmol/L (22.0-26.0) H 29.6 mmol/L (22.0-26.0) H Arterial Blood Oxygen Saturation 95.1 % (92.0-98.0) 97.6 % (92.0-98.0) Arterial Blood Base Excess 6.5 5.8 Rolf Test Positive Positive White Blood Count 5.5 K/UL (4.8-10.8) Red Blood Count 3.82 M/UL (4.20-5.40) L Hemoglobin 9.5 G/DL (12.0-16.0) L Hematocrit 29.9 % (37.0-47.0) L Mean Corpuscular Volume 78 FL (80-99) L Mean Corpuscular Hemoglobin 24.9 PG (27.0-31.0) L Mean Corpuscular Hemoglobin Concent 31.7 G/DL (32.0-36.0) L Red Cell Distribution Width 16.7 % (11.6-14.8) H Platelet Count 133 K/UL (150-450) L Mean Platelet Volume 7.3 FL (6.5-10.1) Neutrophils (%) (Auto) 78.8 % (45.0-75.0) H Lymphocytes (%) (Auto) 13.4 % (20.0-45.0) L Monocytes (%) (Auto) 5.4 % (1.0-10.0) Eosinophils (%) (Auto) 1.9 % (0.0-3.0) Basophils (%) (Auto) 0.5 % (0.0-2.0) Sodium Level 138 MMOL/L (136-145) Potassium Level 3.6 MMOL/L (3.5-5.1) Chloride Level 104 MMOL/L (98-107) Carbon Dioxide Level 31 MMOL/L (21-32) Anion Gap 4 mmol/L (5-15) L Blood Urea Nitrogen 21 mg/dL (7-18) H Creatinine 0.6 MG/DL (0.55-1.30) Estimat Glomerular Filtration Rate > 60 mL/min (>60) Glucose Level 188 MG/DL (74-106) H Calcium Level 8.4 MG/DL (8.5-10.1) L Iron Level 19 ug/dL (50-175) L Total Iron Binding Capacity 147 ug/dL (250-450) L Percent Iron Saturation 13 % (15-50) L Unsaturated Iron Binding 128 ug/dL (112-346) Ferritin 283 NG/ML (8-388) Vitamin B12 Level 460 PG/ML (193-986) Folate 11.4 NG/ML (8.6-58.9) Current Medications Medications (Trade) Dose Ordered Sig/Edwin Route PRN Reason Start Time Stop Time Status Last Admin Dose Admin Acetaminophen (Tylenol) 650 mg Q4H PRN ORAL Fever 11/15/17 22:45 12/15/17 22:44 11/18/17 07:59 Albuterol/ Ipratropium (Albuterol/ Ipratropium) 3 ml Q4H PRN HHN Shortness of Breath 11/24/17 10:00 11/29/17 09:59 Ceftriaxone Sodium 1 gm/ Sodium Chloride 55 ml @ 110 mls/hr Q24H IVPB 11/20/17 16:00 11/27/17 15:59 11/24/17 16:35 Dextrose (Dextrose 50%) STAT PRN IV Hypoglycemia 11/15/17 22:45 12/15/17 22:44 11/16/17 11:50 Heparin Sodium (Porcine) (Heparin 5000 units/ml) 5,000 units EVERY 12 HOURS SUBQ 11/16/17 09:00 12/16/17 08:59 11/24/17 20:41 Insulin Aspart (NovoLOG) EVERY 6 HOURS SUBQ 11/16/17 18:00 12/16/17 06:29 11/25/17 05:34 Lorazepam (Ativan 2mg/ml 1ml) 4 mg Q4H PRN IV For Anxiety 11/22/17 20:46 11/29/17 20:45 11/25/17 08:43 Midazolam HCl 100 ml @ 0 mls/hr Q24H IVPB 11/24/17 12:45 11/25/17 12:44 11/25/17 10:37 Morphine Sulfate (Morphine Sulfate) 8 mg Q4H PRN IVP Breakthrough pain 11/22/17 21:30 11/29/17 21:29 11/25/17 08:41 Ondansetron HCl (Zofran) 4 mg Q6H PRN IVP Nausea & Vomiting 11/15/17 22:45 12/15/17 22:44 11/18/17 21:59 Pantoprazole (Protonix) 40 mg DAILY IV 11/16/17 09:00 12/16/17 08:59 11/25/17 08:43 Polyethylene Glycol (Miralax) 17 gm DAILYPRN PRN ORAL Constipation 11/15/17 22:45 12/15/17 22:44 11/22/17 05:55 Elise Owusu M.D. Nov 25, 2017 10:54
--- NOTE | 2017-11-25 11:13 | Pulmonolgy Critical Care Note ---
Critical Care - Asmt/Plan Problems: (1) Acute respiratory failure (2) Pleural effusion (3) COPD (chronic obstructive pulmonary disease) (4) Diabetes mellitus (5) Pulmonary edema Respiratory: monitor respiratory rate, adjust FIO2, other - pt will need trach if family agrees, she failed the self extubation previously. Cardiac: continue to monitor HR/BP Renal: check electrolytes Infectious Disease: check cultures, continue antibiotics Gastrointestinal: continue feedings/current rate Endocrine: monitor blood sugar Neurologic: PRN Ativan, PRN Morphine Affect: PRN ativan Prophylaxis: Protonix Notes Reviewed: application manager, cardio Discussed with: nurses, consultants, case resolution specialistlivestock nutrition territory manager - Objective Last 24 Hour Vital Signs Date Time Temp Pulse Resp B/P (MAP) Pulse Ox O2 Delivery O2 Flow Rate FiO2 11/25/17 10:37 70 16 50 11/25/17 10:37 16 11/25/17 10:00 60 16 92/49 99 11/25/17 09:24 69 16 50 11/25/17 09:00 68 16 103/56 99 11/25/17 09:00 98.6 69 16 91/46 99 Mechanical Ventilator 50 11/25/17 08:12 98.3 11/25/17 08:12 98.3 11/25/17 08:00 50 11/25/17 08:00 76 11/25/17 08:00 62 16 93/52 100 11/25/17 07:42 17 11/25/17 07:00 62 18 100/49 99 11/25/17 07:00 16 11/25/17 06:41 72 16 50 11/25/17 06:00 74 16 98/50 99 Mechanical Ventilator 50 11/25/17 06:00 16 11/25/17 05:46 75 16 50 11/25/17 05:30 75 16 101/51 99 Mechanical Ventilator 50 11/25/17 05:00 82 16 119/61 99 Mechanical Ventilator 50 11/25/17 05:00 16 11/25/17 04:30 69 32 91/46 99 Mechanical Ventilator 50 11/25/17 04:00 71 11/25/17 04:00 32 11/25/17 04:00 50 11/25/17 04:00 98.8 71 32 88/46 99 Mechanical Ventilator 50 11/25/17 03:33 78 16 50 2/5/18 03:32 68 16 Mechanical Ventilator 50 2/5/18 03:30 69 16 89/47 100 Mechanical Ventilator 50 2/5/18 03:00 67 16 91/46 100 Mechanical Ventilator 50 2/5/18 03:00 16 2/5/18 02:30 70 29 89/46 99 Mechanical Ventilator 50 2/5/18 02:18 16 2/5/18 02:00 16 2/5/18 02:00 68 26 89/46 100 Mechanical Ventilator 50 2/5/18 01:53 76 16 50 2/5/18 01:30 68 32 92/48 99 Mechanical Ventilator 50 2/5/18 01:00 68 32 86/46 100 Mechanical Ventilator 50 2/5/18 01:00 16 2/5/18 00:30 67 16 85/48 100 Mechanical Ventilator 50 2/5/18 00:00 66 2/5/18 00:00 16 2/5/18 00:00 98.4 66 16 85/44 100 Mechanical Ventilator 50 2/5/18 00:00 50 2/4/18 23:38 16 2//18 23:30 71 16 90/46 100 Mechanical Ventilator 50 2/4/18 23:12 75 16 50 2/4/18 23:00 65 16 87/49 100 Mechanical Ventilator 50 2//18 23:00 16 2//18 22:30 64 16 95/49 100 Mechanical Ventilator 50 2//18 22:00 66 16 90/49 100 Mechanical Ventilator 50 2//18 22:00 16 2//18 21:30 64 16 88/49 100 Mechanical Ventilator 50 2//18 21:24 18 2//18 21:14 77 16 50 2//18 21:00 16 2//18 21:00 64 16 94/54 100 Mechanical Ventilator 50 2/4/18 20:30 67 16 93/52 100 Mechanical Ventilator 50 2//18 20:00 67 16 91/50 100 Mechanical Ventilator 50 2/4/18 20:00 50 2/4/18 20:00 18 2/4/18 20:00 67 2//18 19:30 97.8 72 18 82/45 100 Mechanical Ventilator 50 2//18 19:01 79 16 50 2/4/18 19:00 17 2//18 19:00 80 18 102/58 93 Mechanical Ventilator 50 2/4/18 18:30 75 18 109/69 97 Mechanical Ventilator 50 11/24/17 18:00 67 16 108/50 99 Mechanical Ventilator 50 11/24/17 18:00 16 11/24/17 17:30 67 16 95/54 99 Mechanical Ventilator 50 11/24/17 17:08 67 16 50 11/24/17 17:00 16 11/24/17 17:00 69 17 92/46 100 Mechanical Ventilator 50 11/24/17 16:30 70 16 113/48 100 Mechanical Ventilator 50 11/24/17 16:00 69 11/24/17 16:00 16 11/24/17 16:00 98.6 72 16 85/49 100 Mechanical Ventilator 50 11/24/17 15:14 74 16 50 11/24/17 15:00 69 16 93/50 100 Mechanical Ventilator 50 11/24/17 15:00 16 11/24/17 14:30 72 16 93/50 99 Mechanical Ventilator 50 11/24/17 14:00 83 18 86/54 97 Mechanical Ventilator 50 11/24/17 14:00 16 11/24/17 13:30 86 16 86/50 97 Mechanical Ventilator 50 11/24/17 13:06 20 11/24/17 13:00 101 26 141/69 98 Mechanical Ventilator 50 11/24/17 12:32 103 16 50 11/24/17 12:05 50 11/24/17 12:00 107 11/24/17 12:00 99.0 100 16 160/93 94 Mechanical Ventilator 50 Status: awake Condition: critical HEENT: atraumatic, normocephalic Lungs: clear Heart: HR/BP stable, HR/BP unstable Abdomen: soft, non-tender Extremities: no C/C/E, edema Decubiti: stage Accucheck: 192 Critical Care - Subjective ROS Limited/Unobtainable: No ICU Day: 10 FI02: 50 Vent Support Breath Rate: 16 Vent Support Mode: AC Vent Tidal Volume: 600 Sputum Amount: Moderate PEEP: 0.0 PIP: 25 Tube Feeding Amount: 50 I&O: Intake and Output 11/24/17 11/25/17 19:00 07:00 Intake Total 518 ml 1090 ml Output Total 430 ml 400 ml Balance 88 ml 690 ml Free Water 30 ml IV Total 138 ml 440 ml Tube Feeding 350 ml 650 ml Output Urine Total 430 ml 400 ml CXR: no change ET-Tube: 7.0 ET Position: 23 Labs: Laboratory Tests Test 11/24/17 12:09 11/25/17 04:45 11/25/17 09:34 Arterial Blood pH 7.410 (7.350-7.450) 7.493 (7.350-7.450) Arterial Blood Partial Pressure CO2 51.9 mmHg (35.0-45.0) H 39.4 mmHg (35.0-45.0) Arterial Blood Partial Pressure O2 79.5 mmHg (75.0-100.0) 107.8 mmHg (75.0-100.0) H Arterial Blood HCO3 32.2 mmol/L (22.0-26.0) H 29.6 mmol/L (22.0-26.0) H Arterial Blood Oxygen Saturation 95.1 % (92.0-98.0) 97.6 % (92.0-98.0) Arterial Blood Base Excess 6.5 5.8 Rolf Test Positive Positive White Blood Count 5.5 K/UL (4.8-10.8) Red Blood Count 3.82 M/UL (4.20-5.40) L Hemoglobin 9.5 G/DL (12.0-16.0) L Hematocrit 29.9 % (37.0-47.0) L Mean Corpuscular Volume 78 FL (80-99) L Mean Corpuscular Hemoglobin 24.9 PG (27.0-31.0) L Mean Corpuscular Hemoglobin Concent 31.7 G/DL (32.0-36.0) L Red Cell Distribution Width 16.7 % (11.6-14.8) H Platelet Count 133 K/UL (150-450) L Mean Platelet Volume 7.3 FL (6.5-10.1) Neutrophils (%) (Auto) 78.8 % (45.0-75.0) H Lymphocytes (%) (Auto) 13.4 % (20.0-45.0) L Monocytes (%) (Auto) 5.4 % (1.0-10.0) Eosinophils (%) (Auto) 1.9 % (0.0-3.0) Basophils (%) (Auto) 0.5 % (0.0-2.0) Sodium Level 138 MMOL/L (136-145) Potassium Level 3.6 MMOL/L (3.5-5.1) Chloride Level 104 MMOL/L (98-107) Carbon Dioxide Level 31 MMOL/L (21-32) Anion Gap 4 mmol/L (5-15) L Blood Urea Nitrogen 21 mg/dL (7-18) H Creatinine 0.6 MG/DL (0.55-1.30) Estimat Glomerular Filtration Rate > 60 mL/min (>60) Glucose Level 188 MG/DL (74-106) H Calcium Level 8.4 MG/DL (8.5-10.1) L Iron Level 19 ug/dL (50-175) L Total Iron Binding Capacity 147 ug/dL (250-450) L Percent Iron Saturation 13 % (15-50) L Unsaturated Iron Binding 128 ug/dL (112-346) Ferritin 283 NG/ML (8-388) Vitamin B12 Level 460 PG/ML (193-986) Folate 11.4 NG/ML (8.6-58.9) ADONIS SALES Nov 25, 2017 11:13
--- NOTE | 2017-11-25 13:02 | General Progress Note ---
Assessment/Plan Problem List: (1) History of hypertension ICD Codes: Z86.79 - Personal history of other diseases of the circulatory system SNOMED: 712197766 (2) Pleural effusion ICD Codes: J90 - Pleural effusion, not elsewhere classified SNOMED: 82427300 (3) COPD (chronic obstructive pulmonary disease) ICD Codes: J44.9 - Chronic obstructive pulmonary disease, unspecified SNOMED: 05903605 (4) Acute respiratory failure ICD Codes: J96.00 - Acute respiratory failure, unspecified whether with hypoxia or hypercapnia SNOMED: 36574488 Qualifiers: Qualified Codes: J96.01 - Acute respiratory failure with hypoxia; J96.02 - Acute respiratory failure with hypercapnia (5) Diabetes mellitus ICD Codes: E11.9 - Type 2 diabetes mellitus without complications SNOMED: 11897160 (6) Pulmonary edema ICD Codes: J81.1 - Chronic pulmonary edema SNOMED: 40924296 Status: unchanged Assessment/Plan vent abx bp bs control cbc bmp am Subjective Allergies: Coded Allergies: No Known Allergies (Unverified , 11/15/17) All Systems: reviewed and negative except above Subjective intubated sedated in icu Objective Last 24 Hour Vital Signs Date Time Temp Pulse Resp B/P (MAP) Pulse Ox O2 Delivery O2 Flow Rate FiO2 11/25/17 12:56 70 16 50 11/25/17 12:00 99.0 69 16 91/46 99 Mechanical Ventilator 50 11/25/17 12:00 50 11/25/17 12:00 74 11/25/17 11:07 98.2 11/25/17 11:00 74 16 100/51 95 11/25/17 10:37 70 16 50 11/25/17 10:37 16 11/25/17 10:00 60 16 92/49 99 11/25/17 09:24 69 16 50 11/25/17 09:00 68 16 103/56 99 11/25/17 09:00 98.6 69 16 91/46 99 Mechanical Ventilator 50 11/25/17 08:12 98.3 11/25/17 08:00 50 11/25/17 08:00 76 11/25/17 08:00 62 16 93/52 100 11/25/17 07:42 17 11/25/17 07:00 62 18 100/49 99 11/25/17 07:00 16 2/5/18 06:41 72 16 50 2/5/18 06:00 74 16 98/50 99 Mechanical Ventilator 50 2/5/18 06:00 16 2/5/18 05:46 75 16 50 2/5/18 05:30 75 16 101/51 99 Mechanical Ventilator 50 2/5/18 05:00 82 16 119/61 99 Mechanical Ventilator 50 2/5/18 05:00 16 2/5/18 04:30 69 32 91/46 99 Mechanical Ventilator 50 2/5/18 04:00 71 2/5/18 04:00 32 2/5/18 04:00 50 2/5/18 04:00 98.8 71 32 88/46 99 Mechanical Ventilator 50 2/5/18 03:33 78 16 50 2/5/18 03:32 68 16 Mechanical Ventilator 50 2/5/18 03:30 69 16 89/47 100 Mechanical Ventilator 50 2/5/18 03:00 67 16 91/46 100 Mechanical Ventilator 50 2/5/18 03:00 16 2/5/18 02:30 70 29 89/46 99 Mechanical Ventilator 50 2/5/18 02:18 16 2/5/18 02:00 16 2/5/18 02:00 68 26 89/46 100 Mechanical Ventilator 50 2/5/18 01:53 76 16 50 2/5/18 01:30 68 32 92/48 99 Mechanical Ventilator 50 2/5/18 01:00 68 32 86/46 100 Mechanical Ventilator 50 2/5/18 01:00 16 2/5/18 00:30 67 16 85/48 100 Mechanical Ventilator 50 2/5/18 00:00 66 2/5/18 00:00 16 2/5/18 00:00 98.4 66 16 85/44 100 Mechanical Ventilator 50 2/5/18 00:00 50 2/4/18 23:38 16 2/4/18 23:30 71 16 90/46 100 Mechanical Ventilator 50 2/4/18 23:12 75 16 50 2/4/18 23:00 65 16 87/49 100 Mechanical Ventilator 50 2/4/18 23:00 16 2/4/18 22:30 64 16 95/49 100 Mechanical Ventilator 50 2/4/18 22:00 66 16 90/49 100 Mechanical Ventilator 50 2/4/18 22:00 16 2/4/18 21:30 64 16 88/49 100 Mechanical Ventilator 50 18 21:24 18 18 21:14 77 16 50 18 21:00 16 11/24/17 21:00 64 16 94/54 100 Mechanical Ventilator 50 18 20:30 67 16 93/52 100 Mechanical Ventilator 50 11/24/17 20:00 67 16 91/50 100 Mechanical Ventilator 50 11/24/17 20:00 50 11/24/17 20:00 18 11/24/17 20:00 67 11/24/17 19:30 97.8 72 18 82/45 100 Mechanical Ventilator 50 11/24/17 19:01 79 16 50 11/24/17 19:00 17 11/24/17 19:00 80 18 102/58 93 Mechanical Ventilator 50 11/24/17 18:30 75 18 109/69 97 Mechanical Ventilator 50 11/24/17 18:00 67 16 108/50 99 Mechanical Ventilator 50 11/24/17 18:00 16 11/24/17 17:30 67 16 95/54 99 Mechanical Ventilator 50 11/24/17 17:08 67 16 50 11/24/17 17:00 16 11/24/17 17:00 69 17 92/46 100 Mechanical Ventilator 50 11/24/17 16:30 70 16 113/48 100 Mechanical Ventilator 50 11/24/17 16:00 69 11/24/17 16:00 16 11/24/17 16:00 98.6 72 16 85/49 100 Mechanical Ventilator 50 11/24/17 15:14 74 16 50 11/24/17 15:00 69 16 93/50 100 Mechanical Ventilator 50 11/24/17 15:00 16 11/24/17 14:30 72 16 93/50 99 Mechanical Ventilator 50 11/24/17 14:00 83 18 86/54 97 Mechanical Ventilator 50 11/24/17 14:00 16 11/24/17 13:30 86 16 86/50 97 Mechanical Ventilator 50 11/24/17 13:06 20 Intake and Output 11/24/17 11/25/17 19:00 07:00 Intake Total 518 ml 1090 ml Output Total 430 ml 400 ml Balance 88 ml 690 ml Free Water 30 ml IV Total 138 ml 440 ml Tube Feeding 350 ml 650 ml Output Urine Total 430 ml 400 ml Laboratory Tests 11/25/17 04:45: White Blood Count 5.5, Red Blood Count 3.82L, Hemoglobin 9.5L, Hematocrit 29.9L , Mean Corpuscular Volume 78L, Mean Corpuscular Hemoglobin 24.9L, Mean Corpuscular Hemoglobin Concent 31.7L, Red Cell Distribution Width 16.7H, Platelet Count 133L, Mean Platelet Volume 7.3, Neutrophils (%) (Auto) 78.8H, Lymphocytes (%) (Auto) 13.4L, Monocytes (%) (Auto) 5.4, Eosinophils (%) (Auto) 1.9, Basophils (%) (Auto) 0.5, Sodium Level 138, Potassium Level 3.6, Chloride Level 104, Carbon Dioxide Level 31, Anion Gap 4L, Blood Urea Nitrogen 21H, Creatinine 0.6, Estimat Glomerular Filtration Rate > 60, Glucose Level 188H, Calcium Level 8.4L, Iron Level 19L, Total Iron Binding Capacity 147L, Percent Iron Saturation 13L, Unsaturated Iron Binding 128, Ferritin 283, Vitamin B12 Level 460, Folate 11.4 11/25/17 09:34: Arterial Blood pH 7.493H, Arterial Blood Partial Pressure CO2 39.4, Arterial Blood Partial Pressure O2 107.8H, Arterial Blood HCO3 29.6H, Arterial Blood Oxygen Saturation 97.6, Arterial Blood Base Excess 5.8, Rolf Test Positive Height (Feet): 5 Height (Inches): 4.00 Weight (Pounds): 167 General Appearance: lethargic EENT: normal ENT inspection Neck: normal alignment Cardiovascular: normal peripheral pulses, normal rate, regular rhythm Respiratory/Chest: chest wall non-tender, lungs clear, normal breath sounds Abdomen: normal bowel sounds, non tender, soft Extremities: normal inspection Edema: no edema noted Arm (L), no edema noted Arm (R), no edema noted Leg (L), no edema noted Leg (R), no edema noted Pedal (L), no edema noted Pedal (R), no edema noted Generalized Neurologic: motor weakness Skin: normal pigmentation, warm/dry TIM GARY Nov 25, 2017 13:02
--- NOTE | 2017-11-25 13:52 | Cardiology Report ---
APPROVED REPORT EKG Measurement Heart [id number] Sinus tachycardia with premature supraventricular complexes Cannot rule out Inferior infarct, age undetermined Abnormal ECG
--- NOTE | 2017-11-25 13:56 | Cardiology Report ---
APPROVED REPORT EKG Measurement Heart [id number] Normal sinus rhythm Rightward axis Borderline ECG
--- NOTE | 2017-11-25 15:24 | Consultation ---
History of Present Illness General Date patient seen: Nov 25, 2017 Chief Complaint: Dyspnea/Respdistress Reason for Consultation: respiratory distress, prolonged vent requirement Present Illness HPI The patient is a 67-year-old female with multiple medical problems who was admitted to this medical center due to respiratory failure. The patient had to be intubated in the emergency room and the patient was admitted to the ICU. The patient was found to have leukocytosis at the time of admission. Chest x- ray shows bilateral airspace disease with pleural effusion. Prior to admission it was believed that she was ill for a few days then SOB progressively worsened until she came to ED for evaluation. Since has been in ICU with maximal medical care. She has been intubated since admission and is not able to wean from vent given pulmonary disease. Surgery called to evaluate for possible tracheostomy. patient seen, records reviewed, radiology/labs reviewed. Allergies: Coded Allergies: No Known Allergies (Unverified , 11/15/17) Medication History Unable to Obtain Active Prescriptions or Reported Meds Patient History Limited by: medical condition History Provided By: Medical Record, PMD Healthcare decision maker Resuscitation status Full Code Advanced Directive on File Past Medical/Surgical History Past Medical/Surgical History: (1) History of hypertension (2) Pleural effusion (3) COPD (chronic obstructive pulmonary disease) (4) Diabetes mellitus (5) Pulmonary edema (6) Pneumonia (7) Vocal cord edema (8) Acute respiratory failure Review of Systems ROS Narrative cannot obtain given patients current medical condition Physical Exam General Appearance: overweight Lines, tubes and drains: central line HEENT: mucous membranes moist Neck: normal inspection Respiratory/Chest: decreased breath sounds, on vent Cardiovascular/Chest: normal peripheral pulses, tachycardia Abdomen: normal bowel sounds, soft, no organomegaly, no mass Extremities: trace edema Skin Exam: normal pigmentation, warm/dry Neurologic: unresponsiveness Last 24 Hour Vital Signs Date Time Temp Pulse Resp B/P (MAP) Pulse Ox O2 Delivery O2 Flow Rate FiO2 11/25/17 15:00 68 16 98/51 99 11/25/17 15:00 98.2 11/25/17 14:58 70 16 50 11/25/17 14:18 16 11/25/17 14:00 69 16 89/49 99 Mechanical Ventilator 50 11/25/17 14:00 16 11/25/17 13:30 68 16 89/49 100 2/5/18 13:00 16 2//18 13:00 72 17 99/50 100 Mechanical Ventilator 50 2/5/18 12:56 70 16 50 2//18 12:30 73 16 99/50 90 2/18 12:00 99.0 69 16 91/46 99 Mechanical Ventilator 50 2//18 12:00 50 2//18 12:00 16 218 12:00 74 2//18 11:30 77 16 92/50 100 2/18 11:07 98.2 2//18 11:00 16 218 11:00 74 16 100/51 95 2//18 10:37 70 16 50 2//18 10:37 16 218 10:30 70 16 95/53 94 // 10:00 16 218 10:00 60 16 92/49 99 2/18 09:30 64 16 92/54 98 2// 09:24 69 16 50 2/18 09:00 68 16 103/56 99 2/18 09:00 98.6 69 16 91/46 99 Mechanical Ventilator 50 18 09:00 16 18 08:30 62 16 94/52 98 2//18 08:12 98.3 11/25/17 08:00 50 218 08:00 76 218 08:00 62 16 93/52 100 2//18 07:42 17 218 07:30 98.6 64 16 98/49 99 Mechanical Ventilator 50 218 07:00 62 18 100/49 99 2//18 07:00 16 218 06:41 72 16 50 2/5/18 06:00 74 16 98/50 99 Mechanical Ventilator 50 218 06:00 16 18 05:46 75 16 50 2//18 05:30 75 16 101/51 99 Mechanical Ventilator 50 2//18 05:00 82 16 119/61 99 Mechanical Ventilator 50 2/5/18 05:00 16 2/18 04:30 69 32 91/46 99 Mechanical Ventilator 50 2/18 04:00 71 2/5/18 04:00 32 2/5/18 04:00 50 2/5/18 04:00 98.8 71 32 88/46 99 Mechanical Ventilator 50 2/5/18 03:33 78 16 50 2/5/18 03:32 68 16 Mechanical Ventilator 50 2/5/18 03:30 69 16 89/47 100 Mechanical Ventilator 50 2/5/18 03:00 67 16 91/46 100 Mechanical Ventilator 50 2/5/18 03:00 16 2/5/18 02:30 70 29 89/46 99 Mechanical Ventilator 50 2/5/18 02:18 16 2/5/18 02:00 16 2/5/18 02:00 68 26 89/46 100 Mechanical Ventilator 50 2/5/18 01:53 76 16 50 2/5/18 01:30 68 32 92/48 99 Mechanical Ventilator 50 2/5/18 01:00 68 32 86/46 100 Mechanical Ventilator 50 2/5/18 01:00 16 2/5/18 00:30 67 16 85/48 100 Mechanical Ventilator 50 2/5/18 00:00 66 2/5/18 00:00 16 2/5/18 00:00 98.4 66 16 85/44 100 Mechanical Ventilator 50 2/5/18 00:00 50 2/4/18 23:38 16 2//18 23:30 71 16 90/46 100 Mechanical Ventilator 50 2/4/18 23:12 75 16 50 2/4/18 23:00 65 16 87/49 100 Mechanical Ventilator 50 2/4/18 23:00 16 2//18 22:30 64 16 95/49 100 Mechanical Ventilator 50 2/4/18 22:00 66 16 90/49 100 Mechanical Ventilator 50 2/4/18 22:00 16 2/4/18 21:30 64 16 88/49 100 Mechanical Ventilator 50 2/4/18 21:24 18 2/4/18 21:14 77 16 50 2/4/18 21:00 16 2/4/18 21:00 64 16 94/54 100 Mechanical Ventilator 50 2/4/18 20:30 67 16 93/52 100 Mechanical Ventilator 50 2/4/18 20:00 67 16 91/50 100 Mechanical Ventilator 50 2/4/18 20:00 50 2/4/18 20:00 18 2/4/18 20:00 67 2/4/18 19:30 97.8 72 18 82/45 100 Mechanical Ventilator 50 11/24/17 19:01 79 16 50 11/24/17 19:00 17 11/24/17 19:00 80 18 102/58 93 Mechanical Ventilator 50 11/24/17 18:30 75 18 109/69 97 Mechanical Ventilator 50 11/24/17 18:00 67 16 108/50 99 Mechanical Ventilator 50 11/24/17 18:00 16 11/24/17 17:30 67 16 95/54 99 Mechanical Ventilator 50 11/24/17 17:08 67 16 50 11/24/17 17:00 16 11/24/17 17:00 69 17 92/46 100 Mechanical Ventilator 50 11/24/17 16:30 70 16 113/48 100 Mechanical Ventilator 50 11/24/17 16:00 69 11/24/17 16:00 16 11/24/17 16:00 98.6 72 16 85/49 100 Mechanical Ventilator 50 Intake and Output 11/24/17 11/25/17 19:00 07:00 Intake Total 518 ml 1090 ml Output Total 430 ml 400 ml Balance 88 ml 690 ml Free Water 30 ml IV Total 138 ml 440 ml Tube Feeding 350 ml 650 ml Output Urine Total 430 ml 400 ml Laboratory Tests Test 11/25/17 04:45 11/25/17 09:34 White Blood Count 5.5 K/UL (4.8-10.8) Red Blood Count 3.82 M/UL (4.20-5.40) L Hemoglobin 9.5 G/DL (12.0-16.0) L Hematocrit 29.9 % (37.0-47.0) L Mean Corpuscular Volume 78 FL (80-99) L Mean Corpuscular Hemoglobin 24.9 PG (27.0-31.0) L Mean Corpuscular Hemoglobin Concent 31.7 G/DL (32.0-36.0) L Red Cell Distribution Width 16.7 % (11.6-14.8) H Platelet Count 133 K/UL (150-450) L Mean Platelet Volume 7.3 FL (6.5-10.1) Neutrophils (%) (Auto) 78.8 % (45.0-75.0) H Lymphocytes (%) (Auto) 13.4 % (20.0-45.0) L Monocytes (%) (Auto) 5.4 % (1.0-10.0) Eosinophils (%) (Auto) 1.9 % (0.0-3.0) Basophils (%) (Auto) 0.5 % (0.0-2.0) Sodium Level 138 MMOL/L (136-145) Potassium Level 3.6 MMOL/L (3.5-5.1) Chloride Level 104 MMOL/L (98-107) Carbon Dioxide Level 31 MMOL/L (21-32) Anion Gap 4 mmol/L (5-15) L Blood Urea Nitrogen 21 mg/dL (7-18) H Creatinine 0.6 MG/DL (0.55-1.30) Estimat Glomerular Filtration Rate > 60 mL/min (>60) Glucose Level 188 MG/DL (74-106) H Calcium Level 8.4 MG/DL (8.5-10.1) L Iron Level 19 ug/dL (50-175) L Total Iron Binding Capacity 147 ug/dL (250-450) L Percent Iron Saturation 13 % (15-50) L Unsaturated Iron Binding 128 ug/dL (112-346) Ferritin 283 NG/ML (8-388) Vitamin B12 Level 460 PG/ML (193-986) Folate 11.4 NG/ML (8.6-58.9) Arterial Blood pH 7.493 (7.350-7.450) Arterial Blood Partial Pressure CO2 39.4 mmHg (35.0-45.0) Arterial Blood Partial Pressure O2 107.8 mmHg (75.0-100.0) H Arterial Blood HCO3 29.6 mmol/L (22.0-26.0) H Arterial Blood Oxygen Saturation 97.6 % (92.0-98.0) Arterial Blood Base Excess 5.8 Rolf Test Positive Height (Feet): 5 Height (Inches): 4.00 Weight (Pounds): 167 Medications Current Medications Medications (Trade) Dose Ordered Sig/Edwin Route PRN Reason Start Time Stop Time Status Last Admin Dose Admin Acetaminophen (Tylenol) 650 mg Q4H PRN ORAL Fever 11/15/17 22:45 12/15/17 22:44 11/18/17 07:59 Albuterol/ Ipratropium (Albuterol/ Ipratropium) 3 ml Q4H PRN HHN Shortness of Breath 11/24/17 10:00 11/29/17 09:59 Ceftriaxone Sodium 1 gm/ Sodium Chloride 55 ml @ 110 mls/hr Q24H IVPB 11/20/17 16:00 11/27/17 15:59 11/24/17 16:35 Dextrose (Dextrose 50%) STAT PRN IV Hypoglycemia 11/15/17 22:45 12/15/17 22:44 11/16/17 11:50 Heparin Sodium (Porcine) (Heparin 5000 units/ml) 5,000 units EVERY 12 HOURS SUBQ 11/16/17 09:00 12/16/17 08:59 11/24/17 20:41 Insulin Aspart (NovoLOG) EVERY 6 HOURS SUBQ 11/16/17 18:00 12/16/17 06:29 11/25/17 11:34 Lorazepam (Ativan 2mg/ml 1ml) 4 mg Q4H PRN IV For Anxiety 11/22/17 20:46 11/29/17 20:45 11/25/17 08:43 Midazolam HCl 100 ml @ 0 mls/hr Q24H IVPB 11/25/17 14:00 12/02/17 13:59 11/25/17 14:18 Morphine Sulfate (Morphine Sulfate) 8 mg Q4H PRN IVP Breakthrough pain 11/22/17 21:30 11/29/17 21:29 11/25/17 08:41 Ondansetron HCl (Zofran) 4 mg Q6H PRN IVP Nausea & Vomiting 11/15/17 22:45 12/15/17 22:44 11/18/17 21:59 Pantoprazole (Protonix) 40 mg DAILY IV 11/16/17 09:00 12/16/17 08:59 11/25/17 08:43 Polyethylene Glycol (Miralax) 17 gm DAILYPRN PRN ORAL Constipation 11/15/17 22:45 12/15/17 22:44 11/22/17 05:55 Assessment/Plan Problem List: (1) Acute respiratory failure Assessment & Plan: 67F with acute respiratory failure requiring intubation in ED upon presentation. Unfortunately has not been improving since and not able to wean from vent. Patient seen, ABG reviewed, history reviewed, cxr reviewed. likely need for prolonged ventilatory support. would benefit from trach. recommend tracheostomy. will monitor for a few days first to see if improvement will need to find family or POA for consent thank you for this consultation. will follow with you. ICD Codes: J96.00 - Acute respiratory failure, unspecified whether with hypoxia or hypercapnia SNOMED: 11194823 Qualifiers: Qualified Codes: J96.01 - Acute respiratory failure with hypoxia; J96.02 - Acute respiratory failure with hypercapnia Status: unchanged Rom Damian Nov 25, 2017 15:24
[2017-11-25] MEDS: cefTRIAXone 1 GM in NS 55 ML IVPB SCH (15:44)
--- NOTE | 2017-11-25 19:24 | Cardiology Progress Note ---
Assessment/Plan Assessment/Plan Respiratory failure. Diabetes mellitus. Hypertension history. Chronic obstructive pulmonary disease history. Hypotension resolved bilateral infiltrate multiple pulm nodule on ct suspicious for malignancy splenomegaly all trop neg to wean as tolerated vent support abx tele personally reviewed failed weaning again to day ct nwo showed abn as noted staff indicated sig secretion will keep dry in light fo some findingon the ct for venous congestion Subjective ROS Limited/Unobtainable: Yes Subjective on the vent, agitateied Objective Last 24 Hour Vital Signs Date Time Temp Pulse Resp B/P (MAP) Pulse Ox O2 Delivery O2 Flow Rate FiO2 11/25/17 19:13 86 16 50 11/25/17 19:00 16 11/25/17 19:00 88 16 116/59 98 Mechanical Ventilator 50 11/25/17 18:31 98.8 11/25/17 18:01 16 11/25/17 18:00 79 16 117/62 98 Mechanical Ventilator 50 11/25/17 17:13 77 16 50 11/25/17 17:00 16 11/25/17 17:00 72 16 88/46 100 11/25/17 16:30 98.8 68 16 100/54 100 Mechanical Ventilator 50 11/25/17 16:00 68 16 100/54 100 11/25/17 16:00 16 11/25/17 16:00 50 11/25/17 16:00 74 11/25/17 15:44 16 11/25/17 15:30 69 16 96/52 100 Mechanical Ventilator 50 11/25/17 15:00 68 16 98/51 99 18 15:00 16 11/25/17 14:58 70 16 50 18 14:30 68 16 91/50 100 Mechanical Ventilator 50 18 14:18 16 18 14:00 69 16 89/49 99 Mechanical Ventilator 50 18 14:00 16 11/25/17 13:30 68 16 89/49 100 11/25/18 13:00 16 11/25/17 13:00 72 17 99/50 100 Mechanical Ventilator 50 18 12:56 70 16 50 11/25/18 12:30 73 16 99/50 90 18 12:00 99.0 69 16 91/46 99 Mechanical Ventilator 50 11/25/17 12:00 50 18 12:00 16 2/18 12:00 74 2//18 11:30 77 16 92/50 100 2//18 11:07 98.2 2/18 11:00 16 218 11:00 74 16 100/51 95 2/5/18 10:37 70 16 50 2//18 10:37 16 2//18 10:30 70 16 95/53 94 2//18 10:00 16 218 10:00 60 16 92/49 99 2/5/18 09:30 64 16 92/54 98 2//18 09:24 69 16 50 2//18 09:00 68 16 103/56 99 2/18 09:00 98.6 69 16 91/46 99 Mechanical Ventilator 50 11/25/17 09:00 16 11/25/17 08:30 62 16 94/52 98 2/18 08:12 98.3 2 08:00 50 2 08:00 76 2 08:00 62 16 93/52 100 11/25/18 07:42 17 18 07:30 98.6 64 16 98/49 99 Mechanical Ventilator 50 11/25/17 07:00 62 18 100/49 99 2/18 07:00 16 11/25/17 06:41 72 16 50 2//18 06:00 74 16 98/50 99 Mechanical Ventilator 50 218 06:00 16 2 05:46 75 16 50 2/18 05:30 75 16 101/51 99 Mechanical Ventilator 50 218 05:00 82 16 119/61 99 Mechanical Ventilator 50 218 05:00 16 18 04:30 69 32 91/46 99 Mechanical Ventilator 50 218 04:00 71 218 04:00 32 218 04:00 50 218 04:00 98.8 71 32 88/46 99 Mechanical Ventilator 50 218 03:33 78 16 50 2//18 03:32 68 16 Mechanical Ventilator 50 2/18 03:30 69 16 89/47 100 Mechanical Ventilator 50 218 03:00 67 16 91/46 100 Mechanical Ventilator 50 2/18 03:00 16 2 02:30 70 29 89/46 99 Mechanical Ventilator 50 2//18 02:18 16 2 02:00 16 2 02:00 68 26 89/46 100 Mechanical Ventilator 50 2/18 01:53 76 16 50 2//18 01:30 68 32 92/48 99 Mechanical Ventilator 50 2/03/07 01:00 68 32 86/46 100 Mechanical Ventilator 50 2 01:00 16 2 00:30 67 16 85/48 100 Mechanical Ventilator 50 11/25/17 00:00 66 11/25/17 00:00 16 11/25/17 00:00 98.4 66 16 85/44 100 Mechanical Ventilator 50 11/25/17 00:00 50 11/24/17 23:38 16 11/24/17 23:30 71 16 90/46 100 Mechanical Ventilator 50 2 23:12 75 16 50 11/24/17 23:00 65 16 87/49 100 Mechanical Ventilator 50 11/24/17 23:00 16 11/24/17 22:30 64 16 95/49 100 Mechanical Ventilator 50 11/24/17 22:00 66 16 90/49 100 Mechanical Ventilator 50 11/24/17 22:00 16 11/24/17 21:30 64 16 88/49 100 Mechanical Ventilator 50 11/24/17 21:24 18 11/24/17 21:14 77 16 50 11/24/17 21:00 16 11/24/17 21:00 64 16 94/54 100 Mechanical Ventilator 50 11/24/17 20:30 67 16 93/52 100 Mechanical Ventilator 50 11/24/17 20:00 67 16 91/50 100 Mechanical Ventilator 50 11/24/17 20:00 50 2 20:00 18 2 20:00 67 11/24/17 19:30 97.8 72 18 82/45 100 Mechanical Ventilator 50 General Appearance: alert, on vent Cardiovascular: normal rate Respiratory/Chest: rhonchi - bilaterally Abdomen: normal bowel sounds, non tender, soft Extremities: no swelling Intake and Output 11/24/18 2 19:00 07:00 Intake Total 518 ml 1090 ml Output Total 430 ml 400 ml Balance 88 ml 690 ml Free Water 30 ml IV Total 138 ml 440 ml Tube Feeding 350 ml 650 ml Output Urine Total 430 ml 400 ml Laboratory Tests Test 11/25/17 04:45 11/25/17 09:34 White Blood Count 5.5 K/UL (4.8-10.8) Red Blood Count 3.82 M/UL (4.20-5.40) L Hemoglobin 9.5 G/DL (12.0-16.0) L Hematocrit 29.9 % (37.0-47.0) L Mean Corpuscular Volume 78 FL (80-99) L Mean Corpuscular Hemoglobin 24.9 PG (27.0-31.0) L Mean Corpuscular Hemoglobin Concent 31.7 G/DL (32.0-36.0) L Red Cell Distribution Width 16.7 % (11.6-14.8) H Platelet Count 133 K/UL (150-450) L Mean Platelet Volume 7.3 FL (6.5-10.1) Neutrophils (%) (Auto) 78.8 % (45.0-75.0) H Lymphocytes (%) (Auto) 13.4 % (20.0-45.0) L Monocytes (%) (Auto) 5.4 % (1.0-10.0) Eosinophils (%) (Auto) 1.9 % (0.0-3.0) Basophils (%) (Auto) 0.5 % (0.0-2.0) Sodium Level 138 MMOL/L (136-145) Potassium Level 3.6 MMOL/L (3.5-5.1) Chloride Level 104 MMOL/L (98-107) Carbon Dioxide Level 31 MMOL/L (21-32) Anion Gap 4 mmol/L (5-15) L Blood Urea Nitrogen 21 mg/dL (7-18) H Creatinine 0.6 MG/DL (0.55-1.30) Estimat Glomerular Filtration Rate > 60 mL/min (>60) Glucose Level 188 MG/DL (74-106) H Calcium Level 8.4 MG/DL (8.5-10.1) L Iron Level 19 ug/dL (50-175) L Total Iron Binding Capacity 147 ug/dL (250-450) L Percent Iron Saturation 13 % (15-50) L Unsaturated Iron Binding 128 ug/dL (112-346) Ferritin 283 NG/ML (8-388) Vitamin B12 Level 460 PG/ML (193-986) Folate 11.4 NG/ML (8.6-58.9) Arterial Blood pH 7.493 (7.350-7.450) Arterial Blood Partial Pressure CO2 39.4 mmHg (35.0-45.0) Arterial Blood Partial Pressure O2 107.8 mmHg (75.0-100.0) H Arterial Blood HCO3 29.6 mmol/L (22.0-26.0) H Arterial Blood Oxygen Saturation 97.6 % (92.0-98.0) Arterial Blood Base Excess 5.8 Rolf Test Positive CALIN HAWKINS Nov 25, 2017 19:24
[2017-11-25] MEDS: MIDAZOLAM IV SCH ×2 (22:03→22:04)
[2017-11-25] MEDS: D5W IV SCH ×2 (22:03→22:04)
[2017-11-25] MEDS ORDERED: Etomidate 40mg/20ml Inj IV ONE (22:30)
[2017-11-26] VITALS (35 sets, daily range): BP systolic 91–133; BP diastolic 50–68
[2017-11-26] MEDS: Midazolam/D5W 100ml 100 ML IVPB SCH (01:19)
[2017-11-26] MEDS: MIDAZOLAM IV SCH ×2 (04:28→21:15)
[2017-11-26] MEDS: D5W IV SCH ×2 (04:28→21:15)
[2017-11-26] MEDS: NovoLOG Insulin Flexpen SUBQ SCH ×3 (05:36→18:43)
[2017-11-26 05:43] LABS: BASOPHILS % (AUTO) 0.3 % (0.0-2.0); EOSINOPHILS % (AUTO) 1.4 % (0.0-3.0); HEMATOCRIT 30.2 % (37.0-47.0); HEMOGLOBIN 9.4 G/DL (12.0-16.0); LYMPHOCYTES % (AUTO) 12.6 % (20.0-45.0); MEAN CORPUSCULAR VOLUME 79 FL (80-99); MONOCYTES % (AUTO) 5.9 % (1.0-10.0); NEUTROPHILS % (AUTO) 79.8 % (45.0-75.0); PLATELET COUNT 136 K/UL (150-450); RED CELL DISTRIBUTION WIDTH 16.8 % (11.6-14.8); WHITE BLOOD COUNT 5.5 K/UL (4.8-10.8)
[2017-11-26 05:57] LABS: ALANINE AMINOTRANSFERASE 14 U/L (12-78); ALBUMIN 2.2 G/DL (3.4-5.0); ALBUMIN/GLOBULIN RATIO 0.7 (1.0-2.7); ALKALINE PHOSPHATASE 77 U/L (46-116); ANION GAP 4 mmol/L (5-15); ASPARTATE AMINO TRANSFERASE 8 U/L (15-37); BILIRUBIN,TOTAL 0.3 MG/DL (0.2-1.0); BLOOD UREA NITROGEN 22 mg/dL (7-18); CALCIUM 8.6 MG/DL (8.5-10.1); CARBON DIOXIDE 30 MMOL/L (21-32); CHLORIDE 104 MMOL/L (98-107); CREATININE 0.5 MG/DL (0.55-1.30); PHOSPHORUS 3.5 MG/DL (2.5-4.9); POTASSIUM 3.3 MMOL/L (3.5-5.1); SODIUM 138 MMOL/L (136-145)
[2017-11-26] MEDS: Pantoprazole Inj IV SCH (08:38)
[2017-11-26] MEDS: Heparin 5000 units/ml inj SUBQ SCH ×2 (08:40→21:03)
--- NOTE | 2017-11-26 09:23 | Pulmonolgy Critical Care Note ---
Critical Care - Asmt/Plan Problems: (1) Acute respiratory failure (2) Pleural effusion (3) COPD (chronic obstructive pulmonary disease) (4) Diabetes mellitus (5) Pulmonary edema Respiratory: monitor respiratory rate, adjust FIO2, CXR - still lots of infitlrate, other - pt will need tracheostomy Cardiac: continue to monitor HR/BP Renal: F/U I&O, keep IV fluid Infectious Disease: check cultures Gastrointestinal: continue feedings/current rate Endocrine: monitor blood sugar, check TSH Hematologic: monitor H/H Neurologic: PRN Morphine Affect: PRN ativan Prophylaxis: Protonix, Heparin Notes Reviewed: septic technician, cardio Discussed with: consultants, case management assistantmanager transportation planning - Objective Last 24 Hour Vital Signs Date Time Temp Pulse Resp B/P (MAP) Pulse Ox O2 Delivery O2 Flow Rate FiO2 11/26/17 09:02 77 29 50 11/26/17 09:00 97 11/26/17 07:12 65 16 50 11/26/17 07:00 65 16 94/53 100 Mechanical Ventilator 50 11/26/17 07:00 16 11/26/17 06:00 16 11/26/17 06:00 67 16 133/61 100 Mechanical Ventilator 50 11/26/17 05:01 65 16 50 11/26/17 05:00 71 16 133/61 100 Mechanical Ventilator 50 11/26/17 05:00 16 11/26/17 04:28 16 11/26/17 04:00 16 11/26/17 04:00 63 11/26/17 04:00 98.7 63 16 91/51 100 Mechanical Ventilator 50 11/26/17 04:00 50 11/26/17 03:57 62 16 50 11/26/17 03:00 60 16 100/53 100 Mechanical Ventilator 50 11/26/17 03:00 16 11/26/17 02:00 63 16 91/51 100 Mechanical Ventilator 50 11/26/17 02:00 16 11/26/17 01:25 69 16 50 11/26/17 01:19 16 11/26/17 01:18 16 11/26/17 01:00 71 16 92/53 100 Mechanical Ventilator 50 11/26/17 00:00 16 11/26/17 00:00 50 11/26/17 00:00 98.8 63 16 95/50 100 Mechanical Ventilator 50 11/26/17 00:00 69 2/5/18 23:42 64 16 50 2/5/18 23:04 16 2/5/18 23:00 65 16 94/48 100 Mechanical Ventilator 50 2/5/18 22:04 16 2/5/18 22:03 16 2/5/18 22:00 63 16 89/51 100 Mechanical Ventilator 50 2/5/18 21:30 63 16 89/51 100 Mechanical Ventilator 50 2/5/18 21:06 99.3 2/5/18 21:05 74 16 50 2/5/18 21:00 99.3 63 16 92/53 100 Mechanical Ventilator 50 2//18 21:00 16 2/5/18 21:00 16 2//18 21:00 16 2//18 21:00 16 2//18 21:00 16 2/18 20:30 72 16 117/63 99 Mechanical Ventilator 50 2//18 20:00 100.3 67 16 100/66 99 Mechanical Ventilator 50 2//18 20:00 50 2//18 20:00 16 218 20:00 16 2/18 20:00 16 2/18 20:00 16 2/18 20:00 16 2/18 20:00 16 2/18 20:00 16 2/18 20:00 76 2//18 19:30 87 16 122/62 99 Mechanical Ventilator 50 2//18 19:13 86 16 50 2//18 19:00 16 2/18 19:00 88 16 116/59 98 Mechanical Ventilator 50 2//18 18:31 98.8 2/5/18 18:30 68 16 117/52 100 Mechanical Ventilator 50 2//18 18:01 16 2/5/18 18:00 79 16 117/62 98 Mechanical Ventilator 50 2//18 17:30 69 16 89/52 100 Mechanical Ventilator 50 2/5/18 17:13 77 16 50 2/5/18 17:00 16 2/5/18 17:00 72 16 88/46 100 2/5/18 16:30 98.8 68 16 100/54 100 Mechanical Ventilator 50 2//18 16:00 68 16 100/54 100 2//18 16:00 16 2/18 16:00 50 11/25/17 16:00 74 11/25/17 15:44 16 11/25/17 15:30 69 16 96/52 100 Mechanical Ventilator 50 11/25/17 15:00 68 16 98/51 99 11/25/17 15:00 16 11/25/17 14:58 70 16 50 11/25/17 14:30 68 16 91/50 100 Mechanical Ventilator 50 11/25/17 14:18 16 11/25/17 14:00 69 16 89/49 99 Mechanical Ventilator 50 11/25/17 14:00 16 11/25/17 13:30 68 16 89/49 100 11/25/17 13:00 16 11/25/17 13:00 72 17 99/50 100 Mechanical Ventilator 50 11/25/17 12:56 70 16 50 11/25/17 12:30 73 16 99/50 90 11/25/17 12:00 99.0 69 16 91/46 99 Mechanical Ventilator 50 11/25/17 12:00 50 11/25/17 12:00 16 11/25/17 12:00 74 11/25/17 11:30 77 16 92/50 100 11/25/17 11:07 98.2 11/25/17 11:00 16 11/25/17 11:00 74 16 100/51 95 11/25/17 10:37 70 16 50 11/25/17 10:37 16 11/25/17 10:30 70 16 95/53 94 11/25/17 10:00 16 11/25/17 10:00 60 16 92/49 99 11/25/17 09:30 64 16 92/54 98 11/25/17 09:24 69 16 50 Status: awake Condition: grave HEENT: atraumatic Lungs: clear Heart: HR/BP stable, HR/BP unstable Abdomen: soft, non-tender Extremities: no C/C/E, edema Decubiti: location Accucheck: 229 Critical Care - Subjective ICU Day: 11 Condition: critical EKG Rhythm: Sinus Rhythm FI02: 50 Vent Support Breath Rate: 16 Vent Support Mode: CPAP Vent Tidal Volume: 600 Sputum Amount: Moderate PEEP: 0.0 PIP: 35 Tube Feeding Amount: 50 I&O: Intake and Output 11/25/17 11/26/17 19:00 07:00 Intake Total 965 ml 1013 ml Output Total 360 ml 610 ml Balance 605 ml 403 ml Free Water 0 ml IV Total 365 ml 353 ml Tube Feeding 600 ml 600 ml Other 60 ml Output Urine Total 360 ml 610 ml CXR: no change ET-Tube: 7.0 ET Position: 23 Labs: Laboratory Tests Test 11/25/17 09:34 11/26/17 05:20 Arterial Blood pH 7.493 (7.350-7.450) Arterial Blood Partial Pressure CO2 39.4 mmHg (35.0-45.0) Arterial Blood Partial Pressure O2 107.8 mmHg (75.0-100.0) H Arterial Blood HCO3 29.6 mmol/L (22.0-26.0) H Arterial Blood Oxygen Saturation 97.6 % (92.0-98.0) Arterial Blood Base Excess 5.8 Rolf Test Positive White Blood Count 5.5 K/UL (4.8-10.8) Red Blood Count 3.80 M/UL (4.20-5.40) L Hemoglobin 9.4 G/DL (12.0-16.0) L Hematocrit 30.2 % (37.0-47.0) L Mean Corpuscular Volume 79 FL (80-99) L Mean Corpuscular Hemoglobin 24.8 PG (27.0-31.0) L Mean Corpuscular Hemoglobin Concent 31.2 G/DL (32.0-36.0) L Red Cell Distribution Width 16.8 % (11.6-14.8) H Platelet Count 136 K/UL (150-450) L Mean Platelet Volume 7.2 FL (6.5-10.1) Neutrophils (%) (Auto) 79.8 % (45.0-75.0) H Lymphocytes (%) (Auto) 12.6 % (20.0-45.0) L Monocytes (%) (Auto) 5.9 % (1.0-10.0) Eosinophils (%) (Auto) 1.4 % (0.0-3.0) Basophils (%) (Auto) 0.3 % (0.0-2.0) Sodium Level 138 MMOL/L (136-145) Potassium Level 3.3 MMOL/L (3.5-5.1) L Chloride Level 104 MMOL/L (98-107) Carbon Dioxide Level 30 MMOL/L (21-32) Anion Gap 4 mmol/L (5-15) L Blood Urea Nitrogen 22 mg/dL (7-18) H Creatinine 0.5 MG/DL (0.55-1.30) L Estimat Glomerular Filtration Rate > 60 mL/min (>60) Glucose Level 218 MG/DL (74-106) H Calcium Level 8.6 MG/DL (8.5-10.1) Phosphorus Level 3.5 MG/DL (2.5-4.9) Magnesium Level 1.8 MG/DL (1.8-2.4) Total Bilirubin 0.3 MG/DL (0.2-1.0) Aspartate Amino Transf (AST/SGOT) 8 U/L (15-37) L Alanine Aminotransferase (ALT/SGPT) 14 U/L (12-78) Alkaline Phosphatase 77 U/L (46-116) Total Protein 5.2 G/DL (6.4-8.2) L Albumin 2.2 G/DL (3.4-5.0) L Globulin 3.0 g/dL Albumin/Globulin Ratio 0.7 (1.0-2.7) L ADONIS SALES Nov 26, 2017 09:22
[2017-11-26] MEDS ORDERED: Potassium Chloride 40 MEQ in Sodium Chloride 500ML 550 ML IVPB ONE (10:30)
--- NOTE | 2017-11-26 10:32 | Infectious Diseases Prog Note ---
Assessment/Plan Assessment/Plan ASSESSMENT: The patient is a 67-year-old female with: 1. Chronic obstructive pulmonary disease exacerbation. -influenza neg 2. Community-acquired pneumonia/aspiration pneumonia. -CT chest 11/22: Suspicion of malignant neoplasm with multiple lung nodules largest of which is 3.5 x 3.2 cm in the right middle lobe. Extensive consolidation at the lung bases likely pneumonia. Please correlate clinically. Bilateral pleural effusions Probable pulmonary venous congestion. Please correlate clinically. Suggestion of a mediastinal adenopathy. Marked splenomegaly. 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 Portal hypertension suspected. Suspected bilateral renal cysts not well demonstrated on this exam -CXR: New or increased small right pleural effusion Persistent left pleural fluid and extensive bilateral parenchymal disease, over one day -sp cx normal papi -legionella ag urine neg ; ab neg 3.fever/leukocytosis- resolved 4. Ventilator-dependent respiratory failure. 5.?Lung cancer- pert CT findings above - Hypertension. - Diabetes. PLAN: - Continue Ceftriaxone abx d#07/30 for PNA given no isolation of resistant organisms -11/22 SP Levaquin #6 -11/20 SP Zosyn #5 -11/15 SP Unasyn #1 - Monitor chest x-ray. -ETT care -aspiration precautions -possible trach Thank you, Dr. Isbell, for allowing me to participate in the care of this patient. I will follow the patient with you during this hospitalization. Subjective Allergies: Coded Allergies: No Known Allergies (Unverified , 11/15/17) Subjective low grade fever last night. Tm 100.3 no leukocytosis remains intubated. Fio2 50% Objective Vital Signs Last 24 Hour Vital Signs Date Time Temp Pulse Resp B/P (MAP) Pulse Ox O2 Delivery O2 Flow Rate FiO2 11/26/17 09:02 77 29 50 11/26/17 09:00 97 11/26/17 09:00 90 15 120/68 100 Mechanical Ventilator 50 11/26/17 08:00 98.9 92 16 121/63 99 Mechanical Ventilator 50 11/26/17 08:00 50 11/26/17 08:00 83 11/26/17 07:12 65 16 50 11/26/17 07:00 65 16 94/53 100 Mechanical Ventilator 50 11/26/17 07:00 16 11/26/17 06:00 16 11/26/17 06:00 67 16 133/61 100 Mechanical Ventilator 50 2/6/18 05:01 65 16 50 2/6/18 05:00 71 16 133/61 100 Mechanical Ventilator 50 2/6/18 05:00 16 2/6/18 04:28 16 2/6/18 04:00 16 2/6/18 04:00 63 2/6/18 04:00 98.7 63 16 91/51 100 Mechanical Ventilator 50 2/6/18 04:00 50 2/6/18 03:57 62 16 50 2/6/18 03:00 60 16 100/53 100 Mechanical Ventilator 50 2/6/18 03:00 16 2/6/18 02:00 63 16 91/51 100 Mechanical Ventilator 50 2/6/18 02:00 16 2//18 01:25 69 16 50 2/6/18 01:19 16 2/6/18 01:18 16 2/6/18 01:00 71 16 92/53 100 Mechanical Ventilator 50 2/6/18 00:00 16 26/18 00:00 50 2/6/18 00:00 98.8 63 16 95/50 100 Mechanical Ventilator 50 2/6/18 00:00 69 2/5/18 23:42 64 16 50 2/5/18 23:04 16 2//18 23:00 65 16 94/48 100 Mechanical Ventilator 50 2//18 22:04 16 2//18 22:03 16 2/5/18 22:00 63 16 89/51 100 Mechanical Ventilator 50 2/5/18 21:30 63 16 89/51 100 Mechanical Ventilator 50 2/5/18 21:06 99.3 2/5/18 21:05 74 16 50 2/5/18 21:00 99.3 63 16 92/53 100 Mechanical Ventilator 50 2/5/18 21:00 16 2/5/18 21:00 16 2/5/18 21:00 16 2/5/18 21:00 16 2/5/18 21:00 16 2/5/18 20:30 72 16 117/63 99 Mechanical Ventilator 50 2/5/18 20:00 100.3 67 16 100/66 99 Mechanical Ventilator 50 2/5/18 20:00 50 2/5/18 20:00 16 2/5/18 20:00 16 2/5/18 20:00 16 2/5/18 20:00 16 2/5/18 20:00 16 2/5/18 20:00 16 2/5/18 20:00 16 2/5/18 20:00 76 2/5/18 19:30 87 16 122/62 99 Mechanical Ventilator 50 2/5/18 19:13 86 16 50 2/5/18 19:00 16 2/5/18 19:00 88 16 116/59 98 Mechanical Ventilator 50 2/5/18 18:31 98.8 2/5/18 18:30 68 16 117/52 100 Mechanical Ventilator 50 2/5/18 18:01 16 2//18 18:00 79 16 117/62 98 Mechanical Ventilator 50 2//18 17:30 69 16 89/52 100 Mechanical Ventilator 50 2//18 17:13 77 16 50 2//18 17:00 16 2/18 17:00 72 16 88/46 100 2//18 16:30 98.8 68 16 100/54 100 Mechanical Ventilator 50 2/18 16:00 68 16 100/54 100 2/18 16:00 16 218 16:00 50 2/18 16:00 74 2/18 15:44 16 2/18 15:30 69 16 96/52 100 Mechanical Ventilator 50 2/18 15:00 68 16 98/51 99 2/5/18 15:00 16 2/18 14:58 70 16 50 2/5/18 14:30 68 16 91/50 100 Mechanical Ventilator 50 2/5/18 14:18 16 2//18 14:00 69 16 89/49 99 Mechanical Ventilator 50 2/5/18 14:00 16 2/5/18 13:30 68 16 89/49 100 2/5/18 13:00 16 2/18 13:00 72 17 99/50 100 Mechanical Ventilator 50 2/5/18 12:56 70 16 50 2/5/18 12:30 73 16 99/50 90 2/5/18 12:00 99.0 69 16 91/46 99 Mechanical Ventilator 50 2/5/18 12:00 50 2/5/18 12:00 16 2/5/18 12:00 74 2/5/18 11:30 77 16 92/50 100 11/25/17 11:07 98.2 11/25/17 11:00 16 11/25/17 11:00 74 16 100/51 95 11/25/17 10:37 70 16 50 11/25/17 10:37 16 11/25/17 10:30 70 16 95/53 94 Height (Feet): 5 Height (Inches): 4.00 Weight (Pounds): 155 Objective HEENT: No pale conjunctivae. No icterus. ETT in place NECK: No lymphadenopathy.. CHEST: Coarse breathing sounds. HEART: S1, S2. ABDOMEN: Soft and obese. Umbilical hernia present. EXTREMITIES: No cyanosis. NEUROLOGIC: Sedated. Laboratory Tests Test 11/26/17 05:20 11/26/17 10:10 White Blood Count 5.5 K/UL (4.8-10.8) Red Blood Count 3.80 M/UL (4.20-5.40) L Hemoglobin 9.4 G/DL (12.0-16.0) L Hematocrit 30.2 % (37.0-47.0) L Mean Corpuscular Volume 79 FL (80-99) L Mean Corpuscular Hemoglobin 24.8 PG (27.0-31.0) L Mean Corpuscular Hemoglobin Concent 31.2 G/DL (32.0-36.0) L Red Cell Distribution Width 16.8 % (11.6-14.8) H Platelet Count 136 K/UL (150-450) L Mean Platelet Volume 7.2 FL (6.5-10.1) Neutrophils (%) (Auto) 79.8 % (45.0-75.0) H Lymphocytes (%) (Auto) 12.6 % (20.0-45.0) L Monocytes (%) (Auto) 5.9 % (1.0-10.0) Eosinophils (%) (Auto) 1.4 % (0.0-3.0) Basophils (%) (Auto) 0.3 % (0.0-2.0) Sodium Level 138 MMOL/L (136-145) Potassium Level 3.3 MMOL/L (3.5-5.1) L Chloride Level 104 MMOL/L (98-107) Carbon Dioxide Level 30 MMOL/L (21-32) Anion Gap 4 mmol/L (5-15) L Blood Urea Nitrogen 22 mg/dL (7-18) H Creatinine 0.5 MG/DL (0.55-1.30) L Estimat Glomerular Filtration Rate > 60 mL/min (>60) Glucose Level 218 MG/DL (74-106) H Calcium Level 8.6 MG/DL (8.5-10.1) Phosphorus Level 3.5 MG/DL (2.5-4.9) Magnesium Level 1.8 MG/DL (1.8-2.4) Total Bilirubin 0.3 MG/DL (0.2-1.0) Aspartate Amino Transf (AST/SGOT) 8 U/L (15-37) L Alanine Aminotransferase (ALT/SGPT) 14 U/L (12-78) Alkaline Phosphatase 77 U/L (46-116) Total Protein 5.2 G/DL (6.4-8.2) L Albumin 2.2 G/DL (3.4-5.0) L Globulin 3.0 g/dL Albumin/Globulin Ratio 0.7 (1.0-2.7) L Arterial Blood pH 7.326 (7.350-7.450) Arterial Blood Partial Pressure CO2 63.8 mmHg (35.0-45.0) *H Arterial Blood Partial Pressure O2 89.1 mmHg (75.0-100.0) Arterial Blood HCO3 32.2 mmol/L (22.0-26.0) H Arterial Blood Oxygen Saturation 95.5 % (92.0-98.0) Arterial Blood Base Excess 5.0 Rolf Test Positive Current Medications Medications (Trade) Dose Ordered Sig/Edwin Route PRN Reason Start Time Stop Time Status Last Admin Dose Admin Acetaminophen (Tylenol) 650 mg Q4H PRN ORAL Fever 11/15/17 22:45 12/15/17 22:44 11/25/17 20:07 Albuterol/ Ipratropium (Albuterol/ Ipratropium) 3 ml Q4H PRN HHN Shortness of Breath 11/24/17 10:00 11/29/17 09:59 Ceftriaxone Sodium 1 gm/ Sodium Chloride 55 ml @ 110 mls/hr Q24H IVPB 11/20/17 16:00 11/27/17 15:59 11/25/17 15:44 Dextrose (Dextrose 50%) STAT PRN IV Hypoglycemia 1/26/18 22:45 12/15/17 22:44 11/16/17 11:50 Heparin Sodium (Porcine) (Heparin 5000 units/ml) 5,000 units EVERY 12 HOURS SUBQ 11/16/17 09:00 12/16/17 08:59 11/26/17 08:40 Insulin Aspart (NovoLOG) EVERY 6 HOURS SUBQ 11/16/17 18:00 12/16/17 06:29 11/26/17 05:36 Iron Sucrose 100 mg/Sodium Chloride 60 ml @ 240 mls/hr BEDTIME IV 11/26/17 21:00 11/30/17 21:14 Lorazepam (Ativan 2mg/ml 1ml) 4 mg Q4H PRN IV For Anxiety 11/22/17 20:46 11/29/17 20:45 11/25/17 08:43 Midazolam HCl 250 mg/Dextrose 550 ml @ 0 mls/hr Q24H IV 11/26/17 04:00 11/27/17 03:59 11/26/17 04:28 Morphine Sulfate (Morphine Sulfate) 8 mg Q4H PRN IVP Breakthrough pain 11/22/17 21:30 11/29/17 21:29 11/25/17 08:41 Ondansetron HCl (Zofran) 4 mg Q6H PRN IVP Nausea & Vomiting 11/15/17 22:45 12/15/17 22:44 11/18/17 21:59 Pantoprazole (Protonix) 40 mg DAILY IV 11/16/17 09:00 12/16/17 08:59 11/26/17 08:38 Polyethylene Glycol (Miralax) 17 gm DAILYPRN PRN ORAL Constipation 11/15/17 22:45 12/15/17 22:44 11/22/17 05:55 Potassium Chloride 40 meq/ Sodium Chloride 570 ml @ 142.5 mls/ hr ONCE ONCE IVPB 11/26/17 10:30 11/26/17 14:29 Elise Owusu M.D. Nov 26, 2017 10:32
--- NOTE | 2017-11-26 10:47 | Diagnostic Imaging Report ---
Indication: Dyspnea Technique: One view of the chest Comparison: 11/25/2017 Findings: Stable satisfactory positions of endotracheal and nasogastric tubes. Stable bilateral interstitial and airspace infiltrates versus edema, right infrahilar mass, left pleural effusion Impression: Unchanged, over one day, findings as above.
--- NOTE | 2017-11-26 13:09 | General Progress Note ---
Assessment/Plan Problem List: (1) History of hypertension ICD Codes: Z86.79 - Personal history of other diseases of the circulatory system SNOMED: 468241576 (2) Pleural effusion ICD Codes: J90 - Pleural effusion, not elsewhere classified SNOMED: 22934807 (3) COPD (chronic obstructive pulmonary disease) ICD Codes: J44.9 - Chronic obstructive pulmonary disease, unspecified SNOMED: 68214019 (4) Acute respiratory failure ICD Codes: J96.00 - Acute respiratory failure, unspecified whether with hypoxia or hypercapnia SNOMED: 91198568 Qualifiers: Qualified Codes: J96.01 - Acute respiratory failure with hypoxia; J96.02 - Acute respiratory failure with hypercapnia (5) Diabetes mellitus ICD Codes: E11.9 - Type 2 diabetes mellitus without complications SNOMED: 52942435 (6) Pulmonary edema ICD Codes: J81.1 - Chronic pulmonary edema SNOMED: 05674985 Status: unchanged Assessment/Plan vent abx bp bs control cbc bmp am Subjective Allergies: Coded Allergies: No Known Allergies (Unverified , 11/15/17) All Systems: reviewed and negative except above Subjective intubated sedated ng in icu Objective Last 24 Hour Vital Signs Date Time Temp Pulse Resp B/P (MAP) Pulse Ox O2 Delivery O2 Flow Rate FiO2 11/26/17 11:29 83 16 50 11/26/17 11:00 86 21 93/53 98 Mechanical Ventilator 50 11/26/17 10:00 80 16 119/63 97 Mechanical Ventilator 50 11/26/17 09:02 77 29 50 11/26/17 09:00 97 11/26/17 09:00 90 15 120/68 100 Mechanical Ventilator 50 11/26/17 08:00 98.9 92 16 121/63 99 Mechanical Ventilator 50 11/26/17 08:00 50 11/26/17 08:00 83 11/26/17 07:12 65 16 50 11/26/17 07:00 65 16 94/53 100 Mechanical Ventilator 50 11/26/17 07:00 16 11/26/17 06:00 16 11/26/17 06:00 67 16 133/61 100 Mechanical Ventilator 50 11/26/17 05:01 65 16 50 11/26/17 05:00 71 16 133/61 100 Mechanical Ventilator 50 11/26/17 05:00 16 2/6/18 04:28 16 218 04:00 16 218 04:00 63 2/6/18 04:00 98.7 63 16 91/51 100 Mechanical Ventilator 50 2/6/18 04:00 50 2/6/18 03:57 62 16 50 2/6/18 03:00 60 16 100/53 100 Mechanical Ventilator 50 2//18 03:00 16 18 02:00 63 16 91/51 100 Mechanical Ventilator 50 2//18 02:00 16 218 01:25 69 16 50 2/6/18 01:19 16 2/18 01:18 16 2/18 01:00 71 16 92/53 100 Mechanical Ventilator 50 18 00:00 16 18 00:00 50 218 00:00 98.8 63 16 95/50 100 Mechanical Ventilator 50 18 00:00 69 2//18 23:42 64 16 50 218 23:04 16 218 23:00 65 16 94/48 100 Mechanical Ventilator 50 2/18 22:04 16 18 22:03 16 18 22:00 63 16 89/51 100 Mechanical Ventilator 50 18 21:30 63 16 89/51 100 Mechanical Ventilator 50 18 21:06 99.3 2//18 21:05 74 16 50 2//18 21:00 99.3 63 16 92/53 100 Mechanical Ventilator 50 18 21:00 16 18 21:00 16 218 21:00 16 218 21:00 16 18 21:00 16 18 20:30 72 16 117/63 99 Mechanical Ventilator 50 2//18 20:00 100.3 67 16 100/66 99 Mechanical Ventilator 50 2/18 20:00 50 2//18 20:00 16 2/18 20:00 16 218 20:00 16 18 20:00 16 18 20:00 16 18 20:00 16 18 20:00 16 218 20:00 76 218 19:30 87 16 122/62 99 Mechanical Ventilator 50 11/25/17 19:13 86 16 50 11/25/17 19:00 16 11/25/17 19:00 88 16 116/59 98 Mechanical Ventilator 50 11/25/17 18:31 98.8 11/25/17 18:30 68 16 117/52 100 Mechanical Ventilator 50 11/25/17 18:01 16 11/25/17 18:00 79 16 117/62 98 Mechanical Ventilator 50 11/25/17 17:30 69 16 89/52 100 Mechanical Ventilator 50 11/25/17 17:13 77 16 50 11/25/17 17:00 16 11/25/17 17:00 72 16 88/46 100 11/25/17 16:30 98.8 68 16 100/54 100 Mechanical Ventilator 50 11/25/17 16:00 68 16 100/54 100 11/25/17 16:00 16 11/25/17 16:00 50 11/25/17 16:00 74 11/25/17 15:44 16 11/25/17 15:30 69 16 96/52 100 Mechanical Ventilator 50 11/25/17 15:00 68 16 98/51 99 11/25/17 15:00 16 11/25/17 14:58 70 16 50 11/25/17 14:30 68 16 91/50 100 Mechanical Ventilator 50 11/25/17 14:18 16 11/25/17 14:00 69 16 89/49 99 Mechanical Ventilator 50 11/25/17 14:00 16 11/25/17 13:30 68 16 89/49 100 Intake and Output 11/25/17 11/26/17 19:00 07:00 Intake Total 965 ml 1013 ml Output Total 360 ml 610 ml Balance 605 ml 403 ml Free Water 0 ml IV Total 365 ml 353 ml Tube Feeding 600 ml 600 ml Other 60 ml Output Urine Total 360 ml 610 ml Laboratory Tests 11/26/17 05:20: White Blood Count 5.5, Red Blood Count 3.80L, Hemoglobin 9.4L, Hematocrit 30.2L , Mean Corpuscular Volume 79L, Mean Corpuscular Hemoglobin 24.8L, Mean Corpuscular Hemoglobin Concent 31.2L, Red Cell Distribution Width 16.8H, Platelet Count 136L, Mean Platelet Volume 7.2, Neutrophils (%) (Auto) 79.8H, Lymphocytes (%) (Auto) 12.6L, Monocytes (%) (Auto) 5.9, Eosinophils (%) (Auto) 1.4, Basophils (%) (Auto) 0.3, Sodium Level 138, Potassium Level 3.3L, Chloride Level 104, Carbon Dioxide Level 30, Anion Gap 4L, Blood Urea Nitrogen 22H, Creatinine 0.5L, Estimat Glomerular Filtration Rate > 60, Glucose Level 218H, Calcium Level 8.6, Phosphorus Level 3.5, Magnesium Level 1.8, Total Bilirubin 0.3, Aspartate Amino Transf (AST/SGOT) 8L, Alanine Aminotransferase (ALT/SGPT) 14, Alkaline Phosphatase 77, Total Protein 5.2L, Albumin 2.2L, Globulin 3.0, Albumin/Globulin Ratio 0.7L 11/26/17 10:10: Arterial Blood pH 7.326L, Arterial Blood Partial Pressure CO2 63.8*H, Arterial Blood Partial Pressure O2 89.1, Arterial Blood HCO3 32.2H, Arterial Blood Oxygen Saturation 95.5, Arterial Blood Base Excess 5.0, Rolf Test Positive Height (Feet): 5 Height (Inches): 4.00 Weight (Pounds): 155 General Appearance: lethargic EENT: normal ENT inspection Neck: normal alignment Cardiovascular: normal peripheral pulses, normal rate, regular rhythm Respiratory/Chest: chest wall non-tender, lungs clear, normal breath sounds Abdomen: normal bowel sounds, non tender, soft Extremities: normal inspection Edema: no edema noted Arm (L), no edema noted Arm (R), no edema noted Leg (L), no edema noted Leg (R), no edema noted Pedal (L), no edema noted Pedal (R), no edema noted Generalized Neurologic: motor weakness Skin: normal pigmentation, warm/dry TIM GARY Nov 26, 2017 13:09
--- NOTE | 2017-11-26 14:47 | Cardiology Progress Note ---
Assessment/Plan Assessment/Plan Respiratory failure. Diabetes mellitus. Hypertension history. Chronic obstructive pulmonary disease history. Hypotension resolved bilateral infiltrate multiple pulm nodule on ct suspicious for malignancy splenomegaly all trop neg failed wean await trach tomorrow vent support abx tele personally reviewed staff indicated sig secretion bp borderline nto further diuretics Subjective ROS Limited/Unobtainable: Yes Subjective on the vent, agitateied Objective Last 24 Hour Vital Signs Date Time Temp Pulse Resp B/P (MAP) Pulse Ox O2 Delivery O2 Flow Rate FiO2 11/26/17 13:27 79 16 50 218 13:00 86 17 105/63 98 Mechanical Ventilator 50 11/26/17 12:00 50 18 12:00 98.7 88 16 108/65 100 Mechanical Ventilator 50 11/26/17 12:00 80 11/26/17 11:29 83 16 50 11/26/18 11:00 86 21 93/53 98 Mechanical Ventilator 50 11/26/17 10:00 80 16 119/63 97 Mechanical Ventilator 50 11/26/17 09:02 77 29 50 11/26/17 09:00 97 18 09:00 90 15 120/68 100 Mechanical Ventilator 50 11/26/17 08:00 98.9 92 16 121/63 99 Mechanical Ventilator 50 11/26/17 08:00 50 11/26/18 08:00 83 //18 07:12 65 16 50 2//18 07:00 65 16 94/53 100 Mechanical Ventilator 50 11/26/17 07:00 16 18 06:00 16 18 06:00 67 16 133/61 100 Mechanical Ventilator 50 18 05:01 65 16 50 2//18 05:00 71 16 133/61 100 Mechanical Ventilator 50 18 05:00 16 11/26/18 04:28 16 2/18 04:00 16 18 04:00 63 2//18 04:00 98.7 63 16 91/51 100 Mechanical Ventilator 50 18 04:00 50 18 03:57 62 16 50 2/18 03:00 60 16 100/53 100 Mechanical Ventilator 50 11/26/17 03:00 16 18 02:00 63 16 91/51 100 Mechanical Ventilator 50 2/6/18 02:00 16 2/6/18 01:25 69 16 50 2/6/18 01:19 16 2/6/18 01:18 16 2/6/18 01:00 71 16 92/53 100 Mechanical Ventilator 50 2/6/18 00:00 16 2/6/18 00:00 50 2/6/18 00:00 98.8 63 16 95/50 100 Mechanical Ventilator 50 2/6/18 00:00 69 2/5/18 23:42 64 16 50 2/5/18 23:04 16 2/5/18 23:00 65 16 94/48 100 Mechanical Ventilator 50 2/5/18 22:04 16 2/5/18 22:03 16 2//18 22:00 63 16 89/51 100 Mechanical Ventilator 50 2//18 21:30 63 16 89/51 100 Mechanical Ventilator 50 2/5/18 21:06 99.3 2/5/18 21:05 74 16 50 2//18 21:00 99.3 63 16 92/53 100 Mechanical Ventilator 50 2//18 21:00 16 2/5/18 21:00 16 2/5/18 21:00 16 2/5/18 21:00 16 2/18 21:00 16 2/18 20:30 72 16 117/63 99 Mechanical Ventilator 50 2//18 20:00 100.3 67 16 100/66 99 Mechanical Ventilator 50 2/5/18 20:00 50 2/5/18 20:00 16 2/5/18 20:00 16 2/5/18 20:00 16 2/5/18 20:00 16 2/5/18 20:00 16 2/5/18 20:00 16 2/5/18 20:00 16 2/5/18 20:00 76 2/5/18 19:30 87 16 122/62 99 Mechanical Ventilator 50 2/5/18 19:13 86 16 50 2/5/18 19:00 16 2/5/18 19:00 88 16 116/59 98 Mechanical Ventilator 50 2/5/18 18:31 98.8 2/5/18 18:30 68 16 117/52 100 Mechanical Ventilator 50 2/5/18 18:01 16 2/5/18 18:00 79 16 117/62 98 Mechanical Ventilator 50 2/5/18 17:30 69 16 89/52 100 Mechanical Ventilator 50 11/25/17 17:13 77 16 50 11/25/17 17:00 16 11/25/17 17:00 72 16 88/46 100 11/25/17 16:30 98.8 68 16 100/54 100 Mechanical Ventilator 50 11/25/17 16:00 68 16 100/54 100 11/25/17 16:00 16 11/25/17 16:00 50 11/25/17 16:00 74 11/25/17 15:44 16 11/25/17 15:30 69 16 96/52 100 Mechanical Ventilator 50 11/25/17 15:00 68 16 98/51 99 11/25/17 15:00 16 11/25/17 14:58 70 16 50 General Appearance: alert, on vent Cardiovascular: normal rate, regular rhythm Respiratory/Chest: lungs clear - ant Abdomen: normal bowel sounds, non tender, soft Extremities: no swelling Intake and Output 11/25/17 11/26/17 19:00 07:00 Intake Total 965 ml 1013 ml Output Total 360 ml 610 ml Balance 605 ml 403 ml Free Water 0 ml IV Total 365 ml 353 ml Tube Feeding 600 ml 600 ml Other 60 ml Output Urine Total 360 ml 610 ml Laboratory Tests Test 11/26/17 05:20 11/26/17 10:10 White Blood Count 5.5 K/UL (4.8-10.8) Red Blood Count 3.80 M/UL (4.20-5.40) L Hemoglobin 9.4 G/DL (12.0-16.0) L Hematocrit 30.2 % (37.0-47.0) L Mean Corpuscular Volume 79 FL (80-99) L Mean Corpuscular Hemoglobin 24.8 PG (27.0-31.0) L Mean Corpuscular Hemoglobin Concent 31.2 G/DL (32.0-36.0) L Red Cell Distribution Width 16.8 % (11.6-14.8) H Platelet Count 136 K/UL (150-450) L Mean Platelet Volume 7.2 FL (6.5-10.1) Neutrophils (%) (Auto) 79.8 % (45.0-75.0) H Lymphocytes (%) (Auto) 12.6 % (20.0-45.0) L Monocytes (%) (Auto) 5.9 % (1.0-10.0) Eosinophils (%) (Auto) 1.4 % (0.0-3.0) Basophils (%) (Auto) 0.3 % (0.0-2.0) Sodium Level 138 MMOL/L (136-145) Potassium Level 3.3 MMOL/L (3.5-5.1) L Chloride Level 104 MMOL/L (98-107) Carbon Dioxide Level 30 MMOL/L (21-32) Anion Gap 4 mmol/L (5-15) L Blood Urea Nitrogen 22 mg/dL (7-18) H Creatinine 0.5 MG/DL (0.55-1.30) L Estimat Glomerular Filtration Rate > 60 mL/min (>60) Glucose Level 218 MG/DL (74-106) H Calcium Level 8.6 MG/DL (8.5-10.1) Phosphorus Level 3.5 MG/DL (2.5-4.9) Magnesium Level 1.8 MG/DL (1.8-2.4) Total Bilirubin 0.3 MG/DL (0.2-1.0) Aspartate Amino Transf (AST/SGOT) 8 U/L (15-37) L Alanine Aminotransferase (ALT/SGPT) 14 U/L (12-78) Alkaline Phosphatase 77 U/L (46-116) Total Protein 5.2 G/DL (6.4-8.2) L Albumin 2.2 G/DL (3.4-5.0) L Globulin 3.0 g/dL Albumin/Globulin Ratio 0.7 (1.0-2.7) L Arterial Blood pH 7.326 (7.350-7.450) Arterial Blood Partial Pressure CO2 63.8 mmHg (35.0-45.0) *H Arterial Blood Partial Pressure O2 89.1 mmHg (75.0-100.0) Arterial Blood HCO3 32.2 mmol/L (22.0-26.0) H Arterial Blood Oxygen Saturation 95.5 % (92.0-98.0) Arterial Blood Base Excess 5.0 Rolf Test Positive CALIN HAWKINS Nov 26, 2017 14:47
[2017-11-26] MEDS: cefTRIAXone 1 GM in NS 55 ML IVPB SCH (16:29)
--- NOTE | 2017-11-26 18:01 | General Surgery Progress Note ---
General Surgery-Progress Note Subjective Additional Comments no acute events. unchanged. Objective Last 24 Hour Vital Signs Date Time Temp Pulse Resp B/P (MAP) Pulse Ox O2 Delivery O2 Flow Rate FiO2 11/26/17 17:00 72 16 98/57 99 Mechanical Ventilator 50 11/26/17 17:00 17 11/26/17 16:34 70 16 50 18 16:00 50 11/26/17 16:00 80 11/26/17 16:00 98.3 69 16 96/55 99 Mechanical Ventilator 50 11/26/17 16:00 16 11/26/17 15:40 74 16 50 11/26/17 15:00 15 11/26/17 15:00 81 17 93/53 99 Mechanical Ventilator 50 11/26/17 14:00 83 16 100/64 98 Mechanical Ventilator 50 11/26/17 14:00 16 11/26/17 13:27 79 16 50 11/26/17 13:00 86 17 105/63 98 Mechanical Ventilator 50 11/26/17 13:00 16 11/26/17 12:00 50 11/26/17 12:00 98.7 88 16 108/65 100 Mechanical Ventilator 50 11/26/17 12:00 18 11/26/17 12:00 80 11/26/17 11:29 83 16 50 11/26/17 11:00 86 21 93/53 98 Mechanical Ventilator 50 11/26/17 11:00 18 11/26/17 10:00 16 11/26/17 10:00 80 16 119/63 97 Mechanical Ventilator 50 11/26/17 09:02 77 29 50 11/26/17 09:00 97 11/26/17 09:00 90 15 120/68 100 Mechanical Ventilator 50 11/26/17 09:00 18 11/26/17 08:00 19 11/26/17 08:00 98.9 92 16 121/63 99 Mechanical Ventilator 50 11/26/17 08:00 50 11/26/17 08:00 83 11/26/17 07:12 65 16 50 18 07:00 65 16 94/53 100 Mechanical Ventilator 50 11/26/17 07:00 16 11/26/17 06:00 16 11/26/17 06:00 67 16 133/61 100 Mechanical Ventilator 50 11/26/17 05:01 65 16 50 2/6/18 05:00 71 16 133/61 100 Mechanical Ventilator 50 2/6/18 05:00 16 2/6/18 04:28 16 2/6/18 04:00 16 2/18 04:00 63 2/6/18 04:00 98.7 63 16 91/51 100 Mechanical Ventilator 50 2/6/18 04:00 50 2/6/18 03:57 62 16 50 2/6/18 03:00 60 16 100/53 100 Mechanical Ventilator 50 2//18 03:00 16 2/18 02:00 63 16 91/51 100 Mechanical Ventilator 50 2//18 02:00 16 2//18 01:25 69 16 50 2/6/18 01:19 16 2/18 01:18 16 218 01:00 71 16 92/53 100 Mechanical Ventilator 50 2//18 00:00 16 2/18 00:00 50 2//18 00:00 98.8 63 16 95/50 100 Mechanical Ventilator 50 218 00:00 69 2//18 23:42 64 16 50 2//18 23:04 16 2/18 23:00 65 16 94/48 100 Mechanical Ventilator 50 2//18 22:04 16 218 22:03 16 218 22:00 63 16 89/51 100 Mechanical Ventilator 50 2//18 21:30 63 16 89/51 100 Mechanical Ventilator 50 2//18 21:06 99.3 2//18 21:05 74 16 50 2//18 21:00 99.3 63 16 92/53 100 Mechanical Ventilator 50 2//18 21:00 16 2//18 21:00 16 2/18 21:00 16 2/18 21:00 16 218 21:00 16 2/18 20:30 72 16 117/63 99 Mechanical Ventilator 50 2//18 20:00 100.3 67 16 100/66 99 Mechanical Ventilator 50 2/5/18 20:00 50 2/5/18 20:00 16 2/5/18 20:00 16 2//18 20:00 16 2/18 20:00 16 2/5/18 20:00 16 2/18 20:00 16 11/25/17 20:00 16 11/25/17 20:00 76 11/25/17 19:30 87 16 122/62 99 Mechanical Ventilator 50 11/25/17 19:13 86 16 50 11/25/17 19:00 16 11/25/17 19:00 88 16 116/59 98 Mechanical Ventilator 50 11/25/17 18:31 98.8 11/25/17 18:30 68 16 117/52 100 Mechanical Ventilator 50 11/25/17 18:01 16 11/25/17 18:00 79 16 117/62 98 Mechanical Ventilator 50 I&O Intake and Output 11/25/17 11/26/17 19:00 07:00 Intake Total 965 ml 1013 ml Output Total 360 ml 610 ml Balance 605 ml 403 ml Free Water 0 ml IV Total 365 ml 353 ml Tube Feeding 600 ml 600 ml Other 60 ml Output Urine Total 360 ml 610 ml Drains: other - intubated on vent Cardiovascular: RSR Respiratory: decreased breath sounds Abdomen: soft, flat Extremities: no cyanosis Laboratory Tests Test 11/26/17 05:20 11/26/17 10:10 White Blood Count 5.5 K/UL (4.8-10.8) Red Blood Count 3.80 M/UL (4.20-5.40) L Hemoglobin 9.4 G/DL (12.0-16.0) L Hematocrit 30.2 % (37.0-47.0) L Mean Corpuscular Volume 79 FL (80-99) L Mean Corpuscular Hemoglobin 24.8 PG (27.0-31.0) L Mean Corpuscular Hemoglobin Concent 31.2 G/DL (32.0-36.0) L Red Cell Distribution Width 16.8 % (11.6-14.8) H Platelet Count 136 K/UL (150-450) L Mean Platelet Volume 7.2 FL (6.5-10.1) Neutrophils (%) (Auto) 79.8 % (45.0-75.0) H Lymphocytes (%) (Auto) 12.6 % (20.0-45.0) L Monocytes (%) (Auto) 5.9 % (1.0-10.0) Eosinophils (%) (Auto) 1.4 % (0.0-3.0) Basophils (%) (Auto) 0.3 % (0.0-2.0) Sodium Level 138 MMOL/L (136-145) Potassium Level 3.3 MMOL/L (3.5-5.1) L Chloride Level 104 MMOL/L (98-107) Carbon Dioxide Level 30 MMOL/L (21-32) Anion Gap 4 mmol/L (5-15) L Blood Urea Nitrogen 22 mg/dL (7-18) H Creatinine 0.5 MG/DL (0.55-1.30) L Estimat Glomerular Filtration Rate > 60 mL/min (>60) Glucose Level 218 MG/DL (74-106) H Calcium Level 8.6 MG/DL (8.5-10.1) Phosphorus Level 3.5 MG/DL (2.5-4.9) Magnesium Level 1.8 MG/DL (1.8-2.4) Total Bilirubin 0.3 MG/DL (0.2-1.0) Aspartate Amino Transf (AST/SGOT) 8 U/L (15-37) L Alanine Aminotransferase (ALT/SGPT) 14 U/L (12-78) Alkaline Phosphatase 77 U/L (46-116) Total Protein 5.2 G/DL (6.4-8.2) L Albumin 2.2 G/DL (3.4-5.0) L Globulin 3.0 g/dL Albumin/Globulin Ratio 0.7 (1.0-2.7) L Arterial Blood pH 7.326 (7.350-7.450) Arterial Blood Partial Pressure CO2 63.8 mmHg (35.0-45.0) *H Arterial Blood Partial Pressure O2 89.1 mmHg (75.0-100.0) Arterial Blood HCO3 32.2 mmol/L (22.0-26.0) H Arterial Blood Oxygen Saturation 95.5 % (92.0-98.0) Arterial Blood Base Excess 5.0 Rolf Test Positive Plan Problems: (1) Acute respiratory failure Assessment & Plan: 67F with acute respiratory failure requiring intubation in ED upon presentation. Unfortunately has not been improving since and not able to wean from vent. Patient seen, ABG reviewed, history reviewed, cxr reviewed. likely need for prolonged ventilatory support. would benefit from trach. family gave consent will monitor for a few days first to see if improvement will hold for now given possible lung cancer vs mets noted as lung masses on CT thank you for this consultation. will follow with you. Rom Damian Nov 26, 2017 18:01
[2017-11-26] MEDS: Iron Sucrose 100 MG in NS 55 ML IV SCH (21:02)
[2017-11-27] VITALS (42 sets, daily range): BP systolic 87–128; BP diastolic 50–81
[2017-11-27] MEDS: NovoLOG Insulin Flexpen SUBQ SCH ×4 (00:08→17:38)
[2017-11-27] MEDS: LORazepam Inj 2mg/ml 1ml IV PRN ×2 (03:16→20:35)
[2017-11-27 05:16] LABS: BASOPHILS % (AUTO) 0.5 % (0.0-2.0); EOSINOPHILS % (AUTO) 1.4 % (0.0-3.0); HEMATOCRIT 27.9 % (37.0-47.0); HEMOGLOBIN 8.7 G/DL (12.0-16.0); LYMPHOCYTES % (AUTO) 12.2 % (20.0-45.0); MEAN CORPUSCULAR VOLUME 80 FL (80-99); MONOCYTES % (AUTO) 4.4 % (1.0-10.0); NEUTROPHILS % (AUTO) 81.6 % (45.0-75.0); PLATELET COUNT 139 K/UL (150-450); RED CELL DISTRIBUTION WIDTH 17.6 % (11.6-14.8); WHITE BLOOD COUNT 5.4 K/UL (4.8-10.8)
[2017-11-27 05:34] LABS: ALANINE AMINOTRANSFERASE 12 U/L (12-78); ALBUMIN 2.1 G/DL (3.4-5.0); ALBUMIN/GLOBULIN RATIO 0.7 (1.0-2.7); ALKALINE PHOSPHATASE 68 U/L (46-116); ANION GAP 5 mmol/L (5-15); ASPARTATE AMINO TRANSFERASE 9 U/L (15-37); BILIRUBIN,TOTAL 0.3 MG/DL (0.2-1.0); BLOOD UREA NITROGEN 18 mg/dL (7-18); CALCIUM 8.7 MG/DL (8.5-10.1); CARBON DIOXIDE 30 MMOL/L (21-32); CHLORIDE 105 MMOL/L (98-107); CREATININE 0.4 MG/DL (0.55-1.30); PHOSPHORUS 3.1 MG/DL (2.5-4.9); POTASSIUM 3.9 MMOL/L (3.5-5.1); SODIUM 140 MMOL/L (136-145)
[2017-11-27] MEDS ORDERED: Midazolam/D5W 100ml 100 ML IVPB SCH (06:15)
[2017-11-27] MEDS: Pantoprazole Inj IV SCH (08:22)
[2017-11-27] MEDS: Heparin 5000 units/ml inj SUBQ SCH ×2 (08:22→21:10)
--- NOTE | 2017-11-27 09:26 | Pulmonolgy Critical Care Note ---
Critical Care - Asmt/Plan Problems: (1) Acute respiratory failure (2) Pleural effusion (3) COPD (chronic obstructive pulmonary disease) (4) Diabetes mellitus (5) Pulmonary edema Assessment/Plan: d/w radiologist, it is not possible to do CT guided biopsy of the lung in intubated patients. She has axillary node than can be biopsied. She also has signs of cirrhosis and portal hypertension. Respiratory: monitor respiratory rate, adjust FIO2, CXR Cardiac: continue to monitor HR/BP Renal: F/U I&O Infectious Disease: check cultures Gastrointestinal: continue feedings/current rate, hold feedings Endocrine: check TSH, check HgA1C Hematologic: monitor H/H Neurologic: PRN Ativan Notes Reviewed: cardio Discussed with: nurses, consultants Critical Care - Objective Last 24 Hour Vital Signs Date Time Temp Pulse Resp B/P (MAP) Pulse Ox O2 Delivery O2 Flow Rate FiO2 11/27/17 08:00 40 11/27/17 08:00 98.7 71 17 111/56 98 Mechanical Ventilator 40 11/27/17 08:00 62 11/27/17 08:00 17 11/27/17 07:22 63 16 40 11/27/17 07:00 16 11/27/17 07:00 63 16 94/51 98 Mechanical Ventilator 40 11/27/17 06:28 16 11/27/17 06:00 65 16 94/50 97 Mechanical Ventilator 40 11/27/17 05:25 68 16 40 11/27/17 05:00 72 17 97/53 99 Mechanical Ventilator 40 11/27/17 04:00 40 11/27/17 04:00 99.1 76 17 110/62 98 Mechanical Ventilator 40 11/27/17 04:00 16 11/27/17 04:00 80 11/27/17 03:26 70 16 40 11/27/17 03:00 69 16 128/58 97 Mechanical Ventilator 40 11/27/17 03:00 16 11/27/17 02:30 74 17 110/62 98 Mechanical Ventilator 40 11/27/17 02:00 74 16 110/62 98 Mechanical Ventilator 40 11/27/17 02:00 16 11/27/17 01:30 77 18 110/62 98 Mechanical Ventilator 40 11/27/17 01:01 71 16 40 11/27/17 01:00 74 18 105/58 98 Mechanical Ventilator 40 11/27/17 01:00 16 11/27/17 00:30 69 18 105/58 98 Mechanical Ventilator 40 11/27/17 00:00 68 11/27/17 00:00 40 11/27/17 00:00 16 11/27/17 00:00 99.3 73 16 91/52 99 Mechanical Ventilator 40 18 23:30 73 19 112/61 98 Mechanical Ventilator 40 18 23:00 13 11/26/17 23:00 75 19 130/62 98 Mechanical Ventilator 40 11/26/17 22:39 73 16 40 18 22:30 74 16 92/51 98 Mechanical Ventilator 40 18 22:00 15 11/26/17 22:00 68 16 92/51 98 Mechanical Ventilator 40 11/26/17 21:30 72 16 92/51 97 Mechanical Ventilator 40 11/26/17 21:15 17 11/26/17 21:02 17 11/26/17 21:00 99.1 70 16 132/60 97 Mechanical Ventilator 40 11/26/17 20:57 75 16 40 11/26/17 20:30 77 16 111/60 98 Mechanical Ventilator 40 11/26/17 20:00 73 18 20:00 15 11/26/17 20:00 99.3 78 17 109/60 98 Mechanical Ventilator 40 11/26/17 20:00 40 11/26/17 19:30 75 16 108/62 99 Mechanical Ventilator 40 11/26/17 19:00 78 16 111/50 99 Mechanical Ventilator 50 18 19:00 16 18 18:53 70 16 40 18 18:00 75 16 101/59 99 Mechanical Ventilator 50 2/18 18:00 16 18 17:00 72 16 98/57 99 Mechanical Ventilator 50 18 17:00 17 18 16:34 70 16 50 11/26/18 16:00 50 18 16:00 80 18 16:00 98.3 69 16 96/55 99 Mechanical Ventilator 50 218 16:00 16 18 15:40 74 16 50 218 15:00 15 18 15:00 81 17 93/53 99 Mechanical Ventilator 50 2/6/18 14:00 83 16 100/64 98 Mechanical Ventilator 50 11/26/17 14:00 16 11/26/17 13:27 79 16 50 11/26/17 13:00 86 17 105/63 98 Mechanical Ventilator 50 11/26/17 13:00 16 11/26/17 12:00 50 11/26/17 12:00 98.7 88 16 108/65 100 Mechanical Ventilator 50 11/26/17 12:00 18 11/26/17 12:00 80 11/26/17 11:29 83 16 50 11/26/17 11:00 86 21 93/53 98 Mechanical Ventilator 50 11/26/17 11:00 18 11/26/17 10:00 16 11/26/17 10:00 80 16 119/63 97 Mechanical Ventilator 50 Status: sedated Condition: critical Neck: full ROM Lungs: clear Heart: HR/BP unstable Abdomen: non-tender, feeding tube Extremities: no C/C/E Decubiti: location Accucheck: 205 Critical Care - Subjective ROS Limited/Unobtainable: No ICU Day: 121 EKG Rhythm: Sinus Rhythm FI02: 40 Vent Support Breath Rate: 16 Vent Support Mode: AC Vent Tidal Volume: 600 Sputum Amount: Moderate PEEP: 0.0 PIP: 26 Tube Feeding Amount: 50 I&O: Intake and Output 11/26/17 11/27/17 19:00 07:00 Intake Total 1263.5 ml 972 ml Output Total 410 ml 450 ml Balance 853.5 ml 522 ml IV Total 663.5 ml 372 ml Tube Feeding 600 ml 600 ml Output Urine Total 410 ml 450 ml ET-Tube: 7.0 ET Position: 23 Labs: Laboratory Tests Test 11/26/17 10:10 11/27/17 03:20 11/27/17 05:30 11/27/17 09:15 Arterial Blood pH 7.326 (7.350-7.450) Arterial Blood Partial Pressure CO2 63.8 mmHg (35.0-45.0) *H Arterial Blood Partial Pressure O2 89.1 mmHg (75.0-100.0) Arterial Blood HCO3 32.2 mmol/L (22.0-26.0) H Arterial Blood Oxygen Saturation 95.5 % (92.0-98.0) Arterial Blood Base Excess 5.0 Rolf Test Positive White Blood Count 5.4 K/UL (4.8-10.8) Red Blood Count 3.50 M/UL (4.20-5.40) L Hemoglobin 8.7 G/DL (12.0-16.0) L Hematocrit 27.9 % (37.0-47.0) L Mean Corpuscular Volume 80 FL (80-99) Mean Corpuscular Hemoglobin 25.0 PG (27.0-31.0) L Mean Corpuscular Hemoglobin Concent 31.3 G/DL (32.0-36.0) L Red Cell Distribution Width 17.6 % (11.6-14.8) H Platelet Count 139 K/UL (150-450) L Mean Platelet Volume 6.9 FL (6.5-10.1) Neutrophils (%) (Auto) 81.6 % (45.0-75.0) H Lymphocytes (%) (Auto) 12.2 % (20.0-45.0) L Monocytes (%) (Auto) 4.4 % (1.0-10.0) Eosinophils (%) (Auto) 1.4 % (0.0-3.0) Basophils (%) (Auto) 0.5 % (0.0-2.0) Sodium Level 140 MMOL/L (136-145) Potassium Level 3.9 MMOL/L (3.5-5.1) Chloride Level 105 MMOL/L (98-107) Carbon Dioxide Level 30 MMOL/L (21-32) Anion Gap 5 mmol/L (5-15) Blood Urea Nitrogen 18 mg/dL (7-18) Creatinine 0.4 MG/DL (0.55-1.30) L Estimat Glomerular Filtration Rate > 60 mL/min (>60) Glucose Level 168 MG/DL (74-106) H Calcium Level 8.7 MG/DL (8.5-10.1) Phosphorus Level 3.1 MG/DL (2.5-4.9) Magnesium Level 1.9 MG/DL (1.8-2.4) Total Bilirubin 0.3 MG/DL (0.2-1.0) Aspartate Amino Transf (AST/SGOT) 9 U/L (15-37) L Alanine Aminotransferase (ALT/SGPT) 12 U/L (12-78) Alkaline Phosphatase 68 U/L (46-116) Total Protein 5.0 G/DL (6.4-8.2) L Albumin 2.1 G/DL (3.4-5.0) L Globulin 2.9 g/dL Albumin/Globulin Ratio 0.7 (1.0-2.7) L Stool Occult Blood Pending Prothrombin Time Pending Prothromb Time International Ratio Pending Activated Partial Thromboplast Time Pending ADONIS SALES Nov 27, 2017 09:26
[2017-11-27] MEDS ORDERED: D5W IV SCH (11:30)
[2017-11-27] MEDS ORDERED: MIDAZOLAM IV SCH (11:30)
--- NOTE | 2017-11-27 12:49 | Diagnostic Imaging Report ---
Indication: Dyspnea Technique: One view of the chest Comparison: To 04/09/2018 Findings: Stable satisfactory positions of endotracheal and nasogastric tubes. Bilateral interstitial and airspace edema, bilateral pulmonary nodules are again demonstrated. Findings are overall unchanged Impression: Unchanged, over one day, findings as above.
--- NOTE | 2017-11-27 13:04 | General Progress Note ---
Assessment/Plan Problem List: (1) History of hypertension ICD Codes: Z86.79 - Personal history of other diseases of the circulatory system SNOMED: 015753908 (2) Pleural effusion ICD Codes: J90 - Pleural effusion, not elsewhere classified SNOMED: 38551141 (3) COPD (chronic obstructive pulmonary disease) ICD Codes: J44.9 - Chronic obstructive pulmonary disease, unspecified SNOMED: 84785478 (4) Acute respiratory failure ICD Codes: J96.00 - Acute respiratory failure, unspecified whether with hypoxia or hypercapnia SNOMED: 05218480 Qualifiers: Qualified Codes: J96.01 - Acute respiratory failure with hypoxia; J96.02 - Acute respiratory failure with hypercapnia (5) Diabetes mellitus ICD Codes: E11.9 - Type 2 diabetes mellitus without complications SNOMED: 01926164 (6) Pulmonary edema ICD Codes: J81.1 - Chronic pulmonary edema SNOMED: 11935842 Status: unchanged Assessment/Plan vent abx bp bs control cbc bmp am Subjective Constitutional: Reports: weakness Allergies: Coded Allergies: No Known Allergies (Unverified , 11/15/17) All Systems: reviewed and negative except above Subjective intubated sedated ng in icu Objective Last 24 Hour Vital Signs Date Time Temp Pulse Resp B/P (MAP) Pulse Ox O2 Delivery O2 Flow Rate FiO2 11/27/17 12:00 40 11/27/17 12:00 98.8 62 16 104/64 100 Mechanical Ventilator 40 11/27/17 12:00 16 11/27/17 12:00 62 11/27/17 11:22 16 11/27/17 11:18 68 17 40 11/27/17 11:00 68 16 112/59 95 Mechanical Ventilator 40 11/27/17 10:30 70 16 97/54 98 Mechanical Ventilator 40 11/27/17 10:00 69 16 112/59 97 Mechanical Ventilator 40 11/27/17 10:00 16 11/27/17 09:30 74 16 116/63 99 Mechanical Ventilator 40 11/27/17 09:19 75 16 40 11/27/17 09:00 64 16 94/56 98 Mechanical Ventilator 40 11/27/17 09:00 16 11/27/17 08:30 72 16 92/56 97 Mechanical Ventilator 40 11/27/17 08:00 40 11/27/17 08:00 98.7 71 17 111/56 98 Mechanical Ventilator 40 11/27/17 08:00 62 11/27/17 08:00 17 11/27/17 07:30 63 16 120/60 98 Mechanical Ventilator 40 11/27/17 07:22 63 16 40 11/27/17 07:00 16 11/27/17 07:00 63 16 94/51 98 Mechanical Ventilator 40 11/27/17 06:28 16 11/27/17 06:00 65 16 94/50 97 Mechanical Ventilator 40 11/27/17 05:25 68 16 40 11/27/17 05:00 72 17 97/53 99 Mechanical Ventilator 40 11/27/17 04:00 40 11/27/17 04:00 99.1 76 17 110/62 98 Mechanical Ventilator 40 11/27/17 04:00 16 11/27/17 04:00 80 11/27/17 03:26 70 16 40 11/27/17 03:00 69 16 128/58 97 Mechanical Ventilator 40 11/27/17 03:00 16 11/27/17 02:30 74 17 110/62 98 Mechanical Ventilator 40 11/27/17 02:00 74 16 110/62 98 Mechanical Ventilator 40 11/27/17 02:00 16 11/27/17 01:30 77 18 110/62 98 Mechanical Ventilator 40 11/27/17 01:01 71 16 40 11/27/17 01:00 74 18 105/58 98 Mechanical Ventilator 40 11/27/17 01:00 16 11/27/17 00:30 69 18 105/58 98 Mechanical Ventilator 40 11/27/17 00:00 68 11/27/17 00:00 40 11/27/17 00:00 16 11/27/17 00:00 99.3 73 16 91/52 99 Mechanical Ventilator 40 11/26/17 23:30 73 19 112/61 98 Mechanical Ventilator 40 11/26/17 23:00 13 11/26/17 23:00 75 19 130/62 98 Mechanical Ventilator 40 11/26/17 22:39 73 16 40 11/26/17 22:30 74 16 92/51 98 Mechanical Ventilator 40 11/26/17 22:00 15 11/26/17 22:00 68 16 92/51 98 Mechanical Ventilator 40 11/26/17 21:30 72 16 92/51 97 Mechanical Ventilator 40 11/26/17 21:15 17 11/26/17 21:02 17 11/26/17 21:00 99.1 70 16 132/60 97 Mechanical Ventilator 40 11/26/17 20:57 75 16 40 18 20:30 77 16 111/60 98 Mechanical Ventilator 40 11/26/17 20:00 73 18 20:00 15 11/26/17 20:00 99.3 78 17 109/60 98 Mechanical Ventilator 40 11/26/17 20:00 40 11/26/17 19:30 75 16 108/62 99 Mechanical Ventilator 40 11/26/17 19:00 78 16 111/50 99 Mechanical Ventilator 50 11/26/17 19:00 16 11/26/17 18:53 70 16 40 11/26/17 18:00 75 16 101/59 99 Mechanical Ventilator 50 11/26/17 18:00 16 11/26/17 17:00 72 16 98/57 99 Mechanical Ventilator 50 11/26/17 17:00 17 11/26/17 16:34 70 16 50 11/26/17 16:00 50 11/26/17 16:00 80 11/26/17 16:00 98.3 69 16 96/55 99 Mechanical Ventilator 50 11/26/17 16:00 16 11/26/17 15:40 74 16 50 11/26/17 15:00 15 11/26/17 15:00 81 17 93/53 99 Mechanical Ventilator 50 11/26/17 14:00 83 16 100/64 98 Mechanical Ventilator 50 11/26/17 14:00 16 11/26/17 13:27 79 16 50 Intake and Output 11/26/17 11/27/17 19:00 07:00 Intake Total 1263.5 ml 972 ml Output Total 410 ml 450 ml Balance 853.5 ml 522 ml IV Total 663.5 ml 372 ml Tube Feeding 600 ml 600 ml Output Urine Total 410 ml 450 ml Laboratory Tests 11/27/17 03:20: White Blood Count 5.4, Red Blood Count 3.50L, Hemoglobin 8.7L, Hematocrit 27.9L , Mean Corpuscular Volume 80, Mean Corpuscular Hemoglobin 25.0L, Mean Corpuscular Hemoglobin Concent 31.3L, Red Cell Distribution Width 17.6H, Platelet Count 139L, Mean Platelet Volume 6.9, Neutrophils (%) (Auto) 81.6H, Lymphocytes (%) (Auto) 12.2L, Monocytes (%) (Auto) 4.4, Eosinophils (%) (Auto) 1.4, Basophils (%) (Auto) 0.5, Sodium Level 140, Potassium Level 3.9, Chloride Level 105, Carbon Dioxide Level 30, Anion Gap 5, Blood Urea Nitrogen 18, Creatinine 0.4L, Estimat Glomerular Filtration Rate > 60, Glucose Level 168H, Calcium Level 8.7, Phosphorus Level 3.1, Magnesium Level 1.9, Total Bilirubin 0.3, Aspartate Amino Transf (AST/SGOT) 9L, Alanine Aminotransferase (ALT/SGPT) 12, Alkaline Phosphatase 68, Total Protein 5.0L, Albumin 2.1L, Globulin 2.9, Albumin/Globulin Ratio 0.7L 11/27/17 04:00: Arterial Blood pH 7.447, Arterial Blood Partial Pressure CO2 40.7, Arterial Blood Partial Pressure O2 100.1H, Arterial Blood HCO3 27.5H, Arterial Blood Oxygen Saturation 97.3, Arterial Blood Base Excess 3.2, Rolf Test Positive 11/27/17 05:30: Stool Occult Blood Negative 11/27/17 09:15: Prothrombin Time 10.1, Prothromb Time International Ratio 1.0, Activated Partial Thromboplast Time 31 Height (Feet): 5 Height (Inches): 4.00 Weight (Pounds): 158 General Appearance: lethargic EENT: normal ENT inspection Neck: normal alignment Cardiovascular: normal peripheral pulses, normal rate, regular rhythm Respiratory/Chest: chest wall non-tender, lungs clear, normal breath sounds Abdomen: normal bowel sounds, non tender, soft Extremities: normal inspection Edema: no edema noted Arm (L), no edema noted Arm (R), no edema noted Leg (L), no edema noted Leg (R), no edema noted Pedal (L), no edema noted Pedal (R), no edema noted Generalized Neurologic: motor weakness Skin: normal pigmentation, warm/dry TIM GARY Nov 27, 2017 13:04
--- NOTE | 2017-11-27 13:31 | Infectious Diseases Prog Note ---
Assessment/Plan Assessment/Plan ASSESSMENT: The patient is a 67-year-old female with: 1. Chronic obstructive pulmonary disease exacerbation. -influenza neg 2. Community-acquired pneumonia/aspiration pneumonia.. s/o Rx -CT chest 11/22: Suspicion of malignant neoplasm with multiple lung nodules largest of which is 3.5 x 3.2 cm in the right middle lobe. Extensive consolidation at the lung bases likely pneumonia. Please correlate clinically. Bilateral pleural effusions Probable pulmonary venous congestion. Please correlate clinically. Suggestion of a mediastinal adenopathy. Marked splenomegaly. 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 Portal hypertension suspected. Suspected bilateral renal cysts not well demonstrated on this exam -CXR: New or increased small right pleural effusion Persistent left pleural fluid and extensive bilateral parenchymal disease, over one day -sp cx normal papi -legionella ag urine neg ; ab neg 3.fever/leukocytosis- resolved 4. Ventilator-dependent respiratory failure. 5.?Lung cancer- pert CT findings above - Hypertension. - Diabetes. PLAN: - Continue to monitor off abx -11/26 SP Ceftriaxone #10 -11/22 SP Levaquin #6 -11/20 SP Zosyn #5 -11/15 SP Unasyn #1 - Monitor chest x-ray. -ETT care -aspiration precautions -possible trach Thank you, Dr. Isbell, for allowing me to participate in the care of this patient. I will follow the patient with you during this hospitalization. Subjective Allergies: Coded Allergies: No Known Allergies (Unverified , 11/15/17) Subjective afebrile >36hrs no leukocytosis remains intubated. Fio2 40% Objective Vital Signs Last 24 Hour Vital Signs Date Time Temp Pulse Resp B/P (MAP) Pulse Ox O2 Delivery O2 Flow Rate FiO2 11/27/17 13:00 71 18 117/81 97 Mechanical Ventilator 40 11/27/17 13:00 16 11/27/17 12:00 40 11/27/17 12:00 98.8 62 16 104/64 100 Mechanical Ventilator 40 11/27/17 12:00 16 11/27/17 12:00 62 11/27/17 11:22 16 11/27/17 11:18 68 17 40 11/27/17 11:00 68 16 112/59 95 Mechanical Ventilator 40 11/27/17 10:30 70 16 97/54 98 Mechanical Ventilator 40 11/27/17 10:00 69 16 112/59 97 Mechanical Ventilator 40 11/27/17 10:00 16 11/27/17 09:30 74 16 116/63 99 Mechanical Ventilator 40 11/27/17 09:19 75 16 40 11/27/17 09:00 64 16 94/56 98 Mechanical Ventilator 40 11/27/17 09:00 16 11/27/17 08:30 72 16 92/56 97 Mechanical Ventilator 40 11/27/17 08:00 40 11/27/17 08:00 98.7 71 17 111/56 98 Mechanical Ventilator 40 11/27/17 08:00 62 11/27/17 08:00 17 11/27/17 07:30 63 16 120/60 98 Mechanical Ventilator 40 11/27/17 07:22 63 16 40 11/27/17 07:00 16 11/27/17 07:00 63 16 94/51 98 Mechanical Ventilator 40 11/27/17 06:28 16 11/27/17 06:00 65 16 94/50 97 Mechanical Ventilator 40 11/27/17 05:25 68 16 40 11/27/17 05:00 72 17 97/53 99 Mechanical Ventilator 40 11/27/17 04:00 40 11/27/17 04:00 99.1 76 17 110/62 98 Mechanical Ventilator 40 11/27/17 04:00 16 11/27/17 04:00 80 11/27/17 03:26 70 16 40 11/27/17 03:00 69 16 128/58 97 Mechanical Ventilator 40 11/27/17 03:00 16 11/27/17 02:30 74 17 110/62 98 Mechanical Ventilator 40 11/27/17 02:00 74 16 110/62 98 Mechanical Ventilator 40 11/27/17 02:00 16 11/27/17 01:30 77 18 110/62 98 Mechanical Ventilator 40 11/27/17 01:01 71 16 40 11/27/17 01:00 74 18 105/58 98 Mechanical Ventilator 40 11/27/17 01:00 16 11/27/17 00:30 69 18 105/58 98 Mechanical Ventilator 40 11/27/17 00:00 68 11/27/17 00:00 40 11/27/17 00:00 16 11/27/17 00:00 99.3 73 16 91/52 99 Mechanical Ventilator 40 2/6/18 23:30 73 19 112/61 98 Mechanical Ventilator 40 2//18 23:00 13 2/18 23:00 75 19 130/62 98 Mechanical Ventilator 40 2/18 22:39 73 16 40 2/18 22:30 74 16 92/51 98 Mechanical Ventilator 40 2//18 22:00 15 18 22:00 68 16 92/51 98 Mechanical Ventilator 40 11/26/18 21:30 72 16 92/51 97 Mechanical Ventilator 40 11/26/18 21:15 17 2//18 21:02 17 2/18 21:00 99.1 70 16 132/60 97 Mechanical Ventilator 40 11/26/18 20:57 75 16 40 //18 20:30 77 16 111/60 98 Mechanical Ventilator 40 18 20:00 73 11/26/18 20:00 15 18 20:00 99.3 78 17 109/60 98 Mechanical Ventilator 40 18 20:00 40 18 19:30 75 16 108/62 99 Mechanical Ventilator 40 18 19:00 78 16 111/50 99 Mechanical Ventilator 50 18 19:00 16 11/26/18 18:53 70 16 40 2/18 18:00 75 16 101/59 99 Mechanical Ventilator 50 18 18:00 16 18 17:00 72 16 98/57 99 Mechanical Ventilator 50 18 17:00 17 11/26/18 16:34 70 16 50 11/26/18 16:00 50 18 16:00 80 18 16:00 98.3 69 16 96/55 99 Mechanical Ventilator 50 18 16:00 16 18 15:40 74 16 50 2/18 15:00 15 18 15:00 81 17 93/53 99 Mechanical Ventilator 50 11/26/18 14:00 83 16 100/64 98 Mechanical Ventilator 50 11/26/18 14:00 16 Height (Feet): 5 Height (Inches): 4.00 Weight (Pounds): 158 Objective HEENT: No pale conjunctivae. No icterus. ETT in place NECK: No lymphadenopathy.. CHEST: Coarse breathing sounds. HEART: S1, S2. ABDOMEN: Soft and obese. Umbilical hernia present. EXTREMITIES: No cyanosis. NEUROLOGIC: Sedated. Laboratory Tests Test 11/27/17 03:20 11/27/17 04:00 11/27/17 05:30 11/27/17 09:15 White Blood Count 5.4 K/UL (4.8-10.8) Red Blood Count 3.50 M/UL (4.20-5.40) L Hemoglobin 8.7 G/DL (12.0-16.0) L Hematocrit 27.9 % (37.0-47.0) L Mean Corpuscular Volume 80 FL (80-99) Mean Corpuscular Hemoglobin 25.0 PG (27.0-31.0) L Mean Corpuscular Hemoglobin Concent 31.3 G/DL (32.0-36.0) L Red Cell Distribution Width 17.6 % (11.6-14.8) H Platelet Count 139 K/UL (150-450) L Mean Platelet Volume 6.9 FL (6.5-10.1) Neutrophils (%) (Auto) 81.6 % (45.0-75.0) H Lymphocytes (%) (Auto) 12.2 % (20.0-45.0) L Monocytes (%) (Auto) 4.4 % (1.0-10.0) Eosinophils (%) (Auto) 1.4 % (0.0-3.0) Basophils (%) (Auto) 0.5 % (0.0-2.0) Sodium Level 140 MMOL/L (136-145) Potassium Level 3.9 MMOL/L (3.5-5.1) Chloride Level 105 MMOL/L (98-107) Carbon Dioxide Level 30 MMOL/L (21-32) Anion Gap 5 mmol/L (5-15) Blood Urea Nitrogen 18 mg/dL (7-18) Creatinine 0.4 MG/DL (0.55-1.30) L Estimat Glomerular Filtration Rate > 60 mL/min (>60) Glucose Level 168 MG/DL (74-106) H Calcium Level 8.7 MG/DL (8.5-10.1) Phosphorus Level 3.1 MG/DL (2.5-4.9) Magnesium Level 1.9 MG/DL (1.8-2.4) Total Bilirubin 0.3 MG/DL (0.2-1.0) Aspartate Amino Transf (AST/SGOT) 9 U/L (15-37) L Alanine Aminotransferase (ALT/SGPT) 12 U/L (12-78) Alkaline Phosphatase 68 U/L (46-116) Total Protein 5.0 G/DL (6.4-8.2) L Albumin 2.1 G/DL (3.4-5.0) L Globulin 2.9 g/dL Albumin/Globulin Ratio 0.7 (1.0-2.7) L CA 15-3 Antigen Pending CA 125 Antigen Pending Hepatitis A IgM Antibody Pending Hepatitis B Surface Antigen Pending Hepatitis B Core IgM Antibody Pending Hepatitis C Antibody Pending HIV (1&2) Antibody Rapid Pending Arterial Blood pH 7.447 (7.350-7.450) Arterial Blood Partial Pressure CO2 40.7 mmHg (35.0-45.0) Arterial Blood Partial Pressure O2 100.1 mmHg (75.0-100.0) H Arterial Blood HCO3 27.5 mmol/L (22.0-26.0) H Arterial Blood Oxygen Saturation 97.3 % (92.0-98.0) Arterial Blood Base Excess 3.2 Rolf Test Positive Stool Occult Blood Negative (NEGATIVE) Prothrombin Time 10.1 SEC (9.30-11.50) Prothromb Time International Ratio 1.0 (0.9-1.1) Activated Partial Thromboplast Time 31 SEC (23-33) Current Medications Medications (Trade) Dose Ordered Sig/Edwin Route PRN Reason Start Time Stop Time Status Last Admin Dose Admin Acetaminophen (Tylenol) 650 mg Q4H PRN ORAL Fever 11/15/17 22:45 12/15/17 22:44 11/25/17 20:07 Albuterol/ Ipratropium (Albuterol/ Ipratropium) 3 ml Q4H PRN HHN Shortness of Breath 11/24/17 10:00 11/29/17 09:59 Ceftriaxone Sodium 1 gm/ Sodium Chloride 55 ml @ 110 mls/hr Q24H IVPB 11/20/17 16:00 11/27/17 15:59 11/26/17 16:29 Dextrose (Dextrose 50%) STAT PRN IV Hypoglycemia 11/15/17 22:45 12/15/17 22:44 11/16/17 11:50 Heparin Sodium (Porcine) (Heparin 5000 units/ml) 5,000 units EVERY 12 HOURS SUBQ 11/16/17 09:00 12/16/17 08:59 11/26/17 21:03 Insulin Aspart (NovoLOG) EVERY 6 HOURS SUBQ 11/16/17 18:00 12/16/17 06:29 11/27/17 11:23 Iron Sucrose 100 mg/Sodium Chloride 60 ml @ 240 mls/hr BEDTIME IV 11/26/17 21:00 11/30/17 21:14 11/26/17 21:02 Lorazepam (Ativan 2mg/ml 1ml) 4 mg Q4H PRN IV For Anxiety 11/22/17 20:46 11/29/17 20:45 11/27/17 03:16 Midazolam HCl 250 mg/Dextrose 550 ml @ 0 mls/hr Q24H IV 11/27/17 11:30 12/27/17 11:29 11/27/17 11:22 Morphine Sulfate (Morphine Sulfate) 8 mg Q4H PRN IVP Breakthrough pain 11/22/17 21:30 11/29/17 21:29 11/25/17 08:41 Ondansetron HCl (Zofran) 4 mg Q6H PRN IVP Nausea & Vomiting 11/15/17 22:45 12/15/17 22:44 11/18/17 21:59 Pantoprazole (Protonix) 40 mg DAILY IV 11/16/17 09:00 12/16/17 08:59 11/27/17 08:22 Polyethylene Glycol (Miralax) 17 gm DAILYPRN PRN ORAL Constipation 11/15/17 22:45 12/15/17 22:44 11/22/17 05:55 Elise Owusu M.D. Nov 27, 2017 13:31
--- NOTE | 2017-11-27 17:25 | General Surgery Progress Note ---
General Surgery-Progress Note Subjective Additional Comments no acute events. CT chest findings concerning Objective Last 24 Hour Vital Signs Date Time Temp Pulse Resp B/P (MAP) Pulse Ox O2 Delivery O2 Flow Rate FiO2 11/27/17 17:00 16 11/27/17 17:00 74 16 115/58 100 Mechanical Ventilator 40 11/27/17 16:00 40 11/27/17 16:00 18 11/27/17 16:00 98.7 67 16 103/58 98 Mechanical Ventilator 40 11/27/17 16:00 66 11/27/17 15:30 72 16 98/62 99 Mechanical Ventilator 40 11/27/17 15:09 65 16 40 11/27/17 15:00 16 11/27/17 15:00 71 16 92/58 99 Mechanical Ventilator 40 11/27/17 14:30 69 18 97/54 96 Mechanical Ventilator 40 11/27/17 14:00 72 18 110/65 96 Mechanical Ventilator 40 11/27/17 14:00 16 11/27/17 13:30 71 17 99/56 95 Mechanical Ventilator 40 11/27/17 13:07 70 16 40 11/27/17 13:00 71 18 117/81 97 Mechanical Ventilator 40 11/27/17 13:00 16 11/27/17 12:30 74 16 110/65 96 Mechanical Ventilator 40 11/27/17 12:00 40 11/27/17 12:00 98.8 62 16 104/64 100 Mechanical Ventilator 40 11/27/17 12:00 16 11/27/17 12:00 62 11/27/17 11:30 63 16 98/58 100 Mechanical Ventilator 40 11/27/17 11:22 16 11/27/17 11:18 68 17 40 11/27/17 11:00 68 16 112/59 95 Mechanical Ventilator 40 11/27/17 10:30 70 16 97/54 98 Mechanical Ventilator 40 11/27/17 10:00 69 16 112/59 97 Mechanical Ventilator 40 11/27/17 10:00 16 11/27/17 09:30 74 16 116/63 99 Mechanical Ventilator 40 11/27/17 09:19 75 16 40 11/27/17 09:00 64 16 94/56 98 Mechanical Ventilator 40 11/27/17 09:00 16 11/27/17 08:30 72 16 92/56 97 Mechanical Ventilator 40 11/27/17 08:00 40 11/27/17 08:00 98.7 71 17 111/56 98 Mechanical Ventilator 40 11/27/17 08:00 62 11/27/17 08:00 17 11/27/17 07:30 63 16 120/60 98 Mechanical Ventilator 40 11/27/17 07:22 63 16 40 11/27/17 07:00 16 11/27/17 07:00 63 16 94/51 98 Mechanical Ventilator 40 11/27/17 06:28 16 11/27/17 06:00 65 16 94/50 97 Mechanical Ventilator 40 11/27/17 05:25 68 16 40 11/27/17 05:00 72 17 97/53 99 Mechanical Ventilator 40 11/27/17 04:00 40 11/27/17 04:00 99.1 76 17 110/62 98 Mechanical Ventilator 40 11/27/17 04:00 16 11/27/17 04:00 80 11/27/17 03:26 70 16 40 11/27/17 03:00 69 16 128/58 97 Mechanical Ventilator 40 11/27/17 03:00 16 11/27/17 02:30 74 17 110/62 98 Mechanical Ventilator 40 11/27/17 02:00 74 16 110/62 98 Mechanical Ventilator 40 11/27/17 02:00 16 11/27/17 01:30 77 18 110/62 98 Mechanical Ventilator 40 11/27/17 01:01 71 16 40 11/27/17 01:00 74 18 105/58 98 Mechanical Ventilator 40 11/27/17 01:00 16 11/27/17 00:30 69 18 105/58 98 Mechanical Ventilator 40 11/27/17 00:00 68 11/27/17 00:00 40 11/27/17 00:00 16 11/27/17 00:00 99.3 73 16 91/52 99 Mechanical Ventilator 40 11/26/17 23:30 73 19 112/61 98 Mechanical Ventilator 40 11/26/17 23:00 13 11/26/17 23:00 75 19 130/62 98 Mechanical Ventilator 40 11/26/17 22:39 73 16 40 11/26/17 22:30 74 16 92/51 98 Mechanical Ventilator 40 11/26/17 22:00 15 11/26/17 22:00 68 16 92/51 98 Mechanical Ventilator 40 11/26/17 21:30 72 16 92/51 97 Mechanical Ventilator 40 11/26/17 21:15 17 11/26/17 21:02 17 11/26/17 21:00 99.1 70 16 132/60 97 Mechanical Ventilator 40 11/26/17 20:57 75 16 40 11/26/17 20:30 77 16 111/60 98 Mechanical Ventilator 40 11/26/17 20:00 73 11/26/17 20:00 15 11/26/17 20:00 99.3 78 17 109/60 98 Mechanical Ventilator 40 11/26/17 20:00 40 11/26/17 19:30 75 16 108/62 99 Mechanical Ventilator 40 11/26/17 19:00 78 16 111/50 99 Mechanical Ventilator 50 11/26/17 19:00 16 11/26/17 18:53 70 16 40 11/26/17 18:00 75 16 101/59 99 Mechanical Ventilator 50 11/26/17 18:00 16 I&O Intake and Output 11/26/17 11/27/17 19:00 07:00 Intake Total 1263.5 ml 972 ml Output Total 410 ml 450 ml Balance 853.5 ml 522 ml IV Total 663.5 ml 372 ml Tube Feeding 600 ml 600 ml Output Urine Total 410 ml 450 ml Respiratory: decreased breath sounds Abdomen: soft Extremities: no cyanosis Laboratory Tests Test 11/27/17 03:20 11/27/17 04:00 11/27/17 05:30 11/27/17 09:15 White Blood Count 5.4 K/UL (4.8-10.8) Red Blood Count 3.50 M/UL (4.20-5.40) L Hemoglobin 8.7 G/DL (12.0-16.0) L Hematocrit 27.9 % (37.0-47.0) L Mean Corpuscular Volume 80 FL (80-99) Mean Corpuscular Hemoglobin 25.0 PG (27.0-31.0) L Mean Corpuscular Hemoglobin Concent 31.3 G/DL (32.0-36.0) L Red Cell Distribution Width 17.6 % (11.6-14.8) H Platelet Count 139 K/UL (150-450) L Mean Platelet Volume 6.9 FL (6.5-10.1) Neutrophils (%) (Auto) 81.6 % (45.0-75.0) H Lymphocytes (%) (Auto) 12.2 % (20.0-45.0) L Monocytes (%) (Auto) 4.4 % (1.0-10.0) Eosinophils (%) (Auto) 1.4 % (0.0-3.0) Basophils (%) (Auto) 0.5 % (0.0-2.0) Sodium Level 140 MMOL/L (136-145) Potassium Level 3.9 MMOL/L (3.5-5.1) Chloride Level 105 MMOL/L (98-107) Carbon Dioxide Level 30 MMOL/L (21-32) Anion Gap 5 mmol/L (5-15) Blood Urea Nitrogen 18 mg/dL (7-18) Creatinine 0.4 MG/DL (0.55-1.30) L Estimat Glomerular Filtration Rate > 60 mL/min (>60) Glucose Level 168 MG/DL (74-106) H Calcium Level 8.7 MG/DL (8.5-10.1) Phosphorus Level 3.1 MG/DL (2.5-4.9) Magnesium Level 1.9 MG/DL (1.8-2.4) Total Bilirubin 0.3 MG/DL (0.2-1.0) Aspartate Amino Transf (AST/SGOT) 9 U/L (15-37) L Alanine Aminotransferase (ALT/SGPT) 12 U/L (12-78) Alkaline Phosphatase 68 U/L (46-116) Total Protein 5.0 G/DL (6.4-8.2) L Albumin 2.1 G/DL (3.4-5.0) L Globulin 2.9 g/dL Albumin/Globulin Ratio 0.7 (1.0-2.7) L CA 15-3 Antigen Pending CA 125 Antigen Pending Hepatitis A IgM Antibody Pending Hepatitis B Surface Antigen Pending Hepatitis B Core IgM Antibody Pending Hepatitis C Antibody Pending HIV (1&2) Antibody Rapid Negative (NEGATIVE) Arterial Blood pH 7.447 (7.350-7.450) Arterial Blood Partial Pressure CO2 40.7 mmHg (35.0-45.0) Arterial Blood Partial Pressure O2 100.1 mmHg (75.0-100.0) H Arterial Blood HCO3 27.5 mmol/L (22.0-26.0) H Arterial Blood Oxygen Saturation 97.3 % (92.0-98.0) Arterial Blood Base Excess 3.2 Rolf Test Positive Stool Occult Blood Negative (NEGATIVE) Prothrombin Time 10.1 SEC (9.30-11.50) Prothromb Time International Ratio 1.0 (0.9-1.1) Activated Partial Thromboplast Time 31 SEC (23-33) Plan Problems: (1) Acute respiratory failure Assessment & Plan: 67F with acute respiratory failure requiring intubation in ED upon presentation. Unfortunately has not been improving since and not able to wean from vent. Patient seen, ABG reviewed, history reviewed, cxr reviewed. likely need for prolonged ventilatory support. would benefit from trach. family gave consent CT chest reviewed for planning and very concerning given masses. will hold for now given possible lung cancer vs mets noted as lung masses on CT thank you for this consultation. will follow with you. Rom Damian Nov 27, 2017 17:25
[2017-11-27] MEDS: Iron Sucrose 100 MG in NS 55 ML IV SCH (20:43)
[2017-11-28] VITALS (37 sets, daily range): BP systolic 83–185; BP diastolic 38–115
[2017-11-28] MEDS: NovoLOG Insulin Flexpen SUBQ SCH ×5 (00:24→23:50)
[2017-11-28] MEDS: Midazolam/D5W 100ml 100 ML IVPB SCH ×2 (05:06→09:14)
[2017-11-28 05:47] LABS: BASOPHILS % (AUTO) 0.3 % (0.0-2.0); EOSINOPHILS % (AUTO) 1.6 % (0.0-3.0); HEMATOCRIT 28.4 % (37.0-47.0); HEMOGLOBIN 9.4 G/DL (12.0-16.0); LYMPHOCYTES % (AUTO) 12.8 % (20.0-45.0); MEAN CORPUSCULAR VOLUME 80 FL (80-99); MONOCYTES % (AUTO) 4.8 % (1.0-10.0); NEUTROPHILS % (AUTO) 80.5 % (45.0-75.0); PLATELET COUNT 142 K/UL (150-450); RED BLOOD COUNT 3.57 M/UL (4.20-5.40); RED CELL DISTRIBUTION WIDTH 17.5 % (11.6-14.8); WHITE BLOOD COUNT 5.4 K/UL (4.8-10.8)
[2017-11-28 06:02] LABS: ALANINE AMINOTRANSFERASE 10 U/L (12-78); ALBUMIN/GLOBULIN RATIO 0.7 (1.0-2.7); ALKALINE PHOSPHATASE 73 U/L (46-116); ANION GAP 4 mmol/L (5-15); ASPARTATE AMINO TRANSFERASE 7 U/L (15-37); BILIRUBIN,TOTAL 0.4 MG/DL (0.2-1.0); BLOOD UREA NITROGEN 17 mg/dL (7-18); CALCIUM 8.9 MG/DL (8.5-10.1); CARBON DIOXIDE 30 MMOL/L (21-32); CHLORIDE 104 MMOL/L (98-107); CREATININE 0.4 MG/DL (0.55-1.30); PHOSPHORUS 3.8 MG/DL (2.5-4.9); SODIUM 138 MMOL/L (136-145)
[2017-11-28] MEDS: Pantoprazole Inj IV SCH (08:15)
[2017-11-28] MEDS: Morphine Sulfate 4mg/ml Inj IVP PRN (08:16)
[2017-11-28] MEDS: LORazepam Inj 2mg/ml 1ml IV PRN (08:16)
[2017-11-28] MEDS: Heparin 5000 units/ml inj SUBQ SCH ×2 (08:18→20:42)
--- NOTE | 2017-11-28 08:31 | Consultation ---
DATE OF CONSULTATION: 11/27/2017 NOTE: POOR AUDIO HEMATOLOGY/ONCOLOGY CONSULTATION CONSULTING PHYSICIAN: Justice Valderrama M.D. REQUESTING PHYSICIAN: Julio Cesar Isbell M.D. REASON FOR CONSULTATION: Evaluation of anemia with thrombocytopenia. IDENTIFYING DATA: Dear Dr. Isbell, The patient is a pleasant 67-year-old female with multiple medical problems, at this time admitted with respiratory failure, was intubated in the ER, admitted to the ICU, found to have leukocytosis at the time of admission. At the time of admission, chest x-ray showed bilateral pleural effusion. The patient was showing progressive noted to have a pulmonary mass, likely malignancy, and Hematology Service was consulted for further evaluation and treatment. The patient has been unable to be weaned from the trach. At this time, the patient was again noted to have malignancy and Hematology Service was consulted for further evaluation and treatment. PAST MEDICAL HISTORY: As noted above malignancy, pleural effusion, diabetes mellitus, . PAST SURGICAL HISTORY: None known. ALLERGIES: No known drug allergies. SOCIAL HISTORY: No alcohol, tobacco, or drug use. REVIEW OF SYSTEMS: Difficult to obtain given the patient's mental status. PHYSICAL EXAMINATION: VITAL SIGNS: Reviewed. GENERAL: No acute distress. PULMONARY: Decreased breath sounds. CARDIOVASCULAR: Regular rate. No S3 or S4. ABDOMEN: Soft, nontender, and nondistended. EXTREMITIES: No cyanosis, swelling, or edema. LABORATORY DATA: WBC 5.4, hemoglobin 8.7, hematocrit 28, and platelet count 139,000. negative. INR of 1. BUN of 18 and creatinine 0.4. Anemia workup has been reviewed. Ferritin 283. ASSESSMENT AND RECOMMENDATIONS: 1. Lung cancer, likely stage IV, malignant neoplasm, multiple lung nodules noted, 2.5 x 3.2 cm from the right middle lobe and suggestive of mediastinal adenopathy. In addition, the patient has bilateral pleural effusions. Unable to get at this time CT-guided biopsy, but the patient is intubated. She has biopsied, also evidence of portal hypertension, cirrhosis, and other comorbid conditions, and again at this time, we will recommend to obtain some type of biopsy to confirm the diagnosis. Currently, the patient is not a chemotherapy candidate and if unable to be weaned, the patient may need long-term acute care. 2. Anemia due to underlying chronic disease. Continue to closely monitor. Workup has been reviewed. 3. Leukocytosis, likely secondary to underlying infection initially, currently improved, closely monitor. 4. Thrombocytopenia, likely secondary to reactive process, mild. In addition, the patient with cirrhosis. 5. . 6. Respiratory failure, status post intubation, pending potential tracheostomy. We need to discuss further. The patient does not receive chemotherapy . Justice Valderrama M.D. DR: TAMARA JOB#: [id number] CC:
--- NOTE | 2017-11-28 12:19 | Pulmonolgy Critical Care Note ---
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, 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 Discussed with: nurses, consultants, immigration case managervice president & general 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 [employer] [place] - Objective Last 24 Hour Vital Signs Date Time Temp Pulse Resp B/P (MAP) Pulse Ox O2 Delivery O2 Flow Rate FiO2 11/28/17 12:00 40 11/28/17 12:00 16 11/28/17 12:00 98.8 72 16 83/44 99 Mechanical Ventilator 40 11/28/17 11:00 64 16 102/61 99 Mechanical Ventilator 40 11/28/17 11:00 16 11/28/17 10:30 76 16 88/47 99 Mechanical Ventilator 40 11/28/17 10:30 71 16 40 11/28/17 10:00 76 16 116/69 99 Mechanical Ventilator 40 11/28/17 10:00 16 11/28/17 09:30 76 16 116/69 99 Mechanical Ventilator 40 11/28/17 09:14 16 11/28/17 09:00 74 16 98/53 99 Mechanical Ventilator 40 11/28/17 08:46 98.8 11/28/17 08:46 98.8 11/28/17 08:36 70 16 40 11/28/17 08:30 72 16 93/52 98 Mechanical Ventilator 40 11/28/17 08:00 40 11/28/17 08:00 98.8 74 16 107/54 99 Mechanical Ventilator 40 11/28/17 08:00 76 11/28/17 08:00 16 11/28/17 07:30 77 16 116/58 99 Mechanical Ventilator 40 11/28/17 07:00 17 11/28/17 07:00 75 16 98/50 99 Mechanical Ventilator 40 11/28/17 06:48 74 16 40 11/28/17 06:30 69 16 101/49 99 Mechanical Ventilator 40 11/28/17 06:00 62 17 106/52 99 Mechanical Ventilator 40 11/28/17 06:00 17 11/28/17 05:30 69 17 93/46 99 Mechanical Ventilator 40 11/28/17 05:06 16 11/28/17 05:06 16 11/28/17 05:00 70 17 88/47 99 Mechanical Ventilator 40 11/28/17 04:57 67 16 40 11/28/17 04:45 69 17 106/38 99 Mechanical Ventilator 40 11/28/17 04:30 72 17 111/52 99 Mechanical Ventilator 40 11/28/17 04:15 67 17 88/48 99 Mechanical Ventilator 40 11/28/17 04:00 40 11/28/17 04:00 98.9 63 17 86/54 99 Mechanical Ventilator 40 11/28/17 04:00 65 11/28/17 04:00 18 11/28/17 03:30 65 17 91/52 99 Mechanical Ventilator 40 11/28/17 03:00 67 17 88/48 99 Mechanical Ventilator 40 11/28/17 03:00 20 11/28/17 02:52 70 16 40 11/28/17 02:30 70 17 91/55 99 Mechanical Ventilator 40 11/28/17 02:00 75 17 93/50 99 Mechanical Ventilator 40 11/28/17 02:00 19 11/28/17 01:00 17 11/28/17 01:00 64 17 87/52 99 Mechanical Ventilator 40 11/28/17 00:47 61 16 40 11/28/17 00:00 99.0 63 17 94/48 99 Mechanical Ventilator 40 11/28/17 00:00 40 11/28/17 00:00 66 11/28/17 00:00 17 11/27/17 23:30 65 17 87/50 99 Mechanical Ventilator 40 11/27/17 23:00 66 17 91/50 96 Mechanical Ventilator 40 11/27/17 23:00 20 11/27/17 22:44 63 16 40 11/27/17 22:30 64 17 94/54 96 Mechanical Ventilator 40 11/27/17 22:00 16 11/27/17 22:00 66 17 89/53 96 Mechanical Ventilator 40 11/27/17 21:30 68 17 95/55 96 Mechanical Ventilator 40 11/27/17 21:00 20 11/27/17 21:00 74 17 111/57 97 Mechanical Ventilator 40 11/27/17 21:00 72 16 40 11/27/17 20:45 75 17 106/60 97 Mechanical Ventilator 40 11/27/17 20:30 75 17 112/58 97 Mechanical Ventilator 40 11/27/17 20:15 79 17 121/62 99 Mechanical Ventilator 40 11/27/17 20:00 40 11/27/17 20:00 83 11/27/17 20:00 20 11/27/17 20:00 99.0 80 16 120/59 98 Mechanical Ventilator 40 11/27/17 19:00 82 17 103/57 99 Mechanical Ventilator 40 11/27/17 19:00 17 11/27/17 18:55 86 18 40 11/27/17 18:00 85 17 114/60 100 Mechanical Ventilator 40 11/27/17 18:00 17 11/27/17 17:05 75 17 40 11/27/17 17:00 16 11/27/17 17:00 74 16 115/58 100 Mechanical Ventilator 40 11/27/17 16:00 40 11/27/17 16:00 18 11/27/17 16:00 98.7 67 16 103/58 98 Mechanical Ventilator 40 11/27/17 16:00 66 11/27/17 15:30 72 16 98/62 99 Mechanical Ventilator 40 11/27/17 15:09 65 16 40 11/27/17 15:00 16 11/27/17 15:00 71 16 92/58 99 Mechanical Ventilator 40 11/27/17 14:30 69 18 97/54 96 Mechanical Ventilator 40 11/27/17 14:00 72 18 110/65 96 Mechanical Ventilator 40 11/27/17 14:00 16 11/27/17 13:30 71 17 99/56 95 Mechanical Ventilator 40 11/27/17 13:07 70 16 40 11/27/17 13:00 71 18 117/81 97 Mechanical Ventilator 40 11/27/17 13:00 16 11/27/17 12:30 74 16 110/65 96 Mechanical Ventilator 40 Status: awake Condition: critical HEENT: atraumatic Lungs: clear Heart: HR/BP stable, regular Abdomen: non-tender, feeding tube Decubiti: location Accucheck: 124 Critical Care - Subjective ROS Limited/Unobtainable: No Condition: critical FI02: 40 Vent Support Breath Rate: 16 Vent Support Mode: AC Vent Tidal Volume: 600 Sputum Amount: Moderate PEEP: 0.0 PIP: 27 Tube Feeding Amount: 40 I&O: Intake and Output 11/27/17 11/28/17 19:00 07:00 Intake Total 1019 ml 684.0 ml Output Total 325 ml 435 ml Balance 694 ml 249.0 ml Free Water 110 ml IV Total 309 ml 444.0 ml Tube Feeding 600 ml 240 ml Output Urine Total 325 ml 435 ml # Bowel Movements 1 2 CXR: no change ET-Tube: 7.0 ET Position: 23 ADONIS SALES Nov 28, 2017 12:19
[2017-11-28] MEDS ORDERED: Promethazine/Codeine 5ml UD ORAL PRN (13:30)
[2017-11-28] MEDS: Morphine Sulfate 2mg/ml Inj IVP PRN ×4 (13:53→22:15)
--- NOTE | 2017-11-28 14:04 | General Progress Note ---
Assessment/Plan Problem List: (1) History of hypertension ICD Codes: Z86.79 - Personal history of other diseases of the circulatory system SNOMED: 696849991 (2) Pleural effusion ICD Codes: J90 - Pleural effusion, not elsewhere classified SNOMED: 15944347 (3) COPD (chronic obstructive pulmonary disease) ICD Codes: J44.9 - Chronic obstructive pulmonary disease, unspecified SNOMED: 51016633 (4) Acute respiratory failure ICD Codes: J96.00 - Acute respiratory failure, unspecified whether with hypoxia or hypercapnia SNOMED: 38554387 Qualifiers: Qualified Codes: J96.01 - Acute respiratory failure with hypoxia; J96.02 - Acute respiratory failure with hypercapnia (5) Diabetes mellitus ICD Codes: E11.9 - Type 2 diabetes mellitus without complications SNOMED: 66137375 (6) Pulmonary edema ICD Codes: J81.1 - Chronic pulmonary edema SNOMED: 13108720 Status: unchanged Assessment/Plan vent abx bp bs control cbc bmp am Subjective Constitutional: Reports: weakness Allergies: Coded Allergies: No Known Allergies (Unverified , 11/15/17) All Systems: reviewed and negative except above Subjective ng o2nc calm in icu Objective Last 24 Hour Vital Signs Date Time Temp Pulse Resp B/P (MAP) Pulse Ox O2 Delivery O2 Flow Rate FiO2 11/28/17 13:05 Nasal Cannula 3.0 32 11/28/17 13:05 77 16 40 11/28/17 13:00 80 24 130/68 99 Mechanical Ventilator 40 11/28/17 12:00 64 11/28/17 12:00 40 11/28/17 12:00 16 11/28/17 12:00 98.8 72 16 83/44 99 Mechanical Ventilator 40 11/28/17 11:00 64 16 102/61 99 Mechanical Ventilator 40 11/28/17 11:00 16 11/28/17 10:30 76 16 88/47 99 Mechanical Ventilator 40 11/28/17 10:30 71 16 40 11/28/17 10:00 76 16 116/69 99 Mechanical Ventilator 40 11/28/17 10:00 16 11/28/17 09:30 76 16 116/69 99 Mechanical Ventilator 40 11/28/17 09:14 16 11/28/17 09:00 74 16 98/53 99 Mechanical Ventilator 40 11/28/17 08:46 98.8 11/28/17 08:46 98.8 11/28/17 08:36 70 16 40 11/28/17 08:30 72 16 93/52 98 Mechanical Ventilator 40 11/28/17 08:00 40 11/28/17 08:00 98.8 74 16 107/54 99 Mechanical Ventilator 40 11/28/17 08:00 76 11/28/17 08:00 16 11/28/17 07:30 77 16 116/58 99 Mechanical Ventilator 40 11/28/17 07:00 17 11/28/17 07:00 75 16 98/50 99 Mechanical Ventilator 40 11/28/17 06:48 74 16 40 11/28/17 06:30 69 16 101/49 99 Mechanical Ventilator 40 11/28/17 06:00 62 17 106/52 99 Mechanical Ventilator 40 11/28/17 06:00 17 11/28/17 05:30 69 17 93/46 99 Mechanical Ventilator 40 11/28/17 05:06 16 11/28/17 05:06 16 11/28/17 05:00 70 17 88/47 99 Mechanical Ventilator 40 11/28/17 04:57 67 16 40 11/28/17 04:45 69 17 106/38 99 Mechanical Ventilator 40 11/28/17 04:30 72 17 111/52 99 Mechanical Ventilator 40 11/28/17 04:15 67 17 88/48 99 Mechanical Ventilator 40 11/28/17 04:00 40 11/28/17 04:00 98.9 63 17 86/54 99 Mechanical Ventilator 40 11/28/17 04:00 65 11/28/17 04:00 18 11/28/17 03:30 65 17 91/52 99 Mechanical Ventilator 40 11/28/17 03:00 67 17 88/48 99 Mechanical Ventilator 40 11/28/17 03:00 20 11/28/17 02:52 70 16 40 11/28/17 02:30 70 17 91/55 99 Mechanical Ventilator 40 11/28/17 02:00 75 17 93/50 99 Mechanical Ventilator 40 11/28/17 02:00 19 11/28/17 01:00 17 11/28/17 01:00 64 17 87/52 99 Mechanical Ventilator 40 11/28/17 00:47 61 16 40 11/28/17 00:00 99.0 63 17 94/48 99 Mechanical Ventilator 40 11/28/17 00:00 40 11/28/17 00:00 66 11/28/17 00:00 17 11/27/17 23:30 65 17 87/50 99 Mechanical Ventilator 40 11/27/17 23:00 66 17 91/50 96 Mechanical Ventilator 40 11/27/17 23:00 20 11/27/17 22:44 63 16 40 11/27/17 22:30 64 17 94/54 96 Mechanical Ventilator 40 11/27/17 22:00 16 11/27/17 22:00 66 17 89/53 96 Mechanical Ventilator 40 11/27/17 21:30 68 17 95/55 96 Mechanical Ventilator 40 11/27/17 21:00 20 11/27/17 21:00 74 17 111/57 97 Mechanical Ventilator 40 11/27/17 21:00 72 16 40 11/27/17 20:45 75 17 106/60 97 Mechanical Ventilator 40 11/27/17 20:30 75 17 112/58 97 Mechanical Ventilator 40 11/27/17 20:15 79 17 121/62 99 Mechanical Ventilator 40 11/27/17 20:00 40 11/27/17 20:00 83 11/27/17 20:00 20 11/27/17 20:00 99.0 80 16 120/59 98 Mechanical Ventilator 40 11/27/17 19:00 82 17 103/57 99 Mechanical Ventilator 40 11/27/17 19:00 17 11/27/17 18:55 86 18 40 11/27/17 18:00 85 17 114/60 100 Mechanical Ventilator 40 11/27/17 18:00 17 11/27/17 17:05 75 17 40 11/27/17 17:00 16 11/27/17 17:00 74 16 115/58 100 Mechanical Ventilator 40 11/27/17 16:00 40 11/27/17 16:00 18 11/27/17 16:00 98.7 67 16 103/58 98 Mechanical Ventilator 40 11/27/17 16:00 66 11/27/17 15:30 72 16 98/62 99 Mechanical Ventilator 40 11/27/17 15:09 65 16 40 11/27/17 15:00 16 11/27/17 15:00 71 16 92/58 99 Mechanical Ventilator 40 11/27/17 14:30 69 18 97/54 96 Mechanical Ventilator 40 Intake and Output 11/27/17 11/28/17 19:00 07:00 Intake Total 1019 ml 684.0 ml Output Total 325 ml 435 ml Balance 694 ml 249.0 ml Free Water 110 ml IV Total 309 ml 444.0 ml Tube Feeding 600 ml 240 ml Output Urine Total 325 ml 435 ml # Bowel Movements 1 2 Laboratory Tests 11/28/17 05:30: White Blood Count 5.4, Red Blood Count 3.57L, Hemoglobin 9.4L, Hematocrit 28.4L , Mean Corpuscular Volume 80, Mean Corpuscular Hemoglobin 26.3L, Mean Corpuscular Hemoglobin Concent 33.0, Red Cell Distribution Width 17.5H, Platelet Count 142L, Mean Platelet Volume 7.7, Neutrophils (%) (Auto) 80.5H, Lymphocytes (%) (Auto) 12.8L, Monocytes (%) (Auto) 4.8, Eosinophils (%) (Auto) 1.6, Basophils (%) (Auto) 0.3, Sodium Level 138, Potassium Level 4.0, Chloride Level 104, Carbon Dioxide Level 30, Anion Gap 4L, Blood Urea Nitrogen 17, Creatinine 0.4L, Estimat Glomerular Filtration Rate > 60, Glucose Level 141H, Calcium Level 8.9, Phosphorus Level 3.8, Magnesium Level 1.7L, Total Bilirubin 0.4, Aspartate Amino Transf (AST/SGOT) 7L, Alanine Aminotransferase (ALT/SGPT) 10L, Alkaline Phosphatase 73, Total Protein 5.0L, Albumin 2.0L, Globulin 3.0, Albumin/Globulin Ratio 0.7L Height (Feet): 5 Height (Inches): 4.00 Weight (Pounds): 157 General Appearance: lethargic EENT: normal ENT inspection Neck: normal alignment Cardiovascular: normal peripheral pulses, normal rate, regular rhythm Respiratory/Chest: decreased breath sounds Abdomen: normal bowel sounds, non tender, soft Extremities: normal inspection Edema: no edema noted Arm (L), no edema noted Arm (R), no edema noted Leg (L), no edema noted Leg (R), no edema noted Pedal (L), no edema noted Pedal (R), no edema noted Generalized Neurologic: motor weakness Skin: normal pigmentation, warm/dry TIM GARY Nov 28, 2017 14:03
[2017-11-28] MEDS: Albuterol/Ipratropium 3ml neb HHN SCH ×3 (14:28→23:27)
[2017-11-28] MEDS ORDERED: NS 500ML ONE (16:43)
[2017-11-28] MEDS ORDERED: Tubing IV Secondary IV ONE (16:43)
[2017-11-28] MEDS ORDERED: NS 275ml ONE (18:44)
--- NOTE | 2017-11-28 19:21 | Cardiology Progress Note ---
Assessment/Plan Assessment/Plan Respiratory failure. Diabetes mellitus. Hypertension history. Chronic obstructive pulmonary disease history. Hypotension resolved bilateral infiltrate multiple pulm nodule on ct suspicious for malignancy splenomegaly s/p termina extubation to be started on morphine i will sign off Subjective ROS Limited/Unobtainable: Yes Subjective extubated terminally Objective Last 24 Hour Vital Signs Date Time Temp Pulse Resp B/P (MAP) Pulse Ox O2 Delivery O2 Flow Rate FiO2 11/28/17 19:00 144 25 177/77 84 Nasal Cannula 3.0 11/28/17 18:30 99.0 11/28/17 18:00 139 32 185/94 89 Nasal Cannula 3.0 11/28/17 17:00 122 28 158/78 99 Nasal Cannula 3.0 11/28/17 16:00 119 11/28/17 16:00 99.5 118 16 148/71 95 Nasal Cannula 3.0 11/28/17 15:00 115 28 143/73 99 Nasal Cannula 3.0 11/28/17 14:38 86 20 96 Nasal Cannula 3.0 32 11/28/17 14:28 32 11/28/17 14:28 79 18 96 Nasal Cannula 3.0 32 11/28/17 14:00 105 28 129/63 92 Nasal Cannula 3.0 11/28/17 13:05 Nasal Cannula 3.0 32 11/28/17 13:05 77 16 40 11/28/17 13:00 80 24 130/68 99 Mechanical Ventilator 40 11/28/17 12:30 67 16 94/51 99 Mechanical Ventilator 40 11/28/17 12:00 64 11/28/17 12:00 40 11/28/17 12:00 16 11/28/17 12:00 98.8 72 16 83/44 99 Mechanical Ventilator 40 11/28/17 11:30 65 16 84/49 99 Mechanical Ventilator 40 11/28/17 11:00 64 16 102/61 99 Mechanical Ventilator 40 11/28/17 11:00 16 11/28/17 10:30 76 16 88/47 99 Mechanical Ventilator 40 11/28/17 10:30 71 16 40 11/28/17 10:00 76 16 116/69 99 Mechanical Ventilator 40 11/28/17 10:00 16 11/28/17 09:30 76 16 116/69 99 Mechanical Ventilator 40 11/28/17 09:14 16 11/28/17 09:00 74 16 98/53 99 Mechanical Ventilator 40 11/28/17 08:46 98.8 11/28/17 08:46 98.8 11/28/17 08:36 70 16 40 11/28/17 08:30 72 16 93/52 98 Mechanical Ventilator 40 11/28/17 08:00 40 11/28/17 08:00 98.8 74 16 107/54 99 Mechanical Ventilator 40 11/28/17 08:00 76 11/28/17 08:00 16 11/28/17 07:30 77 16 116/58 99 Mechanical Ventilator 40 11/28/17 07:00 17 11/28/17 07:00 75 16 98/50 99 Mechanical Ventilator 40 11/28/17 06:48 74 16 40 11/28/17 06:30 69 16 101/49 99 Mechanical Ventilator 40 11/28/17 06:00 62 17 106/52 99 Mechanical Ventilator 40 11/28/17 06:00 17 11/28/17 05:30 69 17 93/46 99 Mechanical Ventilator 40 11/28/17 05:06 16 11/28/17 05:06 16 11/28/17 05:00 70 17 88/47 99 Mechanical Ventilator 40 11/28/17 04:57 67 16 40 11/28/17 04:45 69 17 106/38 99 Mechanical Ventilator 40 11/28/17 04:30 72 17 111/52 99 Mechanical Ventilator 40 11/28/17 04:15 67 17 88/48 99 Mechanical Ventilator 40 11/28/17 04:00 40 11/28/17 04:00 98.9 63 17 86/54 99 Mechanical Ventilator 40 11/28/17 04:00 65 11/28/17 04:00 18 11/28/17 03:30 65 17 91/52 99 Mechanical Ventilator 40 11/28/17 03:00 67 17 88/48 99 Mechanical Ventilator 40 11/28/17 03:00 20 11/28/17 02:52 70 16 40 11/28/17 02:30 70 17 91/55 99 Mechanical Ventilator 40 11/28/17 02:00 75 17 93/50 99 Mechanical Ventilator 40 11/28/17 02:00 19 11/28/17 01:00 17 11/28/17 01:00 64 17 87/52 99 Mechanical Ventilator 40 11/28/17 00:47 61 16 40 11/28/17 00:00 99.0 63 17 94/48 99 Mechanical Ventilator 40 11/28/17 00:00 40 11/28/17 00:00 66 11/28/17 00:00 17 11/27/17 23:30 65 17 87/50 99 Mechanical Ventilator 40 11/27/17 23:00 66 17 91/50 96 Mechanical Ventilator 40 11/27/17 23:00 20 11/27/17 22:44 63 16 40 11/27/17 22:30 64 17 94/54 96 Mechanical Ventilator 40 11/27/17 22:00 16 11/27/17 22:00 66 17 89/53 96 Mechanical Ventilator 40 11/27/17 21:30 68 17 95/55 96 Mechanical Ventilator 40 11/27/17 21:00 20 11/27/17 21:00 74 17 111/57 97 Mechanical Ventilator 40 11/27/17 21:00 72 16 40 11/27/17 20:45 75 17 106/60 97 Mechanical Ventilator 40 11/27/17 20:30 75 17 112/58 97 Mechanical Ventilator 40 11/27/17 20:15 79 17 121/62 99 Mechanical Ventilator 40 11/27/17 20:00 40 11/27/17 20:00 83 11/27/17 20:00 20 11/27/17 20:00 99.0 80 16 120/59 98 Mechanical Ventilator 40 General Appearance: agitated Cardiovascular: regular rhythm, tachycardia Respiratory/Chest: rhonchi - bilaterally Abdomen: soft Extremities: no swelling Intake and Output 11/27/17 11/28/17 19:00 07:00 Intake Total 1019 ml 684.0 ml Output Total 325 ml 435 ml Balance 694 ml 249.0 ml Free Water 110 ml IV Total 309 ml 444.0 ml Tube Feeding 600 ml 240 ml Output Urine Total 325 ml 435 ml # Bowel Movements 1 2 Laboratory Tests Test 11/28/17 05:30 White Blood Count 5.4 K/UL (4.8-10.8) Red Blood Count 3.57 M/UL (4.20-5.40) L Hemoglobin 9.4 G/DL (12.0-16.0) L Hematocrit 28.4 % (37.0-47.0) L Mean Corpuscular Volume 80 FL (80-99) Mean Corpuscular Hemoglobin 26.3 PG (27.0-31.0) L Mean Corpuscular Hemoglobin Concent 33.0 G/DL (32.0-36.0) Red Cell Distribution Width 17.5 % (11.6-14.8) H Platelet Count 142 K/UL (150-450) L Mean Platelet Volume 7.7 FL (6.5-10.1) Neutrophils (%) (Auto) 80.5 % (45.0-75.0) H Lymphocytes (%) (Auto) 12.8 % (20.0-45.0) L Monocytes (%) (Auto) 4.8 % (1.0-10.0) Eosinophils (%) (Auto) 1.6 % (0.0-3.0) Basophils (%) (Auto) 0.3 % (0.0-2.0) Sodium Level 138 MMOL/L (136-145) Potassium Level 4.0 MMOL/L (3.5-5.1) Chloride Level 104 MMOL/L (98-107) Carbon Dioxide Level 30 MMOL/L (21-32) Anion Gap 4 mmol/L (5-15) L Blood Urea Nitrogen 17 mg/dL (7-18) Creatinine 0.4 MG/DL (0.55-1.30) L Estimat Glomerular Filtration Rate > 60 mL/min (>60) Glucose Level 141 MG/DL (74-106) H Calcium Level 8.9 MG/DL (8.5-10.1) Phosphorus Level 3.8 MG/DL (2.5-4.9) Magnesium Level 1.7 MG/DL (1.8-2.4) L Total Bilirubin 0.4 MG/DL (0.2-1.0) Aspartate Amino Transf (AST/SGOT) 7 U/L (15-37) L Alanine Aminotransferase (ALT/SGPT) 10 U/L (12-78) L Alkaline Phosphatase 73 U/L (46-116) Total Protein 5.0 G/DL (6.4-8.2) L Albumin 2.0 G/DL (3.4-5.0) L Globulin 3.0 g/dL Albumin/Globulin Ratio 0.7 (1.0-2.7) L CALIN HAWKINS Nov 28, 2017 19:20
[2017-11-28] MEDS: Iron Sucrose 100 MG in NS 55 ML IV SCH (20:42)
[2017-11-29] VITALS (9 sets, daily range): BP systolic 131–163; BP diastolic 57–72
--- NOTE | 2017-11-29 00:10 | General Progress Note ---
Assessment/Plan Assessment/Plan 1. Lung cancer, likely stage IV, malignant neoplasm, multiple lung nodules noted , 2.5 x 3.2 cm from the right middle lobe and suggestive of mediastinal adenopathy. --> In addition, the patient has bilateral pleural effusions. Unable to get at this time CT-guided biopsy, but the patient is intubated. --> She has biopsied, also evidence of portal hypertension, cirrhosis, and other comorbid conditions, and again at this time, we will recommend to obtain some type of biopsy to confirm the diagnosis. --> Currently, the patient is not a chemotherapy candidate and if unable to be weaned, the patient may need long-term acute care. 2. Anemia due to underlying chronic disease. Continue to closely monitor. Workup has been reviewed. 3. Leukocytosis, likely secondary to underlying infection initially, --> currently improved, closely monitor. 4. Thrombocytopenia, likely secondary to reactive process, mild. --> In addition, the patient with cirrhosis. 5. Respiratory failure, status post intubation, pending potential tracheostomy. We need to discuss further. The patient does not receive chemotherapy Subjective Date patient seen: Nov 29, 2017 Constitutional: Denies: no symptoms, chills, diaphoresis, fever, malaise, weakness, other HEENT: Denies: no symptoms, eye pain, blurred vision, tearing, double vision, ear pain, ear discharge, nose pain, nose congestion, throat pain, throat swelling, mouth pain, mouth swelling, other Cardiovascular: Denies: no symptoms, chest pain, edema, irregular heart rate, lightheadedness, palpitations, syncope, other Respiratory: Denies: no symptoms, cough, orthopnea, shortness of breath, SOB with excertion, SOB at rest, sputum, stridor, wheezing, other Gastrointestinal/Abdominal: Denies: no symptoms, abdomen distended, abdominal pain, black stools, tarry stools, blood in stool, constipated, diarrhea, difficulty swallowing, nausea, poor appetite, poor fluid intake, rectal bleeding , vomiting, other Genitourinary: Denies: no symptoms, burning, discharge, frequency, flank pain, hematuria, incontinence, pain, urgency, other Neurologic/Psychiatric: Denies: no symptoms, anxiety, depressed, emotional problems, headache, numbness, paresthesia, pre-existing deficit, seizure, tingling, tremors, weakness, other Allergies: Coded Allergies: No Known Allergies (Unverified , 11/15/17) Subjective No fever or chills. Objective Last 24 Hour Vital Signs Date Time Temp Pulse Resp B/P (MAP) Pulse Ox O2 Delivery O2 Flow Rate FiO2 11/28/17 23:36 113 28 95 Nasal Cannula 5.0 40 11/28/17 23:28 40 11/28/17 23:27 115 25 93 Nasal Cannula 5.0 11/28/17 23:00 113 29 162/70 95 Nasal Cannula 3.0 11/28/17 22:45 99.0 11/28/17 22:00 122 29 150/115 91 Nasal Cannula 3.0 11/28/17 21:00 122 30 137/71 90 Nasal Cannula 3.0 11/28/17 20:00 98.8 128 29 163/70 99 Nasal Cannula 3.0 11/28/17 19:27 Nasal Cannula 11/28/17 19:27 144 26 88 Nasal Cannula 5.0 11/28/17 19:26 Nasal Cannula 5.0 11/28/17 19:26 88 Nasal Cannula 5.0 11/28/17 19:00 144 25 177/77 84 Nasal Cannula 3.0 11/28/17 18:30 99.0 11/28/17 18:00 139 32 185/94 89 Nasal Cannula 3.0 11/28/17 17:00 122 28 158/78 99 Nasal Cannula 3.0 11/28/17 16:00 119 11/28/17 16:00 99.5 118 16 148/71 95 Nasal Cannula 3.0 11/28/17 15:00 115 28 143/73 99 Nasal Cannula 3.0 11/28/17 14:38 86 20 96 Nasal Cannula 3.0 32 11/28/17 14:28 32 11/28/17 14:28 79 18 96 Nasal Cannula 3.0 32 11/28/17 14:00 105 28 129/63 92 Nasal Cannula 3.0 11/28/17 13:05 Nasal Cannula 3.0 32 11/28/17 13:05 77 16 40 11/28/17 13:00 80 24 130/68 99 Mechanical Ventilator 40 11/28/17 12:30 67 16 94/51 99 Mechanical Ventilator 40 11/28/17 12:00 64 11/28/17 12:00 40 11/28/17 12:00 16 11/28/17 12:00 98.8 72 16 83/44 99 Mechanical Ventilator 40 11/28/17 11:30 65 16 84/49 99 Mechanical Ventilator 40 11/28/17 11:00 64 16 102/61 99 Mechanical Ventilator 40 11/28/17 11:00 16 11/28/17 10:30 76 16 88/47 99 Mechanical Ventilator 40 11/28/17 10:30 71 16 40 11/28/17 10:00 76 16 116/69 99 Mechanical Ventilator 40 11/28/17 10:00 16 11/28/17 09:30 76 16 116/69 99 Mechanical Ventilator 40 11/28/17 09:14 16 11/28/17 09:00 74 16 98/53 99 Mechanical Ventilator 40 11/28/17 08:46 98.8 11/28/17 08:46 98.8 11/28/17 08:36 70 16 40 11/28/17 08:30 72 16 93/52 98 Mechanical Ventilator 40 11/28/17 08:00 40 11/28/17 08:00 98.8 74 16 107/54 99 Mechanical Ventilator 40 11/28/17 08:00 76 11/28/17 08:00 16 11/28/17 07:30 77 16 116/58 99 Mechanical Ventilator 40 11/28/17 07:00 17 11/28/17 07:00 75 16 98/50 99 Mechanical Ventilator 40 11/28/17 06:48 74 16 40 11/28/17 06:30 69 16 101/49 99 Mechanical Ventilator 40 11/28/17 06:00 62 17 106/52 99 Mechanical Ventilator 40 11/28/17 06:00 17 11/28/17 05:30 69 17 93/46 99 Mechanical Ventilator 40 11/28/17 05:06 16 11/28/17 05:06 16 11/28/17 05:00 70 17 88/47 99 Mechanical Ventilator 40 11/28/17 04:57 67 16 40 11/28/17 04:45 69 17 106/38 99 Mechanical Ventilator 40 11/28/17 04:30 72 17 111/52 99 Mechanical Ventilator 40 11/28/17 04:15 67 17 88/48 99 Mechanical Ventilator 40 11/28/17 04:00 40 11/28/17 04:00 98.9 63 17 86/54 99 Mechanical Ventilator 40 11/28/17 04:00 65 11/28/17 04:00 18 11/28/17 03:30 65 17 91/52 99 Mechanical Ventilator 40 11/28/17 03:00 67 17 88/48 99 Mechanical Ventilator 40 11/28/17 03:00 20 11/28/17 02:52 70 16 40 11/28/17 02:30 70 17 91/55 99 Mechanical Ventilator 40 11/28/17 02:00 75 17 93/50 99 Mechanical Ventilator 40 11/28/17 02:00 19 11/28/17 01:00 17 11/28/17 01:00 64 17 87/52 99 Mechanical Ventilator 40 11/28/17 00:47 61 16 40 Intake and Output 11/28/17 11/29/17 19:00 07:00 Intake Total 560 ml 60 ml Output Total 335 ml 120 ml Balance 225 ml -60 ml IV Total 120 ml 60 ml Tube Feeding 440 ml Output Urine Total 335 ml 120 ml # Bowel Movements 1 Laboratory Tests 11/28/17 05:30: White Blood Count 5.4, Red Blood Count 3.57L, Hemoglobin 9.4L, Hematocrit 28.4L , Mean Corpuscular Volume 80, Mean Corpuscular Hemoglobin 26.3L, Mean Corpuscular Hemoglobin Concent 33.0, Red Cell Distribution Width 17.5H, Platelet Count 142L, Mean Platelet Volume 7.7, Neutrophils (%) (Auto) 80.5H, Lymphocytes (%) (Auto) 12.8L, Monocytes (%) (Auto) 4.8, Eosinophils (%) (Auto) 1.6, Basophils (%) (Auto) 0.3, Sodium Level 138, Potassium Level 4.0, Chloride Level 104, Carbon Dioxide Level 30, Anion Gap 4L, Blood Urea Nitrogen 17, Creatinine 0.4L, Estimat Glomerular Filtration Rate > 60, Glucose Level 141H, Calcium Level 8.9, Phosphorus Level 3.8, Magnesium Level 1.7L, Total Bilirubin 0.4, Aspartate Amino Transf (AST/SGOT) 7L, Alanine Aminotransferase (ALT/SGPT) 10L, Alkaline Phosphatase 73, Total Protein 5.0L, Albumin 2.0L, Globulin 3.0, Albumin/Globulin Ratio 0.7L Height (Feet): 5 Height (Inches): 4.00 Weight (Pounds): 157 Justice Valderrama Nov 29, 2017 00:10
[2017-11-29] MEDS: LORazepam Inj 2mg/ml 1ml IV PRN (00:37)
[2017-11-29] MEDS: Albuterol/Ipratropium 3ml neb HHN SCH ×2 (03:20→07:44)
[2017-11-29] MEDS: Morphine Sulfate 2mg/ml Inj IVP PRN (05:26)
[2017-11-29] MEDS: NovoLOG Insulin Flexpen SUBQ SCH (05:32)
[2017-11-29 06:05] LABS: ANION GAP 2 mmol/L (5-15); BLOOD UREA NITROGEN 20 mg/dL (7-18); CALCIUM 9.2 MG/DL (8.5-10.1); CARBON DIOXIDE 33 MMOL/L (21-32); CHLORIDE 106 MMOL/L (98-107); CREATININE 0.5 MG/DL (0.55-1.30); SODIUM 141 MMOL/L (136-145)
[2017-11-29] MEDS: Morphine Sulfate 4mg/ml Inj IVP PRN (07:58)
[2017-11-29] MEDS ORDERED: Tubing IV Secondary IV ONE ×2 (08:42)
--- NOTE | 2017-12-02 10:19 | Discharge Summary ---
Discharge Summary Hospital Course Date of Admission Nov 15, 2017 at 21:36 Date of Discharge Nov 29, 2017 at 08:43 Admitting Diagnosis copd exacerbation HPI Leela Miller is a 67 year old female who was admitted on Nov 15, 2017 at 21:36 for Chronic Obstructive Pulmonary Disease Exacerbation Hospital Course summary #[id number] Discharge Discharge Disposition Patient was discharged to Discharge Diagnoses: Trevor (Karen)Asiya NP Dec 02, 2017 10:19
--- NOTE | 2017-12-03 01:15 | Discharge Summary 2 SIG ---
DATE OF ADMISSION: 11/15/2017 DATE OF DISCHARGE: 11/29/2017 REASON FOR ADMISSION: 67 years old female with past medical history of diabetes, hypertension, COPD, presented with increased difficulty breathing. The patient reported to be ill for several days. She noted cough and increased difficulty of breathing. Cough was nonproductive. Upon evaluation in the emergency department, pulse oximetry was 84% on the room air and ABG revealed hypercapnia. The patient required emergency oral intubation. WBC -15.1, hemoglobin and hematocrit were stable. Sodium -124, potassium -5.4. Renal parameters stable. Lactic acid- 1.1. Glucose- 181. Troponin was negative. CK - 23. ABG revealed evidence of respiratory acidosis: pH- 7.26, pCO2 -73. Initial chest x-ray revealed small bilateral pleural effusion, pulmonary edema, superimposed pneumonia was not entirely excluded. The patient was admitted to ICU with diagnosis of acute respiratory failure, COPD exacerbation, pulmonary edema, pneumonia and diabetes. HOSPITAL COURSE: The patient admitted to ICU. Ventilator support provided. Pulmonary toilet provided. The patient follow up with ABG and chest x-ray. ID, Cardiology, and Pulmonology consults were requested. The patient was on empiric antibiotics for presumed community-acquired pneumonia versus aspiration pneumonia. Leukocytosis resolved. Blood culture, sputum culture, urine culture, and influenza screen cultures were all negative. ID closely followed. Chest ultrasound was done to check the need for thoracentesis. However, ultrasound identified small bilateral pleural effusion, too small to perform thoracentesis. Venous duplex bilateral lower extremities revealed no evidence of acute DVT. Echocardiogram revealed preserved ejection fraction of 60% to 65%, no evidence of left ventricular hypertrophy, no evidence of pericardial or pleural effusion, no abnormalities in the wall motion. Renal ultrasound revealed no hydronephrosis and normal bilateral echogenicity of kidneys. The patient was started on weaning protocol. The patient was unable to tolerate weaning. CT of the chest revealed findings suspicious of malignancy: multiple lung nodules, largest of which was 3.5 x 3.2 in the right middle lobe. Extensive consolidation in the lung bases likely pneumonia. Bilateral pleural effusion. Suggestion of mediastinal adenopathy. Marked splenomegaly. 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 Portal hypertension was suspected. Surgeon seen the patient for tracheostomy placement. Family gave consent. Tracheostomy placement was planned. At the same time, Hematology/Oncology consult was requested. Cancer tumor markers revealed elevated CA-125 -73.5. The patient also had comorbidities such as portal hypertension and probably cirrhosis. Plan was to do CT-guided biopsy of the lung mass, however, per Radiology, it was not possible to do CT-guided biopsy of the lung mass in the intubated patient. The patient had axillary node that could be biopsied. Blood sugar was managed with sliding scale of insulin, remained stable. The patient initially with hypotension, which resolved and blood pressure was managed with antihypertensive regimen. The patient initially was on the IV fluids, which were discontinued after blood pressure stabilized. Renal parameters and electrolytes were closely monitored. Electrolytes were corrected as needed. Nephrotoxics were avoided. DVT and GI prophylaxis provided. Anemia workup was consistent with anemia of chronic disease. Counts were monitored, remained on the baseline. Subsequently, after conversation with the family, given advanced malignancy and respiratory failure, along with other comorbidities, family decided on DNR/DNI status and agreed to terminal extubation. Code Status was changed on 11/28/2017 to DNR/ DNI. Subsequently, terminal extubation was done. The patient was started on morphine drip for comfort. Heart rate and respiratory rate were slowly declining. At 8:43am , the patient was in asystole on the monitor. The patient was pronounced on 11/29/2017 at 8: 43 a.m. Cause of : cardiopulmonary arrest. FINAL DIAGNOSES: 1. Acute hypoxemic hypercapnic respiratory failure requiring intubation. 2. Pulmonary edema. 3. Community-acquired pneumonia/aspiration pneumonia, status post treatment. 4. Chronic obstructive pulmonary disease exacerbation. 5. Lung carcinoma, likely stage IV. 6. Bilateral small pleural effusions. 7. Diabetes. 8. Hypertension. 9. Anemia of chronic disease. 10. Portal hypertension. 11. Comfort care Delroy Covington D.O. Asiya PowellClaxton-Hepburn Medical CenterAntony N.P. DR: PARAS JOB#: [id number] CC: NAS
== END 2017-11-29 08:43 | disposition expired | DRG 130 ==
LOC: EMR 19:35 → EDBEDREQ 20:04 → ICU 21:36
DX: J96.01 Acute respiratory failure with hypoxia (principal); J69.0 Pneumonitis due to inhalation of food and vomit; J90 Pleural effusion, not elsewhere classified; J81.1 Chronic pulmonary edema; K76.6 Portal hypertension; C34.2 Malignant neoplasm of middle lobe, bronchus or lung; D69.6 Thrombocytopenia, unspecified; E88.09 Other disorders of plasma-protein metabolism, not elsewhere classified; J44.0 Chronic obstructive pulmonary disease with (acute) lower respiratory infection; K74.60 Unspecified cirrhosis of liver; E11.9 Type 2 diabetes mellitus without complications; J44.1 Chronic obstructive pulmonary disease with (acute) exacerbation; J96.02 Acute respiratory failure with hypercapnia; I10 Essential (primary) hypertension; Z99.11 Dependence on respirator [ventilator] status; D64.9 Anemia, unspecified; D72.829 Elevated white blood cell count, unspecified; J38.3 Other diseases of vocal cords; R16.1 Splenomegaly, not elsewhere classified; K42.9 Umbilical hernia without obstruction or gangrene; Z66 Do not resuscitate
CPT/HCPCS: 36415; 36600; 71045; 71250; 74018; 76604; 76775; 80048; 80053; 80069; 82150; 82164; 82248; 82270; 82378; 82550; 82553; 82607; 82728; 82746; 82803; 82962; 83540; 83550; 83605; 83690; 83735; 83880; 84100; 84484; 85007; 85025; 85610; 85651; 85730; 86140; 86300; 86304; 86703; 86705; 86709; 86710; 86713; 86803; 87040; 87070; 87086; 87205; 87340; 93005; 93306; 93970; 94002; 94003; 94640; 94664; 94760; 99285; J1815; J2250; J2405; J7620